=== PATIENT | female | born 1955 | race Caucasian/White ===

== ENCOUNTER 2016-12-21 07:30 | Inpatient (IN) | payer MEDICARE, OTHER ==
[2016-12-21] VITALS (14 sets, daily range): BP systolic 91–174; BP diastolic 51–95
[~2016-12-21] VITALS: Ht 160 cm; Wt 106.6 kg
[2016-12-21] MEDS ORDERED: ADENOSINE 6 MG/2 ML VIAL IV ONE ×2 (07:45→08:15)
[2016-12-21] MEDS ORDERED: DILTIAZEM 125 MG in IV DEXTROSE 5% 100 ML IV PRN (08:00)
[2016-12-21] MEDS ORDERED: DILTIAZEM IV PUSH 25 MG/5 ML VIAL. IVP ONE ×2 (08:00)
[2016-12-21] MEDS ORDERED: IV NORMAL SALINE 500ML BAG 500 ML IV ONE (08:00)
[2016-12-21] MEDS ORDERED: LORAZEPAM 2 MG/ML VIAL IV STA (08:08)
[2016-12-21 08:09] LABS: BASO # 0.2 x10^3/uL (0.0-0.2); BASO % 1 % (0-3); EOS % 2 % (0-3); HEMATOCRIT 50.6 % (36.0-47.0); HEMOGLOBIN 16.3 g/dL (12.0-15.5); LYMPH # 10.2 x10^3/uL (1.0-4.8); LYMPH % 48 % (24-48); MEAN CORPUSCULAR HEMOGLOBIN 28 pg (25-35); MEAN CORPUSCULAR HGB CONC 32 g/dL (31-37); MEAN CORPUSCULAR VOLUME 88 fL (79-100); MONO % 8 % (0-9); NEUT % 41 % (31-73); PLATELET COUNT 496 x10^3/uL (140-400); RED BLOOD COUNT 5.76 x10^6/uL (3.50-5.40); RED CELL DISTRIBUTION WIDTH 14.9 % (11.5-14.5); WHITE BLOOD COUNT 21.2 x10^3/uL (4.0-11.0)
[2016-12-21] MEDS ORDERED: LORAZEPAM 2 MG/ML VIAL IV ONE (08:15)
--- NOTE | 2016-12-21 08:16 | RAD ---
Indication: Hypoxia today, short of air. Technique: Upright portable chest radiograph was obtained. No comparison is available. Findings: The heart is not enlarged. The pulmonary vasculature is mildly cephalized. Abhijit B lines are noted. There is no blunting of costophrenic angles. Bony structures are intact. Leads overlie the patient. Impression: Findings suggesting mild vascular congestion and interstitial edema.
[2016-12-21] MEDS ORDERED: ONDANSETRON PF 4 MG/2 ML VIAL. IV PRN ×2 (08:30→10:15)
[2016-12-21] MEDS ORDERED: IV NORMAL SALINE 1000ML BAG 1,000 ML IV SCH (08:30)
[2016-12-21] MEDS ORDERED: FUROSEMIDE 40 MG TABLET PO ONE (08:30)
[2016-12-21] MEDS ORDERED: MORPHINE SULFATE 2 MG/ML DISP.SYRIN. IV PRN (08:30)
--- NOTE | 2016-12-21 08:32 | EKG ---
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
--- NOTE | 2016-12-21 08:33 | EKG ---
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
[2016-12-21 08:44] LABS: CALCIUM 9.5 mg/dL (8.5-10.1); GFR 56.2; POTASSIUM 3.6 mmol/L (3.5-5.1)
[2016-12-21 08:49] LABS: ALBUMIN 3.2 g/dL (3.4-5.0); DIRECT BILIRUBIN 0.1 mg/dL (0.0-0.2); TOTAL BILIRUBIN 0.3 mg/dL (0.2-1.0)
--- NOTE | 2016-12-21 08:51 | PHYS DOC ---
Past Medical History Past Medical History: Anxiety, CVA, Diabetes-Type II, Hypertension, Hypothyroid , Other Additional Past Medical Histor: YEAST INFECTION Past Surgical History: Tonsillectomy, Other Additional Past Surgical Histo: RODS AND PINS IN R ANKLE, TUMORS REMOVED FROM BENEATH EYES- BILAT Alcohol Use: None Drug Use: None Adult General Chief Complaint Chief Complaint: SHORTNESS OF BREATH HPI HPI 61-year-old female presenting to the emergency department today with shortness of breath. Paramedics arrived on the scene and the patient was hypoxic and tachycardic. They initiated an IV administered IV fluids and placed the patient on a facemask oxygenation which improved the patient's oxygenation. Twelve-lead was obtained in the field for which a code STEMI was called by paramedics. Upon arrival to the emergency department the patient remained hypoxic on facemask at 85%. The patient was placed on positive pressure ventilation initially by gentle bag valve masking and then subsequently by noninvasive positive pressure ventilation. Onset today. Location chest lungs. Duration intermittent. No alleviating factors. Review of systems is negative for cough fever chills nausea vomiting diaphoresis. All other review of systems is negative unless otherwise noted in history of present illness. Review of Systems Review of Systems SEE ABOVE. Current Medications Current Medications Current Medications Medications (Trade) Dose Ordered Sig/Madi Start Time Stop Time Status Last Admin Dose Admin Adenosine (Adenocard) 6 mg STK-MED ONCE 12/21/16 07:45 12/21/16 07:46 DC Diltiazem HCl (Cardizem) 20 mg 1X ONCE 12/21/16 08:00 12/21/16 08:04 DC 12/21/16 08:29 20 MG Diltiazem HCl 125 mg/Dextrose 125 ml @ 0 mls/hr CONT PRN 12/21/16 08:00 12/21/16 11:17 DC 12/21/16 08:29 5 MLS/HR Diltiazem HCl 15 mg 15 mg 1X ONCE 12/21/16 08:00 12/21/16 08:00 DC Lorazepam (Ativan) 1 mg 1X STAT 12/21/16 08:08 12/21/16 08:13 DC 12/21/16 07:31 1 MG Sodium Chloride (Iv Sodium Chloride 0.9% 500ml Bag) 500 ml @ 500 mls/hr 1X ONCE 12/21/16 08:00 12/21/16 08:59 DC 12/21/16 08:30 500 MLS/HR Allergies Allergies Allergies Coded Allergies Type Severity Reaction Last Updated Verified No Known Drug Allergies 10/15/13 No Physical Exam Physical Exam Constitutional: Generally the patient is very anxious in appearance. Moderately in respiratory distress. Her skin is warm and dry to touch. HENT: Normocephalic, atraumatic, bilateral external ears normal, oropharynx moist, no oral exudates, nose normal. Eyes: PERRLA, EOMI, conjunctiva normal, no discharge. Neck: Normal range of motion, no tenderness, supple, no stridor. [] Cardiovascular: Patient is tachycardic with a regular rhythm. No murmur. Lungs & Thorax: Patient has crackles bilaterally. No wheezing present. Abdomen: Bowel sounds normal, soft, no tenderness, no masses, no pulsatile masses. [] Skin: Warm, dry, no erythema, no rash. [] Back: No tenderness, no CVA tenderness. Extremities: No tenderness, no cyanosis, no clubbing, ROM intact, no edema is present Neurologic: Alert and oriented X 3, normal motor function, normal sensory function, no focal deficits noted. 5 out of 5 strength in all extremities. Symmetric facial smile. Psychologic: Affect normal, judgement normal, mood normal. Anxious. Current Patient Data Vital Signs Vital Signs Date Time Temp Pulse Resp B/P Pulse Ox O2 Delivery O2 Flow Rate FiO2 12/21/16 07:35 98 BiPAP/CPAP 12/21/16 07:30 98.1 137 34 220/124 98.1 Lab Values Laboratory Tests Test 12/21/16 07:38 White Blood Count 21.2x10^3/uL (4.0-11.0) H Red Blood Count 5.76x10^6/uL (3.50-5.40) H Hemoglobin 16.3g/dL (12.0-15.5) H Hematocrit 50.6% (36.0-47.0) H Mean Corpuscular Volume 88fL (79-100) Mean Corpuscular Hemoglobin 28pg (25-35) Mean Corpuscular Hemoglobin Concent 32g/dL (31-37) Red Cell Distribution Width 14.9% (11.5-14.5) H Platelet Count 496x10^3/uL (140-400) H Neutrophils (%) (Auto) 41% (31-73) Lymphocytes (%) (Auto) 48% (24-48) Monocytes (%) (Auto) 8% (0-9) Eosinophils (%) (Auto) 2% (0-3) Basophils (%) (Auto) 1% (0-3) Neutrophils # (Auto) 8.7x10^3uL (1.8-7.7) H Lymphocytes # (Auto) 10.2x10^3/uL (1.0-4.8) H Monocytes # (Auto) 1.6x10^3/uL (0.0-1.1) H Eosinophils # (Auto) 0.4x10^3/uL (0.0-0.7) Basophils # (Auto) 0.2x10^3/uL (0.0-0.2) Segmented Neutrophils % 37% (35-66) Lymphocytes % 51% (24-48) H Atypical Lymphocytes % (Manual) 1% (0-0) H Monocytes % 8% (0-10) Eosinophils % 2% (0-5) Basophils % 1% (0-3) Platelet Estimate Increased (ADEQUATE) Sodium Level 144mmol/L (136-145) Potassium Level 3.6mmol/L (3.5-5.1) Chloride Level 103mmol/L (98-107) Carbon Dioxide Level 25mmol/L (21-32) Anion Gap 16 (6-14) H Blood Urea Nitrogen 19mg/dL (7-20) Creatinine 1.0mg/dL (0.6-1.0) Estimated GFR (Cockcroft-Gault) 56.2 Glucose Level 285mg/dL (70-99) H Lactic Acid Level 4.8mmol/L (0.4-2.0) *H Calcium Level 9.5mg/dL (8.5-10.1) Total Bilirubin 0.3mg/dL (0.2-1.0) Direct Bilirubin 0.1mg/dL (0.0-0.2) Aspartate Amino Transferase (AST) 45U/L (15-37) H Alanine Aminotransferase (ALT) 33U/L (14-59) Alkaline Phosphatase 170U/L (46-116) H Troponin I Quantitative 0.022ng/mL (0.000-0.055) CL-Oaj-D-Type Natriuretic Peptide 2469pg/mL (0-124) H Total Protein 8.0g/dL (6.4-8.2) Albumin 3.2g/dL (3.4-5.0) L Triglycerides Level 361mg/dL (0-150) H Cholesterol Level 316mg/dL (0-200) H LDL Cholesterol, Calculated 202mg/dL (0-100) H VLDL Cholesterol, Calculated 72mg/dL (0-40) H HDL Cholesterol 42mg/dL (40-60) Cholesterol/HDL Ratio 7.5 Lipase 109U/L (73-393) Thyroid Stimulating Hormone (TSH) 3.839uIU/mL (0.358-3.74) H Laboratory Tests 12/21/16 07:38 Laboratory Tests 12/21/16 07:38 EKG EKG [] EKG at 7:30 in the morning shows atrial flutter with deep S waves and repolarization in lead V2 and V3. Also lead 1 and aVF show repolarization. Twelve-lead was obtained while the administration of adenosine was given 6 mg which shows the patient's conversion to sinus rhythm and reinitiation into a flutter. IV diltiazem bolus and drip were given and subsequent EKG performed at 06/06 shows sinus rhythm with a mildly tachycardic rate. Repolarization abnormality is less likely representing tachycardic ischemic demand. Radiology/Procedures Radiology/Procedures [] Course & Med Decision Making Course & Med Decision Making Pertinent Labs and Imaging studies reviewed. (See chart for details) [] 61-year-old female presenting to the emergency department with hypoxic tachycardic flutter with RVR. Initially the patient was hypertensive tachycardic and hypoxic. Patient was placed on positive pressure ventilation. This improved the patient's oxygenation. IV had been established by EMS. We continued to administer IV fluids. IV adenosine given which converted the patient however the patient reverted back to flutter with a rapid rate. IV diltiazem bolus and drip initiated which fully converted the patient to sinus tachycardia. Chest x-ray shows pulmonary edema likely secondary to tachycardia. Blood pressure came down with the administration of medications. CBC shows elevated white blood cell count. The patient was then admitted to our intensive care unit for further evaluation workup and care. Cardiology and pulmonology consulted. Dragon Disclaimer Dragon Disclaimer This electronic medical record was generated, in whole or in part, using a voice recognition dictation system. Departure Departure Impression: Primary Impression: Atrial flutter with rapid ventricular response Additional Impressions: Hypoxia Pulmonary edema Acute respiratory failure Disposition: ADMITTED INPATIENT Admitting Physician: Chepe Cross Condition: IMPROVED Referrals: VIN GONZALEZ MD (PCP) Critical Care Time Critical care time was 45 minutes exclusive of procedures. Time was spent evaluating the patient, ordering the administration of medications, titrating ventilation and oxygenation, is cussing with consulting providers, documenting, and discussing with the admitting provider. Cardioversion Indication: SVT with pulmonary edema, hypoxic Consent: The patient provided verbal consent for this procedure. This procedure was performed an emergent situation. Procedure: The patient was placed in the supine position and the chest area was exposed. The cardioversion pads were applied in the standard manner and configuration. These were available at the time of the procedure. The patient was administered 6 mg of adenosine once which cardioverted the patient however unfortunately the patient reverted back to atrial flutter with a rapid rate. The patient was then given diltiazem which cardioverted the patient. The patient tolerated the procedure well. Complications: none. Problem Qualifiers STACY MORTENSEN MD Dec 21, 2016 08:51
[2016-12-21 09:20] LABS: HCO3 ABG 21 mmol/L (21-28); PCO2 ABG 41 mmHg (35-46); PH ABG 7.32 (7.35-7.45); PO2 ABG 87 mmHg (65-108); SAT O2 ABG 96 % (92-99)
--- NOTE | 2016-12-21 09:33 | ACF ---
Admission Forms Criteria CARDIAC ARRHYTHMIA Clinical Indications for Inpatient Care (Place 'X' for any and all applicable criteria): Ongoing inpatient care for cardiac arrhythmia needed as indicated by ANY ONE of the following(1)(2)(3)(4)(7) : [X]I. Vital sign abnormality secondary to arrhythmia [ ]II. Patient has implantable cardioverter-defibrillator that has fired more than once within past 24 hours or needs immediate adjustment of settings that cannot be done other than in inpatient setting. [ ]III. Altered mental status [ ]IV. Resuscitated or aborted ventricular fibrillation or ventricular tachycardia in patient without implantable cardioverter- defibrillator [ ]V. Initiation of antiarrhythmic drug therapy is needed in patient at high risk of adverse effects as indicated by ANY ONE of the following: [ ]a) Significant structural heart disease (e.g., reduced ejection fraction, congenital heart disease, valvular heart disease) [ ]b) Prolonged QT interval [ ]c) Underlying sinus node or atrioventricular conduction disturbances [ ]d) Need for treatment with antiarrhythmic drugs that have significant proarrhythmic potential (e.g., dofetilide, sotalol, procainamide) [ ]. Acute myocardial ischemia as a consequence or suspected cause of arrhythmia [ ]VII. Syncope secondary to arrhythmia [ ]VIII. Heart failure (eg, pulmonary edema) secondary to arrhythmia) (26)(27) [ ]IX. Patient has implantable cardioverter defibrillator that has fired more than once within past 24hr or needs immediate adjustment of settings that cannot be done other than in inpatient setting.(8) [ ]X. Sustained (30 seconds or more of ventricular rhythm at more than 100 beats per minute) ventricular tachycardia and ANY ONE of the following: [ ]a) No previous known history of sustained ventricular tachycardia [ ]b) Structural heart disease (eg, reduced ejection fraction, hypertrophic cardiomyopathy, severe valvular disease) and without implantable cardioverter-defibrillator(24)(32)(33) [ ]c) Need for treatment of drug toxicity (eg, digitalis toxicity)(34 ) [ ]d) Need for electrical cardioversion Extended stay beyond goal length of stay may be needed for [ ]a) Hemodynamic stability [ ]b) Arrhythmia evaluation completed [ ]c) Reversible causes of arrhythmia eliminated or mitigated [ ]d) Specific antiarrhythmia treatment initiated as appropriate [ ]e) Anticoagulation requirements addressed (or anticoagulation not required). [ ]f) Medical comorbidities manageable at lower level of care The original [facility] content created by [facility] has been revised. The portions of the content which have been revised are identified through the use of italic text or in bold, and [facility] has neither reviewed nor approved the modified material. All other unmodified content is copyright [facility]. Please see references footnoted in the original [facility] edition 2016 Admission Criteria Met?: Yes PIERO DECKER Dec 21, 2016 09:33
--- NOTE | 2016-12-21 09:40 | PDOC ---
PULMONARY PROGRESS NOTES Vitals Vital Signs Date Time Temp Pulse Resp B/P Pulse Ox O2 Delivery O2 Flow Rate FiO2 12/21/16 09:15 99 BiPAP/CPAP 12/21/16 08:29 161/74 12/21/16 07:30 98.1 137 34 98.1 Labs Laboratory Tests Test 12/21/16 07:38 12/21/16 09:15 White Blood Count 21.2x10^3/uL (4.0-11.0) Red Blood Count 5.76x10^6/uL (3.50-5.40) Hemoglobin 16.3g/dL (12.0-15.5) Hematocrit 50.6% (36.0-47.0) Mean Corpuscular Volume 88fL (79-100) Mean Corpuscular Hemoglobin 28pg (25-35) Mean Corpuscular Hemoglobin Concent 32g/dL (31-37) Red Cell Distribution Width 14.9% (11.5-14.5) Platelet Count 496x10^3/uL (140-400) Neutrophils (%) (Auto) 41% (31-73) Lymphocytes (%) (Auto) 48% (24-48) Monocytes (%) (Auto) 8% (0-9) Eosinophils (%) (Auto) 2% (0-3) Basophils (%) (Auto) 1% (0-3) Neutrophils # (Auto) 8.7x10^3uL (1.8-7.7) Lymphocytes # (Auto) 10.2x10^3/uL (1.0-4.8) Monocytes # (Auto) 1.6x10^3/uL (0.0-1.1) Eosinophils # (Auto) 0.4x10^3/uL (0.0-0.7) Basophils # (Auto) 0.2x10^3/uL (0.0-0.2) Sodium Level 144mmol/L (136-145) Potassium Level 3.6mmol/L (3.5-5.1) Chloride Level 103mmol/L (98-107) Carbon Dioxide Level 25mmol/L (21-32) Anion Gap 16 (6-14) Blood Urea Nitrogen 19mg/dL (7-20) Creatinine 1.0mg/dL (0.6-1.0) Estimated GFR (Cockcroft-Gault) 56.2 Glucose Level 285mg/dL (70-99) Lactic Acid Level 4.8mmol/L (0.4-2.0) Calcium Level 9.5mg/dL (8.5-10.1) Total Bilirubin 0.3mg/dL (0.2-1.0) Direct Bilirubin 0.1mg/dL (0.0-0.2) Aspartate Amino Transf (AST/SGOT) 45U/L (15-37) Alanine Aminotransferase (ALT/SGPT) 33U/L (14-59) Alkaline Phosphatase 170U/L (46-116) Troponin I Quantitative 0.022ng/mL (0.000-0.055) PL-Onk-K-Type Natriuretic Peptide 2469pg/mL (0-124) Total Protein 8.0g/dL (6.4-8.2) Albumin 3.2g/dL (3.4-5.0) Lipase 109U/L (73-393) O2 Saturation 96% (92-99) Arterial Blood pH 7.32 (7.35-7.45) Arterial Blood pCO2 at Patient Temp 41mmHg (35-46) Arterial Blood pO2 at Patient Temp 87mmHg (65-108) Arterial Blood HCO3 21mmol/L (21-28) Arterial Blood Base Excess -5mmol/L (-3-3) FiO2 40.0 Laboratory Tests Test 12/21/16 07:38 12/21/16 09:15 White Blood Count 21.2x10^3/uL (4.0-11.0) Red Blood Count 5.76x10^6/uL (3.50-5.40) Hemoglobin 16.3g/dL (12.0-15.5) Hematocrit 50.6% (36.0-47.0) Mean Corpuscular Volume 88fL (79-100) Mean Corpuscular Hemoglobin 28pg (25-35) Mean Corpuscular Hemoglobin Concent 32g/dL (31-37) Red Cell Distribution Width 14.9% (11.5-14.5) Platelet Count 496x10^3/uL (140-400) Neutrophils (%) (Auto) 41% (31-73) Lymphocytes (%) (Auto) 48% (24-48) Monocytes (%) (Auto) 8% (0-9) Eosinophils (%) (Auto) 2% (0-3) Basophils (%) (Auto) 1% (0-3) Neutrophils # (Auto) 8.7x10^3uL (1.8-7.7) Lymphocytes # (Auto) 10.2x10^3/uL (1.0-4.8) Monocytes # (Auto) 1.6x10^3/uL (0.0-1.1) Eosinophils # (Auto) 0.4x10^3/uL (0.0-0.7) Basophils # (Auto) 0.2x10^3/uL (0.0-0.2) Sodium Level 144mmol/L (136-145) Potassium Level 3.6mmol/L (3.5-5.1) Chloride Level 103mmol/L (98-107) Carbon Dioxide Level 25mmol/L (21-32) Anion Gap 16 (6-14) Blood Urea Nitrogen 19mg/dL (7-20) Creatinine 1.0mg/dL (0.6-1.0) Estimated GFR (Cockcroft-Gault) 56.2 Glucose Level 285mg/dL (70-99) Lactic Acid Level 4.8mmol/L (0.4-2.0) Calcium Level 9.5mg/dL (8.5-10.1) Total Bilirubin 0.3mg/dL (0.2-1.0) Direct Bilirubin 0.1mg/dL (0.0-0.2) Aspartate Amino Transf (AST/SGOT) 45U/L (15-37) Alanine Aminotransferase (ALT/SGPT) 33U/L (14-59) Alkaline Phosphatase 170U/L (46-116) Troponin I Quantitative 0.022ng/mL (0.000-0.055) VD-Qci-O-Type Natriuretic Peptide 2469pg/mL (0-124) Total Protein 8.0g/dL (6.4-8.2) Albumin 3.2g/dL (3.4-5.0) Lipase 109U/L (73-393) O2 Saturation 96% (92-99) Arterial Blood pH 7.32 (7.35-7.45) Arterial Blood pCO2 at Patient Temp 41mmHg (35-46) Arterial Blood pO2 at Patient Temp 87mmHg (65-108) Arterial Blood HCO3 21mmol/L (21-28) Arterial Blood Base Excess -5mmol/L (-3-3) FiO2 40.0 Medications Active Scripts Medications Dose Route/Sig Days Date Category DULCE PRYOR MD Dec 21, 2016 09:40
--- NOTE | 2016-12-21 09:49 | PDOC2 ---
RONNI CALI COMPLIANCE COORDINATOR 12/21/16 0949: CARDIAC CONSULT DATE OF CONSULT Date of Consult DATE: 12/21/16 TIME: 09:46 REASON FOR CONSULT Reason for Consult: Tachycardia REFERRING PHYSICIAN Referring Physician: Dr. Jaramillo SOURCE Source: Chart review, Patient HISTORY OF PRESENT ILLNESS HISTORY OF PRESENT ILLNESS This is a 61 yo female who presented with complaints of shortness of breath. Patient reports she woke up this morning and took medications around 5am. Couldn 't get comfortable, was short of breath. Associated with palpitations, dizziness , diaphoresis, and nausea with one episode of vomiting. Denies any chest pain or pressure aside from the palpitations. No recent fevers. Reports redness of right foot upon awakening this morning. Also had nasal congestion and cough with productive of green sputum this morning. Normally wears 3LNC at HS for OAS. Placed oxygen on; no relief of symptoms. Shortness of breath worsened, called EMS. Upon arrival, EMS noted patient to be tachycardic and hypoxic. Tachycardic upon arrival to ED. Given adenosine 6mg- rhythm appears to be atrial flutter. Given Cardizem bolus followed by infusing, which converted patient to SR. Stared on BuSpar for treatment of anxiety; took first does this am- feels this is symptoms contributor. Follows with [facility]ology group. H/o PAD s/p SCENARIO WRITER/stenting of bilateral LE. Recent intervention of LLE. Reports compliance with medications. No recent cardiac workup including stress test, echo, or cardiac cath. PAST MEDICAL HISTORY Cardiovascular: CHF, HTN, Hyperlipidemia, Other (PVD s/p SCENARIO WRITER/stenting to bi LE) Pulmonary: COPD, Other (ADRIENNE 3LNC at HS) CENTRAL NERVOUS SYSTEM: CVA, Periperal neuropathy GI: GERD Heme/Onc: No pertinent hx Hepatobiliary: No pertinent hx Psych: Anxiety, Depression Musculoskeletal: Osteoarthritis Rheumatologic: No pertinent hx Infectious disease: No pertinent hx ENT: No pertinent hx Renal/: No pertinent hx Endocrine: Diabetes Dermatology: No pertinent hx PAST SURGICAL HISTORY Past Surgical History: Appendectomy, Hysterectomy, Other (left foot 2nd toe partial amputation, right ankle sx with medical hardware) FAMILY HISTORY Family History: Coronary Artery Disease, Hypertension, Stroke SOCIAL HISTORY Smoke: <1 pack per day ALCOHOL: none Drugs: None Lives: with Family CURRENT MEDICATIONS CURRENT MEDICATIONS Current Medications Medications (Trade) Dose Ordered Sig/Madi Route PRN Reason Start Time Stop Time Status Last Admin Dose Admin Diltiazem HCl 125 mg/Dextrose 125 ml @ 0 mls/hr CONT PRN IV SEE I/O RECORD 12/21/16 08:00 12/21/16 08:29 Sodium Chloride (Iv Sodium Chloride 0.9% 500ml Bag) 500 ml @ 500 mls/hr 1X ONCE IV 12/21/16 08:00 12/21/16 08:59 DC 12/21/16 08:30 Diltiazem HCl (Cardizem) 20 mg 1X ONCE IVP 12/21/16 08:00 12/21/16 08:04 DC 12/21/16 08:29 Lorazepam (Ativan) 1 mg 1X ONCE IV 12/21/16 08:15 12/21/16 08:16 DC 12/21/16 07:47 Lorazepam (Ativan) 1 mg 1X STAT IV 12/21/16 08:08 12/21/16 08:13 DC 12/21/16 07:31 Adenosine 6 mg 6 mg 1X ONCE IV 12/21/16 08:15 12/21/16 08:16 DC 12/21/16 07:54 Sodium Chloride (Iv Sodium Chloride 0.9% 1000ml Bag) 1,000 ml @ 100 mls/hr Q10H IV 12/21/16 08:30 12/22/16 08:29 12/21/16 08:31 Furosemide (Lasix) 40 mg 1X ONCE PO 12/21/16 08:30 12/21/16 08:31 DC 12/21/16 09:25 ALLERGIES ALLERGIES: Coded Allergies: No Known Drug Allergies (Unverified , 10/15/13) ROS Review of System 14 point ROS conducted with pertinent positives noted above in HPI. PHYSICAL EXAM General: Alert, Oriented X3, Cooperative, No acute distress HEENT: Atraumatic, Mucous membr. moist/pink Lungs: Other (diminished bases ) Heart: Regular rate, Normal S1, Normal S2, Other (distant heart tones) Abdomen: Soft, No tenderness Extremities: No edema, Other (LLE DP pulse 1+ with petechiae ) Skin: No breakdown, No significant lesion Neuro: Normal speech, Sensation intact, Other (RUE 4/5 strength) Psych/Mental Status: Mental status NL, Other (anxious ) MUSCULOSKELETAL: Osteoarthritic changes both hands VITALS VITALS Vital Signs Date Time Temp Pulse Resp B/P Pulse Ox O2 Delivery O2 Flow Rate FiO2 12/21/16 09:15 99 BiPAP/CPAP 12/21/16 08:29 161/74 12/21/16 07:30 98.1 137 34 98.1 LABS Lab: Laboratory Tests Test 12/21/16 07:38 12/21/16 09:15 White Blood Count 21.2x10^3/uL (4.0-11.0) Red Blood Count 5.76x10^6/uL (3.50-5.40) Hemoglobin 16.3g/dL (12.0-15.5) Hematocrit 50.6% (36.0-47.0) Mean Corpuscular Volume 88fL (79-100) Mean Corpuscular Hemoglobin 28pg (25-35) Mean Corpuscular Hemoglobin Concent 32g/dL (31-37) Red Cell Distribution Width 14.9% (11.5-14.5) Platelet Count 496x10^3/uL (140-400) Neutrophils (%) (Auto) 41% (31-73) Lymphocytes (%) (Auto) 48% (24-48) Monocytes (%) (Auto) 8% (0-9) Eosinophils (%) (Auto) 2% (0-3) Basophils (%) (Auto) 1% (0-3) Neutrophils # (Auto) 8.7x10^3uL (1.8-7.7) Lymphocytes # (Auto) 10.2x10^3/uL (1.0-4.8) Monocytes # (Auto) 1.6x10^3/uL (0.0-1.1) Eosinophils # (Auto) 0.4x10^3/uL (0.0-0.7) Basophils # (Auto) 0.2x10^3/uL (0.0-0.2) Sodium Level 144mmol/L (136-145) Potassium Level 3.6mmol/L (3.5-5.1) Chloride Level 103mmol/L (98-107) Carbon Dioxide Level 25mmol/L (21-32) Anion Gap 16 (6-14) Blood Urea Nitrogen 19mg/dL (7-20) Creatinine 1.0mg/dL (0.6-1.0) Estimated GFR (Cockcroft-Gault) 56.2 Glucose Level 285mg/dL (70-99) Lactic Acid Level 4.8mmol/L (0.4-2.0) Calcium Level 9.5mg/dL (8.5-10.1) Total Bilirubin 0.3mg/dL (0.2-1.0) Direct Bilirubin 0.1mg/dL (0.0-0.2) Aspartate Amino Transf (AST/SGOT) 45U/L (15-37) Alanine Aminotransferase (ALT/SGPT) 33U/L (14-59) Alkaline Phosphatase 170U/L (46-116) Troponin I Quantitative 0.022ng/mL (0.000-0.055) QT-Txf-C-Type Natriuretic Peptide 2469pg/mL (0-124) Total Protein 8.0g/dL (6.4-8.2) Albumin 3.2g/dL (3.4-5.0) Lipase 109U/L (73-393) O2 Saturation 96% (92-99) Arterial Blood pH 7.32 (7.35-7.45) Arterial Blood pCO2 at Patient Temp 41mmHg (35-46) Arterial Blood pO2 at Patient Temp 87mmHg (65-108) Arterial Blood HCO3 21mmol/L (21-28) Arterial Blood Base Excess -5mmol/L (-3-3) FiO2 40.0 ASSESSMENT/PLAN ASSESSMENT/PLAN 1. Tachyarrhythmia 2. Acute on chronic heart failure 3. Acute on chronic respiratory failure, multifactorial 4. Malignant hypertension 5. Leukocytosis with ? sepsis, POA 6. Diabetes 7. ADRIENNE 8. Anxiety Recommendations Obtain cardiac records from [facility] Check echo to assess LV function/ presence of WMA check TSH, lipids trend enzymes resume ASA, Plavix Assess need for further diuresis in am Maintaining SR; resume Metoprolol for rate control. Uptitrate as able. ASA for stroke prevention. Consider outpatient event monitor to assess arrhythmia burden/guide anticoagulation therapy. Given h/o PAD, increased risk for CAD; recommend further ischemic workup. MPI versus cardiac catheterization depending upon symptomatology and pending diagnostics. Will discuss with primary cardiology. Problems: SUNNY CHRISTIANSEN MD 12/21/168: CARDIAC CONSULT ALLERGIES ALLERGIES: Coded Allergies: No Known Drug Allergies (Unverified , 10/15/13) ASSESSMENT/PLAN ASSESSMENT/PLAN Patient seen and examined. Agree with above nurse practitioner note. 61-year-old woman with prior history of peripheral arterial disease presenting with hypertensive emergency, A. fib with RVR, acute on systolic heart failure and non-ST elevation myocardial infarction. On examination she has mild edema. She has lower extremity changes consistent with PAD. Labs notable for elevated troponin. Echocardiogram demonstrates mild LV systolic dysfunction with wall motion abnormalities. In light of her abnormalities would recommend cardiac catheterization after stabilization of her infectious issues. Will follow along closely. Thank you for this consultation. Problems: RONNI CALI APRN Dec 21, 2016 09:49 SUNNY CHRISTIANSEN MD Dec 21, 2016 19:08
[2016-12-21 10:12] LABS: % BASOS 1 % (0-3); % EOS 2 % (0-5)
[2016-12-21 10:13] LABS: PLT ESTIMATE INCREASED (ADEQUATE)
[2016-12-21] MEDS ORDERED: ACETAMINOPHEN 325 MG TABLET. PO PRN (10:15)
[2016-12-21] MEDS ORDERED: hydrALAZINE 20 MG/ML VIAL. IVP PRN (10:15)
[2016-12-21] MEDS ORDERED: ALBUTEROL SULFATE 2.5 MG/3 ML NEBU. NEB PRN (10:15)
--- NOTE | 2016-12-21 11:06 | PDOC1 ---
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) Pulmonary: COPD, Other (ADRIENNE 3LNC at HS) CENTRAL NERVOUS SYSTEM: CVA, Periperal neuropathy GI: GERD Heme/Onc: No pertinent hx Hepatobiliary: No pertinent hx Psych: Anxiety, Depression Rheumatologic: No pertinent hx Infectious disease: No pertinent hx ENT: No pertinent hx Renal/: No pertinent hx Endocrine: Diabetes Dermatology: No pertinent hx Past Surgical History Past Surgical History: Appendectomy, Hysterectomy, Other (left foot 2nd toe partial amputation, right ankle sx with medical hardware) Family History Family History: Coronary Artery Disease, Hypertension, Stroke Social History Smoke: <1 pack per day ALCOHOL: none Drugs: None Current Problem List Problem List Problems Medical Problems: (1) Acute respiratory failure Status: Acute (2) Atrial flutter with rapid ventricular response Status: Acute (3) Hypoxia Status: Acute (4) Pulmonary edema Status: Acute Current Medications Current Medications Current Medications Medications (Trade) Dose Ordered Sig/Madi Start Time Stop Time Status Last Admin Dose Admin Acetaminophen (Tylenol) 325 mg PRN Q6HRS PRN 12/21/16 10:15 Acetaminophen/ Hydrocodone Bitart (Lortab 5/325) 1 tab PRN Q6HRS PRN 12/21/16 10:15 Adenosine (Adenocard) 6 mg STK-MED ONCE 12/21/16 07:45 12/21/16 07:46 DC Adenosine 6 mg 6 mg 1X ONCE 12/21/16 08:15 12/21/16 08:16 DC 12/21/16 07:54 6 MG Albuterol Sulfate (Ventolin Neb Soln) 2.5 mg PRN Q4HRS PRN 12/21/16 10:15 Diltiazem HCl (Cardizem) 20 mg 1X ONCE 12/21/16 08:00 12/21/16 08:04 DC 12/21/16 08:29 20 MG Diltiazem HCl 125 mg/Dextrose 125 ml @ 0 mls/hr CONT PRN 12/21/16 08:00 12/21/16 08:29 5 MLS/HR Diltiazem HCl 15 mg 15 mg 1X ONCE 12/21/16 08:00 12/21/16 08:00 DC Furosemide (Lasix) 40 mg 1X ONCE 12/21/16 08:30 12/21/16 08:31 DC 12/21/16 09:25 40 MG Hydralazine HCl (Apresoline) 10 mg PRN Q4HRS PRN 12/21/16 10:15 Lorazepam (Ativan) 1 mg 1X STAT 12/21/16 08:08 12/21/16 08:13 DC 12/21/16 07:31 1 MG Morphine Sulfate 2 mg PRN Q2HR PRN 12/21/16 08:30 12/22/16 08:29 Ondansetron HCl (Zofran) 4 mg PRN Q8HRS PRN 12/21/16 10:15 Sodium Chloride (Iv Sodium Chloride 0.9% 500ml Bag) 500 ml @ 500 mls/hr 1X ONCE 12/21/16 08:00 12/21/16 08:59 DC 12/21/16 08:30 500 MLS/HR Sodium Chloride (Iv Sodium Chloride 0.9% 1000ml Bag) 1,000 ml @ 100 mls/hr Q10H 12/21/16 08:30 12/22/16 08:29 12/21/16 08:31 100 MLS/HR Allergies Allergies Allergies Coded Allergies Type Severity Reaction Last Updated Verified No Known Drug Allergies 10/15/13 No ROS Review of System CONSTITUTIONAL: No fever or chills EYES: No recent changes SKIN: No rash or itching CARDIOVASCULAR: No chest pain, syncope, palpitations, or edema RESPIRATORY: SOB GASTROINTESTINAL: No nausea, vomiting or abdominal pain NEUROLOGICAL: No headaches or weakness ENDOCRINE: No cold or heat intolerance GENITOURINARY: No urgency or frequency of urination MUSCULOSKELETAL: No back pain or joint pain LYMPHATICS: No enlarged lymph nodes PSYCHIATRIC: No anxiety or depression Physical Exam Physical Exam GEN.: No apparent distress. Alert and oriented. HEENT: Head is normocephalic, atraumatic NECK: Supple. no jvd LUNGS: basal rales, HEART: RRR, S1, S2 present. Peripheral pulses intact ABDOMEN: Soft, nontender. Positive bowel sounds. EXTREMITIES: Without any cyanosis. LLE erythema NEUROLOGIC: Normal speech, normal tone PSYCHIATRIC: Normal affect, normal mood. SKIN: No visible ulcerations Vitals Vitals Vital Signs Date Time Temp Pulse Resp B/P Pulse Ox O2 Delivery O2 Flow Rate FiO2 12/21/16 10:53 98 Nasal Cannula 4.0 12/21/16 09:35 98.1 69 18 108/64 98.1 Labs Labs Laboratory Tests Test 12/21/16 07:38 12/21/16 09:15 12/21/16 09:55 White Blood Count 21.2x10^3/uL (4.0-11.0) Red Blood Count 5.76x10^6/uL (3.50-5.40) Hemoglobin 16.3g/dL (12.0-15.5) Hematocrit 50.6% (36.0-47.0) Mean Corpuscular Volume 88fL (79-100) Mean Corpuscular Hemoglobin 28pg (25-35) Mean Corpuscular Hemoglobin Concent 32g/dL (31-37) Red Cell Distribution Width 14.9% (11.5-14.5) Platelet Count 496x10^3/uL (140-400) Neutrophils (%) (Auto) 41% (31-73) Lymphocytes (%) (Auto) 48% (24-48) Monocytes (%) (Auto) 8% (0-9) Eosinophils (%) (Auto) 2% (0-3) Basophils (%) (Auto) 1% (0-3) Neutrophils # (Auto) 8.7x10^3uL (1.8-7.7) Lymphocytes # (Auto) 10.2x10^3/uL (1.0-4.8) Monocytes # (Auto) 1.6x10^3/uL (0.0-1.1) Eosinophils # (Auto) 0.4x10^3/uL (0.0-0.7) Basophils # (Auto) 0.2x10^3/uL (0.0-0.2) Segmented Neutrophils % 37% (35-66) Lymphocytes % 51% (24-48) Atypical Lymphocytes % (Manual) 1% (0-0) Monocytes % 8% (0-10) Eosinophils % 2% (0-5) Basophils % 1% (0-3) Platelet Estimate Increased (ADEQUATE) Sodium Level 144mmol/L (136-145) Potassium Level 3.6mmol/L (3.5-5.1) Chloride Level 103mmol/L (98-107) Carbon Dioxide Level 25mmol/L (21-32) Anion Gap 16 (6-14) Blood Urea Nitrogen 19mg/dL (7-20) Creatinine 1.0mg/dL (0.6-1.0) Estimated GFR (Cockcroft-Gault) 56.2 Glucose Level 285mg/dL (70-99) Lactic Acid Level 4.8mmol/L (0.4-2.0) 3.2mmol/L (0.4-2.0) Calcium Level 9.5mg/dL (8.5-10.1) Total Bilirubin 0.3mg/dL (0.2-1.0) Direct Bilirubin 0.1mg/dL (0.0-0.2) Aspartate Amino Transf (AST/SGOT) 45U/L (15-37) Alanine Aminotransferase (ALT/SGPT) 33U/L (14-59) Alkaline Phosphatase 170U/L (46-116) Troponin I Quantitative 0.022ng/mL (0.000-0.055) UT-Pxm-U-Type Natriuretic Peptide 2469pg/mL (0-124) Total Protein 8.0g/dL (6.4-8.2) Albumin 3.2g/dL (3.4-5.0) Lipase 109U/L (73-393) O2 Saturation 96% (92-99) Arterial Blood pH 7.32 (7.35-7.45) Arterial Blood pCO2 at Patient Temp 41mmHg (35-46) Arterial Blood pO2 at Patient Temp 87mmHg (65-108) Arterial Blood HCO3 21mmol/L (21-28) Arterial Blood Base Excess -5mmol/L (-3-3) FiO2 40.0 Laboratory Tests Test 12/21/16 07:38 12/21/16 09:15 12/21/16 09:55 White Blood Count 21.2x10^3/uL (4.0-11.0) Red Blood Count 5.76x10^6/uL (3.50-5.40) Hemoglobin 16.3g/dL (12.0-15.5) Hematocrit 50.6% (36.0-47.0) Mean Corpuscular Volume 88fL (79-100) Mean Corpuscular Hemoglobin 28pg (25-35) Mean Corpuscular Hemoglobin Concent 32g/dL (31-37) Red Cell Distribution Width 14.9% (11.5-14.5) Platelet Count 496x10^3/uL (140-400) Neutrophils (%) (Auto) 41% (31-73) Lymphocytes (%) (Auto) 48% (24-48) Monocytes (%) (Auto) 8% (0-9) Eosinophils (%) (Auto) 2% (0-3) Basophils (%) (Auto) 1% (0-3) Neutrophils # (Auto) 8.7x10^3uL (1.8-7.7) Lymphocytes # (Auto) 10.2x10^3/uL (1.0-4.8) Monocytes # (Auto) 1.6x10^3/uL (0.0-1.1) Eosinophils # (Auto) 0.4x10^3/uL (0.0-0.7) Basophils # (Auto) 0.2x10^3/uL (0.0-0.2) Segmented Neutrophils % 37% (35-66) Lymphocytes % 51% (24-48) Atypical Lymphocytes % (Manual) 1% (0-0) Monocytes % 8% (0-10) Eosinophils % 2% (0-5) Basophils % 1% (0-3) Platelet Estimate Increased (ADEQUATE) Sodium Level 144mmol/L (136-145) Potassium Level 3.6mmol/L (3.5-5.1) Chloride Level 103mmol/L (98-107) Carbon Dioxide Level 25mmol/L (21-32) Anion Gap 16 (6-14) Blood Urea Nitrogen 19mg/dL (7-20) Creatinine 1.0mg/dL (0.6-1.0) Estimated GFR (Cockcroft-Gault) 56.2 Glucose Level 285mg/dL (70-99) Lactic Acid Level 4.8mmol/L (0.4-2.0) 3.2mmol/L (0.4-2.0) Calcium Level 9.5mg/dL (8.5-10.1) Total Bilirubin 0.3mg/dL (0.2-1.0) Direct Bilirubin 0.1mg/dL (0.0-0.2) Aspartate Amino Transf (AST/SGOT) 45U/L (15-37) Alanine Aminotransferase (ALT/SGPT) 33U/L (14-59) Alkaline Phosphatase 170U/L (46-116) Troponin I Quantitative 0.022ng/mL (0.000-0.055) NX-Rna-H-Type Natriuretic Peptide 2469pg/mL (0-124) Total Protein 8.0g/dL (6.4-8.2) Albumin 3.2g/dL (3.4-5.0) Lipase 109U/L (73-393) O2 Saturation 96% (92-99) Arterial Blood pH 7.32 (7.35-7.45) Arterial Blood pCO2 at Patient Temp 41mmHg (35-46) Arterial Blood pO2 at Patient Temp 87mmHg (65-108) Arterial Blood HCO3 21mmol/L (21-28) Arterial Blood Base Excess -5mmol/L (-3-3) FiO2 40.0 VTE Prophylaxis Ordered VTE Prophylaxis Devices: Yes VTE Pharmacological Prophylaxi: Yes NOLVIA LARES MD Dec 21, 2016 11:06
[2016-12-21] MEDS ORDERED: ASPI-482 PO (11:17)
[2016-12-21] MEDS ORDERED: ATORVASTATIN CA80 MG PO (11:17)
[2016-12-21] MEDS ORDERED: INSU100V13 SQ ×2 (11:20)
[2016-12-21] MEDS ORDERED: CLOP75TA PO (11:20)
[2016-12-21] MEDS ORDERED: GABA800T2 PO (11:20)
[2016-12-21 11:28] LABS: CHOLESTEROL/HDL RATIO 7.5
[2016-12-21] MEDS ORDERED: RANI150T2 PO (11:28)
[2016-12-21] MEDS ORDERED: ZOLP10TA4 PO (11:28)
[2016-12-21] MEDS ORDERED: MORP60TA37 PO (11:30)
[2016-12-21] MEDS ORDERED: NORT25CA PO (11:30)
[2016-12-21] MEDS ORDERED: VANCOMYCIN 2 GM in IV NORMAL SALINE 500ML BAG 500 ML IV ONE (11:30)
[2016-12-21] MEDS ORDERED: METO25TA4 PO (11:32)
[2016-12-21] MEDS ORDERED: LEVO175T5 PO (11:32)
[2016-12-21] MEDS ORDERED: NYST30PO9 TP (11:36)
[2016-12-21] MEDS ORDERED: INSU100C SQ (11:36)
[2016-12-21] MEDS ORDERED: ALPR0.5T6 PO (11:36)
[2016-12-21] MEDS ORDERED: INSU100I13 SQ (11:41)
[2016-12-21] MEDS: ASPIRIN ENTERIC COATED 81 MG TABLET.DR. PO SCH (12:00)
[2016-12-21] MEDS ORDERED: METOPROLOL TART IMMED RELEASE 25 MG TABLET PO SCH ×2 (12:00→15:00)
--- NOTE | 2016-12-21 13:46 | CARD ---
APPROVED REPORT EXAM: Two-dimensional and M-mode echocardiogram with Doppler and color Doppler. Other Information Quality : Good INDICATION Congestive Heart Failure 2D DIMENSIONS RVDd2.4 (2.9-3.5cm)Left Atrium(2D)4.9 (1.6-4.0cm) IVSd1.2 (0.7-1.1cm)Aortic Root(2D)2.6 (2.0-3.7cm) LVDd4.6 (3.9-5.9cm)LVOT Diameter2.0 (1.8-2.4cm) PWd1.2 (0.7-1.1cm)LVDs3.6 (2.5-4.0cm) FS (%) 21.2 %SV41.1 ml LVEF(%)43.1 (>50%) Aortic Valve AoV Peak Joseluis.101.7cm/sAoV VTI22.0cm AO Peak GR.4.1mmHgLVOT VTI 15.92cm AO Mean GR.3mmHgAVA (VTI)2.20cm2 Mitral Valve MV E Nowtcclx75.6cm/sMV DECEL [id number] MV A Ekcvskya68.4cm/sE/A Ratio1.2 TDI Lateral E' P. V5.02cm/sMedial E' P. V5.02cm/s E/Lateral E'19.4E/Medial E'19.4 Tricuspid Valve TR P. Lsabuboh570fn/sRAP [id number] TR Peak Gr.12dsFvCRXD69lrZd Pulmonary Vein S1 Hyippkow52.0cm/sS2 Apeodjxa73.04cm/s D2 Czaioztd79.0cm/sPVa [id number] LEFT VENTRICLE The left ventricle is normal size. There is mild concentric left ventricular hypertrophy. Left ventri jeb systolic function is mildly impaired. The Ejection Fraction is 40-45%. There is subtle basal to m id anterior wall hypokinesis. Otherwise, mild global hypokinesis. Tissue Doppler imaging reveals mode rate left ventricular diastolic dysfunction. RIGHT VENTRICLE The right ventricle is normal size. The right ventricular systolic function is normal. ATRIA The left atrium is mildly dilated. The right atrium size is normal. The interatrial septum is intact with no evidence for an atrial septal defect or patent foramen ovale as noted on 2-D or Doppler imagi ng. AORTIC VALVE The aortic valve is mildly thickened but opens well. Doppler and Color Flow revealed no significant a ortic regurgitation. There is no significant aortic valvular stenosis. MITRAL VALVE The mitral valve is calcified but opens well. There is no evidence of mitral valve prolapse. There is no mitral valve stenosis. Doppler and Color-flow revealed trace mitral regurgitation. TRICUSPID VALVE The tricuspid valve is normal in structure and function. Doppler and Color Flow revealed mild tricusp id regurgitation. The PA pressure was estimated at 34 mmHg. There is no tricuspid valve stenosis. PULMONIC VALVE Doppler and Color Flow revealed trace pulmonic valvular regurgitation. There is no pulmonic valvular stenosis. GREAT VESSELS The aortic root is normal in size. The ascending aorta is normal in size. The IVC is normal in size a nd collapses >50% with inspiration. PERICARDIAL EFFUSION There is no evidence of significant pericardial effusion. Critical Notification Critical Value: No <Conclusion> Left ventricle systolic function is mildly impaired. The Ejection Fraction is 40-45%. There is subtle basal to mid anterior wall hypokinesis. Otherwise, mild global hypokinesis. Tissue Doppler imaging reveals moderate left ventricular diastolic dysfunction.
[2016-12-21] MEDS ORDERED: DEXTROSE 50% 25 GM / 50ML DISP.SYRIN. IV PRN (14:00)
[2016-12-21 14:16] LABS: BILIRUBIN,URINE NEGATIVE (NEG); GLUCOSE,URINE NEGATIVE (NEG); NITRITE,URINE NEGATIVE (NEG); PH,URINE 5.5; PROTEIN,URINE 30 mg/dL (NEG-TRACE); UROBILINOGEN,URINE 0.2 mg/dL (0.2 mg/dL)
[2016-12-21] MEDS ORDERED: METOPROLOL TART IMMED RELEASE 25 MG TABLET PO ONE (14:45)
[2016-12-21] MEDS ORDERED: ZOLPIDEM TARTRATE 5 MG PO PRN (14:45)
[2016-12-21 14:58] LABS: BACTERIA,URINE 0 /HPF (0-FEW); RBC,URINE OCC /HPF (0-2); SQUAMOUS EPITHELIAL CELL,UR FEW /LPF; WBC,URINE OCC /HPF (0-4)
[2016-12-21] MEDS ORDERED: CLOPIDOGREL BISULFATE 75 MG TABLET PO SCH (15:00)
[2016-12-21] MEDS ORDERED: MORPHINE ER 30 MG TABLET.ER PO SCH (15:00)
[2016-12-21] MEDS: LEVOTHYROXINE 175 MCG TABLET PO SCH (15:00)
[2016-12-21] MEDS ORDERED: ASPIRIN ENTERIC COATED 81 MG TABLET.DR. PO SCH (15:00)
[2016-12-21] MEDS: ALPRAZOLAM 0.5 MG TABLET PO SCH ×2 (15:28→20:57)
[2016-12-21] MEDS: GABAPENTIN 400 MG CAPSULE. PO SCH ×2 (15:29→20:56)
[2016-12-21] MEDS: FAMOTIDINE 20 MG TABLET. PO SCH ×2 (15:29→20:56)
[2016-12-21] MEDS: VANCOMYCIN PER PHARMACY MC PRN (15:41)
[2016-12-21] MEDS: HEPARIN for IV BOLUS 10,000 UNIT/10 ML VIAL. IV PRN (17:34)
[2016-12-21] MEDS: HEPARIN 25,000UTS/500ML PREMIX 500 ML IV PRN (17:35)
[2016-12-21] MEDS: INSULIN ASPART 300 UNITS/3 ML INSULN.PEN SQ SCH (17:36)
[2016-12-21] MEDS: METOPROLOL TART IMMED RELEASE 50 MG TABLET PO SCH (20:56)
[2016-12-21] MEDS: ATORVASTATIN CALCIUM 40 MG TABLET. PO SCH (20:57)
[2016-12-21] MEDS: NORTRIPTYLINE 25 MG CAPSULE PO SCH (20:57)
[2016-12-21] MEDS: NYSTATIN TOPICAL POWDER 15GM BOTTLE. TP SCH (20:57)
[2016-12-21] MEDS ORDERED: NON FORMULARY ITEM (Insulin Glargine,Hum.rec.anlog (Lantus Solostar) 50 UNIT) SQ SCH (21:00)
[2016-12-21] MEDS: INSULIN DETEMIR 300 UNITS/3 ML INSULN.PEN. SQ SCH (21:18)
[2016-12-22] VITALS (11 sets, daily range): BP systolic 118–197; BP diastolic 56–102
[2016-12-22] MEDS: HEPARIN for IV BOLUS 10,000 UNIT/10 ML VIAL. IV PRN (00:01)
--- NOTE | 2016-12-22 00:20 | HP ---
ADMIT DATE: 12/21/2016 CHIEF COMPLAINT: Shortness of breath. HISTORY OF PRESENT ILLNESS: A 61-year-old female with several comorbid conditions such as peripheral artery disease, hypertension, COPD, chronic respiratory failure, and depression presents to the ER with complaints of acute shortness of breath started early this morning. The patient woke this morning and took her medications after a while she noted to have increased shortness of breath and palpitations. She usually takes 3 to 4 liters of oxygen; however, oxygen did not relieve any of her symptoms. The patient denies any orthopnea or PND; however, tachycardia is significant which made her to come to the ER. At the time of arrival, the patient with questionable aflutter and she received some adenosine and symptoms did not improve and later she was ____. At the time of examination, the patient's symptoms are already improving. Currently, resting comfortably in the Critical Care Unit. PAST MEDICAL HISTORY AND REVIEW OF SYSTEMS: Please see my electronic H and P. LABORATORY FINDINGS: WBC 21.2, hemoglobin is ____, MCV is 88, platelet 496, and neutrophils 8.7. Chemistry: Sodium 144, potassium 3.6, chloride is 103, carbon dioxide 25, ____, glucose is 385, lactic acid 4.8, and alkaline phosphate is 117. Triglycerides 361, cholesterol 316, LDL 202, ____ 0.22. ProBNP 2469. Urine, clarity clear, pH is 5.5, gravity is 1.010, glucose negative, ketone negative, nitrites negatives and leuk esterase negative. IMAGING STUDIES: Chest x-ray showed vascular congestion. ASSESSMENT AND PLAN: 1. Acute shortness of breath, multifactorial, likely due to tachycardia and acute on chronic heart failure. 2. Acute on chronic hypoxia, respiratory failure. 3. Uncontrolled hypertension present on admission. 4. Leukocytosis, unclear etiology. Suspected due to left lower extremity cellulitis. 5. Diabetes. 6. Obesity. 7. Anxiety. 8. Depression. PLAN: 1. The patient has been placed on Critical Care Unit. Currently, she is on Cardizem gtt, OrderedIV Lasix times 1. Cardiology has been following the patient. 2. Home medications will be reconsulted. We will continue home dose of Levemir with sliding scale. 3. Vancomycin has been dosed for suspected cellulitis. Monitor WBC. The patient did not take any steroids prior to arrival. 4. Supplemental oxygen. 5. Pulmonology has been following. 6. Monitor hemoglobin closely. 7. prn Xanax 8. Prognosis is guarded. NOLVIA LARES MD DR: LISETTE/suly JOB#: [id number] / [id number] TORI
[2016-12-22] MEDS: VANCOMYCIN 1.5 GM in IV NORMAL SALINE 500ML BAG 500 ML IV SCH ×2 (00:33→14:01)
--- NOTE | 2016-12-22 00:54 | CONS ---
DATE OF CONSULTATION: 12/21/2016 ATTENDING PHYSICIAN: Dr. Cross. REASON FOR CONSULTATION: The patient is seen in pulmonary consultation at the request of Dr. Cross for acute respiratory failure. HISTORY OF PRESENT ILLNESS: The patient is a 61-year-old female with a history of nocturnal hypoxemia, questionable obstructive sleep apnea, normally wears 3 liters at bedtime. She has never had a formal sleep study. She presented with complaints of shortness of breath, acute onset. She worked up in the morning, felt uncomfortable, mostly shortness of breath associated with palpitation, dizziness, nausea, and diaphoresis. She had one episode of emesis. Denied any chest pain or pressure. No fever, chills. The patient has underlying history of tobacco use. No recent acute exacerbation of COPD. She continues to smoke. She has not had recurrent bouts of bronchitis or hospitalizations for COPD. She normally wears 3 liters of oxygen at home for obstructive sleep apnea. Apparently, she has never had formal sleep study. She presented to the Emergency Room, was given adenosine for rhythm appeared to be atrial flutter. She was then started on IV Cardizem. She is now in normal sinus rhythm. PAST MEDICAL HISTORY: Peripheral arterial disease status post stenting, bilateral lower extremities. CHF, hypertension, COPD, nocturnal hypoxemia, questionable obstructive sleep apnea, CVA with peripheral neuropathy, gastroesophageal reflux, depression. PAST SURGICAL HISTORY: Status post appendectomy, hysterectomy. FAMILY HISTORY: Coronary artery disease, hypertension, and stroke. SOCIAL HISTORY: She smokes less than 1 pack of cigarettes a day. No alcohol. CURRENT MEDICATIONS: List was reviewed. Please see the MRAD. REVIEW OF SYSTEMS: As indicated above, otherwise, a 10-point system was reviewed and negative. PHYSICAL EXAMINATION: GENERAL: The patient was offered BiPAP. VITAL SIGNS: She was utilizing 2 L of oxygen supplementation, saturation greater than 90%. HEENT: Eyes, the sclerae were nonicteric. NECK: Jugular venous distention was not elevated. No lymphadenopathy. CHEST: Full expansion. LUNGS: Crackles in the bases. No wheezes. CARDIOVASCULAR: Regular rate and rhythm with S1, S2, no S3. ABDOMEN: Soft, obese. EXTREMITIES: No clubbing, cyanosis. Minimal edema. NEUROLOGIC: The patient was awake, alert, following commands. A detailed neuro exam was not performed. LABORATORY DATA: White count was elevated. Hemoglobin and hematocrit were elevated. Arterial blood gas on 40%, pH of 7.32, of 41, pO2 of 87. Lactic acid level was increased. Cholesterol was increased. BNP was increased. Chest x-ray revealed some vascular congestion. IMPRESSION: 1. Acute respiratory failure secondary to acute diastolic heart failure. 2. Acute and systolic heart failure. Echocardiogram revealed ejection fraction 40-45%. 3. New onset tachycardia, possibly atrial flutter. 4. Peripheral vascular disease. 5. Tobacco dependence. 6. Chronic obstructive pulmonary disease with no clinical presentation compatible with acute exacerbation. 7. Tachyarrhythmia. 8. Diabetes. 9. Nocturnal hypoxemia, suspect obstructive sleep apnea. PLAN: 1. No need for antibiotics or steroids. 2. Continue IV Cardizem. 3. Outpatient polysomnogram. 4. A 6-minute walk prior to discharge. 5. Diurese. 6. Repeat chest x-ray. 7. The patient instructed on the importance of discontinuing her tobacco use. DULCE PRYOR MD DR: TANI/suly JOB#: [id number] / [id number]
[2016-12-22] MEDS: LEVOTHYROXINE 175 MCG TABLET PO SCH (06:07)
[2016-12-22 06:53] LABS: CALCIUM 8.8 mg/dL (8.5-10.1); CREATININE 0.9 mg/dL (0.6-1.0); GFR 63.4; POTASSIUM 4.1 mmol/L (3.5-5.1)
[2016-12-22 07:04] LABS: BASO # 0.2 x10^3/uL (0.0-0.2); BASO % 1 % (0-3); EOS % 3 % (0-3); HEMATOCRIT 38.6 % (36.0-47.0); HEMOGLOBIN 12.6 g/dL (12.0-15.5); LYMPH # 3.7 x10^3/uL (1.0-4.8); LYMPH % 31 % (24-48); MEAN CORPUSCULAR HEMOGLOBIN 28 pg (25-35); MEAN CORPUSCULAR HGB CONC 33 g/dL (31-37); MEAN CORPUSCULAR VOLUME 87 fL (79-100); MONO % 9 % (0-9); NEUT % 56 % (31-73); PLATELET COUNT 306 x10^3/uL (140-400); RED BLOOD COUNT 4.45 x10^6/uL (3.50-5.40); RED CELL DISTRIBUTION WIDTH 14.7 % (11.5-14.5); WHITE BLOOD COUNT 11.9 x10^3/uL (4.0-11.0)
[2016-12-22] MEDS: FAMOTIDINE 20 MG TABLET. PO SCH ×2 (08:14→20:58)
[2016-12-22] MEDS: CLOPIDOGREL BISULFATE 75 MG TABLET PO SCH (08:14)
[2016-12-22] MEDS: METOPROLOL TART IMMED RELEASE 50 MG TABLET PO SCH ×2 (08:15→20:58)
[2016-12-22] MEDS: GABAPENTIN 400 MG CAPSULE. PO SCH ×3 (08:15→20:57)
[2016-12-22] MEDS: ALPRAZOLAM 0.5 MG TABLET PO SCH ×3 (08:21→20:57)
[2016-12-22] MEDS: MORPHINE ER 15 MG TABLET.ER PO SCH ×2 (08:21→15:33)
[2016-12-22] MEDS: ASPIRIN ENTERIC COATED 81 MG TABLET.DR. PO SCH (08:21)
[2016-12-22] MEDS: INSULIN ASPART 300 UNITS/3 ML INSULN.PEN SQ SCH ×3 (08:26→17:41)
[2016-12-22] MEDS: INSULIN DETEMIR 300 UNITS/3 ML INSULN.PEN. SQ SCH ×2 (08:27→21:34)
[2016-12-22] MEDS: VANCOMYCIN PER PHARMACY MC PRN ×3 (08:45→23:55)
[2016-12-22] MEDS: ANTI-COAG MONITOR BY PHARMACY. MC PRN (08:56)
[2016-12-22] MEDS: HEPARIN 25,000UTS/500ML PREMIX 500 ML IV PRN (10:02)
--- NOTE | 2016-12-22 10:54 | PDOC ---
PULMONARY PROGRESS NOTES Subjective pt less soa Vitals Vital Signs Date Time Temp Pulse Resp B/P Pulse Ox O2 Delivery O2 Flow Rate FiO2 12/22/16 08:15 70 185/92 12/22/16 08:00 Nasal Cannula 3.0 12/22/16 06:00 21 99 12/22/16 04:00 98.3 98.3 ROS: No Nausea, No Chest Pain, No Abdominal Pain, No Increase Cough Lungs: Clear Cardiovascular: S1, S2 Abdomen: Soft Neuro Exam: Alert Extremities: No Edema Skin: Warm Labs Laboratory Tests Test 12/21/16 07:38 12/21/16 09:15 12/21/16 09:55 12/21/16 11:00 White Blood Count 21.2x10^3/uL (4.0-11.0) Red Blood Count 5.76x10^6/uL (3.50-5.40) Hemoglobin 16.3g/dL (12.0-15.5) Hematocrit 50.6% (36.0-47.0) Mean Corpuscular Volume 88fL (79-100) Mean Corpuscular Hemoglobin 28pg (25-35) Mean Corpuscular Hemoglobin Concent 32g/dL (31-37) Red Cell Distribution Width 14.9% (11.5-14.5) Platelet Count 496x10^3/uL (140-400) Neutrophils (%) (Auto) 41% (31-73) Lymphocytes (%) (Auto) 48% (24-48) Monocytes (%) (Auto) 8% (0-9) Eosinophils (%) (Auto) 2% (0-3) Basophils (%) (Auto) 1% (0-3) Neutrophils # (Auto) 8.7x10^3uL (1.8-7.7) Lymphocytes # (Auto) 10.2x10^3/uL (1.0-4.8) Monocytes # (Auto) 1.6x10^3/uL (0.0-1.1) Eosinophils # (Auto) 0.4x10^3/uL (0.0-0.7) Basophils # (Auto) 0.2x10^3/uL (0.0-0.2) Segmented Neutrophils % 37% (35-66) Lymphocytes % 51% (24-48) Atypical Lymphocytes % (Manual) 1% (0-0) Monocytes % 8% (0-10) Eosinophils % 2% (0-5) Basophils % 1% (0-3) Platelet Estimate Increased (ADEQUATE) Sodium Level 144mmol/L (136-145) Potassium Level 3.6mmol/L (3.5-5.1) Chloride Level 103mmol/L (98-107) Carbon Dioxide Level 25mmol/L (21-32) Anion Gap 16 (6-14) Blood Urea Nitrogen 19mg/dL (7-20) Creatinine 1.0mg/dL (0.6-1.0) Estimated GFR (Cockcroft-Gault) 56.2 Glucose Level 285mg/dL (70-99) Lactic Acid Level 4.8mmol/L (0.4-2.0) 3.2mmol/L (0.4-2.0) Calcium Level 9.5mg/dL (8.5-10.1) Total Bilirubin 0.3mg/dL (0.2-1.0) Direct Bilirubin 0.1mg/dL (0.0-0.2) Aspartate Amino Transf (AST/SGOT) 45U/L (15-37) Alanine Aminotransferase (ALT/SGPT) 33U/L (14-59) Alkaline Phosphatase 170U/L (46-116) Troponin I Quantitative 0.022ng/mL (0.000-0.055) [id number]-Type Natriuretic Peptide 2469pg/mL (0-124) Total Protein 8.0g/dL (6.4-8.2) Albumin 3.2g/dL (3.4-5.0) Triglycerides Level 361mg/dL (0-150) Cholesterol Level 316mg/dL (0-200) LDL Cholesterol, Calculated 202mg/dL (0-100) VLDL Cholesterol, Calculated 72mg/dL (0-40) HDL Cholesterol 42mg/dL (40-60) Cholesterol/HDL Ratio 7.5 Lipase 109U/L (73-393) Thyroid Stimulating Hormone (TSH) 3.839uIU/mL (0.358-3.74) O2 Saturation 96% (92-99) Arterial Blood pH 7.32 (7.35-7.45) Arterial Blood pCO2 at Patient Temp 41mmHg (35-46) Arterial Blood pO2 at Patient Temp 87mmHg (65-108) Arterial Blood HCO3 21mmol/L (21-28) Arterial Blood Base Excess -5mmol/L (-3-3) FiO2 40.0 Nasal Screen MRSA (PCR) Negative (Negative) Test 12/21/16 12:41 12/21/16 14:00 12/21/16 14:20 12/21/16 17:31 Glucose (Fingerstick) 168mg/dL (70-99) 196mg/dL (70-99) Urine Collection Type Unknown Urine Color Yellow Urine Clarity Clear Urine pH 5.5 Urine Specific [place] 1.010 Urine Protein 30mg/dL (NEG-TRACE) Urine Glucose (UA) Negativemg/dL (NEG) Urine Ketones (Stick) Negativemg/dL (NEG) Urine Blood Negative (NEG) Urine Nitrite Negative (NEG) Urine Bilirubin Negative (NEG) Urine Urobilinogen Dipstick 0.2mg/dL (0.2 mg/dL) Urine Leukocyte Esterase Negative (NEG) Urine RBC Occ/HPF (0-2) Urine WBC Occ/HPF (0-4) Urine Squamous Epithelial Cells Few/LPF Urine Bacteria 0/HPF (0-FEW) Urine Hyaline Casts Moderate/HPF Urine Granular Casts Few/HPF Troponin I Quantitative 1.367ng/mL (0.000-0.055) Test 12/21/16 20:30 12/21/16 20:54 12/21/16 23:33 12/22/16 06:25 Troponin I Quantitative 2.131ng/mL (0.000-0.055) Glucose (Fingerstick) 75mg/dL (70-99) Heparin Anti-Xa Act, Unfractionated 0.14IU/mL (0.30-0.70) Sodium Level 141mmol/L (136-145) Potassium Level 4.1mmol/L (3.5-5.1) Chloride Level 105mmol/L (98-107) Carbon Dioxide Level 29mmol/L (21-32) Anion Gap 7 (6-14) Blood Urea Nitrogen 17mg/dL (7-20) Creatinine 0.9mg/dL (0.6-1.0) Estimated GFR (Cockcroft-Gault) 63.4 Glucose Level 210mg/dL (70-99) Calcium Level 8.8mg/dL (8.5-10.1) Test 12/22/16 06:27 White Blood Count 11.9x10^3/uL (4.0-11.0) Red Blood Count 4.45x10^6/uL (3.50-5.40) Hemoglobin 12.6g/dL (12.0-15.5) Hematocrit 38.6% (36.0-47.0) Mean Corpuscular Volume 87fL (79-100) Mean Corpuscular Hemoglobin 28pg (25-35) Mean Corpuscular Hemoglobin Concent 33g/dL (31-37) Red Cell Distribution Width 14.7% (11.5-14.5) Platelet Count 306x10^3/uL (140-400) Neutrophils (%) (Auto) 56% (31-73) Lymphocytes (%) (Auto) 31% (24-48) Monocytes (%) (Auto) 9% (0-9) Eosinophils (%) (Auto) 3% (0-3) Basophils (%) (Auto) 1% (0-3) Neutrophils # (Auto) 6.7x10^3uL (1.8-7.7) Lymphocytes # (Auto) 3.7x10^3/uL (1.0-4.8) Monocytes # (Auto) 1.1x10^3/uL (0.0-1.1) Eosinophils # (Auto) 0.3x10^3/uL (0.0-0.7) Basophils # (Auto) 0.2x10^3/uL (0.0-0.2) Heparin Anti-Xa Act, Unfractionated 0.36IU/mL (0.30-0.70) Laboratory Tests Test 12/21/16 11:00 12/21/16 12:41 12/21/16 14:00 12/21/16 14:20 Nasal Screen MRSA (PCR) Negative (Negative) Glucose (Fingerstick) 168mg/dL (70-99) Urine Collection Type Unknown Urine Color Yellow Urine Clarity Clear Urine pH 5.5 Urine Specific [place] 1.010 Urine Protein 30mg/dL (NEG-TRACE) Urine Glucose (UA) Negativemg/dL (NEG) Urine Ketones (Stick) Negativemg/dL (NEG) Urine Blood Negative (NEG) Urine Nitrite Negative (NEG) Urine Bilirubin Negative (NEG) Urine Urobilinogen Dipstick 0.2mg/dL (0.2 mg/dL) Urine Leukocyte Esterase Negative (NEG) Urine RBC Occ/HPF (0-2) Urine WBC Occ/HPF (0-4) Urine Squamous Epithelial Cells Few/LPF Urine Bacteria 0/HPF (0-FEW) Urine Hyaline Casts Moderate/HPF Urine Granular Casts Few/HPF Troponin I Quantitative 1.367ng/mL (0.000-0.055) Test 12/21/16 17:31 12/21/16 20:30 12/21/16 20:54 12/21/16 23:33 Glucose (Fingerstick) 196mg/dL (70-99) 75mg/dL (70-99) Troponin I Quantitative 2.131ng/mL (0.000-0.055) Heparin Anti-Xa Act, Unfractionated 0.14IU/mL (0.30-0.70) Test 12/22/16 06:25 12/22/16 06:27 Sodium Level 141mmol/L (136-145) Potassium Level 4.1mmol/L (3.5-5.1) Chloride Level 105mmol/L (98-107) Carbon Dioxide Level 29mmol/L (21-32) Anion Gap 7 (6-14) Blood Urea Nitrogen 17mg/dL (7-20) Creatinine 0.9mg/dL (0.6-1.0) Estimated GFR (Cockcroft-Gault) 63.4 Glucose Level 210mg/dL (70-99) Calcium Level 8.8mg/dL (8.5-10.1) White Blood Count 11.9x10^3/uL (4.0-11.0) Red Blood Count 4.45x10^6/uL (3.50-5.40) Hemoglobin 12.6g/dL (12.0-15.5) Hematocrit 38.6% (36.0-47.0) Mean Corpuscular Volume 87fL (79-100) Mean Corpuscular Hemoglobin 28pg (25-35) Mean Corpuscular Hemoglobin Concent 33g/dL (31-37) Red Cell Distribution Width 14.7% (11.5-14.5) Platelet Count 306x10^3/uL (140-400) Neutrophils (%) (Auto) 56% (31-73) Lymphocytes (%) (Auto) 31% (24-48) Monocytes (%) (Auto) 9% (0-9) Eosinophils (%) (Auto) 3% (0-3) Basophils (%) (Auto) 1% (0-3) Neutrophils # (Auto) 6.7x10^3uL (1.8-7.7) Lymphocytes # (Auto) 3.7x10^3/uL (1.0-4.8) Monocytes # (Auto) 1.1x10^3/uL (0.0-1.1) Eosinophils # (Auto) 0.3x10^3/uL (0.0-0.7) Basophils # (Auto) 0.2x10^3/uL (0.0-0.2) Heparin Anti-Xa Act, Unfractionated 0.36IU/mL (0.30-0.70) Medications Active Scripts Medications Dose Route/Sig Days Date Category Impression . 1. Acute respiratory failure secondary to acute diastolic heart failure. 2. Acute and systolic heart failure. Echocardiogram revealed ejection fraction 40-45%. 3. New onset tachycardia, possibly atrial flutter. 4. Peripheral vascular disease. 5. Tobacco dependence. 6. Chronic obstructive pulmonary disease with no clinical presentation compatible with acute exacerbation. 7. Tachyarrhythmia. 8. Diabetes. 9. Nocturnal hypoxemia, suspect obstructive sleep apnea. Plan . ok to transfer out of ICU 1. No need for antibiotics or steroids. 2. Continue IV Cardizem. 3. Outpatient polysomnogram. 4. A 6-minute walk prior to discharge. 5. Diurese. 6. Repeat chest x-ray. 7. The patient instructed on the importance of discontinuing her tobacco use. DULCE PRYOR MD Dec 22, 2016 10:54
--- NOTE | 2016-12-22 10:59 | PDOC ---
PROGRESS NOTES Chief Complaint Chief Complaint Acute hypoxic respir failure ASSESSMENT AND PLAN: 1. CHF: acute on chronic: IV lasix cautiously 2. CAD: significant troponin leak. W/U as per cardiology service (Cath soon? ) 3. Aflutter: POA, converted on cardizem gtt to NS. drip discontinued 4. PAD: hx CVA eith R hemiparesis. stable 5. HTN: on BB with currently poor control. add MARIO-I to regimen 6. DM2: levemir and ISS with brittle FSBG. monitor closely 7. Hypothyroidism: on synthroid. TSH minimally elevated; recheck on O/P basis 8. LE cellulitis: on vanco 9. Leukocytosis: suspected due to left lower extremity cellulitis and artefactual hemoconcentration at initial blood draw. much improved 10. Erythrocytosis: artefactual. rpt labs WNL 11. Anxiety/depression: stable mood. continue home regimen 12. Prophylaxis: on heparin gtt. PPI 13. Dispo: ok to transfer to Vitals Vitals Vital Signs Date Time Temp Pulse Resp B/P Pulse Ox O2 Delivery O2 Flow Rate FiO2 12/22/16 08:15 70 185/92 12/22/16 08:00 Nasal Cannula 3.0 12/22/16 06:00 21 99 12/22/16 04:00 98.3 98.3 Physical Exam General: Alert, Oriented X3, Cooperative, No acute distress Heart: Regular rate Lungs: Clear Abdomen: Normal bowel sounds, Soft, No tenderness Extremities: No edema Skin: Other (petechia below BP cuff) Labs LABS Laboratory Tests Test 12/21/16 11:00 12/21/16 12:41 12/21/16 14:00 12/21/16 14:20 Nasal Screen MRSA (PCR) Negative (Negative) Glucose (Fingerstick) 168mg/dL (70-99) Urine Collection Type Unknown Urine Color Yellow Urine Clarity Clear Urine pH 5.5 Urine Specific [place] 1.010 Urine Protein 30mg/dL (NEG-TRACE) Urine Glucose (UA) Negativemg/dL (NEG) Urine Ketones (Stick) Negativemg/dL (NEG) Urine Blood Negative (NEG) Urine Nitrite Negative (NEG) Urine Bilirubin Negative (NEG) Urine Urobilinogen Dipstick 0.2mg/dL (0.2 mg/dL) Urine Leukocyte Esterase Negative (NEG) Urine RBC Occ/HPF (0-2) Urine WBC Occ/HPF (0-4) Urine Squamous Epithelial Cells Few/LPF Urine Bacteria 0/HPF (0-FEW) Urine Hyaline Casts Moderate/HPF Urine Granular Casts Few/HPF Troponin I Quantitative 1.367ng/mL (0.000-0.055) Test 12/21/16 17:31 12/21/16 20:30 12/21/16 20:54 12/21/16 23:33 Glucose (Fingerstick) 196mg/dL (70-99) 75mg/dL (70-99) Troponin I Quantitative 2.131ng/mL (0.000-0.055) Heparin Anti-Xa Act, Unfractionated 0.14IU/mL (0.30-0.70) Test 12/22/16 06:25 12/22/16 06:27 Sodium Level 141mmol/L (136-145) Potassium Level 4.1mmol/L (3.5-5.1) Chloride Level 105mmol/L (98-107) Carbon Dioxide Level 29mmol/L (21-32) Anion Gap 7 (6-14) Blood Urea Nitrogen 17mg/dL (7-20) Creatinine 0.9mg/dL (0.6-1.0) Estimated GFR (Cockcroft-Gault) 63.4 Glucose Level 210mg/dL (70-99) Calcium Level 8.8mg/dL (8.5-10.1) White Blood Count 11.9x10^3/uL (4.0-11.0) Red Blood Count 4.45x10^6/uL (3.50-5.40) Hemoglobin 12.6g/dL (12.0-15.5) Hematocrit 38.6% (36.0-47.0) Mean Corpuscular Volume 87fL (79-100) Mean Corpuscular Hemoglobin 28pg (25-35) Mean Corpuscular Hemoglobin Concent 33g/dL (31-37) Red Cell Distribution Width 14.7% (11.5-14.5) Platelet Count 306x10^3/uL (140-400) Neutrophils (%) (Auto) 56% (31-73) Lymphocytes (%) (Auto) 31% (24-48) Monocytes (%) (Auto) 9% (0-9) Eosinophils (%) (Auto) 3% (0-3) Basophils (%) (Auto) 1% (0-3) Neutrophils # (Auto) 6.7x10^3uL (1.8-7.7) Lymphocytes # (Auto) 3.7x10^3/uL (1.0-4.8) Monocytes # (Auto) 1.1x10^3/uL (0.0-1.1) Eosinophils # (Auto) 0.3x10^3/uL (0.0-0.7) Basophils # (Auto) 0.2x10^3/uL (0.0-0.2) Heparin Anti-Xa Act, Unfractionated 0.36IU/mL (0.30-0.70) Review of Systems Review of Systems breathing much improved. no CP, no abd c/o Comment Review of Relevant GUERO WALLACE MD Dec 22, 2016 10:59
[2016-12-22] MEDS ORDERED: FUROSEMIDE 20 MG/2 ML VIAL IVP ONE (11:00)
--- NOTE | 2016-12-22 15:25 | PDOC ---
DAVIDBARBARA EMERSON RAISE DRILLER 12/22/16 1525: CARDIO Progress Notes Date and Time Date of Service 12/22/2016 Time of Evaluation 1400 Subjective Subjective: No Chest Pain, No Palpitations, No Dizziness, Other (dyspnea when speaking with patrol inspector) Vitals Vitals Vital Signs Date Time Temp Pulse Resp B/P Pulse Ox O2 Delivery O2 Flow Rate FiO2 12/22/16 08:15 70 185/92 12/22/16 08:00 Nasal Cannula 3.0 12/22/16 06:00 21 99 12/22/16 04:00 98.3 98.3 Weight Weight [ ] Input and Output Intake and Output Intake and Output 12/22/16 07:00 Intake Total 3222 ml Output Total 1500 ml Balance 1722 ml Intake Oral 1460 ml IV Total 1762 ml Output Urine Total 1500 ml # Bowel Movements 1 Laboratory Labs Laboratory Tests Test 12/21/16 17:31 12/21/16 20:30 12/21/16 20:54 12/21/16 23:33 Glucose (Fingerstick) 196mg/dL (70-99) 75mg/dL (70-99) Troponin I Quantitative 2.131ng/mL (0.000-0.055) Heparin Anti-Xa Act, Unfractionated 0.14IU/mL (0.30-0.70) Test 12/22/16 06:25 12/22/16 06:27 12/22/16 12:20 Sodium Level 141mmol/L (136-145) Potassium Level 4.1mmol/L (3.5-5.1) Chloride Level 105mmol/L (98-107) Carbon Dioxide Level 29mmol/L (21-32) Anion Gap 7 (6-14) Blood Urea Nitrogen 17mg/dL (7-20) Creatinine 0.9mg/dL (0.6-1.0) Estimated GFR (Cockcroft-Gault) 63.4 Glucose Level 210mg/dL (70-99) Calcium Level 8.8mg/dL (8.5-10.1) White Blood Count 11.9x10^3/uL (4.0-11.0) Red Blood Count 4.45x10^6/uL (3.50-5.40) Hemoglobin 12.6g/dL (12.0-15.5) Hematocrit 38.6% (36.0-47.0) Mean Corpuscular Volume 87fL (79-100) Mean Corpuscular Hemoglobin 28pg (25-35) Mean Corpuscular Hemoglobin Concent 33g/dL (31-37) Red Cell Distribution Width 14.7% (11.5-14.5) Platelet Count 306x10^3/uL (140-400) Neutrophils (%) (Auto) 56% (31-73) Lymphocytes (%) (Auto) 31% (24-48) Monocytes (%) (Auto) 9% (0-9) Eosinophils (%) (Auto) 3% (0-3) Basophils (%) (Auto) 1% (0-3) Neutrophils # (Auto) 6.7x10^3uL (1.8-7.7) Lymphocytes # (Auto) 3.7x10^3/uL (1.0-4.8) Monocytes # (Auto) 1.1x10^3/uL (0.0-1.1) Eosinophils # (Auto) 0.3x10^3/uL (0.0-0.7) Basophils # (Auto) 0.2x10^3/uL (0.0-0.2) Heparin Anti-Xa Act, Unfractionated 0.36IU/mL (0.30-0.70) 0.25IU/mL (0.30-0.70) Microbiology Micro Microbiology 12/21/16 Blood Culture - Preliminary, Resulted NO GROWTH AFTER 1 DAY Physical Exam HEENT: Neck Supple W Full Motion Chest: Symmetric LUNGS: Other (decreased anteriorly) Heart: S1S2, RRR, other (tele: SR) Abdomen: Soft N/T Extremities: No Edema Neurology: alert, oriented, follow commands Assessment Assessment 1. Tachyarrhythmia now NSR 2. Acute on chronic heart failure LVEF depressed @ 40-5% with mild global hypokinesis I > O 3. NSTEMI troponin peaked @ 2 cardiac cath planned for when leukocytosis improved ? tomorrow continue heparin gtt, BB 4. Acute on chronic respiratory failure, multifactorial remains on high flow oxygen 5. Malignant hypertension poorly controlled with moderate DD on echo - will add ACEI 6. Leukocytosis with ? sepsis, POA WBC trending down SUNNY CHRISTIANSEN MD 12/22/16 2219: CARDIO Progress Notes Plan Plan Pt. seen and examined. Agree with above PATIENT TRANSPORT ORDERLY note No acute events overnight. Infectious issues resolving No sign abn on cardiac exam. No edema labs reviewed. Trop > 2 Meds reviewed Continue hep gtt. Plan for cath tomorrow. Will follow. BARBARA BHATTI APRN Dec 22, 2016 15:25 SUNNY CHRISTIANSEN MD Dec 22, 2016 22:19
[2016-12-22] MEDS: LISINOPRIL 10 MG TABLET PO SCH (17:39)
[2016-12-22] MEDS ORDERED: DEXTROSE 50% 25 GM / 50ML DISP.SYRIN. IV PRN (20:00)
[2016-12-22] MEDS: NORTRIPTYLINE 25 MG CAPSULE PO SCH (20:56)
[2016-12-22] MEDS: ATORVASTATIN CALCIUM 40 MG TABLET. PO SCH (20:58)
[2016-12-22] MEDS: NYSTATIN TOPICAL POWDER 15GM BOTTLE. TP SCH (21:34)
[2016-12-22] MEDS: ZOLPIDEM 5 MG TABLET. PO PRN (21:34)
[2016-12-22] MEDS ORDERED: AMLODIPINE BESYLATE 10 MG TABLET PO ONE (23:00)
[2016-12-23] VITALS: BP 126/55
[2016-12-23] MEDS: VANCOMYCIN PER PHARMACY MC PRN (01:32)
[2016-12-23] MEDS: HEPARIN 25,000UTS/500ML PREMIX 500 ML IV PRN (03:23)
[2016-12-23 03:26] LABS: BASO # 0.2 x10^3/uL (0.0-0.2); BASO % 2 % (0-3); EOS % 4 % (0-3); HEMATOCRIT 39.9 % (36.0-47.0); HEMOGLOBIN 12.7 g/dL (12.0-15.5); LYMPH # 1.6 x10^3/uL (1.0-4.8); LYMPH % 18 % (24-48); MEAN CORPUSCULAR HEMOGLOBIN 28 pg (25-35); MEAN CORPUSCULAR HGB CONC 32 g/dL (31-37); MEAN CORPUSCULAR VOLUME 87 fL (79-100); MONO % 12 % (0-9); NEUT % 64 % (31-73); PLATELET COUNT 301 x10^3/uL (140-400); RED BLOOD COUNT 4.58 x10^6/uL (3.50-5.40); RED CELL DISTRIBUTION WIDTH 14.8 % (11.5-14.5); WHITE BLOOD COUNT 8.6 x10^3/uL (4.0-11.0)
[2016-12-23 03:39] LABS: CALCIUM 8.8 mg/dL (8.5-10.1); CREATININE 0.8 mg/dL (0.6-1.0); GFR 72.7; POTASSIUM 4.1 mmol/L (3.5-5.1)
[2016-12-23 04:00] VITALS: BP 138/63
[2016-12-23] MEDS: HEPARIN for IV BOLUS 10,000 UNIT/10 ML VIAL. IV PRN (04:46)
[2016-12-23] MEDS: LEVOTHYROXINE 175 MCG TABLET PO SCH (06:52)
[2016-12-23] MEDS: CLOPIDOGREL BISULFATE 75 MG TABLET PO SCH (08:00)
[2016-12-23] MEDS: INSULIN ASPART 300 UNITS/3 ML INSULN.PEN SQ SCH ×6 (08:00→18:20)
[2016-12-23] MEDS: ASPIRIN ENTERIC COATED 81 MG TABLET.DR. PO SCH (08:13)
[2016-12-23] MEDS: MORPHINE ER 15 MG TABLET.ER PO SCH ×2 (08:13→15:21)
[2016-12-23] MEDS: GABAPENTIN 400 MG CAPSULE. PO SCH ×3 (08:13→21:52)
[2016-12-23] MEDS: METOPROLOL TART IMMED RELEASE 50 MG TABLET PO SCH ×2 (08:14→21:52)
[2016-12-23] MEDS: INSULIN DETEMIR 300 UNITS/3 ML INSULN.PEN. SQ SCH ×2 (08:56→21:59)
[2016-12-23] MEDS: AMLODIPINE BESYLATE 10 MG TABLET PO SCH (09:00)
[2016-12-23] MEDS: FAMOTIDINE 20 MG TABLET. PO SCH ×2 (09:00→21:53)
[2016-12-23] MEDS: ALPRAZOLAM 0.5 MG TABLET PO SCH ×3 (09:00→21:52)
[2016-12-23] MEDS ORDERED: IOHEXOL 300 MG/ML 100ML VIAL. ONE (10:12)
[2016-12-23] MEDS ORDERED: LIDOCAINE 2% 20 ML VIAL. ONE (10:12)
[2016-12-23] MEDS ORDERED: HEPARIN for ARTERIAL LINE 1,500 ML ONE (10:12)
--- NOTE | 2016-12-23 11:00 | PDOC ---
PULMONARY PROGRESS NOTES Subjective Had a cath today Vitals Vital Signs Date Time Temp Pulse Resp B/P Pulse Ox O2 Delivery O2 Flow Rate FiO2 12/23/16 08:14 65 164/74 12/23/16 08:00 Nasal Cannula 4.0 12/23/16 04:00 98.4 17 99 98.4 ROS: No Nausea, No Chest Pain, No Abdominal Pain, No Increase Cough Lungs: Clear Cardiovascular: S1, S2 Abdomen: Soft Neuro Exam: Alert Extremities: No Edema Skin: Warm Labs Laboratory Tests Test 12/21/16 12:41 12/21/16 14:00 12/21/16 14:20 12/21/16 17:31 Glucose (Fingerstick) 168mg/dL (70-99) 196mg/dL (70-99) Urine Collection Type Unknown Urine Color Yellow Urine Clarity Clear Urine pH 5.5 Urine Specific [place] 1.010 Urine Protein 30mg/dL (NEG-TRACE) Urine Glucose (UA) Negativemg/dL (NEG) Urine Ketones (Stick) Negativemg/dL (NEG) Urine Blood Negative (NEG) Urine Nitrite Negative (NEG) Urine Bilirubin Negative (NEG) Urine Urobilinogen Dipstick 0.2mg/dL (0.2 mg/dL) Urine Leukocyte Esterase Negative (NEG) Urine RBC Occ/HPF (0-2) Urine WBC Occ/HPF (0-4) Urine Squamous Epithelial Cells Few/LPF Urine Bacteria 0/HPF (0-FEW) Urine Hyaline Casts Moderate/HPF Urine Granular Casts Few/HPF Troponin I Quantitative 1.367ng/mL (0.000-0.055) Test 12/21/16 20:30 12/21/16 20:54 12/21/16 23:33 12/22/16 06:25 Troponin I Quantitative 2.131ng/mL (0.000-0.055) 1.211ng/mL (0.000-0.055) Glucose (Fingerstick) 75mg/dL (70-99) Heparin Anti-Xa Act, Unfractionated 0.14IU/mL (0.30-0.70) Sodium Level 141mmol/L (136-145) Potassium Level 4.1mmol/L (3.5-5.1) Chloride Level 105mmol/L (98-107) Carbon Dioxide Level 29mmol/L (21-32) Anion Gap 7 (6-14) Blood Urea Nitrogen 17mg/dL (7-20) Creatinine 0.9mg/dL (0.6-1.0) Estimated GFR (Cockcroft-Gault) 63.4 Glucose Level 210mg/dL (70-99) Calcium Level 8.8mg/dL (8.5-10.1) Test 12/22/16 06:27 12/22/16 12:20 12/22/16 12:36 12/22/16 17:42 White Blood Count 11.9x10^3/uL (4.0-11.0) Red Blood Count 4.45x10^6/uL (3.50-5.40) Hemoglobin 12.6g/dL (12.0-15.5) Hematocrit 38.6% (36.0-47.0) Mean Corpuscular Volume 87fL (79-100) Mean Corpuscular Hemoglobin 28pg (25-35) Mean Corpuscular Hemoglobin Concent 33g/dL (31-37) Red Cell Distribution Width 14.7% (11.5-14.5) Platelet Count 306x10^3/uL (140-400) Neutrophils (%) (Auto) 56% (31-73) Lymphocytes (%) (Auto) 31% (24-48) Monocytes (%) (Auto) 9% (0-9) Eosinophils (%) (Auto) 3% (0-3) Basophils (%) (Auto) 1% (0-3) Neutrophils # (Auto) 6.7x10^3uL (1.8-7.7) Lymphocytes # (Auto) 3.7x10^3/uL (1.0-4.8) Monocytes # (Auto) 1.1x10^3/uL (0.0-1.1) Eosinophils # (Auto) 0.3x10^3/uL (0.0-0.7) Basophils # (Auto) 0.2x10^3/uL (0.0-0.2) Heparin Anti-Xa Act, Unfractionated 0.36IU/mL (0.30-0.70) 0.25IU/mL (0.30-0.70) Glucose (Fingerstick) 145mg/dL (70-99) 190mg/dL (70-99) Test 12/22/16 21:29 12/22/16 21:35 12/23/16 00:42 12/23/16 02:50 Glucose (Fingerstick) 218mg/dL (70-99) Heparin Anti-Xa Act, Unfractionated 0.31IU/mL (0.30-0.70) < 0.10IU/mL (0.30-0.70) Vancomycin Level Trough 22.2mcg/mL (10.0-20.0) Vancomycin Last Dose Date Vancomycin Last Dose Time 1300 White Blood Count 8.6x10^3/uL (4.0-11.0) Red Blood Count 4.58x10^6/uL (3.50-5.40) Hemoglobin 12.7g/dL (12.0-15.5) Hematocrit 39.9% (36.0-47.0) Mean Corpuscular Volume 87fL (79-100) Mean Corpuscular Hemoglobin 28pg (25-35) Mean Corpuscular Hemoglobin Concent 32g/dL (31-37) Red Cell Distribution Width 14.8% (11.5-14.5) Platelet Count 301x10^3/uL (140-400) Neutrophils (%) (Auto) 64% (31-73) Lymphocytes (%) (Auto) 18% (24-48) Monocytes (%) (Auto) 12% (0-9) Eosinophils (%) (Auto) 4% (0-3) Basophils (%) (Auto) 2% (0-3) Neutrophils # (Auto) 5.5x10^3uL (1.8-7.7) Lymphocytes # (Auto) 1.6x10^3/uL (1.0-4.8) Monocytes # (Auto) 1.0x10^3/uL (0.0-1.1) Eosinophils # (Auto) 0.4x10^3/uL (0.0-0.7) Basophils # (Auto) 0.2x10^3/uL (0.0-0.2) Sodium Level 142mmol/L (136-145) Potassium Level 4.1mmol/L (3.5-5.1) Chloride Level 106mmol/L (98-107) Carbon Dioxide Level 31mmol/L (21-32) Anion Gap 5 (6-14) Blood Urea Nitrogen 19mg/dL (7-20) Creatinine 0.8mg/dL (0.6-1.0) Estimated GFR (Cockcroft-Gault) 72.7 Glucose Level 129mg/dL (70-99) Calcium Level 8.8mg/dL (8.5-10.1) Laboratory Tests Test 12/22/16 12:20 12/22/16 12:36 12/22/16 17:42 12/22/16 21:29 Heparin Anti-Xa Act, Unfractionated 0.25IU/mL (0.30-0.70) Glucose (Fingerstick) 145mg/dL (70-99) 190mg/dL (70-99) 218mg/dL (70-99) Test 12/22/16 21:35 12/23/16 00:42 12/23/16 02:50 Heparin Anti-Xa Act, Unfractionated 0.31IU/mL (0.30-0.70) < 0.10IU/mL (0.30-0.70) Vancomycin Level Trough 22.2mcg/mL (10.0-20.0) Vancomycin Last Dose Date Vancomycin Last Dose Time 1300 White Blood Count 8.6x10^3/uL (4.0-11.0) Red Blood Count 4.58x10^6/uL (3.50-5.40) Hemoglobin 12.7g/dL (12.0-15.5) Hematocrit 39.9% (36.0-47.0) Mean Corpuscular Volume 87fL (79-100) Mean Corpuscular Hemoglobin 28pg (25-35) Mean Corpuscular Hemoglobin Concent 32g/dL (31-37) Red Cell Distribution Width 14.8% (11.5-14.5) Platelet Count 301x10^3/uL (140-400) Neutrophils (%) (Auto) 64% (31-73) Lymphocytes (%) (Auto) 18% (24-48) Monocytes (%) (Auto) 12% (0-9) Eosinophils (%) (Auto) 4% (0-3) Basophils (%) (Auto) 2% (0-3) Neutrophils # (Auto) 5.5x10^3uL (1.8-7.7) Lymphocytes # (Auto) 1.6x10^3/uL (1.0-4.8) Monocytes # (Auto) 1.0x10^3/uL (0.0-1.1) Eosinophils # (Auto) 0.4x10^3/uL (0.0-0.7) Basophils # (Auto) 0.2x10^3/uL (0.0-0.2) Sodium Level 142mmol/L (136-145) Potassium Level 4.1mmol/L (3.5-5.1) Chloride Level 106mmol/L (98-107) Carbon Dioxide Level 31mmol/L (21-32) Anion Gap 5 (6-14) Blood Urea Nitrogen 19mg/dL (7-20) Creatinine 0.8mg/dL (0.6-1.0) Estimated GFR (Cockcroft-Gault) 72.7 Glucose Level 129mg/dL (70-99) Calcium Level 8.8mg/dL (8.5-10.1) Medications Active Scripts Medications Dose Route/Sig Days Date Category Impression . 1. Acute respiratory failure secondary to acute diastolic heart failure. 2. Acute and systolic heart failure. Echocardiogram revealed ejection fraction 40-45%. 3. New onset tachycardia, possibly atrial flutter. 4. Peripheral vascular disease. 5. Tobacco dependence. 6. Chronic obstructive pulmonary disease with no clinical presentation compatible with acute exacerbation. 7. Tachyarrhythmia. 8. Diabetes. 9. Nocturnal hypoxemia, suspect obstructive sleep apnea. Plan . cath report pending may need PCI will need a outpt sleep study, gave business card to stop tobacco 6 min walk prior to d/c DULCE PRYOR MD Dec 23, 2016 11:00
--- NOTE | 2016-12-23 11:11 | PDOC ---
PROGRESS NOTES Chief Complaint Chief Complaint Acute hypoxic respir failure ASSESSMENT AND PLAN: 1. CAD: significant troponin leak. cath today with multivessel dz. eval.ed by CV surgery: poss candidate to CABG. add.l W/U in progress. OP tentatively scheduled for , 12/28 2. CHF: acute on chronic: IV lasix 3. Aflutter: POA, converted on cardizem gtt to NS. drip discontinued 4. PAD: hx CVA with R hemiparesis; bilat fem stents. no cute issues 5. HTN: good control w/metoprolol, norvasc 6. DM2: levemir and ISS , good control today. monitor closely 7. Hypothyroidism: on synthroid. TSH minimally elevated; recheck on O/P basis 8. LE cellulitis: on vanco 9. Leukocytosis: resolved 10. Erythrocytosis: artefactual. rpt labs WNL 11. Anxiety/depression: stable mood. continue home regimen 12. Prophylaxis: on heparin gtt. PPI 13. Dispo: ok to transfer to Vitals Vitals Vital Signs Date Time Temp Pulse Resp B/P Pulse Ox O2 Delivery O2 Flow Rate FiO2 12/23/16 08:14 65 164/74 12/23/16 08:00 Nasal Cannula 4.0 12/23/16 04:00 98.4 17 99 98.4 Physical Exam General: Alert, Oriented X3, Cooperative, No acute distress Heart: Regular rate Lungs: Clear Abdomen: Normal bowel sounds, Soft, No tenderness Extremities: No edema Skin: No breakdown, Other (petechia below BP cuff) Labs LABS Laboratory Tests Test 12/22/16 12:20 12/22/16 12:36 12/22/16 17:42 12/22/16 21:29 Heparin Anti-Xa Act, Unfractionated 0.25IU/mL (0.30-0.70) Glucose (Fingerstick) 145mg/dL (70-99) 190mg/dL (70-99) 218mg/dL (70-99) Test 12/22/16 21:35 12/23/16 00:42 12/23/16 02:50 12/23/16 10:45 Heparin Anti-Xa Act, Unfractionated 0.31IU/mL (0.30-0.70) < 0.10IU/mL (0.30-0.70) 0.60IU/mL (0.30-0.70) Vancomycin Level Trough 22.2mcg/mL (10.0-20.0) Vancomycin Last Dose Date Vancomycin Last Dose Time 1300 White Blood Count 8.6x10^3/uL (4.0-11.0) Red Blood Count 4.58x10^6/uL (3.50-5.40) Hemoglobin 12.7g/dL (12.0-15.5) Hematocrit 39.9% (36.0-47.0) Mean Corpuscular Volume 87fL (79-100) Mean Corpuscular Hemoglobin 28pg (25-35) Mean Corpuscular Hemoglobin Concent 32g/dL (31-37) Red Cell Distribution Width 14.8% (11.5-14.5) Platelet Count 301x10^3/uL (140-400) Neutrophils (%) (Auto) 64% (31-73) Lymphocytes (%) (Auto) 18% (24-48) Monocytes (%) (Auto) 12% (0-9) Eosinophils (%) (Auto) 4% (0-3) Basophils (%) (Auto) 2% (0-3) Neutrophils # (Auto) 5.5x10^3uL (1.8-7.7) Lymphocytes # (Auto) 1.6x10^3/uL (1.0-4.8) Monocytes # (Auto) 1.0x10^3/uL (0.0-1.1) Eosinophils # (Auto) 0.4x10^3/uL (0.0-0.7) Basophils # (Auto) 0.2x10^3/uL (0.0-0.2) Sodium Level 142mmol/L (136-145) Potassium Level 4.1mmol/L (3.5-5.1) Chloride Level 106mmol/L (98-107) Carbon Dioxide Level 31mmol/L (21-32) Anion Gap 5 (6-14) Blood Urea Nitrogen 19mg/dL (7-20) Creatinine 0.8mg/dL (0.6-1.0) Estimated GFR (Cockcroft-Gault) 72.7 Glucose Level 129mg/dL (70-99) Calcium Level 8.8mg/dL (8.5-10.1) Review of Systems Review of Systems tolerated cath w/o problems. GUERO WALLACE MD Dec 23, 2016 11:10
[2016-12-23] MEDS ORDERED: VERAPAMIL 5 MG/2 ML VIAL. ONE (11:34)
[2016-12-23] MEDS ORDERED: FENTANYL PF 100 MCG/2 ML VIAL. ONE (11:34)
[2016-12-23] MEDS ORDERED: NITROGLYCERIN 200 MCG/2 ML SYRINGE FOR CATH/VASC LAB. ONE ×2 (11:34→13:26)
[2016-12-23] MEDS ORDERED: HEPARIN for IV BOLUS 10,000 UNIT/10 ML VIAL. ONE (11:34)
[2016-12-23] MEDS ORDERED: MIDAZOLAM HCL 2 MG/2 ML VIAL. ONE (11:35)
[2016-12-23] MEDS ORDERED: VERAPAMIL 5 MG/2 ML VIAL. IART ONE (11:45)
[2016-12-23] MEDS ORDERED: HEPARIN for IV BOLUS 10,000 UNIT/10 ML VIAL. IART ONE (11:45)
[2016-12-23] MEDS ORDERED: LIDOCAINE 2% 20 ML VIAL. IJ ONE (11:45)
[2016-12-23] MEDS ORDERED: IOHEXOL 300 MG/ML 100ML VIAL. IART ONE (11:45)
[2016-12-23] MEDS ORDERED: FENTANYL PF 100 MCG/2 ML VIAL. IV ONE (11:45)
[2016-12-23] MEDS ORDERED: MIDAZOLAM HCL 2 MG/2 ML VIAL. IV ONE (11:45)
[2016-12-23] MEDS ORDERED: NITROGLYCERIN 200 MCG/2 ML SYRINGE FOR CATH/VASC LAB. IART ONE (11:45)
[2016-12-23] MEDS ORDERED: CONTRAST GIVEN MC PRN (12:00)
[2016-12-23] MEDS ORDERED: HEPARIN for IV BOLUS 10,000 UNIT/10 ML VIAL. IV ONE (12:15)
[2016-12-23 12:30] VITALS: BP 124/71
--- NOTE | 2016-12-23 13:18 | CARD ---
APPROVED REPORT Procedure(s) performed: Coronary Angiography 65mL OMNIPAQUE 4.3 mins Fluoro 418.69mGy [id number] HISTORY The patient is a 61 year-old female with a history of : diabetes mellitus with treatment, hypertensio n, dyslipidemia. INDICATION The indication(s) include : non-STEMI . PROCEDURE NARRATIVE The patient was brought electively to the cardiac catheterization lab. A timeout was performed confi rming the patient's name, date of , procedure, and site of procedure. All necessary personnel w ere wearing the appropriate protective equipment and radiation monitor devices. After explaining the risks and benefits of the procedure and alternatives, informed consent was obtained. (See nursing no boaz for medications administered). The left wrist was sterilely prepped and draped in the usual [facility] ion. The left wrist was infiltrated with 1 mL of 2% lidocaine for subcutaneous anesthesia. A 6 F gl nasim sheath was inserted into the left radial artery without difficulty. Right and left coronary agnes ography was performed using a 6Fr JL4 catheter and 5Fr JR4 catheter. CORONARY ANGIOGRAPHY: LM is a large caliber short vessel with normal angiographic appearance. LAD is a large caliber vessel with a proximal 60% stenosis involving the diagonal vessel. D1 is a moderate caliber vessel with a proximal 90% stenosis. LCx is a moderate caliber co-dominant vessel with proximal 80% stenosis. OM1 is a moderate caliber vessel with normal angiographic appearance. RCA is a moderate caliber vessel with a heavily calcified ostial 80% stenosis and a mid 70% stenosis. RPDA is a moderate caliber vessel with normal angiographic appearance. All catheter exchanges and advancements were performed over a guidewire. At case completion the rig ht radial sheath was removed and a Terumo radial band was applied with 13 ml of air. The patient virgil erated the procedure well and there were no immediate complications. There was significant spasm with advancement of 6F diagnostic catheter. Despite use of telescoping technique with a 4Fr MPA 2 cathete r, it was unsuccessful. Conclusion 1. Three vessel coronary artery disease. Recommendations Consideration of CABG versus multivessel PCI Will plan for femoral approach for PCI given severe spasm via the left radial approach.
[2016-12-23] MEDS: VANCOMYCIN 1.5 GM in IV NORMAL SALINE 500ML BAG 500 ML IV SCH (15:21)
--- NOTE | 2016-12-23 16:02 | PDOC2 ---
CONSULT Date of Consult Date of Consult DATE: 12/23/16 TIME: 16:01 Reason for Consult Reason for Consult: Severe three-vessel coronary artery disease Referring Physician Referring Physician: Dr Kimble Identification/Chief Complaint Chief Complaint Shortness of breath Source Source: Chart review, Patient History of Present Illness Reason for Visit: Ms Kilpatrick is a 61-year-old female with multiple comorbidities, including diabetes, history of stroke with right-sided paresis, peripheral vascular disease, hypertension, obstructive sleep apnea, morbid obesity, active smoker 1 pack per day and strong family history of ischemic heart disease, who presented yesterday to the emergency room with acute onset of shortness of breath. She was found to be in flash pulmonary edema secondary to hypertensive emergency. The systolic blood pressure was over 200. She also had a non-STEMI with a small troponin leak. She went on today to have a coronary angiogram which demonstrated severe three-vessel coronary artery disease. Her left heart cath showed a proximal 60% LAD lesion, a 90% proximal left circumflex stenosis, a significant ostial lesion of a relatively large diagonal branch, and a 80-90% ostial RCA stenosis. Her left ventricular ejection fraction is mildly reduced at 40-45%. Her blood pressure is now under control, she is normotensive and on room air. The patient denies any previous history of angina, myocardial infarction, shortness of breath, palpitations, orthopnea. Her mobility is overall limited owing to her right-sided weakness from the previous stroke. She ambulates with a cane. I was consulted to consider the patient for coronary artery bypass grafting. Past Medical History Cardiovascular: CHF, HTN, Hyperlipidemia, Other (PVD s/p [employer]/stenting to bi LE) Pulmonary: COPD, Other (ADRIENNE 3LNC at HS) CENTRAL NERVOUS SYSTEM: CVA, Periperal neuropathy GI: GERD Heme/Onc: No pertinent hx Hepatobiliary: No pertinent hx Psych: Anxiety, Depression Musculoskeletal: Osteoarthritis Rheumatologic: No pertinent hx Infectious disease: No pertinent hx ENT: No pertinent hx Renal/: No pertinent hx Endocrine: Diabetes Dermatology: No pertinent hx Past Surgical History Past Surgical History: Appendectomy, Hysterectomy, Other (left foot 2nd toe partial amputation, right ankle sx with medical hardware) Family History Family History: Coronary Artery Disease, Hypertension, Stroke Social History <1 pack per day ALCOHOL: none Drugs: None Lives: with Family Current Problem List Problem List Problems Medical Problems: (1) Acute respiratory failure Status: Acute (2) Atrial flutter with rapid ventricular response Status: Acute (3) Hypoxia Status: Acute (4) Pulmonary edema Status: Acute Current Medications Current Medications Current Medications Adenosine (Adenocard) 6 mg STK-MED ONCE IV ; Start 12/21/16 at 07:45; Stop 12/21 at 07:46; Status DC Diltiazem HCl 15 mg 15 mg 1X ONCE IVP ; Start 12/21/16 at 08:00; Stop 12/21/16 at 08:00; Status DC Diltiazem HCl 125 mg/Dextrose 125 ml @ 0 mls/hr CONT PRN IV SEE I/O RECORD Last administered on 12/21/16 08:29; Start 12/21/16 at 08:00; Stop 12/21/16 at 11:17; Status DC Sodium Chloride (Iv Sodium Chloride 0.9% 500ml Bag) 500 ml @ 500 mls/hr 1X ONCE IV Last administered on 12/21/16 08:30; Start 12/21/16 at 08:00; Stop at 08:59; Status DC Diltiazem HCl (Cardizem) 20 mg 1X ONCE IVP Last administered on 12/21/16 08: 29; Start 12/21/16 at 08:00; Stop 12/21/16 at 08:04; Status DC Lorazepam (Ativan) 1 mg 1X ONCE IV Last administered on 12/21/16 07:47; Start 12/21/16 at 08:15; Stop 12/21/16 at 08:16; Status DC Lorazepam (Ativan) 1 mg 1X STAT IV Last administered on 12/21/16 07:31; Start 12/21/16 at 08:08; Stop 12/21/16 at 08:13; Status DC Adenosine 6 mg 6 mg 1X ONCE IV Last administered on 12/21/16 07:54; Start at 08:15; Stop 12/21/16 at 08:16; Status DC Sodium Chloride (Iv Sodium Chloride 0.9% 1000ml Bag) 1,000 ml @ 100 mls/hr Q10H IV Last administered on 12/21/16 08:31; Start 12/21/16 at 08:30; Stop at 14:34; Status DC Ondansetron HCl (Zofran) 4 mg PRN Q8HRS PRN IV NAUSEA/VOMITING; Start 12/21/16 at 08:30; Stop 12/22/16 at 08:29; Status DC Morphine Sulfate 2 mg PRN Q2HR PRN IV PAIN; Start 12/21/16 at 08:30; Stop 12/22 at 08:29; Status DC Furosemide (Lasix) 40 mg 1X ONCE PO Last administered on 12/21/16 09:25; Start 12/21/16 at 08:30; Stop 12/21/16 at 08:31; Status DC Acetaminophen (Tylenol) 325 mg PRN Q6HRS PRN PO MILD PAIN / TEMP; Start at 10:15 Acetaminophen/ Hydrocodone Bitart (Lortab 5/325) 1 tab PRN Q6HRS PRN PO MODERATE TO SEVERE PAIN; Start 12/21/16 at 10:15 Hydralazine HCl (Apresoline) 10 mg PRN Q4HRS PRN IVP ELEVATED BP, SEE COMMENTS Last administered on 12/22/16 06:11; Start 12/21/16 at 10:15 Ondansetron HCl (Zofran) 4 mg PRN Q8HRS PRN IV NAUSEA/VOMITING; Start 12/21/16 at 10:15 Albuterol Sulfate (Ventolin Neb Soln) 2.5 mg PRN Q4HRS PRN NEB SHORTNESS OF BREATH; Start 12/21/16 at 10:15 Vancomycin HCl 1 each 1 each PRN DAILY PRN MC SEE COMMENTS Last administered on 12/23/16 01:32; Start 12/21/16 at 11:00 Vancomycin HCl/ Sodium Chloride (Iv Sodium Chloride 0.9% 500ml Bag) 500 ml @ 250 mls/hr ONCE ONCE IV Last administered on 12/21/16 13:14; Start 12/21/16 at 11:30; Stop 12/21/16 at 13:29; Status DC Metoprolol Tartrate (Lopressor) 25 mg BID PO ; Start 12/21/16 at 12:00; Stop at 14:34; Status DC Aspirin (Ecotrin) 81 mg DAILYWBKFT PO Last administered on 12/23/16 08:13; Start 12/21/16 at 12:00 Clopidogrel Bisulfate (Plavix) 75 mg DAILYWBKFT PO Last administered on 08:14; Start 12/22/16 at 08:00 Dextrose 12.5 gm PRN Q15MIN PRN IV SEE COMMENTS; Start 12/21/16 at 14:00; Stop 12/22/16 at 19:56; Status DC Metoprolol Tartrate (Lopressor) 12.5 mg 1X ONCE PO Last administered on 15:29; Start 12/21/16 at 14:45; Stop 12/21/16 at 14:46; Status DC Metoprolol Tartrate (Lopressor) 50 mg BID PO Last administered on 12/23/16 08: 14; Start 12/21/16 at 21:00 Alprazolam (Xanax) 0.5 mg TID PO Last administered on 12/23/16 15:22; Start at 15:00 Aspirin (Ecotrin) 81 mg DAILY08 PO ; Start 12/21/16 at 15:00; Status Cancel Clopidogrel Bisulfate (Plavix) 75 mg DAILY08 PO ; Start 12/21/16 at 15:00; Status Cancel Levothyroxine Sodium (Synthroid) 175 mcg DAILY07 PO Last administered on 06:52; Start 12/21/16 at 15:00 Metoprolol Tartrate (Lopressor) 25 mg BID PO ; Start 12/21/16 at 15:00; Status Cancel Nortriptyline HCl (Pamelor) 25 mg QHS PO Last administered on 12/22/16 20:56; Start 12/21/16 at 21:00 Nystatin (Nystop) 1 katie HS TP Last administered on 12/22/16 21:34; Start 12/21 at 21:00 Atorvastatin Calcium (Lipitor) 80 mg QHS PO Last administered on 12/22/16 20: 58; Start 12/21/16 at 21:00 Gabapentin (Neurontin) 800 mg TID PO Last administered on 12/23/16 15:22; Start 12/21/16 at 15:00 Insulin Detemir (Levemir) 50 units DAILY SQ Last administered on 12/23/16 08: 56; Start 12/22/16 at 09:00 Insulin Detemir (Levemir) 50 units QHS SQ Last administered on 12/22/16 21:34 ; Start 12/21/16 at 21:00 Non-Formulary Medication 50 unit Q12HR SQ ; Start 12/21/16 at 21:00; Status UNV Insulin Aspart (Novolog) 25 units TIDWMEALS SQ Last administered on 12/22/16 17:41; Start 12/21/16 at 17:00 Morphine Sulfate (Ms Contin) 60 mg BID PO Last administered on 12/21/16 15:28 ; Start 12/21/16 at 15:00; Stop 12/21/16 at 15:45; Status DC Famotidine (Pepcid) 20 mg BID PO Last administered on 12/22/16 20:58; Start at 15:00 Non-Formulary Medication 5 mg PRN QHS PRN PO INSOMNIA; Start 12/21/16 at 14:45 ; Stop 12/21/16 at 14:50; Status DC Zolpidem Tartrate 5 mg 5 mg PRN QHS PRN PO INSOMNIA Last administered on 21:34; Start 12/21/16 at 15:00 Vancomycin HCl/ Sodium Chloride (Iv Sodium Chloride 0.9% 500ml Bag) 500 ml @ 250 mls/hr Q12H IV Last administered on 12/22/16 14:01; Start 12/22/16 at 01: 00; Stop 12/23/16 at 01:25; Status DC Vancomycin HCl 1 each 1X ONCE MC Last administered on 12/23/16 00:30; Start 12/23/16 at 00:30; Stop 12/23/16 at 00:31; Status DC Morphine Sulfate 45 mg 45 mg BID92 PO Last administered on 12/23/16 15:21; Start 12/22/16 at 09:00 Heparin Sodium/ Dextrose 500 ml @ 0 mls/hr CONT PRN IV SEE I/O RECORD Last administered on 12/23/16 03:23; Start 12/21/16 at 16:00 Heparin Sodium (Porcine) 2,450 unit PRN Q6HRS PRN IV FOR UFH LEVEL LESS THAN 0.2 Last administered on 12/23/16 04:46; Start 12/21/16 at 16:00 Info (Anti-Coagulation Monitoring By Pharmacy) 1 each PRN DAILY PRN MC SEE COMMENTS Last administered on 12/22/16 08:56; Start 12/21/16 at 16:15 Furosemide (Lasix) 20 mg 1X ONCE IVP Last administered on 12/22/16 14:02; Start 12/22/16 at 11:00; Stop 12/22/16 at 11:01; Status DC Lisinopril (Prinivil) 10 mg DAILYWSUP PO Last administered on 12/22/16 17:39; Start 12/22/16 at 17:00 Insulin Aspart (Novolog) 0-7 UNITS TIDWMEALS SQ ; Start 12/23/16 at 08:00 Dextrose 12.5 gm PRN Q15MIN PRN IV SEE COMMENTS; Start 12/22/16 at 20:00 Amlodipine Besylate (Norvasc) 10 mg 1X ONCE PO Last administered on 12/22/16 23:13; Start 12/22/16 at 23:00; Stop 12/22/16 at 23:01; Status DC Amlodipine Besylate 10 mg 10 mg DAILY PO Last administered on 12/23/16 09:00; Start 12/23/16 at 09:00 Vancomycin HCl/ Sodium Chloride (Iv Sodium Chloride 0.9% 500ml Bag) 500 ml @ 250 mls/hr Q24H IV Last administered on 12/23/16 15:21; Start 12/23/16 at 13: 00 Vancomycin HCl 1 each 1X ONCE MC ; Start 12/25/16 at 12:30; Stop 12/25/16 at 12 :31 Iohexol 100 ml 100 ml STK-MED ONCE .ROUTE ; Start 12/23/16 at 10:12; Stop at 10:13; Status DC Heparin Sodium/ Sodium Chloride 1,500 ml @ As Directed STK-MED ONCE .ROUTE ; Start 12/23/16 at 10:12; Stop 12/23/16 at 10:13; Status DC Lidocaine HCl 20 ml STK-MED ONCE .ROUTE ; Start 12/23/16 at 10:12; Stop at 10:13; Status DC Nitroglycerin (Nitroglycerin) 200 mcg STK-MED ONCE .ROUTE ; Start 12/23/16 at 11 :34; Stop 12/23/16 at 11:35; Status DC Verapamil HCl (Verapamil) 5 mg STK-MED ONCE .ROUTE ; Start 12/23/16 at 11:34; Stop 12/23/16 at 11:35; Status DC Heparin Sodium (Porcine) 10,000 unit STK-MED ONCE .ROUTE ; Start 12/23/16 at 11: 34; Stop 12/23/16 at 11:35; Status DC Fentanyl Citrate (Fentanyl 2ml Vial) 100 mcg STK-MED ONCE .ROUTE ; Start at 11:34; Stop 12/23/16 at 11:35; Status DC Midazolam HCl (Versed) 2 mg STK-MED ONCE .ROUTE ; Start 12/23/16 at 11:35; Stop 12/23/16 at 11:36; Status DC Nitroglycerin (Nitroglycerin) 200 mcg 1X ONCE IART Last administered on 12:27; Start 12/23/16 at 11:45; Stop 12/23/16 at 11:48; Status DC Verapamil HCl (Verapamil) 2.5 mg 1X ONCE IART Last administered on 12/23/16 12:29; Start 12/23/16 at 11:45; Stop 12/23/16 at 11:48; Status DC Heparin Sodium (Porcine) 2,500 unit 1X ONCE IART Last administered on 12:30; Start 12/23/16 at 11:45; Stop 12/23/16 at 11:48; Status DC Heparin Sodium/ Sodium Chloride 1,000 unit 1X ONCE IART Last administered on 12:27; Start 12/23/16 at 11:45; Stop 12/23/16 at 11:48; Status DC Midazolam HCl (Versed) 2 mg 1X ONCE IV Last administered on 12/23/16 12:28; Start 12/23/16 at 11:45; Stop 12/23/16 at 11:48; Status DC Fentanyl Citrate (Fentanyl 2ml Vial) 100 mcg 1X ONCE IV Last administered on 12:28; Start 12/23/16 at 11:45; Stop 12/23/16 at 11:48; Status DC Iohexol (Omnipaque 300 Mg/ml) 100 ml 1X ONCE IART Last administered on 12:27; Start 12/23/16 at 11:45; Stop 12/23/16 at 11:48; Status DC Lidocaine HCl 20 ml 1X ONCE IJ Last administered on 12/23/16t 12:29; Start at 11:45; Stop 12/23/16 at 11:48; Status DC Info (Do NOT chart on this entry -- for MONITORING) 1 each PRN DAILY PRN MC SEE COMMENTS; Start 12/23/16 at 12:00; Stop 12/25/16 at 11:59 Heparin Sodium (Porcine) 2,000 unit 1X ONCE IV ; Start 12/23/16 at 12:15; Stop 12/23/16 at 12:19; Status DC Nitroglycerin (Nitroglycerin) 200 mcg STK-MED ONCE .ROUTE ; Start 12/23/16 at 13 :26; Stop 12/23/16 at 13:27; Status DC Active Scripts Active Reported Lantus Solostar (Insulin Glargine,Hum.rec.anlog) 100 Unit/1 Ml Insuln.pen 50 Unit SQ Q12HR Humalog (Insulin Lispro) 100 Unit/1 Ml Cartridge 25 Unit SQ TIDWMEALS Nystatin 15 Gm Powder 1 Katie TP HS Alprazolam 0.5 Mg Tablet 1 Tab PO TID Levothyroxine Sodium 175 Mcg Tablet 1 Tab PO DAILY Metoprolol Tartrate 25 Mg Tablet 25 Mg PO BID Ms Contin (Morphine Sulfate) 60 Mg Tablet.er 45 Mg PO BID Nortriptyline Hcl 25 Mg Capsule 1 Cap PO QHS Ranitidine Hcl 150 Mg Tablet 1 Tab PO BID Zolpidem Tartrate 10 Mg Tablet 10 Mg PO PRN QHS PRN Levemir (Insulin Detemir) 100 Unit/1 Ml Vial 50 Unit SQ HS Levemir (Insulin Detemir) 100 Unit/1 Ml Vial 50 Unit SQ DAILY08 Gabapentin 800 Mg Tablet 800 Mg PO TID Clopidogrel (Clopidogrel Bisulfate) 75 Mg Tablet 1 Tab PO DAILY Atorvastatin Calcium 80 Mg Tablet 80 Mg PO HS Aspir 81 (Aspirin) 81 Mg Tablet.dr 1 Tab PO DAILY Allergies Allergies: Coded Allergies: No Known Drug Allergies (Unverified , 10/15/13) ROS General: No: Appetite, Chills, Fatigue, Malaise, Night Sweats PSYCHOLOGICAL ROS: YES: Anxiety, No: Behavioral Disorder, Concentration difficultie, Decreased libido, Depression, Disorientation, Hallucinations, Hostility, Irritablity, Memory difficulties, Mood Swings, Obsessive thoughts, Physical abuse, Sexual abuse, Sleep disturbances, Suicidal ideation Eyes: No Blurry vision, No Decreased vision, No Double vision, No Dry eyes, No Excessive tearing, No Eye Pain, No Itchy Eyes, No Loss of vision, No Photophobia , No Scotomata, No Uses contacts, No Uses glasses HEENT: No: Epistaxis, Heacaches, Hearing change, Nasal congestion, Nasal discharge, Oral lesions, Sinus pain, Sneezing, Snoring, Sore Throat, Tinnitus, Vertigo, Visual Changes, Vocal changes ALLERGY AND IMMUNOLOGY: No: Hives, Insect Bite Sensitivity, Itchy/Watery Eyes, Nasal Congestion, Post Nasal Drip, Seasonal Allergies Hematological and Lymphatic: No: Bleeding Problems, Blood Clots, Blood Transfusions, Brusing, Night Sweats, Pallor, Swollen Lymph Nodes ENDOCRINE: No: Breast Changes, Galactorrhea, Hair Pattern Changes, Hot Flashes , Malaise/lethargy, Mood Swings, Palpitations, Polydipsia/polyuria, Skin Changes , Temperature Intolerance, Unexpected Weight Changes Breast: No New/Changing Breast Lumps, No Nipple changes, No Nipple discharge Respiratory: YES: Shortness of breath, No: Cough, Hemoptysis, Orthopnea, Pleuritic Pain, SOB with excertion, Sputum Changes, Stridor, Tachypnea, Wheezing Cardiovascular: No Chest Pain, No Edema, No Lt Headedness, No Orthopnea, No Palpitations, No Paroxysmal Noc. Dyspnea Gastrointestinal: No Abdominal Pain, No Constipation, No Diarrhea, No Hematochezia, No Melena, No Nausea, No Vomiting Genitourinary: No Discharge, No Dysuria, No Flank Pain, No Frequency, No Hematuria, No Incontinence, No Pain, No Retention, No Urgency Musculoskeletal: No Gait Disturbance, No Joint Pain, No Joint Stiffness, No Joint Swelling, No Muscle Pain, No Muscular Weakness, No Pain In:, No Swelling In: Neurological: Yes Gait Disturbance, Yes Numbness/Tingling, Yes Weakness (right sided), No Behavorial Changes, No Bowel/Bladder ControlChng, No Confusion, No Dizziness, No Headaches, No Impaired Coord/balance, No Memory Loss, No Seizures , No Speech Problems, No Tremors, No Visual Changes Skin: No Acne, No Dry Skin, No Eczema, No Hair Changes, No Lumps, No Mole Changes, No Mottling, No Nail Changes, No Pruritus, No Rash, No Skin Lesion Changes Physical Exam General: Alert, Oriented X3, No acute distress HEENT: Atraumatic, PERRLA Lungs: Clear to auscultation Heart: Regular rate, Normal S1, Normal S2 Abdomen: Soft, No tenderness Extremities: Normal pulses Skin: No significant lesion Neuro: Normal speech, Sensation intact, Cranial nerves 3-12 NL, Other (3/5 strength in right upper extremity) Psych/Mental Status: Mental status NL MUSCULOSKELETAL: No deformity Vitals VITALS Vital Signs Date Time Temp Pulse Resp B/P Pulse Ox O2 Delivery O2 Flow Rate FiO2 12/23/16 12:30 62 16 95 Room Air 12/23/16 12:29 124/71 12/23/16 08:00 4.0 12/23/16 04:00 98.4 98.4 Labs Labs Laboratory Tests Test 12/21/16 17:31 12/21/16 20:30 12/21/16 20:54 12/21/16 23:33 Glucose (Fingerstick) 196mg/dL (70-99) 75mg/dL (70-99) Troponin I Quantitative 2.131ng/mL (0.000-0.055) Heparin Anti-Xa Act, Unfractionated 0.14IU/mL (0.30-0.70) Test 12/22/16 06:25 12/22/16 06:27 12/22/16 12:20 12/22/16 12:36 Sodium Level 141mmol/L (136-145) Potassium Level 4.1mmol/L (3.5-5.1) Chloride Level 105mmol/L (98-107) Carbon Dioxide Level 29mmol/L (21-32) Anion Gap 7 (6-14) Blood Urea Nitrogen 17mg/dL (7-20) Creatinine 0.9mg/dL (0.6-1.0) Estimated GFR (Cockcroft-Gault) 63.4 Glucose Level 210mg/dL (70-99) Calcium Level 8.8mg/dL (8.5-10.1) Troponin I Quantitative 1.211ng/mL (0.000-0.055) White Blood Count 11.9x10^3/uL (4.0-11.0) Red Blood Count 4.45x10^6/uL (3.50-5.40) Hemoglobin 12.6g/dL (12.0-15.5) Hematocrit 38.6% (36.0-47.0) Mean Corpuscular Volume 87fL (79-100) Mean Corpuscular Hemoglobin 28pg (25-35) Mean Corpuscular Hemoglobin Concent 33g/dL (31-37) Red Cell Distribution Width 14.7% (11.5-14.5) Platelet Count 306x10^3/uL (140-400) Neutrophils (%) (Auto) 56% (31-73) Lymphocytes (%) (Auto) 31% (24-48) Monocytes (%) (Auto) 9% (0-9) Eosinophils (%) (Auto) 3% (0-3) Basophils (%) (Auto) 1% (0-3) Neutrophils # (Auto) 6.7x10^3uL (1.8-7.7) Lymphocytes # (Auto) 3.7x10^3/uL (1.0-4.8) Monocytes # (Auto) 1.1x10^3/uL (0.0-1.1) Eosinophils # (Auto) 0.3x10^3/uL (0.0-0.7) Basophils # (Auto) 0.2x10^3/uL (0.0-0.2) Heparin Anti-Xa Act, Unfractionated 0.36IU/mL (0.30-0.70) 0.25IU/mL (0.30-0.70) Glucose (Fingerstick) 145mg/dL (70-99) Test 12/22/16 17:42 12/22/16 21:29 12/22/16 21:35 12/23/16 00:42 Glucose (Fingerstick) 190mg/dL (70-99) 218mg/dL (70-99) Heparin Anti-Xa Act, Unfractionated 0.31IU/mL (0.30-0.70) Vancomycin Level Trough 22.2mcg/mL (10.0-20.0) Vancomycin Last Dose Date [id number] Vancomycin Last Dose Time 1300 Test 12/23/16 02:50 12/23/16 08:49 12/23/16 10:45 12/23/16 12:43 White Blood Count 8.6x10^3/uL (4.0-11.0) Red Blood Count 4.58x10^6/uL (3.50-5.40) Hemoglobin 12.7g/dL (12.0-15.5) Hematocrit 39.9% (36.0-47.0) Mean Corpuscular Volume 87fL (79-100) Mean Corpuscular Hemoglobin 28pg (25-35) Mean Corpuscular Hemoglobin Concent 32g/dL (31-37) Red Cell Distribution Width 14.8% (11.5-14.5) Platelet Count 301x10^3/uL (140-400) Neutrophils (%) (Auto) 64% (31-73) Lymphocytes (%) (Auto) 18% (24-48) Monocytes (%) (Auto) 12% (0-9) Eosinophils (%) (Auto) 4% (0-3) Basophils (%) (Auto) 2% (0-3) Neutrophils # (Auto) 5.5x10^3uL (1.8-7.7) Lymphocytes # (Auto) 1.6x10^3/uL (1.0-4.8) Monocytes # (Auto) 1.0x10^3/uL (0.0-1.1) Eosinophils # (Auto) 0.4x10^3/uL (0.0-0.7) Basophils # (Auto) 0.2x10^3/uL (0.0-0.2) Heparin Anti-Xa Act, Unfractionated < 0.10IU/mL (0.30-0.70) 0.60IU/mL (0.30-0.70) Sodium Level 142mmol/L (136-145) Potassium Level 4.1mmol/L (3.5-5.1) Chloride Level 106mmol/L (98-107) Carbon Dioxide Level 31mmol/L (21-32) Anion Gap 5 (6-14) Blood Urea Nitrogen 19mg/dL (7-20) Creatinine 0.8mg/dL (0.6-1.0) Estimated GFR (Cockcroft-Gault) 72.7 Glucose Level 129mg/dL (70-99) Calcium Level 8.8mg/dL (8.5-10.1) Glucose (Fingerstick) 114mg/dL (70-99) 91mg/dL (70-99) Laboratory Tests Test 12/22/16 17:42 12/22/16 21:29 12/22/16 21:35 12/23/16 00:42 Glucose (Fingerstick) 190mg/dL (70-99) 218mg/dL (70-99) Heparin Anti-Xa Act, Unfractionated 0.31IU/mL (0.30-0.70) Vancomycin Level Trough 22.2mcg/mL (10.0-20.0) Vancomycin Last Dose Date [id number] Vancomycin Last Dose Time 1300 Test 12/23/16 02:50 12/23/16 08:49 12/23/16 10:45 12/23/16 12:43 White Blood Count 8.6x10^3/uL (4.0-11.0) Red Blood Count 4.58x10^6/uL (3.50-5.40) Hemoglobin 12.7g/dL (12.0-15.5) Hematocrit 39.9% (36.0-47.0) Mean Corpuscular Volume 87fL (79-100) Mean Corpuscular Hemoglobin 28pg (25-35) Mean Corpuscular Hemoglobin Concent 32g/dL (31-37) Red Cell Distribution Width 14.8% (11.5-14.5) Platelet Count 301x10^3/uL (140-400) Neutrophils (%) (Auto) 64% (31-73) Lymphocytes (%) (Auto) 18% (24-48) Monocytes (%) (Auto) 12% (0-9) Eosinophils (%) (Auto) 4% (0-3) Basophils (%) (Auto) 2% (0-3) Neutrophils # (Auto) 5.5x10^3uL (1.8-7.7) Lymphocytes # (Auto) 1.6x10^3/uL (1.0-4.8) Monocytes # (Auto) 1.0x10^3/uL (0.0-1.1) Eosinophils # (Auto) 0.4x10^3/uL (0.0-0.7) Basophils # (Auto) 0.2x10^3/uL (0.0-0.2) Heparin Anti-Xa Act, Unfractionated < 0.10IU/mL (0.30-0.70) 0.60IU/mL (0.30-0.70) Sodium Level 142mmol/L (136-145) Potassium Level 4.1mmol/L (3.5-5.1) Chloride Level 106mmol/L (98-107) Carbon Dioxide Level 31mmol/L (21-32) Anion Gap 5 (6-14) Blood Urea Nitrogen 19mg/dL (7-20) Creatinine 0.8mg/dL (0.6-1.0) Estimated GFR (Cockcroft-Gault) 72.7 Glucose Level 129mg/dL (70-99) Calcium Level 8.8mg/dL (8.5-10.1) Glucose (Fingerstick) 114mg/dL (70-99) 91mg/dL (70-99) Assessment/Plan Assessment/Plan 61-year-old female with multiple comorbidities, including diabetes, history of stroke with right-sided paresis, peripheral vascular disease, hypertension, obstructive sleep apnea, active smoker 1 pack per day, morbid obesity and strong family history of ischemic heart disease, who presents with non-STEMI and flush pulmonary edema secondary to hypertensive emergency. A left heart cath showed proximal 60% LAD lesion, a 90% proximal left circumflex stenosis, a significant ostial lesion of a relatively large diagonal branch, and a 80-90% ostial RCA stenosis. Her left ventricular ejection fraction is mildly reduced at 40-45%. She certainly has the coronary anatomy and indications for CABG. The targets are also reasonable. I explained the risks, benefits and limitations of CABG. I quoted a mortality risk of 3-4%, stroke risk of 5%, a 1-2% risk of renal failure, a 5% risk of VDRF and pneumonia, 1-2% risk of sternal wound infection, 5-10% risk of hemorrhage requiring re-sternotomy, 1-2% risk of perioperative myocardial infarction and a 30% risk of arrhythmias. Her limited mobility owing to her right-sided weakness from a previous stroke in conjunction with her morbid obesity, can potentially prolong and complicate her postoperative recovery. She understands the risks and limitations. Otherwise, considering her coronary anatomy, ischemic cardiomyopathy, history of diabetes, she would certainly benefit from CABG. She is leaning towards CABG rather than PCI. I would like to complete her preoperative workup, so that we have a more accurate assessment of her risk profile. Will obtain: 1) carotid duplex 2) non contrast CT of the chest 3) bilateral lower extremity saphenous vein mapping 4) bilateral lower extremity ABIs 5) PFTs If there are findings on her preoperative workup that would significantly put her at risk for open-heart surgery, we may consider PCI. Otherwise we will proceed with CABG x 4 (REY to LAD, SVG to diagonal, SVG to RCA, SVG to OM). Her radial arteries were small and not accessible for left heart catheterization. For this reason, I don't think it would be reasonable to use a radial artery graft. The patient is on Plavix for peripheral vascular disease. Will wait until next week for proceeding with CABG. Plan for CABG on Wednesday, December 28, 2016. SUBHASH BATES MD Dec 23, 2016 16:02
[2016-12-23] MEDS: LISINOPRIL 10 MG TABLET PO SCH (18:19)
[2016-12-23 20:10] VITALS: BP 124/71
[2016-12-23] MEDS: NORTRIPTYLINE 25 MG CAPSULE PO SCH (21:53)
[2016-12-23] MEDS: ATORVASTATIN CALCIUM 40 MG TABLET. PO SCH (21:53)
[2016-12-23] MEDS: NYSTATIN TOPICAL POWDER 15GM BOTTLE. TP SCH (21:53)
[2016-12-23] MEDS: ZOLPIDEM 5 MG TABLET. PO PRN (21:55)
[2016-12-24] MEDS: MORPHINE ER 15 MG TABLET.ER PO SCH ×2 (02:02→15:54)
[2016-12-24 03:00] VITALS: BP 141/50
[2016-12-24 04:52] LABS: BASO # 0.1 x10^3/uL (0.0-0.2); BASO % 1 % (0-3); EOS % 5 % (0-3); HEMOGLOBIN 11.9 g/dL (12.0-15.5); LYMPH # 2.7 x10^3/uL (1.0-4.8); LYMPH % 28 % (24-48); MEAN CORPUSCULAR HEMOGLOBIN 28 pg (25-35); MEAN CORPUSCULAR HGB CONC 32 g/dL (31-37); MEAN CORPUSCULAR VOLUME 87 fL (79-100); MONO % 12 % (0-9); NEUT % 54 % (31-73); PLATELET COUNT 307 x10^3/uL (140-400); RED BLOOD COUNT 4.24 x10^6/uL (3.50-5.40); WHITE BLOOD COUNT 9.8 x10^3/uL (4.0-11.0)
[2016-12-24 05:05] LABS: CALCIUM 8.5 mg/dL (8.5-10.1); CREATININE 0.9 mg/dL (0.6-1.0); GFR 63.4; POTASSIUM 4.1 mmol/L (3.5-5.1)
[2016-12-24] MEDS: LEVOTHYROXINE 175 MCG TABLET PO SCH (06:24)
[2016-12-24] MEDS: HEPARIN 25,000UTS/500ML PREMIX 500 ML IV PRN ×2 (06:28→19:30)
--- NOTE | 2016-12-24 07:26 | RAD ---
Bilateral lower extremity vein mapping, 12/23/2016: History: Preop evaluation for CABG Grayscale evaluation of the saphenous veins in both lower extremities was performed as requested. On the right, the greater saphenous vein is patent measuring 4.8 to 5.9 mm in diameter in the thigh and 1.9 to 3.8 mm in the lower leg. The lesser saphenous vein in the upper aspect of the left calf is patent measuring 2.4 to 3.0 mm. It is not visible more inferiorly in the lower leg. On the left, the greater saphenous vein is patent measuring 4.8 to 5.7 mm in diameter in the thigh and 2.7 to 3.8 mm in diameter in the lower leg. The left lesser saphenous vein is patent measuring approximately 3 mm throughout the lower leg. IMPRESSION: Patent greater saphenous and lesser saphenous veins with measurements as described above and fully delineated on the technologist worksheet available in the [employer] PACS system.
[2016-12-24 07:30] VITALS: BP 158/63
--- NOTE | 2016-12-24 07:30 | RAD ---
Ankle-brachial indices, 12/23/2016: History: Vascular disease, preop CABG Resting ILAN measurements were obtained. The right ILAN is markedly decreased at 0.5. A pulse could not be detected at the left ankle. The findings suggest severe peripheral arterial occlusive disease.
--- NOTE | 2016-12-24 07:33 | RAD ---
Carotid ultrasound, 12/23/2016: History: Preop CABG Duplex evaluation of the carotid arteries in the neck was performed including grayscale, color-flow and spectral Doppler analysis. There is intimal thickening in the common carotid arteries with mild to moderate atherosclerotic plaquing at both carotid bifurcations. The plaques are partially calcified. The Doppler data obtained from the bifurcations reveals no significant focal velocity acceleration to suggest a hemodynamically significant carotid stenosis. Antegrade flow is present in both vertebral arteries in the neck. IMPRESSION: Mild to moderate atherosclerotic plaquing at both carotid bifurcations with underlying luminal narrowing in the 0-50% diameter range bilaterally. Note: Stenosis calculations for CT, MRA and conventional angiography are based upon determination of the distal ICA diameter in accordance with the NASCET methodology. Stenosis calculations for Doppler studies are derived from validated velocity criteria which are known to correlate with NASCET methodology of determining stenosis.
[2016-12-24] MEDS: INSULIN ASPART 300 UNITS/3 ML INSULN.PEN SQ SCH ×6 (08:00→18:04)
--- NOTE | 2016-12-24 08:36 | PDOC ---
PULMONARY PROGRESS NOTES Subjective no cp, sob, better no cough, on 02 at night for shaila, never has psg, not on inhalers Vitals Vital Signs Date Time Temp Pulse Resp B/P Pulse Ox O2 Delivery O2 Flow Rate FiO2 12/24/16 07:30 97.7 63 20 158/63 97 Room Air 97.7 12/24/16 03:00 3.0 Comments ros as mentioned as above other sys otherwise neg ROS: No Nausea, No Chest Pain, No Abdominal Pain, No Increase Cough General: Alert HEENT: Other (nc, at perrl) Lungs: Clear Cardiovascular: S1, S2 Abdomen: Soft Neuro Exam: Alert Extremities: No Edema Skin: Warm Labs Laboratory Tests Test 12/22/16 12:20 12/22/16 12:36 12/22/16 17:42 12/22/16 21:29 Heparin Anti-Xa Act, Unfractionated 0.25IU/mL (0.30-0.70) Glucose (Fingerstick) 145mg/dL (70-99) 190mg/dL (70-99) 218mg/dL (70-99) Test 12/22/16 21:35 12/23/16 00:42 12/23/16 02:50 12/23/16 08:49 Heparin Anti-Xa Act, Unfractionated 0.31IU/mL (0.30-0.70) < 0.10IU/mL (0.30-0.70) Vancomycin Level Trough 22.2mcg/mL (10.0-20.0) Vancomycin Last Dose Date Vancomycin Last Dose Time 1300 White Blood Count 8.6x10^3/uL (4.0-11.0) Red Blood Count 4.58x10^6/uL (3.50-5.40) Hemoglobin 12.7g/dL (12.0-15.5) Hematocrit 39.9% (36.0-47.0) Mean Corpuscular Volume 87fL (79-100) Mean Corpuscular Hemoglobin 28pg (25-35) Mean Corpuscular Hemoglobin Concent 32g/dL (31-37) Red Cell Distribution Width 14.8% (11.5-14.5) Platelet Count 301x10^3/uL (140-400) Neutrophils (%) (Auto) 64% (31-73) Lymphocytes (%) (Auto) 18% (24-48) Monocytes (%) (Auto) 12% (0-9) Eosinophils (%) (Auto) 4% (0-3) Basophils (%) (Auto) 2% (0-3) Neutrophils # (Auto) 5.5x10^3uL (1.8-7.7) Lymphocytes # (Auto) 1.6x10^3/uL (1.0-4.8) Monocytes # (Auto) 1.0x10^3/uL (0.0-1.1) Eosinophils # (Auto) 0.4x10^3/uL (0.0-0.7) Basophils # (Auto) 0.2x10^3/uL (0.0-0.2) Sodium Level 142mmol/L (136-145) Potassium Level 4.1mmol/L (3.5-5.1) Chloride Level 106mmol/L (98-107) Carbon Dioxide Level 31mmol/L (21-32) Anion Gap 5 (6-14) Blood Urea Nitrogen 19mg/dL (7-20) Creatinine 0.8mg/dL (0.6-1.0) Estimated GFR (Cockcroft-Gault) 72.7 Glucose Level 129mg/dL (70-99) Calcium Level 8.8mg/dL (8.5-10.1) Glucose (Fingerstick) 114mg/dL (70-99) Test 12/23/16 10:45 12/23/16 12:43 12/23/16 17:31 12/23/16 20:19 Heparin Anti-Xa Act, Unfractionated 0.60IU/mL (0.30-0.70) Glucose (Fingerstick) 91mg/dL (70-99) 161mg/dL (70-99) 183mg/dL (70-99) Test 12/23/16 22:00 12/24/16 04:00 Heparin Anti-Xa Act, Unfractionated 0.43IU/mL (0.30-0.70) 0.52IU/mL (0.30-0.70) White Blood Count 9.8x10^3/uL (4.0-11.0) Red Blood Count 4.24x10^6/uL (3.50-5.40) Hemoglobin 11.9g/dL (12.0-15.5) Hematocrit 37.0% (36.0-47.0) Mean Corpuscular Volume 87fL (79-100) Mean Corpuscular Hemoglobin 28pg (25-35) Mean Corpuscular Hemoglobin Concent 32g/dL (31-37) Red Cell Distribution Width 15.0% (11.5-14.5) Platelet Count 307x10^3/uL (140-400) Neutrophils (%) (Auto) 54% (31-73) Lymphocytes (%) (Auto) 28% (24-48) Monocytes (%) (Auto) 12% (0-9) Eosinophils (%) (Auto) 5% (0-3) Basophils (%) (Auto) 1% (0-3) Neutrophils # (Auto) 5.3x10^3uL (1.8-7.7) Lymphocytes # (Auto) 2.7x10^3/uL (1.0-4.8) Monocytes # (Auto) 1.1x10^3/uL (0.0-1.1) Eosinophils # (Auto) 0.5x10^3/uL (0.0-0.7) Basophils # (Auto) 0.1x10^3/uL (0.0-0.2) Sodium Level 141mmol/L (136-145) Potassium Level 4.1mmol/L (3.5-5.1) Chloride Level 105mmol/L (98-107) Carbon Dioxide Level 29mmol/L (21-32) Anion Gap 7 (6-14) Blood Urea Nitrogen 18mg/dL (7-20) Creatinine 0.9mg/dL (0.6-1.0) Estimated GFR (Cockcroft-Gault) 63.4 Glucose Level 212mg/dL (70-99) Calcium Level 8.5mg/dL (8.5-10.1) Laboratory Tests Test 12/23/16 08:49 12/23/16 10:45 12/23/16 12:43 12/23/16 17:31 Glucose (Fingerstick) 114mg/dL (70-99) 91mg/dL (70-99) 161mg/dL (70-99) Heparin Anti-Xa Act, Unfractionated 0.60IU/mL (0.30-0.70) Test 12/23/16 20:19 12/23/16 22:00 12/24/16 04:00 Glucose (Fingerstick) 183mg/dL (70-99) Heparin Anti-Xa Act, Unfractionated 0.43IU/mL (0.30-0.70) 0.52IU/mL (0.30-0.70) White Blood Count 9.8x10^3/uL (4.0-11.0) Red Blood Count 4.24x10^6/uL (3.50-5.40) Hemoglobin 11.9g/dL (12.0-15.5) Hematocrit 37.0% (36.0-47.0) Mean Corpuscular Volume 87fL (79-100) Mean Corpuscular Hemoglobin 28pg (25-35) Mean Corpuscular Hemoglobin Concent 32g/dL (31-37) Red Cell Distribution Width 15.0% (11.5-14.5) Platelet Count 307x10^3/uL (140-400) Neutrophils (%) (Auto) 54% (31-73) Lymphocytes (%) (Auto) 28% (24-48) Monocytes (%) (Auto) 12% (0-9) Eosinophils (%) (Auto) 5% (0-3) Basophils (%) (Auto) 1% (0-3) Neutrophils # (Auto) 5.3x10^3uL (1.8-7.7) Lymphocytes # (Auto) 2.7x10^3/uL (1.0-4.8) Monocytes # (Auto) 1.1x10^3/uL (0.0-1.1) Eosinophils # (Auto) 0.5x10^3/uL (0.0-0.7) Basophils # (Auto) 0.1x10^3/uL (0.0-0.2) Sodium Level 141mmol/L (136-145) Potassium Level 4.1mmol/L (3.5-5.1) Chloride Level 105mmol/L (98-107) Carbon Dioxide Level 29mmol/L (21-32) Anion Gap 7 (6-14) Blood Urea Nitrogen 18mg/dL (7-20) Creatinine 0.9mg/dL (0.6-1.0) Estimated GFR (Cockcroft-Gault) 63.4 Glucose Level 212mg/dL (70-99) Calcium Level 8.5mg/dL (8.5-10.1) Medications Active Scripts Medications Dose Route/Sig Days Date Category Comments cxr reviewed, mild vascular congestion and interstitial edema. Impression . 1. Acute respiratory failure secondary to acute diastolic heart failure. 2. Acute and systolic heart failure. Echocardiogram revealed ejection fraction 40-45%. 3. New onset tachycardia, possibly atrial flutter. 4. Peripheral vascular disease. 5. Tobacco dependence. 6. Chronic obstructive pulmonary disease with no clinical presentation compatible with acute exacerbation. 7. Tachyarrhythmia. 8. Diabetes. 9. Nocturnal hypoxemia, suspect obstructive sleep apnea. 10. cad Plan . 3 vessel cad, cv surgery to see pfts start bronchodilators, ics will need a outpt sleep study, to see dr flavia lou tobacco for ever cont 02 at night 6 min walk prior to d/c lose wt discussed w pt, rn LEESA SPRINGER MD Dec 24, 2016 08:36
[2016-12-24] MEDS: AMLODIPINE BESYLATE 10 MG TABLET PO SCH (09:00)
--- NOTE | 2016-12-24 09:11 | RAD ---
CT of the chest without contrast, 12/24/2016: History: Preop evaluation, coronary artery disease, COPD Noncontrast scans were obtained as requested. There is moderate calcific plaquing of the thoracic aorta without evidence of aneurysm. Coronary artery calcifications are present, most prominent at the coronary artery origins. The heart is generally enlarged. The esophagus is mildly distended with gas and retained food. Several small mediastinal lymph nodes are seen without evidence of pathologic enlargement. The left lobe of the thyroid gland is mildly enlarged with mild substernal extension. There are moderate linear opacities in both lungs. These are most prominent in the lower lobes. The appearance suggests a combination of atelectasis and scarring. There is also a component of interlobular septal thickening compatible with minimal residual edema. Mild pleural thickening posteriorly appears to be due to a combination of scarring and a trace amount of bilateral pleural fluid. IMPRESSION: 1. Cardiomegaly with calcific plaquing of the aorta and coronary arteries. 2. Mild dilatation of the thoracic esophagus which contains food debris. The appearance suggests presbyesophagus and/or gastroesophageal reflux. 3. Mild enlargement of the left thyroid lobe. 4. Moderate bilateral linear atelectasis and/or scarring, most prominent in the lung bases. 5. Minimal interlobular septal thickening compatible with minimal residual interstitial edema. 6. Trace amount of bilateral pleural fluid. PQRS Compliance Statement: One or more of the following individualized dose reduction techniques were utilized for this examination: 1. Automated exposure control 2. Adjustment of the mA and/or kV according to patient size 3. Use of iterative reconstruction technique
[2016-12-24 10:31] VITALS: BP 142/53
[2016-12-24] MEDS: ASPIRIN ENTERIC COATED 81 MG TABLET.DR. PO SCH (10:38)
[2016-12-24] MEDS: METOPROLOL TART IMMED RELEASE 50 MG TABLET PO SCH ×2 (10:39→21:11)
[2016-12-24] MEDS: FAMOTIDINE 20 MG TABLET. PO SCH ×2 (10:39→21:11)
[2016-12-24] MEDS: ALPRAZOLAM 0.5 MG TABLET PO SCH ×3 (10:41→21:11)
[2016-12-24] MEDS: GABAPENTIN 400 MG CAPSULE. PO SCH ×3 (10:41→21:11)
[2016-12-24] MEDS: INSULIN DETEMIR 300 UNITS/3 ML INSULN.PEN. SQ SCH ×2 (10:46→21:18)
[2016-12-24] MEDS: ALBUTEROL SULFATE 2.5 MG/3 ML NEBU. NEB SCH ×3 (12:00→20:00)
--- NOTE | 2016-12-24 12:06 | PDOC ---
CARDIO Progress Notes Date and Time Date of Service 12/24/2016 Time of Evaluation 1206 Subjective Subjective: No Chest Pain, No Palpitations, No Dizziness Vitals Vitals Vital Signs Date Time Temp Pulse Resp B/P Pulse Ox O2 Delivery O2 Flow Rate FiO2 12/24/16 10:39 66 142/53 12/24/16 10:31 97.2 20 97 Room Air 97.2 12/24/16 03:00 3.0 Weight Weight [ ] Input and Output Intake and Output Intake and Output 12/24/16 07:00 Intake Total 1415 ml Balance 1415 ml Intake Oral 1415 ml # Voids 4 # Bowel Movements 1 Laboratory Labs Laboratory Tests Test 12/23/16 12:43 12/23/16 17:31 12/23/16 20:19 12/23/16 22:00 Glucose (Fingerstick) 91mg/dL (70-99) 161mg/dL (70-99) 183mg/dL (70-99) Heparin Anti-Xa Act, Unfractionated 0.43IU/mL (0.30-0.70) Test 12/24/16 04:00 12/24/16 08:03 12/24/16 11:20 White Blood Count 9.8x10^3/uL (4.0-11.0) Red Blood Count 4.24x10^6/uL (3.50-5.40) Hemoglobin 11.9g/dL (12.0-15.5) Hematocrit 37.0% (36.0-47.0) Mean Corpuscular Volume 87fL (79-100) Mean Corpuscular Hemoglobin 28pg (25-35) Mean Corpuscular Hemoglobin Concent 32g/dL (31-37) Red Cell Distribution Width 15.0% (11.5-14.5) Platelet Count 307x10^3/uL (140-400) Neutrophils (%) (Auto) 54% (31-73) Lymphocytes (%) (Auto) 28% (24-48) Monocytes (%) (Auto) 12% (0-9) Eosinophils (%) (Auto) 5% (0-3) Basophils (%) (Auto) 1% (0-3) Neutrophils # (Auto) 5.3x10^3uL (1.8-7.7) Lymphocytes # (Auto) 2.7x10^3/uL (1.0-4.8) Monocytes # (Auto) 1.1x10^3/uL (0.0-1.1) Eosinophils # (Auto) 0.5x10^3/uL (0.0-0.7) Basophils # (Auto) 0.1x10^3/uL (0.0-0.2) Heparin Anti-Xa Act, Unfractionated 0.52IU/mL (0.30-0.70) Sodium Level 141mmol/L (136-145) Potassium Level 4.1mmol/L (3.5-5.1) Chloride Level 105mmol/L (98-107) Carbon Dioxide Level 29mmol/L (21-32) Anion Gap 7 (6-14) Blood Urea Nitrogen 18mg/dL (7-20) Creatinine 0.9mg/dL (0.6-1.0) Estimated GFR (Cockcroft-Gault) 63.4 Glucose Level 212mg/dL (70-99) Calcium Level 8.5mg/dL (8.5-10.1) Glucose (Fingerstick) 185mg/dL (70-99) 199mg/dL (70-99) Microbiology Micro Microbiology 12/21/16 Blood Culture - Preliminary, Resulted NO GROWTH AFTER 3 DAYS Physical Exam HEENT: Neck Supple W Full Motion Chest: Symmetric LUNGS: Other (decreased anteriorly) Heart: S1S2, RRR, other (tele: SR) Abdomen: Soft N/T Extremities: No Edema Neurology: alert, oriented, follow commands Assessment Assessment 1. Tachyarrhythmia now NSR 2. Acute on chronic heart failure LVEF depressed @ 40-5% with mild global hypokinesis I & O inaccurate medical management 3. NSTEMI troponin peaked @ 2 3 vessel disease on cath - referred for cardiac surgery with evaluation in progress continue medical management 4. Acute on chronic respiratory failure, multifactorial remains on high flow oxygen 5. Malignant hypertension remains elevated - increase ACEI 6. Leukocytosis with ? sepsis, POA WBC trending down BARBARA BHATTI APRN Dec 24, 2016 12:06
[2016-12-24] MEDS: VANCOMYCIN PER PHARMACY MC PRN (13:31)
--- NOTE | 2016-12-24 14:17 | PDOC ---
PROGRESS NOTES Chief Complaint Chief Complaint Acute hypoxic respir failure ACS ASSESSMENT AND PLAN: 1. COPD: pre-op PFTs obtained with FEV1 1.2! no acute issues 2. CAD: significant troponin leak. cath today with multivessel dz. eval.ed by CV surgery: with mult issues incl PVD, COPD, etc, cath with stents appears safer and less morbid option. tentatively schedule dfor Mon 3. CHF: acute on chronic. recovered. IV lasix stopped 4. Aflutter: POA, converted on cardizem gtt to NSR. 5. PAD: hx CVA with R hemiparesis; bilat fem stents. 6. HTN: good control w/metoprolol, norvasc 7. DM2: levemir and ISS , good control today. monitor closely 8. Hypothyroidism: on synthroid. TSH minimally elevated; recheck on O/P basis 9. LE cellulitis: on vanco 10. Leukocytosis: resolved 11. Anxiety/depression: stable mood. continue home regimen 12. Tobacco use: strongly counseled re cessation 13. Prophylaxis: on heparin gtt. PPI Vitals Vitals Vital Signs Date Time Temp Pulse Resp B/P Pulse Ox O2 Delivery O2 Flow Rate FiO2 12/24/16 10:39 66 142/53 12/24/16 10:31 97.2 20 97 Room Air 97.2 12/24/16 03:00 3.0 Physical Exam General: Alert, Oriented X3, No acute distress Heart: Regular rate, Normal S1, Normal S2 Lungs: Clear Abdomen: Soft, No tenderness Extremities: Normal pulses Skin: No significant lesion Labs LABS Laboratory Tests Test 12/23/16 17:31 12/23/16 20:19 12/23/16 22:00 12/24/16 04:00 Glucose (Fingerstick) 161mg/dL (70-99) 183mg/dL (70-99) Heparin Anti-Xa Act, Unfractionated 0.43IU/mL (0.30-0.70) 0.52IU/mL (0.30-0.70) White Blood Count 9.8x10^3/uL (4.0-11.0) Red Blood Count 4.24x10^6/uL (3.50-5.40) Hemoglobin 11.9g/dL (12.0-15.5) Hematocrit 37.0% (36.0-47.0) Mean Corpuscular Volume 87fL (79-100) Mean Corpuscular Hemoglobin 28pg (25-35) Mean Corpuscular Hemoglobin Concent 32g/dL (31-37) Red Cell Distribution Width 15.0% (11.5-14.5) Platelet Count 307x10^3/uL (140-400) Neutrophils (%) (Auto) 54% (31-73) Lymphocytes (%) (Auto) 28% (24-48) Monocytes (%) (Auto) 12% (0-9) Eosinophils (%) (Auto) 5% (0-3) Basophils (%) (Auto) 1% (0-3) Neutrophils # (Auto) 5.3x10^3uL (1.8-7.7) Lymphocytes # (Auto) 2.7x10^3/uL (1.0-4.8) Monocytes # (Auto) 1.1x10^3/uL (0.0-1.1) Eosinophils # (Auto) 0.5x10^3/uL (0.0-0.7) Basophils # (Auto) 0.1x10^3/uL (0.0-0.2) Sodium Level 141mmol/L (136-145) Potassium Level 4.1mmol/L (3.5-5.1) Chloride Level 105mmol/L (98-107) Carbon Dioxide Level 29mmol/L (21-32) Anion Gap 7 (6-14) Blood Urea Nitrogen 18mg/dL (7-20) Creatinine 0.9mg/dL (0.6-1.0) Estimated GFR (Cockcroft-Gault) 63.4 Glucose Level 212mg/dL (70-99) Calcium Level 8.5mg/dL (8.5-10.1) Test 12/24/16 08:03 12/24/16 11:20 Glucose (Fingerstick) 185mg/dL (70-99) 199mg/dL (70-99) Review of Systems Review of Systems no SOB or CP. GUERO WALLACE MD Dec 24, 2016 14:17
[2016-12-24 15:55] VITALS: BP 188/61
--- NOTE | 2016-12-24 16:53 | PDOC ---
Provider Note Provider Note Ms Kilpatrick completed her preoperative workup. Significant findings include poor PFTs with FEV1, FVC and DLCO below 50%. In addition, she has poor ABIs which were 0.5 on the left and not recordable on the right. She underwent bilateral SFA stenting for 5 months ago. She continues to smoke 1 pack per day. I watched the patient attempt to ambulate today. It took her approximately 3-4 minutes, with assistance, to get from her bed to the bathroom. She has right- sided weakness from a previous stroke. Functional status is poor and it appears that she spends most of her day bedridden. Her poor functional status, combined with morbid obesity, in conjunction with poor PFTs, I think would put her at increased risk for open heart surgery. The risks would certainly outweigh any potential benefits from CABG. I don't see how she would be able to ambulate postoperatively. She is also going to be at risk for ventilator dependence. For the above reasons, I think it would be more reasonable to proceed with PCI to the proximal LAD/first diagonal and proximal left circumflex artery. She is also going to need workup for her poor lower extremity ABIs. SUBHASH BATES MD Dec 24, 2016 16:53
[2016-12-24] MEDS: VANCOMYCIN 1.5 GM in IV NORMAL SALINE 500ML BAG 500 ML IV SCH (17:58)
[2016-12-24 19:50] VITALS: BP 126/66
[2016-12-24] MEDS: NYSTATIN TOPICAL POWDER 15GM BOTTLE. TP SCH (21:00)
[2016-12-24] MEDS: ATORVASTATIN CALCIUM 40 MG TABLET. PO SCH (21:12)
[2016-12-24] MEDS: NORTRIPTYLINE 25 MG CAPSULE PO SCH (21:12)
[2016-12-24] MEDS: HYDROCODONE/APAP 5/325MG TABLET. PO PRN (21:13)
[2016-12-24 23:20] VITALS: BP 132/91
[2016-12-25 03:05] VITALS: BP 151/53
[2016-12-25 04:20] LABS: BASO # 0.1 x10^3/uL (0.0-0.2); BASO % 1 % (0-3); EOS % 5 % (0-3); HEMATOCRIT 36.3 % (36.0-47.0); HEMOGLOBIN 11.7 g/dL (12.0-15.5); LYMPH # 3.6 x10^3/uL (1.0-4.8); LYMPH % 34 % (24-48); MEAN CORPUSCULAR HEMOGLOBIN 28 pg (25-35); MEAN CORPUSCULAR HGB CONC 32 g/dL (31-37); MEAN CORPUSCULAR VOLUME 87 fL (79-100); MONO % 11 % (0-9); NEUT % 50 % (31-73); PLATELET COUNT 293 x10^3/uL (140-400); RED BLOOD COUNT 4.15 x10^6/uL (3.50-5.40); RED CELL DISTRIBUTION WIDTH 14.8 % (11.5-14.5); WHITE BLOOD COUNT 10.8 x10^3/uL (4.0-11.0)
[2016-12-25 04:38] LABS: CALCIUM 8.8 mg/dL (8.5-10.1); CREATININE 0.8 mg/dL (0.6-1.0); GFR 72.7; POTASSIUM 4.1 mmol/L (3.5-5.1)
[2016-12-25] MEDS: LEVOTHYROXINE 175 MCG TABLET PO SCH (07:28)
[2016-12-25 07:46] VITALS: BP 186/75
[2016-12-25] MEDS: INSULIN ASPART 300 UNITS/3 ML INSULN.PEN SQ SCH ×6 (08:00→17:45)
[2016-12-25] MEDS: GABAPENTIN 400 MG CAPSULE. PO SCH ×3 (08:08→21:23)
[2016-12-25] MEDS: MORPHINE ER 15 MG TABLET.ER PO SCH ×2 (08:09→14:52)
[2016-12-25] MEDS: ASPIRIN ENTERIC COATED 81 MG TABLET.DR. PO SCH (08:10)
[2016-12-25] MEDS: LISINOPRIL 20 MG TABLET PO SCH ×2 (08:10→17:38)
[2016-12-25] MEDS: METOPROLOL TART IMMED RELEASE 50 MG TABLET PO SCH ×2 (08:10→21:24)
[2016-12-25] MEDS: AMLODIPINE BESYLATE 10 MG TABLET PO SCH (08:10)
[2016-12-25] MEDS: FAMOTIDINE 20 MG TABLET. PO SCH ×2 (08:11→21:23)
[2016-12-25] MEDS: HEPARIN 25,000UTS/500ML PREMIX 500 ML IV PRN ×2 (08:16→22:52)
[2016-12-25] MEDS: ALBUTEROL SULFATE 2.5 MG/3 ML NEBU. NEB SCH ×4 (08:17→20:49)
--- NOTE | 2016-12-25 08:30 | PDOC ---
PULMONARY PROGRESS NOTES Subjective no cp, sob, better no cough, on 02 at night for shaila, never had psg, at home not on inhalers Vitals Vital Signs Date Time Temp Pulse Resp B/P Pulse Ox O2 Delivery O2 Flow Rate FiO2 12/25/16 08:21 Nasal Cannula 4.0 12/25/16 08:10 59 186/75 12/25/16 08:09 18 12/25/16 07:46 97.9 99 97.9 Comments ros as mentioned as above other sys otherwise neg ROS: No Nausea, No Chest Pain, No Abdominal Pain, No Increase Cough General: Alert HEENT: Other (nc, at perrl) Lungs: Clear Cardiovascular: S1, S2 Abdomen: Soft Neuro Exam: Alert Extremities: No Edema Skin: Warm Labs Laboratory Tests Test 12/23/16 08:49 12/23/16 10:45 12/23/16 12:43 12/23/16 17:31 Glucose (Fingerstick) 114mg/dL (70-99) 91mg/dL (70-99) 161mg/dL (70-99) Heparin Anti-Xa Act, Unfractionated 0.60IU/mL (0.30-0.70) Test 12/23/16 20:19 12/23/16 22:00 12/24/16 04:00 12/24/16 08:03 Glucose (Fingerstick) 183mg/dL (70-99) 185mg/dL (70-99) Heparin Anti-Xa Act, Unfractionated 0.43IU/mL (0.30-0.70) 0.52IU/mL (0.30-0.70) White Blood Count 9.8x10^3/uL (4.0-11.0) Red Blood Count 4.24x10^6/uL (3.50-5.40) Hemoglobin 11.9g/dL (12.0-15.5) Hematocrit 37.0% (36.0-47.0) Mean Corpuscular Volume 87fL (79-100) Mean Corpuscular Hemoglobin 28pg (25-35) Mean Corpuscular Hemoglobin Concent 32g/dL (31-37) Red Cell Distribution Width 15.0% (11.5-14.5) Platelet Count 307x10^3/uL (140-400) Neutrophils (%) (Auto) 54% (31-73) Lymphocytes (%) (Auto) 28% (24-48) Monocytes (%) (Auto) 12% (0-9) Eosinophils (%) (Auto) 5% (0-3) Basophils (%) (Auto) 1% (0-3) Neutrophils # (Auto) 5.3x10^3uL (1.8-7.7) Lymphocytes # (Auto) 2.7x10^3/uL (1.0-4.8) Monocytes # (Auto) 1.1x10^3/uL (0.0-1.1) Eosinophils # (Auto) 0.5x10^3/uL (0.0-0.7) Basophils # (Auto) 0.1x10^3/uL (0.0-0.2) Sodium Level 141mmol/L (136-145) Potassium Level 4.1mmol/L (3.5-5.1) Chloride Level 105mmol/L (98-107) Carbon Dioxide Level 29mmol/L (21-32) Anion Gap 7 (6-14) Blood Urea Nitrogen 18mg/dL (7-20) Creatinine 0.9mg/dL (0.6-1.0) Estimated GFR (Cockcroft-Gault) 63.4 Glucose Level 212mg/dL (70-99) Calcium Level 8.5mg/dL (8.5-10.1) Test 12/24/16 11:20 12/24/16 17:48 12/24/16 20:44 12/25/16 03:30 Glucose (Fingerstick) 199mg/dL (70-99) 154mg/dL (70-99) 113mg/dL (70-99) White Blood Count 10.8x10^3/uL (4.0-11.0) Red Blood Count 4.15x10^6/uL (3.50-5.40) Hemoglobin 11.7g/dL (12.0-15.5) Hematocrit 36.3% (36.0-47.0) Mean Corpuscular Volume 87fL (79-100) Mean Corpuscular Hemoglobin 28pg (25-35) Mean Corpuscular Hemoglobin Concent 32g/dL (31-37) Red Cell Distribution Width 14.8% (11.5-14.5) Platelet Count 293x10^3/uL (140-400) Neutrophils (%) (Auto) 50% (31-73) Lymphocytes (%) (Auto) 34% (24-48) Monocytes (%) (Auto) 11% (0-9) Eosinophils (%) (Auto) 5% (0-3) Basophils (%) (Auto) 1% (0-3) Neutrophils # (Auto) 5.4x10^3uL (1.8-7.7) Lymphocytes # (Auto) 3.6x10^3/uL (1.0-4.8) Monocytes # (Auto) 1.1x10^3/uL (0.0-1.1) Eosinophils # (Auto) 0.5x10^3/uL (0.0-0.7) Basophils # (Auto) 0.1x10^3/uL (0.0-0.2) Heparin Anti-Xa Act, Unfractionated 0.60IU/mL (0.30-0.70) Sodium Level 143mmol/L (136-145) Potassium Level 4.1mmol/L (3.5-5.1) Chloride Level 107mmol/L (98-107) Carbon Dioxide Level 28mmol/L (21-32) Anion Gap 8 (6-14) Blood Urea Nitrogen 15mg/dL (7-20) Creatinine 0.8mg/dL (0.6-1.0) Estimated GFR (Cockcroft-Gault) 72.7 Glucose Level 120mg/dL (70-99) Calcium Level 8.8mg/dL (8.5-10.1) Laboratory Tests Test 12/24/16 11:20 12/24/16 17:48 12/24/16 20:44 12/25/16 03:30 Glucose (Fingerstick) 199mg/dL (70-99) 154mg/dL (70-99) 113mg/dL (70-99) White Blood Count 10.8x10^3/uL (4.0-11.0) Red Blood Count 4.15x10^6/uL (3.50-5.40) Hemoglobin 11.7g/dL (12.0-15.5) Hematocrit 36.3% (36.0-47.0) Mean Corpuscular Volume 87fL (79-100) Mean Corpuscular Hemoglobin 28pg (25-35) Mean Corpuscular Hemoglobin Concent 32g/dL (31-37) Red Cell Distribution Width 14.8% (11.5-14.5) Platelet Count 293x10^3/uL (140-400) Neutrophils (%) (Auto) 50% (31-73) Lymphocytes (%) (Auto) 34% (24-48) Monocytes (%) (Auto) 11% (0-9) Eosinophils (%) (Auto) 5% (0-3) Basophils (%) (Auto) 1% (0-3) Neutrophils # (Auto) 5.4x10^3uL (1.8-7.7) Lymphocytes # (Auto) 3.6x10^3/uL (1.0-4.8) Monocytes # (Auto) 1.1x10^3/uL (0.0-1.1) Eosinophils # (Auto) 0.5x10^3/uL (0.0-0.7) Basophils # (Auto) 0.1x10^3/uL (0.0-0.2) Heparin Anti-Xa Act, Unfractionated 0.60IU/mL (0.30-0.70) Sodium Level 143mmol/L (136-145) Potassium Level 4.1mmol/L (3.5-5.1) Chloride Level 107mmol/L (98-107) Carbon Dioxide Level 28mmol/L (21-32) Anion Gap 8 (6-14) Blood Urea Nitrogen 15mg/dL (7-20) Creatinine 0.8mg/dL (0.6-1.0) Estimated GFR (Cockcroft-Gault) 72.7 Glucose Level 120mg/dL (70-99) Calcium Level 8.8mg/dL (8.5-10.1) Medications Active Scripts Medications Dose Route/Sig Days Date Category Comments cxr reviewed, mild vascular congestion and interstitial edema. Impression . 1. Acute respiratory failure secondary to acute diastolic heart failure. 2. Acute and systolic heart failure. Echocardiogram revealed ejection fraction 40-45%. 3. New onset tachycardia, possibly atrial flutter. 4. Peripheral vascular disease. 5. Tobacco dependence. 6. Chronic obstructive pulmonary disease with no clinical presentation compatible with acute exacerbation. 7. Tachyarrhythmia. 8. Diabetes. 9. Nocturnal hypoxemia, suspect obstructive sleep apnea. 10. cad Plan . 3 vessel cad, cv surgery : not a good candidate for surgery. I agree she is obese, has shaila and poor functional status, low dlco, and restrictive lung defect. pfts, FEV1, FVC and DLCO below 50%. ratio 78% bronchodilators, ics will need a outpt sleep study, to see dr alejandro stop tobacco use for ever cont 02 at night 6 min walk prior to d/c lose wt discussed w pt, rn LESEA SPRINGER MD Dec 25, 2016 08:30
[2016-12-25] MEDS: ALPRAZOLAM 0.5 MG TABLET PO SCH ×3 (09:00→21:23)
[2016-12-25] MEDS: INSULIN DETEMIR 300 UNITS/3 ML INSULN.PEN. SQ SCH ×2 (09:00→21:51)
[2016-12-25 10:21] VITALS: BP 139/57
--- NOTE | 2016-12-25 10:26 | PDOC ---
RONNI CALI RECORDER OF DEEDS 12/25/16 1026: CARDIO Progress Notes Date and Time Date of Service 12/25/16 Time of Evaluation 0920 Subjective Subjective: No Chest Pain, No shortness of breath, No Palpitations, No Dizziness, Other (didn't sleep well, non-productive cough. ) Vitals Vitals Vital Signs Date Time Temp Pulse Resp B/P Pulse Ox O2 Delivery O2 Flow Rate FiO2 12/25/16 08:21 Nasal Cannula 4.0 12/25/16 08:10 59 186/75 12/25/16 08:09 18 12/25/16 07:46 97.9 99 97.9 Weight Weight [ ] Input and Output Intake and Output Intake and Output 12/25/16 07:00 Intake Total 1680 ml Output Total 600 ml Balance 1080 ml Intake Oral 1680 ml Output Urine Total 600 ml Laboratory Labs Laboratory Tests Test 12/24/16 11:20 12/24/16 17:48 12/24/16 20:44 12/25/16 03:30 Glucose (Fingerstick) 199mg/dL (70-99) 154mg/dL (70-99) 113mg/dL (70-99) White Blood Count 10.8x10^3/uL (4.0-11.0) Red Blood Count 4.15x10^6/uL (3.50-5.40) Hemoglobin 11.7g/dL (12.0-15.5) Hematocrit 36.3% (36.0-47.0) Mean Corpuscular Volume 87fL (79-100) Mean Corpuscular Hemoglobin 28pg (25-35) Mean Corpuscular Hemoglobin Concent 32g/dL (31-37) Red Cell Distribution Width 14.8% (11.5-14.5) Platelet Count 293x10^3/uL (140-400) Neutrophils (%) (Auto) 50% (31-73) Lymphocytes (%) (Auto) 34% (24-48) Monocytes (%) (Auto) 11% (0-9) Eosinophils (%) (Auto) 5% (0-3) Basophils (%) (Auto) 1% (0-3) Neutrophils # (Auto) 5.4x10^3uL (1.8-7.7) Lymphocytes # (Auto) 3.6x10^3/uL (1.0-4.8) Monocytes # (Auto) 1.1x10^3/uL (0.0-1.1) Eosinophils # (Auto) 0.5x10^3/uL (0.0-0.7) Basophils # (Auto) 0.1x10^3/uL (0.0-0.2) Heparin Anti-Xa Act, Unfractionated 0.60IU/mL (0.30-0.70) Sodium Level 143mmol/L (136-145) Potassium Level 4.1mmol/L (3.5-5.1) Chloride Level 107mmol/L (98-107) Carbon Dioxide Level 28mmol/L (21-32) Anion Gap 8 (6-14) Blood Urea Nitrogen 15mg/dL (7-20) Creatinine 0.8mg/dL (0.6-1.0) Estimated GFR (Cockcroft-Gault) 72.7 Glucose Level 120mg/dL (70-99) Calcium Level 8.8mg/dL (8.5-10.1) Test 12/25/16 08:28 Glucose (Fingerstick) 135mg/dL (70-99) Microbiology Micro Microbiology 12/21/16 Blood Culture - Preliminary, Resulted NO GROWTH AFTER 3 DAYS Physical Exam HEENT: Neck Supple W Full Motion Chest: Symmetric LUNGS: Clear to Auscultation, Other (decreased anteriorly) Heart: S1S2, RRR, other (no acute events on tele; maintaining SR) Abdomen: Soft N/T Extremities: No Edema, No Calf Tenderness, Other Neurology: alert, oriented, follow commands Assessment Assessment 1. Acute on chronic systolic heart failure 2. NSTEMI 3. 3V CAD 4. Acute on chronic respiratory failure 5. Malignant hypertension 6. PAD Recommendation High surgical risk; plan for PCI to the proximal LAD/first diagonal and proximal left circumflex artery on Tuesday BP labile- MARIO increased this morning. Monitor trends; uptitrate therapy as necessary. Hydralazine IV PRN Continue supportive care Lung optimization per pulmonary SUNNY CHRISTIANSEN MD 12/25/16 1200: CARDIO Progress Notes Plan Plan Pt. seen and examined. 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 No acute events overnight. Unchanged cardiac exam. labs reviewed. med changes as noted above. plan for multivessel PCI of the Diag/LAD and LCx on Tuesday. If possible, will also plan for RCA PCI. Otherwise, stage it for later date. RONNI CALI APRN Dec 25, 2016 10:26 SUNNY CHRISTIANSEN MD Dec 25, 2016 12:00
--- NOTE | 2016-12-25 12:37 | PDOC ---
PROGRESS NOTES Chief Complaint Chief Complaint Acute hypoxic respir failure ACS ASSESSMENT AND PLAN: 1. COPD: pre-op PFTs obtained with FEV1 of 1.2! no acute issues, though 2. CAD: significant troponin leak. cath today with multivessel dz. eval.ed by CV surgery: with mult issues incl PVD, COPD, etc, cath with stents appears safer and less morbid option. tentatively scheduled for Tue 3. CHF: acute on chronic. recovered. IV lasix stopped 4. Aflutter: POA, converted on cardizem gtt to NSR. 5. PAD: hx CVA with R hemiparesis; bilat fem stents. 6. HTN: good control w/metoprolol, norvasc 7. DM2: levemir and ISS , good control today. monitor closely 8. Hypothyroidism: on synthroid. TSH minimally elevated; recheck on O/P basis 9. LE cellulitis: on vanco, switch to keflex 10. Leukocytosis: resolved 11. Anxiety/depression: stable mood. continue home regimen 12. Insomnia. sleeps all day. discussed sleep hygiene. has PRN bharatien 13 Tobacco use: strongly counseled re cessation 14. Prophylaxis: on heparin gtt. PPI Vitals Vitals Vital Signs Date Time Temp Pulse Resp B/P Pulse Ox O2 Delivery O2 Flow Rate FiO2 12/25/16 10:21 98.0 61 18 139/57 100 Nasal Cannula 2.0 98.0 Physical Exam General: Alert, Oriented X3, No acute distress Heart: Regular rate, Normal S1, Normal S2 Lungs: Clear Abdomen: Soft, No tenderness Extremities: Normal pulses Skin: No significant lesion Labs LABS Laboratory Tests Test 12/24/16 17:48 12/24/16 20:44 12/25/16 03:30 12/25/16 08:28 Glucose (Fingerstick) 154mg/dL (70-99) 113mg/dL (70-99) 135mg/dL (70-99) White Blood Count 10.8x10^3/uL (4.0-11.0) Red Blood Count 4.15x10^6/uL (3.50-5.40) Hemoglobin 11.7g/dL (12.0-15.5) Hematocrit 36.3% (36.0-47.0) Mean Corpuscular Volume 87fL (79-100) Mean Corpuscular Hemoglobin 28pg (25-35) Mean Corpuscular Hemoglobin Concent 32g/dL (31-37) Red Cell Distribution Width 14.8% (11.5-14.5) Platelet Count 293x10^3/uL (140-400) Neutrophils (%) (Auto) 50% (31-73) Lymphocytes (%) (Auto) 34% (24-48) Monocytes (%) (Auto) 11% (0-9) Eosinophils (%) (Auto) 5% (0-3) Basophils (%) (Auto) 1% (0-3) Neutrophils # (Auto) 5.4x10^3uL (1.8-7.7) Lymphocytes # (Auto) 3.6x10^3/uL (1.0-4.8) Monocytes # (Auto) 1.1x10^3/uL (0.0-1.1) Eosinophils # (Auto) 0.5x10^3/uL (0.0-0.7) Basophils # (Auto) 0.1x10^3/uL (0.0-0.2) Heparin Anti-Xa Act, Unfractionated 0.60IU/mL (0.30-0.70) Sodium Level 143mmol/L (136-145) Potassium Level 4.1mmol/L (3.5-5.1) Chloride Level 107mmol/L (98-107) Carbon Dioxide Level 28mmol/L (21-32) Anion Gap 8 (6-14) Blood Urea Nitrogen 15mg/dL (7-20) Creatinine 0.8mg/dL (0.6-1.0) Estimated GFR (Cockcroft-Gault) 72.7 Glucose Level 120mg/dL (70-99) Calcium Level 8.8mg/dL (8.5-10.1) Test 12/25/16 10:54 Glucose (Fingerstick) 181mg/dL (70-99) Review of Systems Review of Systems sleeping. wakes to verbal input. c/o not sleeping at GUERO Orozco MD Dec 25, 2016 12:37
--- NOTE | 2016-12-25 13:04 | RAD ---
APPROVED REPORT Patient Location: IN-PATIENT Indications PAD Risk Factors Obesity Cardiac Disease VELOCITY AND DOPPLER WAVEFORM ANALYSIS RIGHT cm/secWaveformSeverity LEFT c m/secWaveformSeverity pCFA 126.4TriphasicpCFA 210.5Triphasic Prof Fem Art. 133.9BiphasicProf Fem Art. 178.2Biphasic Fem Art Prox. 152.0BiphasicFem Art Prox. 157.3Biphasic Fem Art Mid. 83.6BiphasicFem Art Mid. 66.5Biphasic Fem Art Dist. 95.8BiphasicFem Art Dist. 72.3Biphasic Pop Art(Fossa) 48.6BiphasicPop Art(Fossa) 83.3Biphasic MILK CONDENSER Dist. 71.7BiphasicPTA Dist. 72.3Biphasic Per Art Dist. 88.3BiphasicPer Art Dist. 90.2Biphasic CHARISMA Prox. 78.4BiphasicATA Prox. 58.4Monophasic CHARISMA Dist. 79.4BiphasicATA Dist. 62.5Monophasic Findings Bilateral lower extremity arterial duplex study reveals moderate atherosclerotic plaque throughout th e arterial tree. On the right the common femoral artery velocities are elevated but triphasic in natu re. No significant elevated velocity profiles are identified. On the left E left common femoral arter y and Sprock's most superficial femoral artery have elevated velocities suggestive of 50% stenosis or greater. No occlusive disease is identified. Monophasic waveforms in the below ankle vessels suggest katy of small vessel diffuse disease. Critical Notification Critical Value: No <Conclusion> Suspect more than 50% stenosis in the left common femoral and superficial femoral artery. No significant high-grade flow-limiting stenosis.
[2016-12-25 14:25] VITALS: BP 145/64
[2016-12-25] MEDS: CEPHALEXIN 250 MG CAPSULE PO SCH ×2 (14:53→21:22)
[2016-12-25 19:35] VITALS: BP 140/56
[2016-12-25] MEDS: NYSTATIN TOPICAL POWDER 15GM BOTTLE. TP SCH (21:00)
[2016-12-25] MEDS: ATORVASTATIN CALCIUM 40 MG TABLET. PO SCH (21:22)
[2016-12-25] MEDS: NORTRIPTYLINE 25 MG CAPSULE PO SCH (21:23)
[2016-12-25] MEDS: HYDROCODONE/APAP 5/325MG TABLET. PO PRN (21:23)
[2016-12-25] MEDS: ZOLPIDEM 5 MG TABLET. PO PRN (22:41)
[2016-12-25 23:32] VITALS: BP 140/45
[2016-12-26 03:00] VITALS: BP 157/70
[2016-12-26 06:13] LABS: BASO # 0.1 x10^3/uL (0.0-0.2); BASO % 1 % (0-3); EOS % 5 % (0-3); HEMATOCRIT 37.5 % (36.0-47.0); HEMOGLOBIN 12.1 g/dL (12.0-15.5); LYMPH # 3.6 x10^3/uL (1.0-4.8); LYMPH % 33 % (24-48); MEAN CORPUSCULAR HEMOGLOBIN 28 pg (25-35); MEAN CORPUSCULAR HGB CONC 32 g/dL (31-37); MEAN CORPUSCULAR VOLUME 88 fL (79-100); MONO % 11 % (0-9); NEUT % 51 % (31-73); PLATELET COUNT 318 x10^3/uL (140-400); RED BLOOD COUNT 4.27 x10^6/uL (3.50-5.40); RED CELL DISTRIBUTION WIDTH 14.8 % (11.5-14.5); WHITE BLOOD COUNT 10.8 x10^3/uL (4.0-11.0)
[2016-12-26 06:31] LABS: CALCIUM 8.9 mg/dL (8.5-10.1); CREATININE 0.9 mg/dL (0.6-1.0); GFR 63.4; POTASSIUM 4.4 mmol/L (3.5-5.1)
--- NOTE | 2016-12-26 07:51 | PDOC ---
PULMONARY PROGRESS NOTES Subjective no cp, has sob, no cough, has nasal congestion on 02 at night for shaila, never had psg, at home not on inhalers Vitals Vital Signs Date Time Temp Pulse Resp B/P Pulse Ox O2 Delivery O2 Flow Rate FiO2 12/26/16 03:00 97.1 67 22 157/70 99 Nasal Cannula 3.0 97.1 Comments ros as mentioned as above other sys otherwise neg ROS: No Nausea, No Chest Pain, No Abdominal Pain, No Increase Cough General: Alert HEENT: Other (nc, at perrl) Lungs: Clear Cardiovascular: S1, S2 Abdomen: Soft, Non-tender, Other Neuro Exam: Alert Extremities: No Edema Skin: Warm Labs Laboratory Tests Test 12/24/16 08:03 12/24/16 11:20 12/24/16 17:48 12/24/16 20:44 Glucose (Fingerstick) 185mg/dL (70-99) 199mg/dL (70-99) 154mg/dL (70-99) 113mg/dL (70-99) Test 12/25/16 03:30 12/25/16 08:28 12/25/16 10:54 12/25/16 13:05 White Blood Count 10.8x10^3/uL (4.0-11.0) Red Blood Count 4.15x10^6/uL (3.50-5.40) Hemoglobin 11.7g/dL (12.0-15.5) Hematocrit 36.3% (36.0-47.0) Mean Corpuscular Volume 87fL (79-100) Mean Corpuscular Hemoglobin 28pg (25-35) Mean Corpuscular Hemoglobin Concent 32g/dL (31-37) Red Cell Distribution Width 14.8% (11.5-14.5) Platelet Count 293x10^3/uL (140-400) Neutrophils (%) (Auto) 50% (31-73) Lymphocytes (%) (Auto) 34% (24-48) Monocytes (%) (Auto) 11% (0-9) Eosinophils (%) (Auto) 5% (0-3) Basophils (%) (Auto) 1% (0-3) Neutrophils # (Auto) 5.4x10^3uL (1.8-7.7) Lymphocytes # (Auto) 3.6x10^3/uL (1.0-4.8) Monocytes # (Auto) 1.1x10^3/uL (0.0-1.1) Eosinophils # (Auto) 0.5x10^3/uL (0.0-0.7) Basophils # (Auto) 0.1x10^3/uL (0.0-0.2) Heparin Anti-Xa Act, Unfractionated 0.60IU/mL (0.30-0.70) 0.48IU/mL (0.30-0.70) Sodium Level 143mmol/L (136-145) Potassium Level 4.1mmol/L (3.5-5.1) Chloride Level 107mmol/L (98-107) Carbon Dioxide Level 28mmol/L (21-32) Anion Gap 8 (6-14) Blood Urea Nitrogen 15mg/dL (7-20) Creatinine 0.8mg/dL (0.6-1.0) Estimated GFR (Cockcroft-Gault) 72.7 Glucose Level 120mg/dL (70-99) Calcium Level 8.8mg/dL (8.5-10.1) Glucose (Fingerstick) 135mg/dL (70-99) 181mg/dL (70-99) Vancomycin Level Trough 12.4mcg/mL (10.0-20.0) Vancomycin Last Dose Date Vancomycin Last Dose Time Test 12/25/16 16:52 12/25/16 18:00 12/25/16 21:01 12/26/16 04:48 Glucose (Fingerstick) 141mg/dL (70-99) 162mg/dL (70-99) Heparin Anti-Xa Act, Unfractionated 0.50IU/mL (0.30-0.70) 0.28IU/mL (0.30-0.70) White Blood Count 10.8x10^3/uL (4.0-11.0) Red Blood Count 4.27x10^6/uL (3.50-5.40) Hemoglobin 12.1g/dL (12.0-15.5) Hematocrit 37.5% (36.0-47.0) Mean Corpuscular Volume 88fL (79-100) Mean Corpuscular Hemoglobin 28pg (25-35) Mean Corpuscular Hemoglobin Concent 32g/dL (31-37) Red Cell Distribution Width 14.8% (11.5-14.5) Platelet Count 318x10^3/uL (140-400) Neutrophils (%) (Auto) 51% (31-73) Lymphocytes (%) (Auto) 33% (24-48) Monocytes (%) (Auto) 11% (0-9) Eosinophils (%) (Auto) 5% (0-3) Basophils (%) (Auto) 1% (0-3) Neutrophils # (Auto) 5.4x10^3uL (1.8-7.7) Lymphocytes # (Auto) 3.6x10^3/uL (1.0-4.8) Monocytes # (Auto) 1.2x10^3/uL (0.0-1.1) Eosinophils # (Auto) 0.5x10^3/uL (0.0-0.7) Basophils # (Auto) 0.1x10^3/uL (0.0-0.2) Sodium Level 143mmol/L (136-145) Potassium Level 4.4mmol/L (3.5-5.1) Chloride Level 106mmol/L (98-107) Carbon Dioxide Level 30mmol/L (21-32) Anion Gap 7 (6-14) Blood Urea Nitrogen 14mg/dL (7-20) Creatinine 0.9mg/dL (0.6-1.0) Estimated GFR (Cockcroft-Gault) 63.4 Glucose Level 171mg/dL (70-99) Calcium Level 8.9mg/dL (8.5-10.1) Laboratory Tests Test 12/25/16 08:28 12/25/16 10:54 12/25/16 13:05 12/25/16 16:52 Glucose (Fingerstick) 135mg/dL (70-99) 181mg/dL (70-99) 141mg/dL (70-99) Heparin Anti-Xa Act, Unfractionated 0.48IU/mL (0.30-0.70) Vancomycin Level Trough 12.4mcg/mL (10.0-20.0) Vancomycin Last Dose Date Vancomycin Last Dose Time Test 12/25/16 18:00 3/18/17 21:01 12/26/16 04:48 Heparin Anti-Xa Act, Unfractionated 0.50IU/mL (0.30-0.70) 0.28IU/mL (0.30-0.70) Glucose (Fingerstick) 162mg/dL (70-99) White Blood Count 10.8x10^3/uL (4.0-11.0) Red Blood Count 4.27x10^6/uL (3.50-5.40) Hemoglobin 12.1g/dL (12.0-15.5) Hematocrit 37.5% (36.0-47.0) Mean Corpuscular Volume 88fL (79-100) Mean Corpuscular Hemoglobin 28pg (25-35) Mean Corpuscular Hemoglobin Concent 32g/dL (31-37) Red Cell Distribution Width 14.8% (11.5-14.5) Platelet Count 318x10^3/uL (140-400) Neutrophils (%) (Auto) 51% (31-73) Lymphocytes (%) (Auto) 33% (24-48) Monocytes (%) (Auto) 11% (0-9) Eosinophils (%) (Auto) 5% (0-3) Basophils (%) (Auto) 1% (0-3) Neutrophils # (Auto) 5.4x10^3uL (1.8-7.7) Lymphocytes # (Auto) 3.6x10^3/uL (1.0-4.8) Monocytes # (Auto) 1.2x10^3/uL (0.0-1.1) Eosinophils # (Auto) 0.5x10^3/uL (0.0-0.7) Basophils # (Auto) 0.1x10^3/uL (0.0-0.2) Sodium Level 143mmol/L (136-145) Potassium Level 4.4mmol/L (3.5-5.1) Chloride Level 106mmol/L (98-107) Carbon Dioxide Level 30mmol/L (21-32) Anion Gap 7 (6-14) Blood Urea Nitrogen 14mg/dL (7-20) Creatinine 0.9mg/dL (0.6-1.0) Estimated GFR (Cockcroft-Gault) 63.4 Glucose Level 171mg/dL (70-99) Calcium Level 8.9mg/dL (8.5-10.1) Medications Active Scripts Medications Dose Route/Sig Days Date Category Comments cxr reviewed, mild vascular congestion and interstitial edema. Impression . 1. Acute respiratory failure secondary to acute diastolic heart failure. 2. Acute and systolic heart failure. Echocardiogram revealed ejection fraction 40-45%. 3. New onset tachycardia, possibly atrial flutter. 4. Peripheral vascular disease. 5. Tobacco dependence. 6. Chronic obstructive pulmonary disease with no clinical presentation compatible with acute exacerbation. 7. Tachyarrhythmia. 8. Diabetes. 9. Nocturnal hypoxemia, suspect obstructive sleep apnea. 10. cad 11. allergic rhinitis Plan . 3 vessel cad, cv surgery seen : not a good candidate for surgery. I agree she is obese, has shaila and poor functional status, low dlco, and restrictive lung defect. pfts, FEV1, FVC and DLCO below 50%. 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
[2016-12-26 07:58] VITALS: BP 170/71
[2016-12-26] MEDS: ALBUTEROL SULFATE 2.5 MG/3 ML NEBU. NEB SCH ×4 (08:01→19:32)
[2016-12-26] MEDS: INSULIN ASPART 300 UNITS/3 ML INSULN.PEN SQ SCH ×6 (08:21→17:38)
[2016-12-26] MEDS: INSULIN DETEMIR 300 UNITS/3 ML INSULN.PEN. SQ SCH ×2 (08:23→21:48)
[2016-12-26] MEDS: MORPHINE ER 15 MG TABLET.ER PO SCH ×2 (10:01→14:06)
[2016-12-26] MEDS: LEVOTHYROXINE 175 MCG TABLET PO SCH (10:01)
[2016-12-26] MEDS: CEPHALEXIN 250 MG CAPSULE PO SCH ×3 (10:01→21:27)
[2016-12-26] MEDS: METOPROLOL TART IMMED RELEASE 50 MG TABLET PO SCH ×2 (10:02→21:28)
[2016-12-26] MEDS: AMLODIPINE BESYLATE 10 MG TABLET PO SCH (10:03)
[2016-12-26] MEDS: FAMOTIDINE 20 MG TABLET. PO SCH ×2 (10:03→21:27)
[2016-12-26] MEDS: ASPIRIN ENTERIC COATED 81 MG TABLET.DR. PO SCH (10:03)
[2016-12-26] MEDS: GABAPENTIN 400 MG CAPSULE. PO SCH ×3 (10:03→21:28)
[2016-12-26] MEDS: ALPRAZOLAM 0.5 MG TABLET PO SCH ×3 (10:04→21:27)
[2016-12-26 10:14] VITALS: BP 187/79
--- NOTE | 2016-12-26 10:34 | PDOC ---
PROGRESS NOTES Chief Complaint Chief Complaint Acute hypoxic respir failure ACS ASSESSMENT AND PLAN: 1. CAD: significant troponin leak. cath with multivessel dz. eval.ed by CV surgery: with mult issues incl PVD, COPD, etc, cath with stents appears safer and less morbid option. tentatively scheduled for Mon 2. CHF: acute on chronic. recovered. IV lasix stopped 3. Aflutter: POA, converted on cardizem gtt to NSR. 4. PAD: hx CVA with R hemiparesis; bilat fem stents. 5. COPD: pre-op PFTs obtained with FEV1 of 1.2! no acute issues, though 6. HTN: good control w/metoprolol, norvasc 7. DM2: levemir and ISS , good control today. monitor closely 8. Hypothyroidism: on synthroid. TSH minimally elevated; recheck on O/P basis 9. LE cellulitis: on vanco, switch to keflex 10. Leukocytosis: resolved 11. Anxiety/depression: stable mood. continue home regimen 12. Insomnia. sleeps all day. discussed sleep hygiene. has PRN bharatien 13 Tobacco use: strongly counseled re cessation 14. LBP: chronic. no IV narcotics! PO ok. increase activity, OOB 15. Prophylaxis: on heparin gtt. PPI Vitals Vitals Vital Signs Date Time Temp Pulse Resp B/P Pulse Ox O2 Delivery O2 Flow Rate FiO2 12/26/16 10:14 97.5 71 20 187/79 98 Nasal Cannula 3.0 97.5 Physical Exam General: Alert, Oriented X3, No acute distress Heart: Regular rate, Normal S1, Normal S2 Lungs: Clear Abdomen: Soft, No tenderness Extremities: Normal pulses Skin: No significant lesion Labs LABS Laboratory Tests Test 12/25/16 10:54 12/25/16 13:05 12/25/16 16:52 12/25/16 18:00 Glucose (Fingerstick) 181mg/dL (70-99) 141mg/dL (70-99) Heparin Anti-Xa Act, Unfractionated 0.48IU/mL (0.30-0.70) 0.50IU/mL (0.30-0.70) Vancomycin Level Trough 12.4mcg/mL (10.0-20.0) Vancomycin Last Dose Date Vancomycin Last Dose Time Test 12/25/16 21:01 12/26/16 04:48 12/26/16 08:17 Glucose (Fingerstick) 162mg/dL (70-99) 185mg/dL (70-99) White Blood Count 10.8x10^3/uL (4.0-11.0) Red Blood Count 4.27x10^6/uL (3.50-5.40) Hemoglobin 12.1g/dL (12.0-15.5) Hematocrit 37.5% (36.0-47.0) Mean Corpuscular Volume 88fL (79-100) Mean Corpuscular Hemoglobin 28pg (25-35) Mean Corpuscular Hemoglobin Concent 32g/dL (31-37) Red Cell Distribution Width 14.8% (11.5-14.5) Platelet Count 318x10^3/uL (140-400) Neutrophils (%) (Auto) 51% (31-73) Lymphocytes (%) (Auto) 33% (24-48) Monocytes (%) (Auto) 11% (0-9) Eosinophils (%) (Auto) 5% (0-3) Basophils (%) (Auto) 1% (0-3) Neutrophils # (Auto) 5.4x10^3uL (1.8-7.7) Lymphocytes # (Auto) 3.6x10^3/uL (1.0-4.8) Monocytes # (Auto) 1.2x10^3/uL (0.0-1.1) Eosinophils # (Auto) 0.5x10^3/uL (0.0-0.7) Basophils # (Auto) 0.1x10^3/uL (0.0-0.2) Heparin Anti-Xa Act, Unfractionated 0.28IU/mL (0.30-0.70) Sodium Level 143mmol/L (136-145) Potassium Level 4.4mmol/L (3.5-5.1) Chloride Level 106mmol/L (98-107) Carbon Dioxide Level 30mmol/L (21-32) Anion Gap 7 (6-14) Blood Urea Nitrogen 14mg/dL (7-20) Creatinine 0.9mg/dL (0.6-1.0) Estimated GFR (Cockcroft-Gault) 63.4 Glucose Level 171mg/dL (70-99) Calcium Level 8.9mg/dL (8.5-10.1) Review of Systems Review of Systems c/o difficulty sleeping at night (again), after having to wake up for exam at 10AM. c/o back pain, chronic. GUERO WALLACE MD Dec 26, 2016 10:34
[2016-12-26] MEDS: HEPARIN 25,000UTS/500ML PREMIX 500 ML IV PRN ×2 (12:13→21:52)
[2016-12-26 14:43] VITALS: BP 162/74
--- NOTE | 2016-12-26 16:01 | PDOC ---
Provider Note Provider Note No events overnight. I spoke to the patient's and the patient again about her risk with CABG given her poor PFT's and poor mobility We discussed the risks, benefits and alternatives to multivessel PCI. They understand and agree to proceed for PCI tomorrow. Continue heparin gtt. May stage procedure given need for multiple stents. SUNNY CHRISTIANSEN MD Dec 26, 2016 16:01
[2016-12-26] MEDS: LISINOPRIL 20 MG TABLET PO SCH (16:53)
[2016-12-26 19:45] VITALS: BP 138/45
[2016-12-26] MEDS: MONTELUKAST SODIUM 10 MG TABLET. PO SCH (21:27)
[2016-12-26] MEDS: NORTRIPTYLINE 25 MG CAPSULE PO SCH (21:28)
[2016-12-26] MEDS: NYSTATIN TOPICAL POWDER 15GM BOTTLE. TP SCH (21:29)
[2016-12-26] MEDS: ATORVASTATIN CALCIUM 40 MG TABLET. PO SCH (21:36)
[2016-12-26 23:25] VITALS: BP 139/51
[2016-12-27] VITALS (14 sets, daily range): BP systolic 135–184; BP diastolic 58–90
[2016-12-27 05:23] LABS: BASO # 0.1 x10^3/uL (0.0-0.2); BASO % 1 % (0-3); EOS % 4 % (0-3); HEMATOCRIT 38.1 % (36.0-47.0); HEMOGLOBIN 11.9 g/dL (12.0-15.5); LYMPH # 4.2 x10^3/uL (1.0-4.8); LYMPH % 31 % (24-48); MEAN CORPUSCULAR HEMOGLOBIN 27 pg (25-35); MEAN CORPUSCULAR HGB CONC 31 g/dL (31-37); MEAN CORPUSCULAR VOLUME 88 fL (79-100); MONO % 12 % (0-9); NEUT % 53 % (31-73); PLATELET COUNT 304 x10^3/uL (140-400); RED BLOOD COUNT 4.35 x10^6/uL (3.50-5.40); RED CELL DISTRIBUTION WIDTH 14.8 % (11.5-14.5); WHITE BLOOD COUNT 13.6 x10^3/uL (4.0-11.0)
[2016-12-27 05:49] LABS: CALCIUM 9.1 mg/dL (8.5-10.1); CREATININE 0.8 mg/dL (0.6-1.0); GFR 72.7; POTASSIUM 4.2 mmol/L (3.5-5.1)
[2016-12-27] MEDS: LEVOTHYROXINE 175 MCG TABLET PO SCH (06:31)
[2016-12-27] MEDS ORDERED: LIDOCAINE 2% 20 ML VIAL. ONE (07:01)
[2016-12-27] MEDS ORDERED: HEPARIN for ARTERIAL LINE 1,500 ML ONE (07:01)
[2016-12-27] MEDS: INSULIN ASPART 300 UNITS/3 ML INSULN.PEN SQ SCH ×6 (08:00→18:01)
[2016-12-27] MEDS: ALBUTEROL SULFATE 2.5 MG/3 ML NEBU. NEB SCH ×4 (08:30→19:39)
[2016-12-27] MEDS: ASPIRIN ENTERIC COATED 81 MG TABLET.DR. PO SCH (08:46)
[2016-12-27] MEDS: METOPROLOL TART IMMED RELEASE 50 MG TABLET PO SCH ×2 (08:46→22:13)
[2016-12-27] MEDS: GABAPENTIN 400 MG CAPSULE. PO SCH ×3 (08:46→22:12)
[2016-12-27] MEDS: ALPRAZOLAM 0.5 MG TABLET PO SCH ×3 (08:47→22:13)
[2016-12-27] MEDS: FAMOTIDINE 20 MG TABLET. PO SCH ×2 (08:47→22:14)
[2016-12-27] MEDS: AMLODIPINE BESYLATE 10 MG TABLET PO SCH (08:47)
[2016-12-27] MEDS: HYDROCODONE/APAP 5/325MG TABLET. PO PRN (08:48)
[2016-12-27] MEDS: CEPHALEXIN 250 MG CAPSULE PO SCH ×3 (08:49→22:13)
[2016-12-27] MEDS: INSULIN DETEMIR 300 UNITS/3 ML INSULN.PEN. SQ SCH ×2 (08:49→22:29)
[2016-12-27] MEDS: MORPHINE ER 15 MG TABLET.ER PO SCH ×2 (09:00→13:59)
[2016-12-27] MEDS ORDERED: IOHEXOL 300 MG/ML 100ML VIAL. ONE (09:29)
[2016-12-27] MEDS ORDERED: FENTANYL PF 250 MCG/5 ML VIAL. ONE (09:30)
[2016-12-27] MEDS ORDERED: MIDAZOLAM HCL/PF 5 MG/5 ML VIAL ONE (09:30)
[2016-12-27] MEDS ORDERED: hydrALAZINE 20 MG/ML VIAL. ONE (09:43)
[2016-12-27] MEDS ORDERED: HEPARIN for IV BOLUS 10,000 UNIT/10 ML VIAL. ONE (09:57)
[2016-12-27] MEDS ORDERED: MORPHINE ER 15 MG TABLET.ER PO ONE (10:00)
[2016-12-27] MEDS: ANTI-COAG MONITOR BY PHARMACY. MC PRN (10:03)
[2016-12-27] MEDS ORDERED: CANGRELOR TETRASODIUM 50 MG VIAL. IV ONE (10:07)
[2016-12-27] MEDS ORDERED: MIDAZOLAM HCL/PF 5 MG/5 ML VIAL IV ONE (10:15)
[2016-12-27] MEDS ORDERED: hydrALAZINE 20 MG/ML VIAL. IVP ONE (10:15)
[2016-12-27] MEDS ORDERED: HEPARIN for IV BOLUS 10,000 UNIT/10 ML VIAL. IV ONE (10:15)
[2016-12-27] MEDS ORDERED: FENTANYL PF 250 MCG/5 ML VIAL. IV ONE (10:15)
[2016-12-27] MEDS ORDERED: NITROGLYCERIN PREMIX 250 ML IV ONE ×2 (10:15→10:24)
[2016-12-27] MEDS ORDERED: LIDOCAINE 2% 20 ML VIAL. IJ ONE (10:15)
[2016-12-27] MEDS ORDERED: NITROGLYCERIN 200 MCG/2 ML SYRINGE FOR CATH/VASC LAB. ICAR ONE (10:15)
[2016-12-27] MEDS ORDERED: IOHEXOL 300 MG/ML 100ML VIAL. IART ONE (10:15)
[2016-12-27] MEDS ORDERED: CANGRELOR TETRASODIUM 50 MG in IV NORMAL SALINE 250ML 250 ML IV PRN (10:23)
[2016-12-27] MEDS ORDERED: ONDANSETRON PF 4 MG/2 ML VIAL. IV PRN (10:59)
[2016-12-27] MEDS ORDERED: ACETAMINOPHEN 500 MG TABLET PO PRN (11:00)
--- NOTE | 2016-12-27 12:11 | PDOC ---
PULMONARY PROGRESS NOTES Subjective PT NOT SOA Vitals Vital Signs Date Time Temp Pulse Resp B/P Pulse Ox O2 Delivery O2 Flow Rate FiO2 12/27/16 11:55 60 20 159/61 100 Nasal Cannula 4.0 12/27/16 07:42 98.2 98.2 ROS: No Nausea, No Chest Pain, No Abdominal Pain, No Increase Cough General: Alert HEENT: Other (nc, at perrl) Lungs: Clear Cardiovascular: S1, S2 Abdomen: Soft, Non-tender, Other Neuro Exam: Alert Extremities: No Edema Skin: Warm Labs Laboratory Tests Test 12/25/16 13:05 12/25/16 16:52 12/25/16 18:00 12/25/16 21:01 Heparin Anti-Xa Act, Unfractionated 0.48IU/mL (0.30-0.70) 0.50IU/mL (0.30-0.70) Vancomycin Level Trough 12.4mcg/mL (10.0-20.0) Vancomycin Last Dose Date Vancomycin Last Dose Time Glucose (Fingerstick) 141mg/dL (70-99) 162mg/dL (70-99) Test 12/26/16 04:48 12/26/16 08:17 12/26/16 12:14 12/26/16 12:50 White Blood Count 10.8x10^3/uL (4.0-11.0) Red Blood Count 4.27x10^6/uL (3.50-5.40) Hemoglobin 12.1g/dL (12.0-15.5) Hematocrit 37.5% (36.0-47.0) Mean Corpuscular Volume 88fL (79-100) Mean Corpuscular Hemoglobin 28pg (25-35) Mean Corpuscular Hemoglobin Concent 32g/dL (31-37) Red Cell Distribution Width 14.8% (11.5-14.5) Platelet Count 318x10^3/uL (140-400) Neutrophils (%) (Auto) 51% (31-73) Lymphocytes (%) (Auto) 33% (24-48) Monocytes (%) (Auto) 11% (0-9) Eosinophils (%) (Auto) 5% (0-3) Basophils (%) (Auto) 1% (0-3) Neutrophils # (Auto) 5.4x10^3uL (1.8-7.7) Lymphocytes # (Auto) 3.6x10^3/uL (1.0-4.8) Monocytes # (Auto) 1.2x10^3/uL (0.0-1.1) Eosinophils # (Auto) 0.5x10^3/uL (0.0-0.7) Basophils # (Auto) 0.1x10^3/uL (0.0-0.2) Heparin Anti-Xa Act, Unfractionated 0.28IU/mL (0.30-0.70) 0.30IU/mL (0.30-0.70) Sodium Level 143mmol/L (136-145) Potassium Level 4.4mmol/L (3.5-5.1) Chloride Level 106mmol/L (98-107) Carbon Dioxide Level 30mmol/L (21-32) Anion Gap 7 (6-14) Blood Urea Nitrogen 14mg/dL (7-20) Creatinine 0.9mg/dL (0.6-1.0) Estimated GFR (Cockcroft-Gault) 63.4 Glucose Level 171mg/dL (70-99) Calcium Level 8.9mg/dL (8.5-10.1) Glucose (Fingerstick) 185mg/dL (70-99) 197mg/dL (70-99) Test 12/26/16 16:52 12/26/16 21:37 12/27/16 04:52 Glucose (Fingerstick) 134mg/dL (70-99) 149mg/dL (70-99) White Blood Count 13.6x10^3/uL (4.0-11.0) Red Blood Count 4.35x10^6/uL (3.50-5.40) Hemoglobin 11.9g/dL (12.0-15.5) Hematocrit 38.1% (36.0-47.0) Mean Corpuscular Volume 88fL (79-100) Mean Corpuscular Hemoglobin 27pg (25-35) Mean Corpuscular Hemoglobin Concent 31g/dL (31-37) Red Cell Distribution Width 14.8% (11.5-14.5) Platelet Count 304x10^3/uL (140-400) Neutrophils (%) (Auto) 53% (31-73) Lymphocytes (%) (Auto) 31% (24-48) Monocytes (%) (Auto) 12% (0-9) Eosinophils (%) (Auto) 4% (0-3) Basophils (%) (Auto) 1% (0-3) Neutrophils # (Auto) 7.2x10^3uL (1.8-7.7) Lymphocytes # (Auto) 4.2x10^3/uL (1.0-4.8) Monocytes # (Auto) 1.6x10^3/uL (0.0-1.1) Eosinophils # (Auto) 0.5x10^3/uL (0.0-0.7) Basophils # (Auto) 0.1x10^3/uL (0.0-0.2) Heparin Anti-Xa Act, Unfractionated 0.43IU/mL (0.30-0.70) Sodium Level 143mmol/L (136-145) Potassium Level 4.2mmol/L (3.5-5.1) Chloride Level 105mmol/L (98-107) Carbon Dioxide Level 29mmol/L (21-32) Anion Gap 9 (6-14) Blood Urea Nitrogen 14mg/dL (7-20) Creatinine 0.8mg/dL (0.6-1.0) Estimated GFR (Cockcroft-Gault) 72.7 Glucose Level 178mg/dL (70-99) Calcium Level 9.1mg/dL (8.5-10.1) Laboratory Tests Test 12/26/16 12:14 12/26/16 12:50 12/26/16 16:52 12/26/16 21:37 Glucose (Fingerstick) 197mg/dL (70-99) 134mg/dL (70-99) 149mg/dL (70-99) Heparin Anti-Xa Act, Unfractionated 0.30IU/mL (0.30-0.70) Test 12/27/16 04:52 White Blood Count 13.6x10^3/uL (4.0-11.0) Red Blood Count 4.35x10^6/uL (3.50-5.40) Hemoglobin 11.9g/dL (12.0-15.5) Hematocrit 38.1% (36.0-47.0) Mean Corpuscular Volume 88fL (79-100) Mean Corpuscular Hemoglobin 27pg (25-35) Mean Corpuscular Hemoglobin Concent 31g/dL (31-37) Red Cell Distribution Width 14.8% (11.5-14.5) Platelet Count 304x10^3/uL (140-400) Neutrophils (%) (Auto) 53% (31-73) Lymphocytes (%) (Auto) 31% (24-48) Monocytes (%) (Auto) 12% (0-9) Eosinophils (%) (Auto) 4% (0-3) Basophils (%) (Auto) 1% (0-3) Neutrophils # (Auto) 7.2x10^3uL (1.8-7.7) Lymphocytes # (Auto) 4.2x10^3/uL (1.0-4.8) Monocytes # (Auto) 1.6x10^3/uL (0.0-1.1) Eosinophils # (Auto) 0.5x10^3/uL (0.0-0.7) Basophils # (Auto) 0.1x10^3/uL (0.0-0.2) Heparin Anti-Xa Act, Unfractionated 0.43IU/mL (0.30-0.70) Sodium Level 143mmol/L (136-145) Potassium Level 4.2mmol/L (3.5-5.1) Chloride Level 105mmol/L (98-107) Carbon Dioxide Level 29mmol/L (21-32) Anion Gap 9 (6-14) Blood Urea Nitrogen 14mg/dL (7-20) Creatinine 0.8mg/dL (0.6-1.0) Estimated GFR (Cockcroft-Gault) 72.7 Glucose Level 178mg/dL (70-99) Calcium Level 9.1mg/dL (8.5-10.1) Medications Active Scripts Medications Dose Route/Sig Days Date Category Comments cxr reviewed, mild vascular congestion and interstitial edema. Impression . 1. Acute respiratory failure secondary to acute diastolic heart failure. 2. Acute and systolic heart failure. Echocardiogram revealed ejection fraction 40-45%. 3. New onset tachycardia, possibly atrial flutter. 4. Peripheral vascular disease. 5. Tobacco dependence. 6. Chronic obstructive pulmonary disease with no clinical presentation compatible with acute exacerbation. 7. Tachyarrhythmia. 8. Diabetes. 9. Nocturnal hypoxemia, suspect obstructive sleep apnea. 10. CAD S/P STENT 11. allergic rhinitis Plan . S/P STENTS 3 vessel cad, cv surgery seen : not a good candidate for surgery. I agree she is obese, has shaila and poor functional status, low dlco, and restrictive lung defect. pfts, FEV1, FVC and DLCO below 50%. ratio 78% bronchodilators, ics will need a outpt sleep study stop tobacco use for ever cont 02 at night 6 min walk prior to d/c lose wt add DULCE Pyle MD Dec 27, 2016 12:11
[2016-12-27] MEDS ORDERED: TICAGRELOR 90 MG TABLET. PO ONE (12:30)
[2016-12-27] MEDS ORDERED: NITROGLYCERIN 200 MCG/2 ML SYRINGE FOR CATH/VASC LAB. ONE (12:49)
[2016-12-27] MEDS: IV NORMAL SALINE 1000ML BAG 1,000 ML IV SCH (13:07)
--- NOTE | 2016-12-27 13:35 | PDOC ---
PROGRESS NOTES Chief Complaint Chief Complaint CC: SOA Acute hypoxic respir failure ACS, CAD s/p PCI to left circ and diagonal (tentatively planned for stage PCI) CHF acute on chronic, combined\ A flutter PAD HTN Hypothyroidism Smoker Anxiety/depression NOS Chronic lumbago History of Present Illness History of Present Illness Just had cath\ Stented the left circ and diagonal PLAN: Await from cath, follow cards recs Vitals Vitals Vital Signs Date Time Temp Pulse Resp B/P Pulse Ox O2 Delivery O2 Flow Rate FiO2 12/27/16 11:55 60 20 159/61 100 Nasal Cannula 4.0 12/27/16 07:42 98.2 98.2 Physical Exam General: Alert, Oriented X3, No acute distress Heart: Regular rate, Normal S1, Normal S2 Lungs: Clear Abdomen: Soft, No tenderness Extremities: Normal pulses Skin: No significant lesion Labs LABS Laboratory Tests Test 12/26/16 16:52 12/26/16 21:37 12/27/16 04:52 Glucose (Fingerstick) 134mg/dL (70-99) 149mg/dL (70-99) White Blood Count 13.6x10^3/uL (4.0-11.0) Red Blood Count 4.35x10^6/uL (3.50-5.40) Hemoglobin 11.9g/dL (12.0-15.5) Hematocrit 38.1% (36.0-47.0) Mean Corpuscular Volume 88fL (79-100) Mean Corpuscular Hemoglobin 27pg (25-35) Mean Corpuscular Hemoglobin Concent 31g/dL (31-37) Red Cell Distribution Width 14.8% (11.5-14.5) Platelet Count 304x10^3/uL (140-400) Neutrophils (%) (Auto) 53% (31-73) Lymphocytes (%) (Auto) 31% (24-48) Monocytes (%) (Auto) 12% (0-9) Eosinophils (%) (Auto) 4% (0-3) Basophils (%) (Auto) 1% (0-3) Neutrophils # (Auto) 7.2x10^3uL (1.8-7.7) Lymphocytes # (Auto) 4.2x10^3/uL (1.0-4.8) Monocytes # (Auto) 1.6x10^3/uL (0.0-1.1) Eosinophils # (Auto) 0.5x10^3/uL (0.0-0.7) Basophils # (Auto) 0.1x10^3/uL (0.0-0.2) Heparin Anti-Xa Act, Unfractionated 0.43IU/mL (0.30-0.70) Sodium Level 143mmol/L (136-145) Potassium Level 4.2mmol/L (3.5-5.1) Chloride Level 105mmol/L (98-107) Carbon Dioxide Level 29mmol/L (21-32) Anion Gap 9 (6-14) Blood Urea Nitrogen 14mg/dL (7-20) Creatinine 0.8mg/dL (0.6-1.0) Estimated GFR (Cockcroft-Gault) 72.7 Glucose Level 178mg/dL (70-99) Calcium Level 9.1mg/dL (8.5-10.1) Review of Systems Review of Systems out having cath Assessment and Plan Assessmemt and Plan Problems Medical Problems: (1) Acute respiratory failure Status: Acute (2) Atrial flutter with rapid ventricular response Status: Acute (3) Hypoxia Status: Acute (4) Pulmonary edema Status: Acute Problems: Comment Review of Relevant I have reviewed the following items sina (where applicable) has been applied. Labs Laboratory Tests Test 12/25/16 16:52 12/25/16 18:00 12/25/16 21:01 12/26/16 04:48 Glucose (Fingerstick) 141mg/dL (70-99) 162mg/dL (70-99) Heparin Anti-Xa Act, Unfractionated 0.50IU/mL (0.30-0.70) 0.28IU/mL (0.30-0.70) White Blood Count 10.8x10^3/uL (4.0-11.0) Red Blood Count 4.27x10^6/uL (3.50-5.40) Hemoglobin 12.1g/dL (12.0-15.5) Hematocrit 37.5% (36.0-47.0) Mean Corpuscular Volume 88fL (79-100) Mean Corpuscular Hemoglobin 28pg (25-35) Mean Corpuscular Hemoglobin Concent 32g/dL (31-37) Red Cell Distribution Width 14.8% (11.5-14.5) Platelet Count 318x10^3/uL (140-400) Neutrophils (%) (Auto) 51% (31-73) Lymphocytes (%) (Auto) 33% (24-48) Monocytes (%) (Auto) 11% (0-9) Eosinophils (%) (Auto) 5% (0-3) Basophils (%) (Auto) 1% (0-3) Neutrophils # (Auto) 5.4x10^3uL (1.8-7.7) Lymphocytes # (Auto) 3.6x10^3/uL (1.0-4.8) Monocytes # (Auto) 1.2x10^3/uL (0.0-1.1) Eosinophils # (Auto) 0.5x10^3/uL (0.0-0.7) Basophils # (Auto) 0.1x10^3/uL (0.0-0.2) Sodium Level 143mmol/L (136-145) Potassium Level 4.4mmol/L (3.5-5.1) Chloride Level 106mmol/L (98-107) Carbon Dioxide Level 30mmol/L (21-32) Anion Gap 7 (6-14) Blood Urea Nitrogen 14mg/dL (7-20) Creatinine 0.9mg/dL (0.6-1.0) Estimated GFR (Cockcroft-Gault) 63.4 Glucose Level 171mg/dL (70-99) Calcium Level 8.9mg/dL (8.5-10.1) Test 12/26/16 08:17 12/26/16 12:14 12/26/16 12:50 12/26/16 16:52 Glucose (Fingerstick) 185mg/dL (70-99) 197mg/dL (70-99) 134mg/dL (70-99) Heparin Anti-Xa Act, Unfractionated 0.30IU/mL (0.30-0.70) Test 12/26/16 21:37 12/27/16 04:52 Glucose (Fingerstick) 149mg/dL (70-99) White Blood Count 13.6x10^3/uL (4.0-11.0) Red Blood Count 4.35x10^6/uL (3.50-5.40) Hemoglobin 11.9g/dL (12.0-15.5) Hematocrit 38.1% (36.0-47.0) Mean Corpuscular Volume 88fL (79-100) Mean Corpuscular Hemoglobin 27pg (25-35) Mean Corpuscular Hemoglobin Concent 31g/dL (31-37) Red Cell Distribution Width 14.8% (11.5-14.5) Platelet Count 304x10^3/uL (140-400) Neutrophils (%) (Auto) 53% (31-73) Lymphocytes (%) (Auto) 31% (24-48) Monocytes (%) (Auto) 12% (0-9) Eosinophils (%) (Auto) 4% (0-3) Basophils (%) (Auto) 1% (0-3) Neutrophils # (Auto) 7.2x10^3uL (1.8-7.7) Lymphocytes # (Auto) 4.2x10^3/uL (1.0-4.8) Monocytes # (Auto) 1.6x10^3/uL (0.0-1.1) Eosinophils # (Auto) 0.5x10^3/uL (0.0-0.7) Basophils # (Auto) 0.1x10^3/uL (0.0-0.2) Heparin Anti-Xa Act, Unfractionated 0.43IU/mL (0.30-0.70) Sodium Level 143mmol/L (136-145) Potassium Level 4.2mmol/L (3.5-5.1) Chloride Level 105mmol/L (98-107) Carbon Dioxide Level 29mmol/L (21-32) Anion Gap 9 (6-14) Blood Urea Nitrogen 14mg/dL (7-20) Creatinine 0.8mg/dL (0.6-1.0) Estimated GFR (Cockcroft-Gault) 72.7 Glucose Level 178mg/dL (70-99) Calcium Level 9.1mg/dL (8.5-10.1) Laboratory Tests Test 12/26/16 16:52 12/26/16 21:37 12/27/16 04:52 Glucose (Fingerstick) 134mg/dL (70-99) 149mg/dL (70-99) White Blood Count 13.6x10^3/uL (4.0-11.0) Red Blood Count 4.35x10^6/uL (3.50-5.40) Hemoglobin 11.9g/dL (12.0-15.5) Hematocrit 38.1% (36.0-47.0) Mean Corpuscular Volume 88fL (79-100) Mean Corpuscular Hemoglobin 27pg (25-35) Mean Corpuscular Hemoglobin Concent 31g/dL (31-37) Red Cell Distribution Width 14.8% (11.5-14.5) Platelet Count 304x10^3/uL (140-400) Neutrophils (%) (Auto) 53% (31-73) Lymphocytes (%) (Auto) 31% (24-48) Monocytes (%) (Auto) 12% (0-9) Eosinophils (%) (Auto) 4% (0-3) Basophils (%) (Auto) 1% (0-3) Neutrophils # (Auto) 7.2x10^3uL (1.8-7.7) Lymphocytes # (Auto) 4.2x10^3/uL (1.0-4.8) Monocytes # (Auto) 1.6x10^3/uL (0.0-1.1) Eosinophils # (Auto) 0.5x10^3/uL (0.0-0.7) Basophils # (Auto) 0.1x10^3/uL (0.0-0.2) Heparin Anti-Xa Act, Unfractionated 0.43IU/mL (0.30-0.70) Sodium Level 143mmol/L (136-145) Potassium Level 4.2mmol/L (3.5-5.1) Chloride Level 105mmol/L (98-107) Carbon Dioxide Level 29mmol/L (21-32) Anion Gap 9 (6-14) Blood Urea Nitrogen 14mg/dL (7-20) Creatinine 0.8mg/dL (0.6-1.0) Estimated GFR (Cockcroft-Gault) 72.7 Glucose Level 178mg/dL (70-99) Calcium Level 9.1mg/dL (8.5-10.1) Microbiology 12/21/16 Blood Culture - Final, Complete NO GROWTH AFTER 5 DAYS Medications Current Medications Adenosine (Adenocard) 6 mg STK-MED ONCE IV ; Start 12/21/16 at 07:45; Stop 12/21 at 07:46; Status DC Diltiazem HCl 15 mg 15 mg 1X ONCE IVP ; Start 12/21/16 at 08:00; Stop 12/21/16 at 08:00; Status DC Diltiazem HCl 125 mg/Dextrose 125 ml @ 0 mls/hr CONT PRN IV SEE I/O RECORD Last administered on 12/21/16 08:29; Start 12/21/16 at 08:00; Stop 12/21/16 at 11:17; Status DC Sodium Chloride (Iv Sodium Chloride 0.9% 500ml Bag) 500 ml @ 500 mls/hr 1X ONCE IV Last administered on 12/21/16 08:30; Start 12/21/16 at 08:00; Stop at 08:59; Status DC Diltiazem HCl (Cardizem) 20 mg 1X ONCE IVP Last administered on 12/21/16 08: 29; Start 12/21/16 at 08:00; Stop 12/21/16 at 08:04; Status DC Lorazepam (Ativan) 1 mg 1X ONCE IV Last administered on 12/21/16 07:47; Start 12/21/16 at 08:15; Stop 12/21/16 at 08:16; Status DC Lorazepam (Ativan) 1 mg 1X STAT IV Last administered on 12/21/16 07:31; Start 12/21/16 at 08:08; Stop 12/21/16 at 08:13; Status DC Adenosine 6 mg 6 mg 1X ONCE IV Last administered on 12/21/16 07:54; Start at 08:15; Stop 12/21/16 at 08:16; Status DC Sodium Chloride (Iv Sodium Chloride 0.9% 1000ml Bag) 1,000 ml @ 100 mls/hr Q10H IV Last administered on 12/21/16 08:31; Start 12/21/16 at 08:30; Stop at 14:34; Status DC Ondansetron HCl (Zofran) 4 mg PRN Q8HRS PRN IV NAUSEA/VOMITING; Start 12/21/16 at 08:30; Stop 12/22/16 at 08:29; Status DC Morphine Sulfate 2 mg PRN Q2HR PRN IV PAIN; Start 12/21/16 at 08:30; Stop 12/22 at 08:29; Status DC Furosemide (Lasix) 40 mg 1X ONCE PO Last administered on 12/21/16 09:25; Start 12/21/16 at 08:30; Stop 12/21/16 at 08:31; Status DC Acetaminophen (Tylenol) 325 mg PRN Q6HRS PRN PO MILD PAIN / TEMP; Start at 10:15 Acetaminophen/ Hydrocodone Bitart (Lortab 5/325) 1 tab PRN Q6HRS PRN PO MODERATE TO SEVERE PAIN Last administered on 12/27/16 08:48; Start 12/21/16 at 10:15 Hydralazine HCl (Apresoline) 10 mg PRN Q4HRS PRN IVP ELEVATED BP, SEE COMMENTS Last administered on 12/22/16 06:11; Start 12/21/16 at 10:15 Ondansetron HCl (Zofran) 4 mg PRN Q8HRS PRN IV NAUSEA/VOMITING; Start 12/21/16 at 10:15; Stop 12/27/16 at 11:00; Status DC Albuterol Sulfate (Ventolin Neb Soln) 2.5 mg PRN Q4HRS PRN NEB SHORTNESS OF BREATH; Start 12/21/16 at 10:15; Stop 12/24/16 at 10:15; Status DC Vancomycin HCl 1 each 1 each PRN DAILY PRN MC SEE COMMENTS Last administered on 12/24/16 13:31; Start 12/21/16 at 11:00; Stop 12/25/16 at 14:34; Status DC Vancomycin HCl/ Sodium Chloride (Iv Sodium Chloride 0.9% 500ml Bag) 500 ml @ 250 mls/hr ONCE ONCE IV Last administered on 12/21/16 13:14; Start 12/21/16 at 11:30; Stop 12/21/16 at 13:29; Status DC Metoprolol Tartrate (Lopressor) 25 mg BID PO ; Start 12/21/16 at 12:00; Stop at 14:34; Status DC Aspirin (Ecotrin) 81 mg DAILYWBKFT PO Last administered on 12/27/16 08:46; Start 12/21/16 at 12:00 Clopidogrel Bisulfate (Plavix) 75 mg DAILYWBKFT PO Last administered on 08:14; Start 12/22/16 at 08:00; Stop 12/23/16 at 17:20; Status DC Dextrose 12.5 gm PRN Q15MIN PRN IV SEE COMMENTS; Start 12/21/16 at 14:00; Stop 12/22/16 at 19:56; Status DC Metoprolol Tartrate (Lopressor) 12.5 mg 1X ONCE PO Last administered on 15:29; Start 12/21/16 at 14:45; Stop 12/21/16 at 14:46; Status DC Metoprolol Tartrate (Lopressor) 50 mg BID PO Last administered on 12/27/16 08: 46; Start 12/21/16 at 21:00 Alprazolam (Xanax) 0.5 mg TID PO Last administered on 12/27/16 08:47; Start at 15:00 Aspirin (Ecotrin) 81 mg DAILY08 PO ; Start 12/21/16 at 15:00; Status Cancel Clopidogrel Bisulfate (Plavix) 75 mg DAILY08 PO ; Start 12/21/16 at 15:00; Status Cancel Levothyroxine Sodium (Synthroid) 175 mcg DAILY07 PO Last administered on 10:01; Start 12/21/16 at 15:00 Metoprolol Tartrate (Lopressor) 25 mg BID PO ; Start 12/21/16 at 15:00; Status Cancel Nortriptyline HCl (Pamelor) 25 mg QHS PO Last administered on 12/26/16 21:28; Start 12/21/16 at 21:00 Nystatin (Nystop) 1 katie HS TP Last administered on 12/26/16 21:29; Start 12/21 at 21:00 Atorvastatin Calcium (Lipitor) 80 mg QHS PO Last administered on 12/26/16 21: 36; Start 12/21/16 at 21:00 Gabapentin (Neurontin) 800 mg TID PO Last administered on 12/27/16 08:46; Start 12/21/16 at 15:00 Insulin Detemir (Levemir) 50 units DAILY SQ Last administered on 12/26/16 08: 23; Start 12/22/16 at 09:00 Insulin Detemir (Levemir) 50 units QHS SQ Last administered on 12/26/16 21:48 ; Start 12/21/16 at 21:00 Non-Formulary Medication 50 unit Q12HR SQ ; Start 12/21/16 at 21:00; Status UNV Insulin Aspart (Novolog) 25 units TIDWMEALS SQ Last administered on 12/26/16 17:38; Start 12/21/16 at 17:00 Morphine Sulfate (Ms Contin) 60 mg BID PO Last administered on 12/21/16 15:28 ; Start 12/21/16 at 15:00; Stop 12/21/16 at 15:45; Status DC Famotidine (Pepcid) 20 mg BID PO Last administered on 12/27/16 08:47; Start at 15:00 Non-Formulary Medication 5 mg PRN QHS PRN PO INSOMNIA; Start 12/21/16 at 14:45 ; Stop 12/21/16 at 14:50; Status DC Zolpidem Tartrate 5 mg 5 mg PRN QHS PRN PO INSOMNIA Last administered on 22:41; Start 12/21/16 at 15:00 Vancomycin HCl/ Sodium Chloride (Iv Sodium Chloride 0.9% 500ml Bag) 500 ml @ 250 mls/hr Q12H IV Last administered on 12/22/16 14:01; Start 12/22/16 at 01: 00; Stop 12/23/16 at 01:25; Status DC Vancomycin HCl 1 each 1X ONCE MC Last administered on 12/23/16 00:30; Start 12/23/16 at 00:30; Stop 12/23/16 at 00:31; Status DC Morphine Sulfate 45 mg 45 mg [id number] PO Last administered on 12/26/16 14:06; Start 12/22/16 at 09:00 Heparin Sodium/ Dextrose 500 ml @ 0 mls/hr CONT PRN IV SEE I/O RECORD Last administered on 12/26/16 21:52; Start 12/21/16 at 16:00 Heparin Sodium (Porcine) 2,450 unit PRN Q6HRS PRN IV FOR UFH LEVEL LESS THAN 0.2 Last administered on 12/23/16 04:46; Start 12/21/16 at 16:00 Info (Anti-Coagulation Monitoring By Pharmacy) 1 each PRN DAILY PRN MC SEE COMMENTS Last administered on 12/27/16 10:03; Start 12/21/16 at 16:15 Furosemide (Lasix) 20 mg 1X ONCE IVP Last administered on 12/22/16 14:02; Start 12/22/16 at 11:00; Stop 12/22/16 at 11:01; Status DC Lisinopril (Prinivil) 10 mg DAILYWSUP PO Last administered on 12/23/16 18:19; Start 12/22/16 at 17:00; Stop 12/24/16 at 15:20; Status DC Insulin Aspart (Novolog) 0-7 UNITS TIDWMEALS SQ Last administered on 12/26/16 12:21; Start 12/23/16 at 08:00 Dextrose 12.5 gm PRN Q15MIN PRN IV SEE COMMENTS; Start 12/22/16 at 20:00 Amlodipine Besylate (Norvasc) 10 mg 1X ONCE PO Last administered on 12/22/16 23:13; Start 12/22/16 at 23:00; Stop 12/22/16 at 23:01; Status DC Amlodipine Besylate 10 mg 10 mg DAILY PO Last administered on 12/27/16 08:47; Start 12/23/16 at 09:00 Vancomycin HCl/ Sodium Chloride (Iv Sodium Chloride 0.9% 500ml Bag) 500 ml @ 250 mls/hr Q24H IV Last administered on 12/24/16 17:58; Start 12/23/16 at 13: 00; Stop 12/25/16 at 12:34; Status DC Vancomycin HCl 1 each 1X ONCE MC ; Start 12/25/16 at 14:30; Stop 12/25/16 at 14 :31; Status DC Iohexol 100 ml 100 ml STK-MED ONCE .ROUTE ; Start 12/23/16 at 10:12; Stop at 10:13; Status DC Heparin Sodium/ Sodium Chloride 1,500 ml @ As Directed STK-MED ONCE .ROUTE ; Start 12/23/16 at 10:12; Stop 12/23/16 at 10:13; Status DC Lidocaine HCl 20 ml STK-MED ONCE .ROUTE ; Start 12/23/16 at 10:12; Stop at 10:13; Status DC Nitroglycerin (Nitroglycerin) 200 mcg STK-MED ONCE .ROUTE ; Start 12/23/16 at 11 :34; Stop 12/23/16 at 11:35; Status DC Verapamil HCl (Verapamil) 5 mg STK-MED ONCE .ROUTE ; Start 12/23/16 at 11:34; Stop 12/23/16 at 11:35; Status DC Heparin Sodium (Porcine) 10,000 unit STK-MED ONCE .ROUTE ; Start 12/23/16 at 11: 34; Stop 12/23/16 at 11:35; Status DC Fentanyl Citrate (Fentanyl 2ml Vial) 100 mcg STK-MED ONCE .ROUTE ; Start at 11:34; Stop 12/23/16 at 11:35; Status DC Midazolam HCl (Versed) 2 mg STK-MED ONCE .ROUTE ; Start 12/23/16 at 11:35; Stop 12/23/16 at 11:36; Status DC Nitroglycerin (Nitroglycerin) 200 mcg 1X ONCE IART Last administered on 12:27; Start 12/23/16 at 11:45; Stop 12/23/16 at 11:48; Status DC Verapamil HCl (Verapamil) 2.5 mg 1X ONCE IART Last administered on 12/23/16 12:29; Start 12/23/16 at 11:45; Stop 12/23/16 at 11:48; Status DC Heparin Sodium (Porcine) 2,500 unit 1X ONCE IART Last administered on 12:30; Start 12/23/16 at 11:45; Stop 12/23/16 at 11:48; Status DC Heparin Sodium/ Sodium Chloride 1,000 unit 1X ONCE IART Last administered on 12:27; Start 12/23/16 at 11:45; Stop 12/23/16 at 11:48; Status DC Midazolam HCl (Versed) 2 mg 1X ONCE IV Last administered on 12/23/16 12:28; Start 12/23/16 at 11:45; Stop 12/23/16 at 11:48; Status DC Fentanyl Citrate (Fentanyl 2ml Vial) 100 mcg 1X ONCE IV Last administered on 12:28; Start 12/23/16 at 11:45; Stop 12/23/16 at 11:48; Status DC Iohexol (Omnipaque 300 Mg/ml) 100 ml 1X ONCE IART Last administered on 12:27; Start 12/23/16 at 11:45; Stop 12/23/16 at 11:48; Status DC Lidocaine HCl 20 ml 1X ONCE IJ Last administered on 12/23/16 12:29; Start at 11:45; Stop 12/23/16 at 11:48; Status DC Info (Do NOT chart on this entry -- for MONITORING) 1 each PRN DAILY PRN MC SEE COMMENTS; Start 12/23/16 at 12:00; Stop 12/25/16 at 11:59; Status DC Heparin Sodium (Porcine) 2,000 unit 1X ONCE IV ; Start 12/23/16 at 12:15; Stop 12/23/16 at 12:19; Status DC Nitroglycerin (Nitroglycerin) 200 mcg STK-MED ONCE .ROUTE ; Start 12/23/16 at 13 :26; Stop 12/23/16 at 13:27; Status DC Albuterol Sulfate (Ventolin Neb Soln) 2.5 mg RTQID NEB Last administered on 11:44; Start 12/24/16 at 12:00 Lisinopril (Prinivil) 20 mg DAILYWSUP PO Last administered on 12/26/16 16:53; Start 12/25/16 at 09:00 Cephalexin HCl (Keflex) 500 mg TID PO Last administered on 12/26/16 21:27; Start 12/25/16 at 14:00 Montelukast Sodium 10 mg 10 mg QHS PO Last administered on 12/26/16 21:27; Start 12/26/16 at 21:00 Heparin Sodium/ Sodium Chloride 1,500 ml @ As Directed STK-MED ONCE .ROUTE ; Start 12/27/16 at 07:01; Stop 12/27/16 at 07:02; Status DC Lidocaine HCl 20 ml STK-MED ONCE .ROUTE ; Start 12/27/16 at 07:01; Stop at 07:02; Status DC Iohexol (Omnipaque 300 Mg/ml) 100 ml STK-MED ONCE .ROUTE ; Start 12/27/16 at 09: 29; Stop 12/27/16 at 09:30; Status DC Fentanyl Citrate (Fentanyl 5ml Vial) 250 mcg STK-MED ONCE .ROUTE ; Start at 09:30; Stop 12/27/16 at 09:31; Status DC Midazolam HCl (Versed) 5 mg STK-MED ONCE .ROUTE ; Start 12/27/16 at 09:30; Stop 12/27/16 at 09:31; Status DC Hydralazine HCl (Apresoline) 20 mg STK-MED ONCE .ROUTE ; Start 12/27/16 at 09:43 ; Stop 12/27/16 at 09:44; Status DC Heparin Sodium (Porcine) 10,000 unit STK-MED ONCE .ROUTE ; Start 12/27/16 at 09: 57; Stop 12/27/16 at 09:58; Status DC Cangrelor 50 mg 50 mg STK-MED ONCE IV ; Start 12/27/16 at 10:07; Stop 12/27/16 at 10:08; Status DC Nitroglycerin/ Dextrose (Nitroglycerin Drip) 250 ml @ As Directed STK-MED ONCE IV ; Start 12/27/16 at 10:24; Stop 12/27/16 at 10:25; Status DC Heparin Sodium/ Sodium Chloride 1,000 unit 1X ONCE IART Last administered on 11:14; Start 12/27/16 at 10:15; Stop 12/27/16 at 10:47; Status DC Midazolam HCl (Versed) 4 mg 1X ONCE IV Last administered on 12/27/16 11:17; Start 12/27/16 at 10:15; Stop 12/27/16 at 10:47; Status DC Fentanyl Citrate (Fentanyl 5ml Vial) 150 mcg 1X ONCE IV Last administered on 11:17; Start 12/27/16 at 10:15; Stop 12/27/16 at 10:47; Status DC Iohexol (Omnipaque 300 Mg/ml) 100 ml 1X ONCE IART Last administered on 11:15; Start 12/27/16 at 10:15; Stop 12/27/16 at 10:47; Status DC Heparin Sodium (Porcine) 1,500 unit 1X ONCE IV Last administered on 12/27/16 11:16; Start 12/27/16 at 10:15; Stop 12/27/16 at 10:47; Status DC Lidocaine HCl 10 ml 10 ml 1X ONCE IJ Last administered on 12/27/16 11:15; Start 12/27/16 at 10:15; Stop 12/27/16 at 10:47; Status DC Cangrelor 50 mg/ Sodium Chloride 250 ml @ 0 mls/hr CONT PRN PRN IV PER PROTOCOL Last administered on 12/27/16 11:19; Start 12/27/16 at 10:23; Stop at 12:22; Status DC Nitroglycerin/ Dextrose (Nitroglycerin Drip) 250 ml @ 15 mls/hr 1X ONCE IV Last administered on 12/27/16 11:19; Start 12/27/16 at 10:15; Stop 12/28/16 at 02:54 Nitroglycerin (Nitroglycerin) 400 mcg 1X ONCE ICAR Last administered on 11:15; Start 12/27/16 at 10:15; Stop 12/27/16 at 10:47; Status DC Hydralazine HCl (Apresoline) 20 mg 1X ONCE IVP Last administered on 12/27/16 11:16; Start 12/27/16 at 10:15; Stop 12/27/16 at 10:47; Status DC Ondansetron HCl (Zofran) 4 mg PRN Q6HRS PRN IV NAUSEA/VOMITING; Start 12/27/16 at 10:59 Acetaminophen (Tylenol) 500 mg PRN Q6HRS PRN PO MILD PAIN / TEMP; Start at 11:00 Ticagrelor (Brilinta) 90 mg BID PO ; Start 12/27/16 at 21:00 Ticagrelor (Brilinta) 180 mg 1X ONCE PO Last administered on 12/27/16 12:12; Start 12/27/16 at 12:30; Stop 12/27/16 at 12:31; Status DC Nitroglycerin 200 mcg 200 mcg STK-MED ONCE .ROUTE ; Start 12/27/16 at 12:49; Stop 12/27/16 at 12:50; Status DC Sodium Chloride (Iv Sodium Chloride 0.9% 1000ml Bag) 1,000 ml @ 75 mls/hr [id number] IV Last administered on 12/27/16t 13:07; Start 12/27/16 at 13:15 Active Scripts Active Reported Lantus Solostar (Insulin Glargine,Hum.rec.anlog) 100 Unit/1 Ml Insuln.pen 50 Unit SQ Q12HR Humalog (Insulin Lispro) 100 Unit/1 Ml Cartridge 25 Unit SQ TIDWMEALS Nystatin 15 Gm Powder 1 Katie TP HS Alprazolam 0.5 Mg Tablet 1 Tab PO TID Levothyroxine Sodium 175 Mcg Tablet 1 Tab PO DAILY Metoprolol Tartrate 25 Mg Tablet 25 Mg PO BID Ms Contin (Morphine Sulfate) 60 Mg Tablet.er 45 Mg PO BID Nortriptyline Hcl 25 Mg Capsule 1 Cap PO QHS Ranitidine Hcl 150 Mg Tablet 1 Tab PO BID Zolpidem Tartrate 10 Mg Tablet 10 Mg PO PRN QHS PRN Levemir (Insulin Detemir) 100 Unit/1 Ml Vial 50 Unit SQ HS Levemir (Insulin Detemir) 100 Unit/1 Ml Vial 50 Unit SQ DAILY08 Gabapentin 800 Mg Tablet 800 Mg PO TID Clopidogrel (Clopidogrel Bisulfate) 75 Mg Tablet 1 Tab PO DAILY Atorvastatin Calcium 80 Mg Tablet 80 Mg PO HS Aspir 81 (Aspirin) 81 Mg Tablet. 1 Tab PO DAILY Vitals/I & O Vital Sign - Last 24 Hours 12/26/16 12/26/16 12/26/16 12/26/16 14:06 14:43 16:53 18:06 Temp 98.0 98.0 Pulse 74 66 Resp 20 18 B/P 162/74 140/68 Pulse Ox 98 98 O2 Delivery Nasal Cannula Nasal Cannula Room Air O2 Flow Rate 4.0 3.0 3.0 12/26/16 12/26/16 12/26/16 12/26/16 19:33 19:45 21:28 23:25 Temp 97.7 97.8 97.7 97.8 Pulse 63 63 63 Resp 20 18 B/P 138/45 138/45 139/51 Pulse Ox 96 96 97 O2 Delivery Nasal Cannula Nasal Cannula Nasal Cannula O2 Flow Rate 4.0 2.0 2.0 12/27/16 12/27/16 12/27/16 12/27/16 03:35 07:42 08:00 08:30 Temp 98.1 98.2 98.1 98.2 Pulse 63 64 Resp 18 20 B/P 159/62 166/72 Pulse Ox 97 97 99 O2 Delivery Nasal Cannula Nasal Cannula Nasal Cannula Nasal Cannula O2 Flow Rate 2.0 2.0 4.0 4.0 12/27/16 12/27/16 12/27/16 12/27/16 08:46 08:47 08:48 11:12 Pulse 64 64 68 Resp 16 B/P 166/72 166/72 Pulse Ox 99 95 O2 Delivery Nasal Cannula Nasal Cannula O2 Flow Rate 4.0 4.0 12/27/16 12/27/16 12/27/16 12/27/16 11:16 11:17 11:40 11:46 Pulse 68 60 Resp 16 20 B/P 170/69 Pulse Ox 95 98 99 O2 Delivery Nasal Cannula Nasal Cannula Nasal Cannula O2 Flow Rate 4.0 4.0 4.0 12/27/16 11:55 Pulse 60 Resp 20 B/P 159/61 Pulse Ox 100 O2 Delivery Nasal Cannula O2 Flow Rate 4.0 Intake and Output 12/26/16 12/26/16 12/27/16 15:00 23:00 07:00 Intake Total 250 ml 360 ml Output Total 700 ml 2400 ml 500 ml Balance -700 ml -2150 ml -140 ml ALKA TURNER MD Dec 27, 2016 13:35
--- NOTE | 2016-12-27 17:02 | CARD ---
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 INDICATION The indication(s) include : unstable angina (>72 hrs to = 7 days), non-STEMI . CASE TECHNIQUE During this case, Fluoroscopy and low osmolar contrast were used for imaging. PROCEDURE NARRATIVE Patient is a 61-year-old woman who initially underwent a coronary angiogram in the setting of non-ST elevation myocardial infarction last week resents to the catheterization laboratory for coronary inte rvention. She was initially referred to bypass for multivessel disease given her diabetes but she was felt to be a high-risk postoperative candidate and therefore she was advised to pursue multivessel P CI. After appropriate informed consent the patient was brought to the catheterization laboratory. The right groin was prepped and draped in the usual sterile fashion. A 6 Kiswahili sheath was inserted into the right common femoral artery under 2% lidocaine anesthesia and with a J-tipped guidewire via the modified Seldinger technique. FINDINGS: Please see prior cath for full details: LAD: Bifurcation 60% involving a moderate sized D1 with 80% stenosis. LCx: Proximal 80% stenosis. Interventional technique: Heparin weight-based bolus dosing was used to achieve and maintain an ACT greater than 250. A 0.014 i nch per water guidewire was placed in the distal left circumflex and then the lesion was angioplastie d with a 3.5 x 12 mm balloon. Next, the lesion was stented with a resolute 3.5/18 JULITA. Next, attentio n was turned to the LAD/D1 bifurcation lesion. Through a 6F EBU 3.5 guide catheter, a 0.014'' Prowate r wire was placed in the distal LAD. The Diagonal lesion was crossed with a 2nd Prowater wire. The D1 was angioplastied with a 2.5/15 balloon at 12 karrie. Next, the LAD was stented with a Resolut 3.0/23 JULITA at 14 karrie. Post-PCI angiography revealed LUPE 3 flow in the D1/LAD. Although there was residual 5 0% stenosis in the D1, this was not further intervened upon as the patient had significant inability to lay on the table. She was quite anxious throughout the procedure and despite anxiolytics and sedat jason had poor capacity to be cooperative during the procedure. She did not have CP and limited assess ment of the RCA was obtained with a 6Fr JR4 catheter and LVEDP was obtained at 18 mm Hg. Therefore, f urther intervention on the RCA was deferred. At case completion the right groin sheath was removed an d a Mynx Casey product was used to achieve hemostasis.
[2016-12-27] MEDS: LISINOPRIL 20 MG TABLET PO SCH (17:59)
[2016-12-27] MEDS: NORTRIPTYLINE 25 MG CAPSULE PO SCH (22:11)
[2016-12-27] MEDS: NYSTATIN TOPICAL POWDER 15GM BOTTLE. TP SCH (22:11)
[2016-12-27] MEDS: ATORVASTATIN CALCIUM 40 MG TABLET. PO SCH (22:12)
[2016-12-27] MEDS: TICAGRELOR 90 MG TABLET. PO SCH (22:13)
[2016-12-27] MEDS: ZOLPIDEM 5 MG TABLET. PO PRN (22:13)
[2016-12-27] MEDS: MONTELUKAST SODIUM 10 MG TABLET. PO SCH (22:14)
[2016-12-28] MEDS: IV NORMAL SALINE 1000ML BAG 1,000 ML IV SCH (00:17)
[2016-12-28 03:20] VITALS: BP 167/68
[2016-12-28 04:41] LABS: CALCIUM 8.7 mg/dL (8.5-10.1); CREATININE 0.7 mg/dL (0.6-1.0); GFR 84.8; POTASSIUM 4.2 mmol/L (3.5-5.1)
[2016-12-28] MEDS: LEVOTHYROXINE 175 MCG TABLET PO SCH (06:38)
[2016-12-28] MEDS: HYDROCODONE/APAP 5/325MG TABLET. PO PRN (06:39)
[2016-12-28 07:15] VITALS: BP 197/82
[2016-12-28] MEDS: ALBUTEROL SULFATE 2.5 MG/3 ML NEBU. NEB SCH ×3 (08:14→15:48)
[2016-12-28] MEDS: GABAPENTIN 400 MG CAPSULE. PO SCH ×2 (08:17→16:04)
[2016-12-28] MEDS: ASPIRIN ENTERIC COATED 81 MG TABLET.DR. PO SCH (08:18)
[2016-12-28] MEDS: AMLODIPINE BESYLATE 10 MG TABLET PO SCH (08:18)
[2016-12-28] MEDS: FAMOTIDINE 20 MG TABLET. PO SCH (08:18)
[2016-12-28] MEDS: CEPHALEXIN 250 MG CAPSULE PO SCH ×2 (08:19→16:04)
[2016-12-28] MEDS: TICAGRELOR 90 MG TABLET. PO SCH (08:19)
[2016-12-28] MEDS: ALPRAZOLAM 0.5 MG TABLET PO SCH ×2 (08:19→14:00)
[2016-12-28] MEDS: METOPROLOL TART IMMED RELEASE 50 MG TABLET PO SCH (08:19)
[2016-12-28] MEDS: INSULIN ASPART 300 UNITS/3 ML INSULN.PEN SQ SCH ×4 (08:35→12:00)
[2016-12-28] MEDS: INSULIN DETEMIR 300 UNITS/3 ML INSULN.PEN. SQ SCH (08:35)
[2016-12-28] MEDS: MORPHINE ER 15 MG TABLET.ER PO SCH ×2 (09:18→16:05)
--- NOTE | 2016-12-28 10:39 | PDOC ---
PULMONARY PROGRESS NOTES Subjective PT NOT SOA Vitals Vital Signs Date Time Temp Pulse Resp B/P Pulse Ox O2 Delivery O2 Flow Rate FiO2 12/28/16 09:18 18 99 Nasal Cannula 3.0 12/28/16 08:19 76 197/82 12/28/16 07:15 97.3 97.3 ROS: No Nausea, No Chest Pain, No Abdominal Pain, No Increase Cough General: Alert HEENT: Other (nc, at perrl) Lungs: Clear Cardiovascular: S1, S2 Abdomen: Soft, Non-tender, Other Neuro Exam: Alert Extremities: No Edema Skin: Warm Labs Laboratory Tests Test 12/26/16 12:14 12/26/16 12:50 12/26/16 16:52 12/26/16 21:37 Glucose (Fingerstick) 197mg/dL (70-99) 134mg/dL (70-99) 149mg/dL (70-99) Heparin Anti-Xa Act, Unfractionated 0.30IU/mL (0.30-0.70) Test 12/27/16 04:52 12/27/16 09:52 12/27/16 20:51 12/28/16 03:28 White Blood Count 13.6x10^3/uL (4.0-11.0) Red Blood Count 4.35x10^6/uL (3.50-5.40) Hemoglobin 11.9g/dL (12.0-15.5) Hematocrit 38.1% (36.0-47.0) Mean Corpuscular Volume 88fL (79-100) Mean Corpuscular Hemoglobin 27pg (25-35) Mean Corpuscular Hemoglobin Concent 31g/dL (31-37) Red Cell Distribution Width 14.8% (11.5-14.5) Platelet Count 304x10^3/uL (140-400) Neutrophils (%) (Auto) 53% (31-73) Lymphocytes (%) (Auto) 31% (24-48) Monocytes (%) (Auto) 12% (0-9) Eosinophils (%) (Auto) 4% (0-3) Basophils (%) (Auto) 1% (0-3) Neutrophils # (Auto) 7.2x10^3uL (1.8-7.7) Lymphocytes # (Auto) 4.2x10^3/uL (1.0-4.8) Monocytes # (Auto) 1.6x10^3/uL (0.0-1.1) Eosinophils # (Auto) 0.5x10^3/uL (0.0-0.7) Basophils # (Auto) 0.1x10^3/uL (0.0-0.2) Heparin Anti-Xa Act, Unfractionated 0.43IU/mL (0.30-0.70) Sodium Level 143mmol/L (136-145) 142mmol/L (136-145) Potassium Level 4.2mmol/L (3.5-5.1) 4.2mmol/L (3.5-5.1) Chloride Level 105mmol/L (98-107) 105mmol/L (98-107) Carbon Dioxide Level 29mmol/L (21-32) 27mmol/L (21-32) Anion Gap 9 (6-14) 10 (6-14) Blood Urea Nitrogen 14mg/dL (7-20) 15mg/dL (7-20) Creatinine 0.8mg/dL (0.6-1.0) 0.7mg/dL (0.6-1.0) Estimated GFR (Cockcroft-Gault) 72.7 84.8 Glucose Level 178mg/dL (70-99) 154mg/dL (70-99) Calcium Level 9.1mg/dL (8.5-10.1) 8.7mg/dL (8.5-10.1) Activated Clotting Time 208sec (92-181) Glucose (Fingerstick) 155mg/dL (70-99) Test 12/28/16 07:50 Glucose (Fingerstick) 166mg/dL (70-99) Laboratory Tests Test 12/27/16 20:51 12/28/16 03:28 12/28/16 07:50 Glucose (Fingerstick) 155mg/dL (70-99) 166mg/dL (70-99) Sodium Level 142mmol/L (136-145) Potassium Level 4.2mmol/L (3.5-5.1) Chloride Level 105mmol/L (98-107) Carbon Dioxide Level 27mmol/L (21-32) Anion Gap 10 (6-14) Blood Urea Nitrogen 15mg/dL (7-20) Creatinine 0.7mg/dL (0.6-1.0) Estimated GFR (Cockcroft-Gault) 84.8 Glucose Level 154mg/dL (70-99) Calcium Level 8.7mg/dL (8.5-10.1) Medications Active Scripts Medications Dose Route/Sig Days Date Category Comments cxr reviewed, mild vascular congestion and interstitial edema. Impression . 1. Acute respiratory failure secondary to acute diastolic heart failure. 2. Acute and systolic heart failure. Echocardiogram revealed ejection fraction 40-45%. 3. New onset tachycardia, possibly atrial flutter. 4. Peripheral vascular disease. 5. Tobacco dependence. 6. Chronic obstructive pulmonary disease with no clinical presentation compatible with acute exacerbation. 7. Tachyarrhythmia. 8. Diabetes. 9. Nocturnal hypoxemia, suspect obstructive sleep apnea. 10. CAD S/P STENT 11. allergic rhinitis Plan . S/P STENTS 3 vessel cad, cv surgery seen : not a good candidate for surgery. I agree she is obese, has shaila and poor functional status, low dlco, and restrictive lung defect. pfts, FEV1, FVC and DLCO below 50%. ratio 78% bronchodilators, ics will need a outpt sleep study stop tobacco use for ever cont 02 at night 6 min walk prior to d/c lose wt DULCE Holland MD Dec 28, 2016 10:39
--- NOTE | 2016-12-28 10:58 | PDOC ---
JOE LAMBERT ERP PM 12/28/16 1058: CARDIO Progress Notes Date and Time Date of Service 12/28/2016 Time of Evaluation 1020 Subjective Subjective: No Chest Pain, No shortness of breath, No Palpitations, No Dizziness Vitals Vitals Vital Signs Date Time Temp Pulse Resp B/P Pulse Ox O2 Delivery O2 Flow Rate FiO2 12/28/16 09:18 18 99 Nasal Cannula 3.0 12/28/16 08:19 76 197/82 12/28/16 07:15 97.3 97.3 Weight Weight [ ] Input and Output Intake and Output Intake and Output 12/28/16 07:00 Intake Total 1560 ml Output Total 2800 ml Balance -1240 ml Intake Oral 1560 ml Output Urine Total 2800 ml # Voids 2 Laboratory Labs Laboratory Tests Test 12/27/16 20:51 12/28/16 03:28 12/28/16 07:50 Glucose (Fingerstick) 155mg/dL (70-99) 166mg/dL (70-99) Sodium Level 142mmol/L (136-145) Potassium Level 4.2mmol/L (3.5-5.1) Chloride Level 105mmol/L (98-107) Carbon Dioxide Level 27mmol/L (21-32) Anion Gap 10 (6-14) Blood Urea Nitrogen 15mg/dL (7-20) Creatinine 0.7mg/dL (0.6-1.0) Estimated GFR (Cockcroft-Gault) 84.8 Glucose Level 154mg/dL (70-99) Calcium Level 8.7mg/dL (8.5-10.1) Microbiology Micro Microbiology 12/21/16 Blood Culture - Final, Complete NO GROWTH AFTER 5 DAYS Physical Exam HEENT: Neck Supple W Full Motion Chest: Symmetric LUNGS: Other (diminished bases) Heart: S1S2, RRR (SR without rhythm ectopies), other (no acute events on tele; maintaining SR) Abdomen: Soft N/T Extremities: No Edema, No Calf Tenderness, Other Neurology: alert, oriented, follow commands Other Exams right groin arteriotomy site intact and no erythema. Neurovascular status to bilateral LE intact. Assessment Assessment 1. Acute on chronic combined diastolic/systolic heart failure: good diurese in the last 48 hours. Compensated 2. NSTEMI 3. 3V CAD: poor candidate for CABG. S/P PCI/JULITA to LCx/LAD, PTCA to D1. 4. Acute on chronic respiratory failure: much better 5. Malignant hypertension: remains labile but responding well with current regimen 6. PAD 7. Mild ICM: EF 40-45% Plan 1. Pt becoming restless despite anxiolytics prompting deferring RCA intervention. This will be staged likely as outpt and will discuss with primary manager application development 2. Continue with optimization especially antiHTN. 3. Lifestyle modification, smoking cessation. Significant cardiac rehab once RCA intervention complete 4. DAPT(brilinta/[id number]) 5. Start on low dose lasix. Lisinopril at bedtime and will uptitrate if BP remains elevated with nocturnal trend. 6. Follow pulmonary recommendation SUNNY CHRISTIANSEN MD 12/28/16 7399: CARDIO Progress Notes Plan Plan Patient seen and examined. Agree with above nurse practitioner note. No acute events overnight. Denies any chest pain this morning. Normal cardiac exam. Right groin site is clean dry and intact. Supportive care. Medication therapy as noted above. Follow-up in clinic in 4 weeks JOE LABMERT APRN Dec 28, 2016 10:58 SUNNY CHRISTIANSEN MD Dec 28, 2016 16:39
[2016-12-28 11:00] VITALS: BP 149/49
[2016-12-28] MEDS ORDERED: FURO20TA3 PO (12:31)
[2016-12-28] MEDS ORDERED: METO50TA2 PO (12:31)
[2016-12-28] MEDS ORDERED: AMLO10TA2 PO (12:31)
[2016-12-28] MEDS ORDERED: LISI-334 PO (12:31)
[2016-12-28] MEDS ORDERED: TICA90TA PO (12:31)
[2016-12-28] MEDS ORDERED: MORP30TA3 PO (12:32)
[2016-12-28 14:07] VITALS: BP 144/54
[2016-12-28] MEDS ORDERED: LISINOPRIL 20 MG TABLET PO SCH (21:00)
[2016-12-29] MEDS ORDERED: FUROSEMIDE 20 MG TABLET PO SCH (09:00)
--- NOTE | 2016-12-29 21:28 | DS ---
DATE OF DISCHARGE: 12/28/2016 CHIEF COMPLAINT: Atrial flutter. HISTORY OF PRESENT ILLNESS: The patient is a 61-year-old obese woman with CAD, CHF as well as COPD, diabetes mellitus who presented to the Emergency Room with acute hypoxic respiratory failure and chest pain. She was found with significant troponin leak. A cardiac catheterization obtained showed multivessel disease. Cardiovascular Surgery was consulted, but because of multiple other medical issues including peripheral vascular disease and severe COPD, she was deemed a poor surgical candidate and therefore underwent cardiac catheterization with stent placements on 12/27/2016. Unfortunately, the cath had to be aborted secondary to the patient actually waking up even despite propofol and RCA lesion could not be fixed. The patient, however, recovered well and after 24 hours was deemed stable for discharge. DISCHARGE DISPOSITION: To home with services. DISCHARGE CONDITION: Improved. DISCHARGE MEDICATIONS: Please refer to MAR. DISCHARGE INSTRUCTIONS: The patient will follow up with Cardiology as well as her PCP within 1 week. GUERO WALLACE MD DR: CHERELLE/nts JOB#: [id number] / [id number]
== END 2016-12-28 17:45 | disposition home or self-care (01) | DRG 246 ==
LOC: ER 07:30 → 1 WEST ICU 08:12 → 2 NORTH 12-23 18:30
PROVIDERS: ADMIT Internal Medicine; ATTEND Internal Medicine
PROC: 4A023N7 Measurement of Cardiac Sampling and Pressure, Left Heart, Percutaneous Approach (ICD-10-PCS; principal; 2016-12-23)
PROC: B2111ZZ Fluoroscopy of Multiple Coronary Arteries using Low Osmolar Contrast (ICD-10-PCS; 2016-12-23)
PROC: 027134Z Dilation of Coronary Artery, Two Arteries with Drug-eluting Intraluminal Device, Percutaneous Approach (ICD-10-PCS; 2016-12-23)
DX: I21.4 Non-ST elevation (NSTEMI) myocardial infarction (principal); I50.43 Acute on chronic combined systolic (congestive) and diastolic (congestive) heart failure; J96.21 Acute and chronic respiratory failure with hypoxia; Z68.41 Body mass index [BMI] 40.0-44.9, adult; I16.1 Hypertensive emergency; I48.92 Unspecified atrial flutter; L03.119 Cellulitis of unspecified part of limb; I69.351 Hemiplegia and hemiparesis following cerebral infarction affecting right dominant side; E03.9 Hypothyroidism, unspecified; E11.51 Type 2 diabetes mellitus with diabetic peripheral angiopathy without gangrene; E66.9 Obesity, unspecified; E78.5 Hyperlipidemia, unspecified; F17.210 Nicotine dependence, cigarettes, uncomplicated; F32.9 Major depressive disorder, single episode, unspecified; F41.9 Anxiety disorder, unspecified; G47.33 Obstructive sleep apnea (adult) (pediatric); I25.5 Ischemic cardiomyopathy; I48.91 Unspecified atrial fibrillation; I11.0 Hypertensive heart disease with heart failure; J30.9 Allergic rhinitis, unspecified; J44.9 Chronic obstructive pulmonary disease, unspecified; K21.9 Gastro-esophageal reflux disease without esophagitis; Z82.3 Family history of stroke; Z82.49 Family history of ischemic heart disease and other diseases of the circulatory system; Z90.49 Acquired absence of other specified parts of digestive tract; Z95.1 Presence of aortocoronary bypass graft; Z95.5 Presence of coronary angioplasty implant and graft; Z99.81 Dependence on supplemental oxygen; Z79.899 Other long term (current) drug therapy; I25.110 Atherosclerotic heart disease of native coronary artery with unstable angina pectoris
CPT/HCPCS: 36415; 36600; 71010; 71250; 80048; 80061; 80076; 80202; 81001; 82805; 82947; 83605; 83690; 83880; 84443; 84484; 85007; 85027; 85347; 85520; 87040; 87641; 92921; 92928; 93005; 93306; 93454; 93880; 93922; 93923; 93970; 94010; 94250; 94640; 94660; 94760; 96365; 96375; 96376; C1713; C1725; C1769; C1874; C1887; C1892; C9460; G0269; J0153; J0360; J1815; J2060; J2250; J3010; J3370; J3490; J7030; J7040; J7050; Q9967; 99285-25

== ENCOUNTER → 2018-02-06 | Outpatient (CLI) | payer MEDICARE, OTHER ==
[~2018-02-06] MED LIST: 0.9 % SODIUM CHLORIDE 10 ML DISP.SYRIN. IV; CONTRAST GIVEN. MC; HEPARIN for IV BOLUS 10,000 UNIT/10 ML VIAL.; IODIXANOL 320 MG/ML 100 ML VIAL.; LIDOCAINE 2% 20 ML VIAL.; MIDAZOLAM HCL/PF 2 MG/2 ML VIAL.; NITROGLYCERIN 200 MCG/2 ML SYRINGE FOR CATH/VASC LAB.; NITROGLYCERIN PREMIX 250 ML IV; NITROGLYCERIN SUBLINGUAL 0.4 MG BOTTLE OF 25. SL; cloNIDine HCL 0.1 MG TABLET; fentaNYL PF VIAL 100 MCG/2 ML VIAL; hydrALAZINE 20 MG/ML VIAL.
[2018-02-06 09:31] LABS: HEMATOCRIT 40.9 % (36.0-47.0); HEMOGLOBIN 13.7 g/dL (12.0-15.5); MEAN CORPUSCULAR HEMOGLOBIN 29 pg (25-35); MEAN CORPUSCULAR HGB CONC 34 g/dL (31-37); MEAN CORPUSCULAR VOLUME 87 fL (79-100); PLATELET COUNT 412 x10^3/uL (140-400); RED BLOOD COUNT 4.72 x10^6/uL (3.50-5.40); RED CELL DISTRIBUTION WIDTH 13.7 % (11.5-14.5); WHITE BLOOD COUNT 11.4 x10^3/uL (4.0-11.0)
[2018-02-06 09:41] LABS: INR 0.9 (0.8-1.1); PROTHROMBIN TIME PATIENT 11.2 SEC (11.7-14.0)
[2018-02-06 09:50] LABS: ANION GAP 9 (6-14); BLOOD UREA NITROGEN 19 mg/dL (7-20); CALCIUM 9.1 mg/dL (8.5-10.1); CARBON DIOXIDE 29 mmol/L (21-32); CHLORIDE 103 mmol/L (98-107); CREATININE 1.1 mg/dL (0.6-1.0); GFR 50.2; GLUCOSE 285 mg/dL (70-99); POTASSIUM 4.6 mmol/L (3.5-5.1); SODIUM 141 mmol/L (136-145)
[2018-02-06] MEDS: hydrALAZINE 20 MG/ML VIAL. IVP (10:37)
[2018-02-06] MEDS: diazePAM 5 MG TABLET PO (10:38)
[2018-02-06] MEDS: cloNIDine HCL 0.1 MG TABLET PO (10:38)
[2018-02-06] MEDS: HEPARIN for IV BOLUS 10,000 UNIT/10 ML VIAL. IV ×2 (11:36→12:21)
[2018-02-06] MEDS: NITROGLYCERIN 200 MCG/2 ML SYRINGE FOR CATH/VASC LAB. IART (12:19)
[2018-02-06] MEDS: LIDOCAINE 2% 20 ML VIAL. IJ (12:19)
[2018-02-06] MEDS: IODIXANOL 320 MG/ML 100 ML VIAL. IART (12:19)
[2018-02-06] MEDS: fentaNYL PF VIAL 100 MCG/2 ML VIAL IV (12:20)
[2018-02-06] MEDS: MIDAZOLAM HCL/PF 2 MG/2 ML VIAL. IV (12:21)
[2018-02-06] MEDS: NITROGLYCERIN PREMIX 250 ML IV (12:22)
[2018-02-06 13:03] LABS: POC GLUCOSE 215 mg/dL (70-99)
== END ==
LOC: CCL 09:06
DX: I70.213 Atherosclerosis of native arteries of extremities with intermittent claudication, bilateral legs (principal); I35.0 Nonrheumatic aortic (valve) stenosis; I25.10 Atherosclerotic heart disease of native coronary artery without angina pectoris; E78.5 Hyperlipidemia, unspecified; G62.9 Polyneuropathy, unspecified; I50.9 Heart failure, unspecified; Z95.5 Presence of coronary angioplasty implant and graft; E78.00 Pure hypercholesterolemia, unspecified; I48.91 Unspecified atrial fibrillation; I11.0 Hypertensive heart disease with heart failure; J44.9 Chronic obstructive pulmonary disease, unspecified; Z98.890 Other specified postprocedural states; E66.9 Obesity, unspecified; K21.9 Gastro-esophageal reflux disease without esophagitis; Z90.710 Acquired absence of both cervix and uterus; Z89.422 Acquired absence of other left toe(s); E11.42 Type 2 diabetes mellitus with diabetic polyneuropathy; E03.9 Hypothyroidism, unspecified; F41.9 Anxiety disorder, unspecified; Z87.891 Personal history of nicotine dependence; Z82.49 Family history of ischemic heart disease and other diseases of the circulatory system; Z82.3 Family history of stroke
CPT/HCPCS: 36415; 37224; 75630; 80048; 82962; 85027; 85610; 99152; 99153; C1725; C1769; C1771; C1892; G0269; J0360; J1644; J2250; J3010; J3490

== ENCOUNTER 2018-09-29 21:50 | Observation (INO) | payer MEDICARE ==
[~2018-09-29] VITALS: Ht 162.6 cm; Wt 107.0 kg
[~2018-09-29 21:50] MED LIST changes: -0.9 % SODIUM CHLORIDE 10 ML DISP.SYRIN. IV; +ALBU2.5V14 NEB; +ALPR0.5T6 PO; +AMLO10TA6 PO; +ASPI-482 PO; +ASPI-630 PO; +ATORVASTATIN CA80 MG PO; +BUSP15TA PO; +CARV12.5 PO; +CARV12.511 PO; +CLOP75TA PO; -CONTRAST GIVEN. MC; +FURO20TA3 PO; +FURO40TA4 PO; +GABA800T3 PO; -HEPARIN for IV BOLUS 10,000 UNIT/10 ML VIAL.; +HYDR-2868 PO; +INSU100C SQ; +INSU100C4 SQ; +INSU100I13 SQ; +INSU100I17 SQ; +INSU100V13 SQ; -IODIXANOL 320 MG/ML 100 ML VIAL.; +LEVO100T PO; +LEVO175T5 PO; +LEVO25TA55 PO; -LIDOCAINE 2% 20 ML VIAL.; +LIRA0.6P2 SQ; +LISI-130 PO; +LISI-334 PO; +METO25TA4 PO; +METO50TA6 PO; -MIDAZOLAM HCL/PF 2 MG/2 ML VIAL.; +MORP30TA3 PO; +MORP60TA37 PO; -NITROGLYCERIN 200 MCG/2 ML SYRINGE FOR CATH/VASC LAB.; -NITROGLYCERIN PREMIX 250 ML IV; -NITROGLYCERIN SUBLINGUAL 0.4 MG BOTTLE OF 25. SL; +NORT25CA PO; +NYST15PO9 TP; +OXYC5CAP PO; +OXYC5TAB4 PO; +PREG150C PO; +PREG75CA PO; +RANI150T2 PO; +TICA90TA PO; +ZOLP10TA4 PO; +ZOLP5TAB5 PO; +[UNRECOGNIZED DRUG - CODE] TP; -cloNIDine HCL 0.1 MG TABLET; -fentaNYL PF VIAL 100 MCG/2 ML VIAL; -hydrALAZINE 20 MG/ML VIAL.
[2018-09-29] MEDS ORDERED: LABETALOL 20 MG/4 ML DISP.SYRIN. IVP ONE (22:30)
[2018-09-29] MEDS ORDERED: NITROGLYCERIN OINT 1 GM PACKET. TP ONE (22:30)
--- NOTE | 2018-09-29 22:58 | RAD ---
Examination: CT HEAD WO CONTRAST History: HTN NO PREV , headache Comparison/Correlation: None Findings: Axial images of the head were obtained without contrast. Ventricles are normal size. Atrophy is present. No intracranial hemorrhage, midline shift, or mass effect. Cavernous carotid calcifications are present. Opacification of the left maxillary sinus is present. Globes and optic nerves are unremarkable. No depressed fracture. Impression: No intracranial hemorrhage. Electronically signed by: Matthew Saez MD (09/29/2018 10:54 PM) [facility]
[2018-09-29 23:00] LABS: BASO # 0.2 x10^3/uL (0.0-0.2); BASO % 1 % (0-3); EOS # 0.2 x10^3/uL (0.0-0.7); EOS % 2 % (0-3); HEMATOCRIT 40.8 % (36.0-47.0); LYMPH # 2.5 x10^3/uL (1.0-4.8); LYMPH % 22 % (24-48); MEAN CORPUSCULAR HEMOGLOBIN 30 pg (25-35); MEAN CORPUSCULAR HGB CONC 34 g/dL (31-37); MEAN CORPUSCULAR VOLUME 87 fL (79-100); MONO # 1.2 x10^3/uL (0.0-1.1); MONO % 11 % (0-9); NEUT # 7.5 x10^3uL (1.8-7.7); NEUT % 65 % (31-73); PLATELET COUNT 426 x10^3/uL (140-400); RED BLOOD COUNT 4.68 x10^6/uL (3.50-5.40); RED CELL DISTRIBUTION WIDTH 15.2 % (11.5-14.5); WHITE BLOOD COUNT 11.6 x10^3/uL (4.0-11.0)
--- NOTE | 2018-09-29 23:02 | PHYS DOC ---
Past Medical History Past Medical History: Anxiety, CHF, COPD, CVA, Diabetes-Type II, High Cholesterol, Hypertension, Hypothyroid, Other Additional Past Medical Histor: YEAST INFECTION, RIGHT SIDE DEFICIT Past Surgical History: Appendectomy, Hysterectomy, Tonsillectomy, Other Additional Past Surgical Histo: RODS AND PINS IN R ANKLE, TUMORS REMOVED FROM BENEATH EYES- BILAT, Alcohol Use: Rarely Drug Use: None Adult General Chief Complaint Chief Complaint: HYPERTENSION HPI HPI Patient is a 63 year old female is presenting the emergency room chief complaint of head throbbing new the blood pressure was elevated was 210 systolic so she was brought to the emergency room by ambulance. She had 2 out of 10 chest discomfort only she said it was just like a little pain she was actually a lot better than last time that she was here. She says on arrival to the emergency room the chest pain is actually much better it was not radiating is much better just pinching really mild and currently resolved mild shortness of breath noted as well that is actually better too. She did not get take her nighttime blood pressure medication Review of Systems Review of Systems Constitutional: Denies fever or chills [] Eyes: Denies change in visual acuity, redness, or eye pain [] HENT: Denies nasal congestion or sore throat [] Respiratory: Denies cough or shortness of breath [] Cardiovascular GI: Denies abdominal pain, nausea, vomiting, bloody stools or diarrhea [] : Denies dysuria or hematuria [] Musculoskeletal: Integument: Denies rash or skin lesions [] Neurologic: Endocrine: Denies polyuria or polydipsia [] All other systems were reviewed and found to be within normal limits, except as documented in this note. Current Medications Current Medications Current Medications Medications (Trade) Dose Ordered Sig/Madi Start Time Stop Time Status Last Admin Dose Admin Carvedilol (Coreg) 25 mg 1X ONCE 09/29/18 23:45 09/29/18 23:46 DC 09/29/18 23:45 25 MG Hydralazine HCl (Apresoline) 25 mg 1X ONCE 09/29/18 23:45 09/29/18 23:46 DC 09/29/18 23:45 25 MG Labetalol HCl (Normodyne Iv Push) 20 mg Q2HR PRN 09/30/18 00:00 UNV Nitroglycerin (Nitro-Bid Oint) 2 inch 1X ONCE 09/29/18 22:30 09/29/18 22:31 DC Allergies Allergies Allergies Coded Allergies Type Severity Reaction Last Updated Verified No Known Drug Allergies 10/15/13 No Physical Exam Physical Exam Constitutional: Well developed, obese, no acute distress, non-toxic appearance. [] HENT: Normocephalic, atraumatic, bilateral external ears normal, oropharynx moist, no oral exudates, nose normal. [] Eyes: PERRLA, EOMI, conjunctiva normal, no discharge. [] Neck: Normal range of motion, no tenderness, supple, no stridor. [] Cardiovascular:Heart rate regular rhythm, no murmur [] Lungs & Thorax: Bilateral breath sounds clear to auscultation [] Abdomen: Bowel sounds normal, soft, no tenderness, no masses, no pulsatile masses. [] Skin: Warm, dry, no erythema, no rash. [] Back: No tenderness, no CVA tenderness. [] Extremities: No tenderness, no cyanosis, no clubbing, ROM intact, no edema. [] Neurologic: Alert and oriented X 3, normal motor function, normal sensory function, no focal deficits noted. [] Psychologic: Affect normal, judgement normal, mood normal. [] Current Patient Data Vital Signs Vital Signs Date Time Temp Pulse Resp B/P (MAP) Pulse Ox O2 Delivery O2 Flow Rate FiO2 09/29/18 23:45 86 198/88 09/29/18 21:50 98.9 18 96 Room Air 98.9 Lab Values Laboratory Tests Test 09/29/18 22:07 09/29/18 22:50 Glucose (Fingerstick) 99 mg/dL (70-99) White Blood Count 11.6 x10^3/uL (4.0-11.0) H Red Blood Count 4.68 x10^6/uL (3.50-5.40) Hemoglobin 14.0 g/dL (12.0-15.5) Hematocrit 40.8 % (36.0-47.0) Mean Corpuscular Volume 87 fL (79-100) Mean Corpuscular Hemoglobin 30 pg (25-35) Mean Corpuscular Hemoglobin Concent 34 g/dL (31-37) Red Cell Distribution Width 15.2 % (11.5-14.5) H Platelet Count 426 x10^3/uL (140-400) H Neutrophils (%) (Auto) 65 % (31-73) Lymphocytes (%) (Auto) 22 % (24-48) L Monocytes (%) (Auto) 11 % (0-9) H Eosinophils (%) (Auto) 2 % (0-3) Basophils (%) (Auto) 1 % (0-3) Neutrophils # (Auto) 7.5 x10^3uL (1.8-7.7) Lymphocytes # (Auto) 2.5 x10^3/uL (1.0-4.8) Monocytes # (Auto) 1.2 x10^3/uL (0.0-1.1) H Eosinophils # (Auto) 0.2 x10^3/uL (0.0-0.7) Basophils # (Auto) 0.2 x10^3/uL (0.0-0.2) Prothrombin Time 12.0 SEC (11.7-14.0) Prothrombin Time INR 0.9 (0.8-1.1) Sodium Level 144 mmol/L (136-145) Potassium Level 3.8 mmol/L (3.5-5.1) Chloride Level 103 mmol/L (98-107) Carbon Dioxide Level 32 mmol/L (21-32) Anion Gap 9 (6-14) Blood Urea Nitrogen 17 mg/dL (7-20) Creatinine 1.1 mg/dL (0.6-1.0) H Estimated GFR (Cockcroft-Gault) 50.0 BUN/Creatinine Ratio 15 (6-20) Glucose Level 86 mg/dL (70-99) Calcium Level 9.9 mg/dL (8.5-10.1) Magnesium Level 1.9 mg/dL (1.8-2.4) Total Bilirubin 0.2 mg/dL (0.2-1.0) Aspartate Amino Transferase (AST) 17 U/L (15-37) Alanine Aminotransferase (ALT) 21 U/L (14-59) Alkaline Phosphatase 129 U/L (46-116) H Troponin I Quantitative < 0.017 ng/mL (0.000-0.055) FE-Fkc-P-Type Natriuretic Peptide 3040 pg/mL (0-124) H Total Protein 7.8 g/dL (6.4-8.2) Albumin 3.2 g/dL (3.4-5.0) L Albumin/Globulin Ratio 0.7 (1.0-1.7) L Laboratory Tests 09/29/18 22:50 Laboratory Tests 09/29/18 22:50 EKG EKG [] Interpretation Time: Normal sinus rhythm rate of [address] depressions laterally high lateral no STEMI is seen interpreted by me time of encounter QTc 436. Radiology/Procedures Radiology/Procedures [] Impressions: Chest x-ray interpreted by me the mediastinum is somewhat borderline given technique probably similar most recent Head CT negative acute. Course & Med Decision Making Course & Med Decision Making Pertinent Labs and Imaging studies reviewed. (See chart for details) []63-year-old female with history of coronary disease severe hypertension chronic kidney disease ischemic cardiomyopathy difficult to control blood pressure last admit back in April had hypertensive urgency with troponin speaking in the 2 range Now presenting with some vague chest discomfort as well as mild headache. Blood pressures improved in the emergency room under 200 we did give her oral blood pressure medication hydralazine and incorporate first troponin negative given history I think that admitting overnight for observation is reasonable for cycling of troponins to ensure there is no and organ damage. Admit to the service of Dr. Brooks patient is aware of the plan very comfortable with it. On reevaluation at 12 AM she has no chest pain at all. Dragon Disclaimer Dragon Disclaimer This electronic medical record was generated, in whole or in part, using a voice recognition dictation system. Departure Departure Impression: Primary Impression: Hypertensive urgency Disposition: ADMITTED INPATIENT Admitting Physician: Buddy Arguelles Condition: STABLE Referrals: ED DOBBS (PCP) HERB THOMAS MD Sep 29, 2018 23:02
[2018-09-29 23:21] LABS: CALCIUM 9.9 mg/dL (8.5-10.1); CREATININE 1.1 mg/dL (0.6-1.0); POTASSIUM 3.8 mmol/L (3.5-5.1)
[2018-09-29 23:26] LABS: ALBUMIN 3.2 g/dL (3.4-5.0); ALBUMIN/GLOBULIN RATIO 0.7 (1.0-1.7); MAGNESIUM 1.9 mg/dL (1.8-2.4); TOTAL BILIRUBIN 0.2 mg/dL (0.2-1.0); TOTAL PROTEIN 7.8 g/dL (6.4-8.2)
[2018-09-29] MEDS ORDERED: CARVEDILOL 12.5 MG TABLET. PO ONE (23:45)
[2018-09-29] MEDS ORDERED: hydrALAZINE 25 MG TABLET PO ONE (23:45)
--- NOTE | 2018-09-29 23:56 | RAD ---
Examination: PORTABLE CHEST 1V History: CHEST PAIN, SOB Comparison/Correlation: CTA of the chest 04/08/2018 Findings: Portable upright frontal view chest was obtained. Heart size is borderline but this may be technique related. Pulmonary vasculature is normal. No pneumothorax. No effusion. Bony structures are unremarkable. Impression: No active disease. Electronically signed by: Matthew Saez MD (09/29/2018 11:52 PM) [facility]
[2018-09-30] MEDS ORDERED: LABETALOL 20 MG/4 ML DISP.SYRIN. IVP PRN
[2018-09-30] MEDS ORDERED: GABA800T3 PO (02:11)
[2018-09-30] MEDS ORDERED: ZOLPIDEM 5 MG TABLET. PO PRN ×2 (02:15→13:15)
[2018-09-30 02:17] VITALS: BP 184/85
[2018-09-30] MEDS ORDERED: GABAPENTIN 400 MG CAPSULE. PO ONE (02:30)
[2018-09-30] MEDS ORDERED: MORPHINE ER 30 MG TABLET.ER PO ONE (02:30)
[2018-09-30] MEDS ORDERED: busPIRone 5 MG TABLET. PO ONE (02:30)
[2018-09-30] MEDS ORDERED: NORTRIPTYLINE 25 MG CAPSULE PO ONE (02:30)
[2018-09-30 04:00] VITALS: BP 146/47
--- NOTE | 2018-09-30 07:18 | EKG ---
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
[2018-09-30 07:26] VITALS: BP 137/62
[2018-09-30] MEDS: GABAPENTIN 300 MG CAPSULE. PO SCH ×2 (08:58→13:57)
[2018-09-30] MEDS ORDERED: MORPHINE ER 30 MG TABLET.ER PO SCH (09:00)
[2018-09-30] MEDS ORDERED: busPIRone 5 MG TABLET. PO SCH (09:00)
[2018-09-30] MEDS ORDERED: GABAPENTIN 400 MG CAPSULE. PO SCH (09:00)
[2018-09-30 11:09] VITALS: BP 137/62
[2018-09-30 11:10] VITALS: BP 158/59
--- NOTE | 2018-09-30 11:13 | HP ---
ADMIT DATE: 09/30/2018 CHIEF COMPLAINT: Hypertension and chest discomfort. HISTORY OF PRESENT ILLNESS: The patient is a pleasant 63-year-old female who has known coronary artery disease. She has got previous stents. She presented to the ER with elevated blood pressure and chest discomfort, rated at 9/10. She has associated weakness. It has been occurring for several hours, worse with moving, better with sitting still. No [id number] meds seemed to help. I discussed the case with ER physician. We are going to admit the patient and consult Cardiology. It should be noted that her troponin bumped just slightly to 0.1. PAST MEDICAL HISTORY: CAD with stents, COPD, CHF, stroke, hypertension, hyperlipidemia, hypothyroidism, appendectomy, hysterectomy, tonsillectomy, right ankle pins. ALLERGIES: None. FAMILY HISTORY: Coronary artery disease. SOCIAL HISTORY: She quit smoking years ago. No drinking or drugs. MEDICATIONS: Reviewed, please refer to the MRAD. She is on 21 home medications including albuterol, Plavix, atorvastatin, Coreg, amlodipine, lisinopril, aspirin, morphine, gabapentin, nortriptyline, BuSpar, Ambien, Lasix, Zantac, vitamins, insulin, Synthroid. REVIEW OF SYSTEMS: GENERAL: No history of weight change, weakness or fevers. SKIN: No bruising, hair changes or rashes. EYES: No blurred, double or loss of vision. NOSE AND THROAT: No history of nosebleeds, hoarseness or sore throat. HEART: No history of palpitations, chest pain or shortness of breath on exertion. LUNGS: Denies cough, hemoptysis, wheezing or shortness of breath. GASTROINTESTINAL: Denies changes in appetite, nausea, vomiting, diarrhea or constipation. GENITOURINARY: No history of frequency, urgency, hesitancy or nocturia. NEUROLOGIC: Denies history of numbness, tingling, tremor or weakness. PSYCHIATRIC: No history of panic, anxiety or depression. ENDOCRINE: No history of heat or cold intolerance, polyuria or polydipsia. EXTREMITIES: Denies muscle weakness, joint pain, pain on walking or stiffness. PHYSICAL EXAMINATION: VITAL SIGNS: Temperature afebrile, pulse 70, respirations 18, blood pressure 137/62. GENERAL: She is alert, cooperative. HEART: Normal S1, S2. LUNGS: Clear to auscultation. ABDOMEN: Soft, positive bowel sounds. EXTREMITIES: Trace edema. SKIN: No rashes. ENDOCRINE: No thyromegaly. LYMPHATICS: No cervical nodes. HEMATOPOIETIC: No bruising. PSYCHIATRIC: She is a little depressed. LABORATORY DATA: White count is 12. Electrolytes are pending. Troponin 0.1. ASSESSMENT AND PLAN: Chest pain and hypertensive urgency and elevated troponin. We will continue with serial enzymes, serial EKGs, cardiac monitoring. Consult Cardiology. Frequent labs. PROGNOSIS: Guarded. ESTHER REZA DO DR: YULIANA/suly JOB#: [id number] / [id number]
--- NOTE | 2018-09-30 13:50 | PDOC2 ---
CONSULT Date of Consult Date of Consult DATE: 09/30/18 TIME: 13:42 Reason for Consult Reason for Consult: Accelerated hypertension, coronary artery disease. Referring Physician Referring Physician: Dr. Jeong Identification/Chief Complaint Chief Complaint Headache Source Source: Chart review, Patient History of Present Illness Reason for Visit: Headache the patient is a 63-year-old female who came to the emergency room for evaluation of a severe headache. She was found also to have a systolic blood pressure greater than 210. She also describes some episodes of relatively mild chest pressure. Patient has been treated for her accelerated hypertension and her blood pressure has significantly improved. Her chest discomfort has resolved. EKG shows a sinus rhythm with septal and inferior Q waves but no acute ST elevation. Troponins have been 0.017 0.079 0.101. This morning the patient is resting reasonably comfortably in bed. She has an extensive cardiac history including a stenting to her LAD, left circumflex and a balloon proceeded to a diagonal in December 2016. She is followed by Dr. Kimble in the office. Past Medical History Cardiovascular: CAD, CHF, HTN, Syncope, Hyperlipidemia, Other Pulmonary: COPD, Other CENTRAL NERVOUS SYSTEM: CVA, Periperal neuropathy GI: GERD Heme/Onc: No pertinent hx Hepatobiliary: No pertinent hx Psych: Anxiety, Depression Musculoskeletal: Osteoarthritis Rheumatologic: No pertinent hx Infectious disease: No pertinent hx Renal/: No pertinent hx Endocrine: Diabetes Past Surgical History Past Surgical History: Appendectomy, Hysterectomy, Other (coronary stents.) Family History Family History: Coronary Artery Disease, Hypertension, Stroke Social History No ALCOHOL: none Drugs: None Lives: with Family Current Problem List Problem List Problems Medical Problems: (1) Hypertensive urgency Status: Acute Current Medications Current Medications Current Medications Labetalol HCl (Normodyne Iv Push) 20 mg 1X ONCE IVP ; Start 09/29/18 at 22:30 ; Stop 09/29/18 at 22:31; Status DC Nitroglycerin (Nitro-Bid Oint) 2 inch 1X ONCE TP ; Start 09/29/18 at 22:30; Stop 09/29/18 at 22:31; Status DC Hydralazine HCl (Apresoline) 25 mg 1X ONCE PO Last administered on 09/29/18at 23:45; Start 09/29/18 at 23:45; Stop 09/29/18 at 23:46; Status DC Carvedilol (Coreg) 25 mg 1X ONCE PO Last administered on 09/29/18at 23:45; Start 09/29/18 at 23:45; Stop 09/29/18 at 23:46; Status DC Labetalol HCl (Normodyne Iv Push) 20 mg PRN Q2HR PRN IVP ELEVATED BP, SEE COMMENTS; Start 09/30/18 at 00:00 Morphine Sulfate (Ms Contin) 30 mg BID PO Last administered on 09/30/18at 08:59 ; Start 09/30/18 at 09:00 Morphine Sulfate (Ms Contin) 30 mg 1X ONCE PO ; Start 09/30/18 at 02:30; Stop 09/30/18 at 02:31; Status DC Buspirone HCl (Buspar) 15 mg BID PO Last administered on 09/30/18at 08:58; Start 09/30/18 at 09:00 Buspirone HCl (Buspar) 15 mg 1X ONCE PO Last administered on 09/30/18at 02:33 ; Start 09/30/18 at 02:30; Stop 09/30/18 at 02:31; Status DC Zolpidem Tartrate (Ambien) 5 mg PRN QHS PRN PO INSOMNIA, MAY REPEAT IN 1HR Last administered on 09/30/18at 02:33; Start 09/30/18 at 02:15 Gabapentin (Neurontin) 800 mg TID PO ; Start 09/30/18 at 09:00; Status Cancel Gabapentin (Neurontin) 800 mg 1X ONCE PO ; Start 09/30/18 at 02:30; Stop at 02:31; Status DC Nortriptyline HCl (Pamelor) 50 mg QHS PO ; Start 09/30/18 at 21:00 Nortriptyline HCl (Pamelor) 50 mg 1X ONCE PO Last administered on 09/30/18at 02:34; Start 09/30/18 at 02:30; Stop 09/30/18 at 02:31; Status DC Gabapentin (Neurontin) 300 mg TID PO Last administered on 09/30/18at 08:58; Start 09/30/18 at 09:00 Amlodipine Besylate (Norvasc) 10 mg DAILY PO ; Start 09/30/18 at 14:00 Aspirin (Children'S Aspirin) 81 mg DAILY PO ; Start 12/22/18 at 14:00 Carvedilol (Coreg) 25 mg BIDWMEALS PO ; Start 09/30/18 at 17:00 Clopidogrel Bisulfate (Plavix) 75 mg DAILYWBKFT PO ; Start 09/30/18 at 14:00 Furosemide (Lasix) 40 mg DAILY PO ; Start 09/30/18 at 14:00 Levothyroxine Sodium (Synthroid) 100 mcg DAILY07 PO ; Start 09/30/18 at 14:30 Lisinopril (Prinivil) 40 mg HS PO ; Start 09/30/18 at 21:00 Nortriptyline HCl (Pamelor) 50 mg QHS PO ; Start 09/30/18 at 21:00 Zolpidem Tartrate (Ambien) 5 mg PRN QHS PRN PO INSOMNIA; Start 09/30/18 at 13: 15 Atorvastatin Calcium (Lipitor) 80 mg QHS PO ; Start 09/30/18 at 21:00 Hydralazine HCl (Apresoline) 25 mg TID PO ; Start 09/30/18 at 21:00 Insulin Glargine (Lantus) 50 units QHS SQ ; Start 09/30/18 at 21:00 Famotidine (Pepcid) 20 mg BID PO ; Start 09/30/18 at 21:00 Active Scripts Active Clopidogrel (Clopidogrel Bisulfate) 75 Mg Tablet 75 Mg PO DAILYWBKFT 30 Days Furosemide 40 Mg Tablet 40 Mg PO DAILY 30 Days Synthroid (Levothyroxine Sodium) 100 Mcg Tablet 100 Mcg PO DAILY07 30 Days Lisinopril 40 Mg Tablet 40 Mg PO HS 30 Days Carvedilol (Carvedilol) 12.5 Mg Tablet 25 Mg PO BIDWMEALS 30 Days Hydralazine Hcl 25 Mg Tablet 25 Mg PO BID 30 Days Reported Gabapentin 800 Mg Tablet 800 Mg PO TID Morphine Sulfate Er (Morphine Sulfate) 30 Mg Tablet.er 1 Tab PO BID Victoza 3-Arden (Liraglutide) 0.6 Mg/0.1 Ml Pen.injctr 0.6 Mg SQ Ranitidine Hcl 150 Mg Tablet 1 Tab PO BID Buspirone Hcl 15 Mg Tablet 1 Tab PO BID Nortriptyline Hcl 25 Mg Capsule 2 Cap PO QHS Aspirin 81 Mg Tab.chew 1 Tab PO DAILY Amlodipine Besylate 10 Mg Tablet 10 Mg PO DAILY Atorvastatin Calcium 80 Mg Tablet 1 Tab PO DAILY Albuterol Sulfate Conc Neb Soln (Albuterol Sulfate) 2.5 Mg/0.5 Ml Vial.neb 1 Vial NEB Q4HRS Novolog Flexpen (Insulin Aspart) 100 Unit/1 Ml Insuln.pen 25 Unit SQ TIDWMEALS Zolpidem Tartrate 5 Mg Tablet 1 Tab PO PRN QHS PRN Albuterol Sulfate Conc Neb Soln (Albuterol Sulfate) 2.5 Mg/0.5 Ml Vial.neb 1 Vial NEB Q4HRS PRN Levemir (Insulin Detemir) 100 Unit/1 Ml Vial 50 Unit SQ HS Levemir (Insulin Detemir) 100 Unit/1 Ml Vial 50 Unit SQ DAILY08 Allergies Allergies: Coded Allergies: No Known Drug Allergies (Unverified , 10/15/13) ROS General: YES: Fatigue Cardiovascular: yes Chest Pain Neurological: Yes Headaches Physical Exam General: No acute distress HEENT: Atraumatic Lungs: Clear to auscultation Heart: Regular rate Vitals VITALS Vital Signs Date Time Temp Pulse Resp B/P (MAP) Pulse Ox O2 Delivery O2 Flow Rate FiO2 09/30/18 12:53 18 95 Room Air 3.0 09/30/18 11:10 97.4 70 158/59 (92) 97.4 Labs Labs Laboratory Tests Test 09/29/18 22:07 09/29/18 22:50 09/30/18 03:30 09/30/18 04:57 Glucose (Fingerstick) 99 mg/dL (70-99) 201 mg/dL (70-99) White Blood Count 11.6 x10^3/uL (4.0-11.0) Red Blood Count 4.68 x10^6/uL (3.50-5.40) Hemoglobin 14.0 g/dL (12.0-15.5) Hematocrit 40.8 % (36.0-47.0) Mean Corpuscular Volume 87 fL (79-100) Mean Corpuscular Hemoglobin 30 pg (25-35) Mean Corpuscular Hemoglobin Concent 34 g/dL (31-37) Red Cell Distribution Width 15.2 % (11.5-14.5) Platelet Count 426 x10^3/uL (140-400) Neutrophils (%) (Auto) 65 % (31-73) Lymphocytes (%) (Auto) 22 % (24-48) Monocytes (%) (Auto) 11 % (0-9) Eosinophils (%) (Auto) 2 % (0-3) Basophils (%) (Auto) 1 % (0-3) Neutrophils # (Auto) 7.5 x10^3uL (1.8-7.7) Lymphocytes # (Auto) 2.5 x10^3/uL (1.0-4.8) Monocytes # (Auto) 1.2 x10^3/uL (0.0-1.1) Eosinophils # (Auto) 0.2 x10^3/uL (0.0-0.7) Basophils # (Auto) 0.2 x10^3/uL (0.0-0.2) Prothrombin Time 12.0 SEC (11.7-14.0) Prothromb Time International Ratio 0.9 (0.8-1.1) Sodium Level 144 mmol/L (136-145) Potassium Level 3.8 mmol/L (3.5-5.1) Chloride Level 103 mmol/L (98-107) Carbon Dioxide Level 32 mmol/L (21-32) Anion Gap 9 (6-14) Blood Urea Nitrogen 17 mg/dL (7-20) Creatinine 1.1 mg/dL (0.6-1.0) Estimated GFR (Cockcroft-Gault) 50.0 BUN/Creatinine Ratio 15 (6-20) Glucose Level 86 mg/dL (70-99) Calcium Level 9.9 mg/dL (8.5-10.1) Magnesium Level 1.9 mg/dL (1.8-2.4) Total Bilirubin 0.2 mg/dL (0.2-1.0) Aspartate Amino Transf (AST/SGOT) 17 U/L (15-37) Alanine Aminotransferase (ALT/SGPT) 21 U/L (14-59) Alkaline Phosphatase 129 U/L (46-116) Troponin I Quantitative < 0.017 ng/mL (0.000-0.055) 0.079 ng/mL (0.000-0.055) SI-Gkk-C-Type Natriuretic Peptide 3040 pg/mL (0-124) Total Protein 7.8 g/dL (6.4-8.2) Albumin 3.2 g/dL (3.4-5.0) Albumin/Globulin Ratio 0.7 (1.0-1.7) Test 09/30/18 06:00 09/30/18 11:23 Troponin I Quantitative 0.101 ng/mL (0.000-0.055) Glucose (Fingerstick) 180 mg/dL (70-99) Laboratory Tests Test 09/29/18 22:07 09/29/18 22:50 09/30/18 03:30 09/30/18 04:57 Glucose (Fingerstick) 99 mg/dL (70-99) 201 mg/dL (70-99) White Blood Count 11.6 x10^3/uL (4.0-11.0) Red Blood Count 4.68 x10^6/uL (3.50-5.40) Hemoglobin 14.0 g/dL (12.0-15.5) Hematocrit 40.8 % (36.0-47.0) Mean Corpuscular Volume 87 fL (79-100) Mean Corpuscular Hemoglobin 30 pg (25-35) Mean Corpuscular Hemoglobin Concent 34 g/dL (31-37) Red Cell Distribution Width 15.2 % (11.5-14.5) Platelet Count 426 x10^3/uL (140-400) Neutrophils (%) (Auto) 65 % (31-73) Lymphocytes (%) (Auto) 22 % (24-48) Monocytes (%) (Auto) 11 % (0-9) Eosinophils (%) (Auto) 2 % (0-3) Basophils (%) (Auto) 1 % (0-3) Neutrophils # (Auto) 7.5 x10^3uL (1.8-7.7) Lymphocytes # (Auto) 2.5 x10^3/uL (1.0-4.8) Monocytes # (Auto) 1.2 x10^3/uL (0.0-1.1) Eosinophils # (Auto) 0.2 x10^3/uL (0.0-0.7) Basophils # (Auto) 0.2 x10^3/uL (0.0-0.2) Prothrombin Time 12.0 SEC (11.7-14.0) Prothromb Time International Ratio 0.9 (0.8-1.1) Sodium Level 144 mmol/L (136-145) Potassium Level 3.8 mmol/L (3.5-5.1) Chloride Level 103 mmol/L (98-107) Carbon Dioxide Level 32 mmol/L (21-32) Anion Gap 9 (6-14) Blood Urea Nitrogen 17 mg/dL (7-20) Creatinine 1.1 mg/dL (0.6-1.0) Estimated GFR (Cockcroft-Gault) 50.0 BUN/Creatinine Ratio 15 (6-20) Glucose Level 86 mg/dL (70-99) Calcium Level 9.9 mg/dL (8.5-10.1) Magnesium Level 1.9 mg/dL (1.8-2.4) Total Bilirubin 0.2 mg/dL (0.2-1.0) Aspartate Amino Transf (AST/SGOT) 17 U/L (15-37) Alanine Aminotransferase (ALT/SGPT) 21 U/L (14-59) Alkaline Phosphatase 129 U/L (46-116) Troponin I Quantitative < 0.017 ng/mL (0.000-0.055) 0.079 ng/mL (0.000-0.055) CX-Cnq-R-Type Natriuretic Peptide 3040 pg/mL (0-124) Total Protein 7.8 g/dL (6.4-8.2) Albumin 3.2 g/dL (3.4-5.0) Albumin/Globulin Ratio 0.7 (1.0-1.7) Test 09/30/18 06:00 09/30/18 11:23 Troponin I Quantitative 0.101 ng/mL (0.000-0.055) Glucose (Fingerstick) 180 mg/dL (70-99) Images Images Chest x-ray shows no acute changes. Head CT scan shows no acute changes. Assessment/Plan Assessment/Plan 1. Accelerated hypertension. Patient's blood pressure is under improved control. Will continue with adjustment in medications and gradually increase activities. 2. Chest discomfort. Discomfort has resolved. Patient has no acute ischemic changes. Troponins have peaked at 0.1 consistent with demand ischemia in the setting of her severe hypertension. She does have a history of coronary stenting as above. We discussed various options at this time including in- hospital testing or follow-up in the office with outpatient testing. She stated that she would prefer to follow-up as an outpatient. 3. Hyperlipidemia. Continue statin medications. 4. COPD. Continuing present treatments. 5. History of a CVA. Thank you for allowing us to participate in the care of your patient. PEDRO LEOS MD Sep 30, 2018 13:50
[2018-09-30 13:58] VITALS: BP 158/59
[2018-09-30] MEDS ORDERED: CLOPIDOGREL BISULFATE 75 MG TABLET PO SCH (14:00)
[2018-09-30] MEDS ORDERED: FUROSEMIDE 40 MG TABLET. PO SCH (14:00)
[2018-09-30] MEDS ORDERED: INSULIN LISPRO 300 UNITS/3 ML INSULN.PEN. SQ ONE (14:00)
[2018-09-30] MEDS ORDERED: amLODIPine BESYLATE 10 MG TABLET PO SCH (14:00)
[2018-09-30] MEDS ORDERED: ASPIRIN CHEWABLE 81 MG TABLET. PO SCH (14:00)
[2018-09-30] MEDS ORDERED: LEVOTHYROXINE 100 MCG TABLET PO SCH (14:30)
[2018-09-30] MEDS ORDERED: CARVEDILOL 12.5 MG TABLET. PO SCH (17:00)
[2018-09-30] MEDS ORDERED: NORTRIPTYLINE 25 MG CAPSULE PO SCH ×2 (21:00)
[2018-09-30] MEDS ORDERED: hydrALAZINE 25 MG TABLET PO SCH (21:00)
[2018-09-30] MEDS ORDERED: LISINOPRIL 20 MG TABLET PO SCH (21:00)
[2018-09-30] MEDS ORDERED: FAMOTIDINE 20 MG TABLET. PO SCH (21:00)
[2018-09-30] MEDS ORDERED: INSULIN GLARGINE 300 UNITS/3 ML INSULN.PEN. SQ SCH (21:00)
[2018-09-30] MEDS ORDERED: ATORVASTATIN CALCIUM 40 MG TABLET. PO SCH (21:00)
== END 2018-09-30 15:09 | disposition home or self-care (01) ==
LOC: ER 21:50 → 2 SOUTH 09-30 00:53
PROVIDERS: ADMIT Family Medicine; ATTEND Family Medicine
DX: R07.89 Other chest pain (principal); I16.0 Hypertensive urgency; R79.89 Other specified abnormal findings of blood chemistry; I11.0 Hypertensive heart disease with heart failure; I50.9 Heart failure, unspecified; I25.10 Atherosclerotic heart disease of native coronary artery without angina pectoris; J44.9 Chronic obstructive pulmonary disease, unspecified; E78.5 Hyperlipidemia, unspecified; E11.9 Type 2 diabetes mellitus without complications; E03.9 Hypothyroidism, unspecified; K21.9 Gastro-esophageal reflux disease without esophagitis; Z95.5 Presence of coronary angioplasty implant and graft; Z90.710 Acquired absence of both cervix and uterus; Z90.49 Acquired absence of other specified parts of digestive tract; Z87.891 Personal history of nicotine dependence; Z86.73 Personal history of transient ischemic attack (TIA), and cerebral infarction without residual deficits; Z82.49 Family history of ischemic heart disease and other diseases of the circulatory system; Z82.3 Family history of stroke
CPT/HCPCS: 36415; 70450; 71045; 80053; 82962; 83735; 83880; 84484; 85025; 85610; 93005; 96372; 99284; G0378; J1815; G0379

== ENCOUNTER 2020-02-18 09:48 | Observation (INO) | payer MEDICARE ==
[~2020-02-18] VITALS: Ht 162.6 cm; Wt 106.0 kg
[2020-02-18] VITALS (14 sets, daily range): BP systolic 110–197; BP diastolic 65–80
[~2020-02-18 09:48] MED LIST changes: -AMLO10TA6 PO; +AMLO10TA8 PO; +GABA300C18 PO; -GABA800T3 PO; +GABA800T5 PO; +INSU100I11 SQ; +LEVO-101 PO; -LEVO100T PO; +LEVO112T49 PO; +LORA0.5T96 PO; +LOSA-73 PO; +MORP-16 PO; -MORP30TA3 PO; +NYST60PO TP; +PREG-9 PO; -PREG75CA PO
[2020-02-18 10:33] LABS: HEMOGLOBIN 11.3 g/dL (12.0-15.5); RED BLOOD COUNT 3.92 x10^6/uL (3.50-5.40); WHITE BLOOD COUNT 12.9 x10^3/uL (4.0-11.0)
[2020-02-18 10:40] LABS: CALCIUM 8.9 mg/dL (8.5-10.1); CREATININE 1.5 mg/dL (0.6-1.0); GFR 34.9; POTASSIUM 3.8 mmol/L (3.5-5.1)
[2020-02-18] MEDS ORDERED: LEVO100T5 PO (10:41)
[2020-02-18] MEDS ORDERED: LIRA0.6P2 SQ (10:41)
[2020-02-18] MEDS ORDERED: DICL100G54 TP (10:41)
[2020-02-18] MEDS ORDERED: GABA300C18 PO (10:41)
[2020-02-18] MEDS ORDERED: HYDR-2868 PO (10:41)
[2020-02-18 10:42] LABS: PROTHROMBIN TIME PATIENT 12.5 SEC (11.7-14.0)
[2020-02-18] MEDS ORDERED: IODIXANOL 320 MG/ML 100 ML VIAL. ONE (11:01)
[2020-02-18] MEDS ORDERED: LIDOCAINE 1% Multi-Dose 20 ML VIAL. ONE (11:01)
[2020-02-18] MEDS ORDERED: HEPARIN for IV BOLUS 10,000 UNIT/10 ML VIAL. ONE (11:05)
[2020-02-18] MEDS ORDERED: MIDAZOLAM HCL/PF 5 MG/5 ML VIAL. ONE (11:05)
[2020-02-18] MEDS ORDERED: fentaNYL PF VIAL 250 MCG/5 ML VIAL ONE (11:05)
[2020-02-18] MEDS ORDERED: IODIXANOL 320 MG/ML 100 ML VIAL. IART ONE (12:30)
[2020-02-18] MEDS ORDERED: MIDAZOLAM HCL/PF 5 MG/5 ML VIAL. IV ONE (12:30)
[2020-02-18] MEDS ORDERED: HEPARIN for IV BOLUS 10,000 UNIT/10 ML VIAL. IV ONE (12:30)
[2020-02-18] MEDS ORDERED: fentaNYL PF VIAL 250 MCG/5 ML VIAL IV ONE (12:30)
[2020-02-18] MEDS ORDERED: LIDOCAINE 1% Multi-Dose 20 ML VIAL. INJ ONE (12:30)
--- NOTE | 2020-02-18 14:02 | PDOC ---
MODERATE SEDATION ASSESSMENT RISKS/ALTERNATIVES Risks/Alternatives Risks and alternatives of this type of sedation and procedure discussed with: RISK/ALTERNATIVES: Patient H & P ON CHART H & P H & P on chart and reviewed for co-morbid conditions and appropriate labs. H&P ON CHART: Yes STATUS PREG STATUS ASSESSED: N/A MEDS/ALLERGIES REVIEWED Meds/Allergies Reviewed Medications and Allergies including time and route of recently administered narcotics and sedatives. MEDS/ALLERGIES REVIEWED: Yes ASA RATING ASA RATING: III AIRWAY ASSESSMENT Airway Assessment Airway patency, oral function limitations, presence of caps, crowns, dentures, partials, and ability to extend neck assessed. AIRWAY ASSESSMENT: Yes MALLAMPATI SCORE MALLAMPATI SCORE: II PRE-SEDATION ASSESSMENT PRE-SEDATION ASSESSMENT: Yes RAQUEL GUSMAN MD February 18, 2020 14:02
--- NOTE | 2020-02-18 14:05 | NUR ---
Patient arrived to room 250 via bed from laborer/key man at 1405. Patient pretty drowsy from sedation still. Patient placed on monitor & frequent vital signs. L groin site CDI. Will continue to monitor.
[2020-02-18] MEDS ORDERED: fentaNYL PF VIAL 100 MCG/2 ML VIAL IVP ONE (14:15)
[2020-02-18] MEDS ORDERED: 0.9 % SODIUM CHLORIDE 10 ML DISP.SYRIN. IV PRN (14:15)
[2020-02-18] MEDS ORDERED: NITROGLYCERIN SUBLINGUAL 0.4 MG BOTTLE OF 25. SL PRN (14:15)
[2020-02-18] MEDS ORDERED: MIDAZOLAM HCL/PF 2 MG/2 ML VIAL. IVP ONE (14:15)
--- NOTE | 2020-02-18 14:31 | CARD ---
MR#: [id number] Date of Study: 02/18/2020 Ordering Physician: SUNNY CHRISTIANSEN, Referring Physician: SUNNY CHRISTIANSEN, Tech: DOLLY ZAMORA RTR APPROVED REPORT Patient StatusOUT-PATIENT Polishing Machine Tender: DOLLY ZAMORA RTR Procedure(s) performed: 1. Abdominal aortogram and selective right lower extremity angiography 2. 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 PROCEDURE NARRATIVE After explaining the risks, benefits and alternative options, informed consent was obtained for patie nt. Patient was brought to the cardiac Patient Support Partner and her left groin was prepped and draped in the usu al fashion. Arterial access was obtained the left common femoral artery and a 5 Barb[place] sheath was in serted. 5 [place] pigtail catheter was used to perform abdominal aortogram. A 5 [place] crossover cat heter was used to cross the aortic marquita which was then exchanged over a wire to a 4 [place] angled g lide catheter with the tip positioned in the right common femoral artery, selective right lower extre mity angiography was performed. The following findings were noted. FINDINGS 1. No significant stenosis involving the distal descending aorta 2. 40% ulcerated plaque involving the right common iliac artery. No significant stenosis in the lef t common iliac artery. 3. No significant stenosis involving bilateral external iliac arteries. 4. No significant stenosis involving right common femoral artery. 5. The right deep femoral artery/profunda showed 50% ostial stenosis. 6. The right superficial femoral artery showed long chronic total occlusion involving the proximal s egment extending into the very proximal portion of the previously placed stent in the midsegment. Th ere is distal reconstitution from collaterals. There was was 80% in-stent restenosis in the distal p ortion of the stent. Just beyond the stent, the right SFA showed 60% stenosis. The distal segment s howed 40% stenosis. 7. The popliteal artery showed 30% stenosis. 8. The right anterior tibial artery showed 80% stenosis in the proximal segment and 100% occlusion i n the midsegment with distal reconstitution from collaterals. 9. The right peroneal artery showed 100% occlusion in the proximal segment with reconstitution in th e midsegment and chronic occlusion again in the distal segment. 10. The posterior tibial artery showed 100% occlusion in the proximal to mid segment with distal darell nstitution from collaterals. INTERVENTION Since patient had severe below the knee disease, we decided to use distal embolic protection for inte rvening on her right SFA. After initial unsuccessful attempts at exchanging the sheath in the left g roin to a 6 [place] destination sheath due to scarring, the guidewire was changed to a 0.035 inch supr a core guidewire for better support and a 6 [place] destination sheath advanced. With the help of a c CollegePostingsover catheter, this was advanced over the aortic marquita and the tip was positioned in the right c ommon femoral artery. Attempts at crossing the chronic total occlusion using 0.035 inch Glidewire with backup support from 4 [place] angled glide catheter were unsuccessful. Attempts at crossing the lesion with 0.[address] guidewire were unsuccessful as well. Subsequently, with the help of backup support from a Q uickcross microcatheter, the occlusion was crossed with a 0.014 inch Astato 20 guidewire. This was t hen exchanged to a 0.018-0.014 inch Viper guidewire. [facility] Nav6 embolic protection system was t hen advanced across the lesion and was deployed in the distal segment of SFA. Multiple inflations were then performed within the lesions in the right SFA using a 4.0 x 120 mm Abbo tt [place] balloon followed by 5.5 x 150 mm [place] balloon. Follow-up angiography showed resol ution of the lesion with good distal flow. The distal embolic protection device was successfully ret rieved. Hemostasis in the left groin was achieved using Angio-Seal. There were no immediate complic ations. Conclusion Successful balloon NEMATOLOGY TEACHER to chronic total occlusion involving the right superficial femoral artery with distal embolic protection Signed by : Roderick Giron, Electronically Approved : 02/18/2020 14:31:08
[2020-02-18] MEDS: IV 1/2 NORMAL SALINE 1,000 ML IV SCH ×2 (16:48→20:50)
[2020-02-18] MEDS ORDERED: MORPHINE ER 15 MG TABLET.ER PO ONE (18:00)
[2020-02-18] MEDS: CARVEDILOL 12.5 MG TABLET. PO SCH (18:18)
[2020-02-18] MEDS: INSULIN LISPRO 300 UNITS/3 ML VIAL. SQ SCH (18:22)
[2020-02-18] MEDS ORDERED: INSU100I17 SQ (18:50)
[2020-02-18] MEDS ORDERED: LOSA100T14 PO (18:50)
[2020-02-18] MEDS ORDERED: FAMO20TA5 PO (18:50)
[2020-02-18] MEDS ORDERED: MORP-15 PO (18:50)
[2020-02-18] MEDS: hydrALAZINE 25 MG TABLET PO SCH (20:51)
[2020-02-18] MEDS: ACETAMINOPHEN 325 MG TABLET. PO PRN (20:51)
[2020-02-18] MEDS ORDERED: ATORVASTATIN CALCIUM 40 MG TABLET. PO SCH (21:00)
[2020-02-18] MEDS ORDERED: INSULIN GLARGINE SYRINGE. SQ SCH (21:00)
[2020-02-19 02:02] VITALS: BP 133/51
[2020-02-19] MEDS: ACETAMINOPHEN 325 MG TABLET. PO PRN (02:05)
[2020-02-19 05:13] LABS: CALCIUM 7.7 mg/dL (8.5-10.1); CREATININE 1.5 mg/dL (0.6-1.0); GFR 34.9; POTASSIUM 3.6 mmol/L (3.5-5.1)
[2020-02-19] MEDS: IV 1/2 NORMAL SALINE 1,000 ML IV SCH (06:27)
[2020-02-19 07:00] VITALS: BP 169/53
[2020-02-19] MEDS ORDERED: CLOPIDOGREL BISULFATE 75 MG TABLET PO SCH (08:00)
[2020-02-19] MEDS: hydrALAZINE 25 MG TABLET PO SCH (08:34)
[2020-02-19] MEDS: CARVEDILOL 12.5 MG TABLET. PO SCH (08:35)
[2020-02-19] MEDS: INSULIN LISPRO 300 UNITS/3 ML VIAL. SQ SCH (08:41)
[2020-02-19] MEDS ORDERED: LEVOTHYROXINE 100 MCG TABLET PO SCH (09:00)
[2020-02-19] MEDS ORDERED: ASPIRIN CHEWABLE 81 MG TABLET. PO SCH (09:00)
[2020-02-19] MEDS ORDERED: amLODIPine BESYLATE 10 MG TABLET PO SCH (09:00)
[2020-02-19] MEDS ORDERED: NON FORMULARY ITEM (Liraglutide (Victoza 3-Pak) 1.8 MG) SQ SCH (09:00)
--- NOTE | 2020-02-19 10:03 | PDOC3 ---
JOE LAMBERT RELINER 02/19/20 1003: Discharge Summary Visit Information Date of Admission: February 18, 2020 Date of Discharge: February 19, 2020 Admitting Diagnosis: Severe RLE PAD with right foot wound Final Diagnosis Severe RLE PAD with right foot wound, HTN, DM2 Brief Hospital Course Allergies Allergies Coded Allergies Type Severity Reaction Last Updated Verified No Known Drug Allergies 10/15/13 No Vital Signs Vital Signs Date Time Temp Pulse Resp B/P (MAP) Pulse Ox O2 Delivery O2 Flow Rate FiO2 02/19/20 08:35 71 160/69 02/19/20 08:00 Room Air 02/19/20 07:00 98.2 18 99 3.0 98.2 Lab Results Laboratory Tests Test 02/18/20 10:25 02/18/20 13:24 02/18/20 16:04 02/18/20 20:26 White Blood Count 12.9 x10^3/uL (4.0-11.0) Red Blood Count 3.92 x10^6/uL (3.50-5.40) Hemoglobin 11.3 g/dL (12.0-15.5) Hematocrit 34.0 % (36.0-47.0) Mean Corpuscular Volume 87 fL (79-100) Mean Corpuscular Hemoglobin 29 pg (25-35) Mean Corpuscular Hemoglobin Concent 33 g/dL (31-37) Red Cell Distribution Width 14.0 % (11.5-14.5) Platelet Count 399 x10^3/uL (140-400) Prothrombin Time 12.5 SEC (11.7-14.0) Prothromb Time International Ratio 1.0 (0.8-1.1) Sodium Level 135 mmol/L (136-145) Potassium Level 3.8 mmol/L (3.5-5.1) Chloride Level 97 mmol/L (98-107) Carbon Dioxide Level 30 mmol/L (21-32) Anion Gap 8 (6-14) Blood Urea Nitrogen 24 mg/dL (7-20) Creatinine 1.5 mg/dL (0.6-1.0) Estimated GFR (Cockcroft-Gault) 34.9 Glucose Level 310 mg/dL (70-99) Calcium Level 8.9 mg/dL (8.5-10.1) Activated Clotting Time 191 sec (92-181) Glucose (Fingerstick) 276 mg/dL (70-99) 303 mg/dL (70-99) Test 02/19/20 04:35 02/19/20 07:29 Sodium Level 133 mmol/L (136-145) Potassium Level 3.6 mmol/L (3.5-5.1) Chloride Level 98 mmol/L (98-107) Carbon Dioxide Level 29 mmol/L (21-32) Anion Gap 6 (6-14) Blood Urea Nitrogen 21 mg/dL (7-20) Creatinine 1.5 mg/dL (0.6-1.0) Estimated GFR (Cockcroft-Gault) 34.9 Glucose Level 246 mg/dL (70-99) Calcium Level 7.7 mg/dL (8.5-10.1) Glucose (Fingerstick) 206 mg/dL (70-99) Laboratory Tests Test 02/18/20 10:25 02/18/20 13:24 02/18/20 16:04 02/18/20 20:26 White Blood Count 12.9 x10^3/uL (4.0-11.0) Red Blood Count 3.92 x10^6/uL (3.50-5.40) Hemoglobin 11.3 g/dL (12.0-15.5) Hematocrit 34.0 % (36.0-47.0) Mean Corpuscular Volume 87 fL (79-100) Mean Corpuscular Hemoglobin 29 pg (25-35) Mean Corpuscular Hemoglobin Concent 33 g/dL (31-37) Red Cell Distribution Width 14.0 % (11.5-14.5) Platelet Count 399 x10^3/uL (140-400) Prothrombin Time 12.5 SEC (11.7-14.0) Prothromb Time International Ratio 1.0 (0.8-1.1) Sodium Level 135 mmol/L (136-145) Potassium Level 3.8 mmol/L (3.5-5.1) Chloride Level 97 mmol/L (98-107) Carbon Dioxide Level 30 mmol/L (21-32) Anion Gap 8 (6-14) Blood Urea Nitrogen 24 mg/dL (7-20) Creatinine 1.5 mg/dL (0.6-1.0) Estimated GFR (Cockcroft-Gault) 34.9 Glucose Level 310 mg/dL (70-99) Calcium Level 8.9 mg/dL (8.5-10.1) Activated Clotting Time 191 sec (92-181) Glucose (Fingerstick) 276 mg/dL (70-99) 303 mg/dL (70-99) Test 02/19/20 04:35 02/19/20 07:29 Sodium Level 133 mmol/L (136-145) Potassium Level 3.6 mmol/L (3.5-5.1) Chloride Level 98 mmol/L (98-107) Carbon Dioxide Level 29 mmol/L (21-32) Anion Gap 6 (6-14) Blood Urea Nitrogen 21 mg/dL (7-20) Creatinine 1.5 mg/dL (0.6-1.0) Estimated GFR (Cockcroft-Gault) 34.9 Glucose Level 246 mg/dL (70-99) Calcium Level 7.7 mg/dL (8.5-10.1) Glucose (Fingerstick) 206 mg/dL (70-99) Brief Hospital Course Ms. Kilpatrick is a 64 yo female admitted for planned aortogram due to LE PAD. She has severe RLE PAD with right foot wound. 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 Left groin arteriotomy site intact with no swelling or hematoma. Angioseal and dressing is D/I. Neurovascular status to bilateral LE intact. Denies any pain or SOA. She tolerated the procedure well. Her right foot wound has dressing over it and is being followed by [facility] wound care and receives home health as well. Her rhythm has been stable overnight. VSS. Her BG has been in the 200s and encouraged to f/u with her PCP to reevaluate her DM control regimen. She is to continue her home meds including ASA/plavix and follow up in our office in 4 weeks. Post cath instructions were discussed and explained. Discharge Information Condition at Discharge: Stable Follow Up: Weeks (4) Disposition/Orders: D/C to Home w/ HH Scheduled Amlodipine Besylate (Amlodipine Besylate) 10 Mg Tablet, 10 MG PO DAILY for rx, (Reported) Entered as Reported by: AZAEL LORENZO on 05/31/19 3550 Last Action: Continued on 02/18/20 1406 by RAQUEL GUSMAN Aspirin (Aspirin) 81 Mg Tab.chew, 1 TAB PO DAILY, #30 Ref 3 (Reported) Entered as Reported by: Rafael Ferraro on 02/12/18511 Last Action: Continued on 02/18/20 1406 by RAQUEL GUSMAN Atorvastatin Calcium (Atorvastatin Calcium) 80 Mg Tablet, 1 TAB PO DAILY, #30 Ref 5 (Reported) Entered as Reported by: Rafael Ferraro on 02/12/18511 Last Action: Converted on 02/18/201405 by RAQUEL GUSMAN Buspirone Hcl (Buspirone Hcl) 15 Mg Tablet, 1 TAB PO BID, #60 Ref 1 (Reported) Entered as Reported by: Rafael Ferraro on 02/12/18511 Last Action: Reviewed on 02/18/201040 by MITCHEL PERERA Carvedilol (Carvedilol ) 12.5 Mg Tablet, 25 MG PO BIDWMEALS for 30 Days, #120 Prescribed by: GRACE GENTILE MD on 02/15/18 1225 Last Action: Continued on 02/18/20 1406 by RAQUEL GUSMAN Clopidogrel Bisulfate (Clopidogrel) 75 Mg Tablet, 75 MG PO DAILYWBKFT for 30 Days, #30 Prescribed by: GRACE GENTILE MD on 04/11/18 1132 Last Taken: Unknown Dose on 02/18/20 Last Action: Continued on 02/18/20 1406 by RAQUEL GUSMAN Famotidine (Famotidine) 20 Mg Tablet, 20 MG PO DAILY for gerd, (Reported) Entered as Reported by: YAMILETH DOE on 02/18/201849 Last Action: New Order on 02/18/201849 by YAMILETH DOE Furosemide (Furosemide) 20 Mg Tablet, 20 MG PO DAILY for CHF, (Reported) Entered as Reported by: SERJIO BRISCOE on 04/25/19 0101 Last Taken: Unknown Dose on 02/17/20 Last Action: Reviewed on 02/18/201040 by MITCHEL PERERA Gabapentin (Gabapentin ) 300 Mg Capsule, 300 MG PO TID for NEUROGENIC PAIN, (Reported) Entered as Reported by: MITCHEL PERERA on 02/18/20 104 Last Taken: Unknown Dose on 02/17/20 Last Action: New Order on 02/18/201040 by MITCHEL PERERA Hydralazine Hcl (Hydralazine Hcl) 25 Mg Tablet, 25 MG PO BID for 30 Days, #60 Prescribed by: GRACE GENTILE MD on 02/15/18 1225 Last Action: Continued on 02/18/201405 by RAQUEL GUSMAN Insulin Aspart (Novolog Flexpen) 100 Unit/1 Ml Insuln.pen, 25 UNIT SQ TIDWMEALS, (Reported) Entered as Reported by: MITCHEL PERERA on 02/06/18 1446 Last Action: Converted on 02/18/201405 by RAQUEL GUSMAN Insulin Aspart (Novolog Flexpen) 100 Unit/1 Ml Insuln.pen, 1 UNIT SQ TIDWMEALS for sliding scale, (Reported) Entered as Reported by: YAMILETH DOE on 02/18/201849 Last Action: New Order on 02/18/201849 by YAMILETH DOE Insulin Detemir (Levemir) 100 Unit/1 Ml Vial, 50 UNIT SQ HS, (Reported) Entered as Reported by: EMELINA CHRISTIANSON on 12/21/16 1120 Last Action: Converted on 02/18/201405 by RAQUEL GUSMAN Levothyroxine Sodium (Levothyroxine Sodium) 100 Mcg Tablet, 1 TAB PO DAILY for t hyroid, #30 Ref 5 (Reported) Entered as Reported by: MITCHEL PERERA on 02/18/201040 Last Action: Continued on 02/18/201405 by RAQUEL GUSMAN Liraglutide (Victoza 3-Arden) 0.6 Mg/0.1 Ml Pen.injctr, 1.8 MG SQ DAILY for mata betes, #9 Ref 3 (Reported) Entered as Reported by: MITCHEL PERERA on 02/18/201040 Last Action: Converted on 02/18/201405 by RAQUEL GUSMAN Losartan Potassium (Losartan Potassium) 100 Mg Tablet, 100 MG PO DAILY for HTN, (Reported) Entered as Reported by: YAMILETH DOE on 02/18/201849 Last Action: New Order on 02/18/201849 by YAMILETH DOE Morphine Sulfate (Morphine Sulfate Er) 15 Mg Tablet.er, 15 MG PO BID for pain, (Reported) Entered as Reported by: YAMILETH DOE on 02/18/201849 Last Action: New Order on 02/18/201849 by YAMILETH DOE Nortriptyline Hcl (Nortriptyline Hcl) 25 Mg Capsule, 2 CAP PO QHS for sleep, #30 Ref 2 (Reported) Entered as Reported by: Rafael Ferraro on 02/12/18 0512 Last Action: Reviewed on 02/18/201040 by MITCHEL PERERA Nystatin (Nystop) 60 Gm Powder, 1 BUNNY TP BID for groin moist, #1 Prescribed by: ALKA TURNER on 04/27/19 0845 Last Action: Reviewed on 02/18/201040 by MITCHEL PERERA Discontinued Medications Gabapentin (Gabapentin ) 300 Mg Capsule, 900 MG PO BID for NEUROGENIC PAIN, (Reported) Entered as Reported by: AZAEL LORENZO on 05/31/19 0844 Last Action: Discontinued on 02/18/201040 by MITCHEL PERERA Hydralazine Hcl (Hydralazine Hcl) 25 Mg Tablet, 1 TAB PO BID for BP, #60 Ref 5 (Reported) Entered as Reported by: MITCHEL PERERA on 02/18/201040 Last Action: New Order on 02/18/201040 by MITCHEL PERERA Insulin Detemir (Levemir) 100 Unit/1 Ml Vial, 50 UNIT SQ DAILY08, (Reported) Entered as Reported by: EMELINA CHRISTIANSON on 12/21/16 1120 Last Action: Discontinued on 02/18/201040 by MITCHEL PERERA Levothyroxine Sodium (Levothyroxine Sodium) 112 Mcg Tablet, 112 MCG PO 0700 for THYROID SUPPLEMENT, #30 Ref 0 (Reported) Entered as Reported by: SERJIO BRISCOE on 04/25/19 0101 Last Action: Discontinued on 02/18/201040 by MITCHEL PERERA Patient Instructions Patient Instructions GENERAL INSTRUCTIONS: 1. Your dressing should be removed prior to leaving the hospital. 2. It is OK to shower the day after your procedure. 3. If you received stents, be sure to carry your stent information card with you in your wallet/purse at all times. 4. Call the office immediately at [phone] if you notice any fever or if there is redness, worsening tenderness/pain, increased bruising, or drainage from the puncture site. 5. Should you have bleeding from the site, lie down immediately & put pressure on the site. The pressure should be hard enough to stop the bleeding. Have the nearest person call 911. DO NOT try to drive to the ER with active bleeding. 6. If you notice a change in color, coolness to touch, or loss of feeling in the affected extremity, come to the emergency room. Please have someone drive you or call 911 if no one is available. DO NOT drive yourself. 7. If you normally take glucophage (metformin), please do not take this medicine for 48 hours following your procedure. 8. DO NOT STOP TAKING YOUR PLAVIX OR ASPIRIN UNLESS IT IS CLEARED BY A WATERPROOF BAG CUTTING MACHINE OPERATOR OF YOUR SPEECH SCIENTIST AT OUR OFFICE. 9. QUIT SMOKING: the [place] [employer], [place] [employer], & [place] [employer] have cessation resources available on their websites 10. Please have someone available to drive you home from the hospital as you may be limited by sedation medications given during the procedure. Femoral (Groin) access: 1. Do no lifting, pushing, pulling, bending, stooping, or recurrent stair climbing for 3 days following your procedure. 2. Once past the first 3 days, do not do any HEAVY exertion or lifting for one week following the procedure. No gym workouts, running, lifting greater than a gallon of milk, etc 3. Do not submerge in bath or pool for one week. OK to drive 3 days following your procedure, but if going long distance, do not go alone & take hourly breaks to get out of car and walk around. Call the office at [phone] for any questions or concerns. RAQUEL GUSMAN MD 02/19/20 1314: Discharge Summary Brief Hospital Course Brief Hospital Course Patient seen and examined. Agree with LAB ANIMAL TECHNICIAN's assessment and plan. 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 of right SFA with distal embolic protection yesterday Groin access site looks good Patient feels better and DP Doppler improved Follow-up with wound care clinic as previously scheduled Follow-up with our office in 1 month Discharge Information Scheduled Amlodipine Besylate (Amlodipine Besylate) 10 Mg Tablet, 10 MG PO DAILY for rx, (Reported) Entered as Reported by: AZAEL LORENZO on 05/31/19 0829 Last Action: Continued on 02/18/201405 [facility] Aspirin (Aspirin) 81 Mg Tab.chew, 1 TAB PO DAILY, #30 Ref 3 (Reported) Entered as Reported by: Rafael Ferraro on 02/12/18511 Last Action: Continued on 02/18/201405 [facility] Atorvastatin Calcium (Atorvastatin Calcium) 80 Mg Tablet, 1 TAB PO DAILY, #30 Ref 5 (Reported) Entered as Reported by: Rafael Ferraro on 02/12/18511 Last Action: Converted on 02/18/201405 by [facility] Buspirone Hcl (Buspirone Hcl) 15 Mg Tablet, 1 TAB PO BID, #60 Ref 1 (Reported) Entered as Reported by: Rafael Ferraro on 02/12/18511 Last Action: Reviewed on 02/18/201040 by MITCHEL PERERA Carvedilol (Carvedilol ) 12.5 Mg Tablet, 25 MG PO BIDWMEALS for 30 Days, #120 Prescribed by: GRACE GENTILE MD on 02/15/18 1225 Last Action: Continued on 02/18/201405 [facility] Clopidogrel Bisulfate (Clopidogrel) 75 Mg Tablet, 75 MG PO DAILYWBKFT for 30 Days, #30 Prescribed by: GRACE GENTILE MD on 04/11/18 1132 Last Taken: Unknown Dose on 02/18/20 Last Action: Continued on 02/18/201405 by [facility] Famotidine (Famotidine) 20 Mg Tablet, 20 MG PO DAILY for gerd, (Reported) Entered as Reported by: YAMILETH DOE on 02/18/201849 Last Action: New Order on 02/18/201849 by YAMILETH DOE Furosemide (Furosemide) 20 Mg Tablet, 20 MG PO DAILY for CHF, (Reported) Entered as Reported by: SERJIO BRISCOE on 04/25/19 010 Last Taken: Unknown Dose on 02/17/20 Last Action: Reviewed on 02/18/201040 by MITCHEL PERERA Gabapentin (Gabapentin ) 300 Mg Capsule, 300 MG PO TID for NEUROGENIC PAIN, (Reported) Entered as Reported by: MITCHEL PERERA on 02/18/201040 Last Taken: Unknown Dose on 02/17/20 Last Action: New Order on 02/18/201040 by MITCHEL PERERA Hydralazine Hcl (Hydralazine Hcl) 25 Mg Tablet, 25 MG PO BID for 30 Days, #60 Prescribed by: GRACE GENTILE MD on 02/15/18 1225 Last Action: Continued on 02/18/201405 by RAQUEL GUSMAN Insulin Aspart (Novolog Flexpen) 100 Unit/1 Ml Insuln.pen, 25 UNIT SQ TIDWMEALS, (Reported) Entered as Reported by: MITCHEL PERERA on 02/06/18 1446 Last Action: Converted on 02/18/201405 by RAQUEL GUSMAN Insulin Aspart (Novolog Flexpen) 100 Unit/1 Ml Insuln.pen, 1 UNIT SQ TIDWMEALS for sliding scale, (Reported) Entered as Reported by: YAMILETH DOE on 02/18/201849 Last Action: New Order on 02/18/201849 by YAMILETH DOE Insulin Detemir (Levemir) 100 Unit/1 Ml Vial, 50 UNIT SQ HS, (Reported) Entered as Reported by: EMELINA CHRISTIANSON on 12/21/16 1120 Last Action: Converted on 02/18/201405 by RAQUEL GUSMAN Levothyroxine Sodium (Levothyroxine Sodium) 100 Mcg Tablet, 1 TAB PO DAILY for thyroid, #30 Ref 5 (Reported) Entered as Reported by: MITCHEL PERERA on 02/18/20 104 Last Action: Continued on 02/18/201405 by RAQUEL GUSMAN Liraglutide (Victoza 3-Arden) 0.6 Mg/0.1 Ml Pen.injctr, 1.8 MG SQ DAILY for diabetes, #9 Ref 3 (Reported) Entered as Reported by: MITCHEL PERERA on 02/18/201040 Last Action: Converted on 02/18/201405 by RAQUEL GUSMAN Losartan Potassium (Losartan Potassium) 100 Mg Tablet, 100 MG PO DAILY for HTN, (Reported) Entered as Reported by: YAMILETH DOE on 02/18/201849 Last Action: New Order on 02/18/201849 by YAMILETH DOE Morphine Sulfate (Morphine Sulfate Er) 15 Mg Tablet.er, 15 MG PO BID for pain, (Reported) Entered as Reported by: YAMILETH DOE on 02/18/201849 Last Action: New Order on 02/18/201849 by YAMILETH DOE Nortriptyline Hcl (Nortriptyline Hcl) 25 Mg Capsule, 2 CAP PO QHS for sleep, #30 Ref 2 (Reported) Entered as Reported by: Rafael Ferraro on 02/12/18 0512 Last Action: Reviewed on 02/18/201040 by MITCHEL PERERA Nystatin (Nystop) 60 Gm Powder, 1 BUNNY TP BID for groin moist, #1 Prescribed by: ALKA TURNER on 04/27/19 0845 Last Action: Reviewed on 02/18/201040 by MITCHEL PERERA Discontinued Medications Gabapentin (Gabapentin ) 300 Mg Capsule, 900 MG PO BID for NEUROGENIC PAIN, (Reported) Entered as Reported by: AZAEL LORENZO on 05/31/19 0844 Last Action: Discontinued on 02/18/201040 by MITCHEL PERERA Hydralazine Hcl (Hydralazine Hcl) 25 Mg Tablet, 1 TAB PO BID for BP, #60 Ref 5 (Reported) Entered as Reported by: MITCHEL PERERA on 02/18/201040 Last Action: New Order on 02/18/201040 by MITCHEL PERERA Insulin Detemir (Levemir) 100 Unit/1 Ml Vial, 50 UNIT SQ DAILY08, (Reported) Entered as Reported by: EMELINA CHRISTIANSON on 12/21/16 1120 Last Action: Discontinued on 02/18/201040 by MITCHEL PERERA Levothyroxine Sodium (Levothyroxine Sodium) 112 Mcg Tablet, 112 MCG PO 0700 for THYROID SUPPLEMENT, #30 Ref 0 (Reported) Entered as Reported by: SERJIO BRISCOE on 04/25/19 0101 Last Action: Discontinued on 02/18/201040 by JOE PATEL APRN February 19, 2020 10:03 RAQUEL GUSMAN MD February 19, 2020 13:14
--- NOTE | 2020-02-19 10:35 | NUR ---
SS following for discharge planning. SS reviewed pt chart and discussed with pt RN. Pt is from home and per RN discharging to day. Pt reporting that she had [facility], ; fax [phone]. SS will await home healthcare orders and will proceed accordingly.
[2020-02-19 11:00] VITALS: BP 143/51
--- NOTE | 2020-02-19 11:01 | SNU/HH DC ---
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 RN For Eval/Treatment: Yes Physical Therapy For: Evalulation/Treatment Occupational Therapy For: Evaluation/Treatment Home Health Aide For: Self-care MOPPER For: Community Resources Pt Meets Homebound Status: Limited distance walking POST DISCHARGE ORDERS: Activity Instructions for Disc: Activity as tolerated Weight Bearing Status after Di: As tolerated Bathing Instructions: Shower-keep dressing dry, No Tub Bath until see DIET AFTER DISCHARGE: ADA Wound/Incision Care: Keep wound/cast CDI, Other, see below ([facility]) CHECKS AFTER DISCHARGE: Checks after discharge: Check blood press - daily, Check blood sugar, ac/hs, Check your Temp as needed, Weigh Yourself Daily FOLLOW-UP: Follow Up With: Dr. Kimble (corporate general manager) Roberta. 03/11/20 at 8:45am [phone] TREATMENT/EQUIPMENT ORDERS: Adaptive Equipment Issued: None, Front wheeled walker CERTIFICATION STATEMENT: Certification Statement: Certification Statement: Based on the above finding, I certify that this patient is confined to the home and needs intermittent intermediate care, physical therapy and/or speech therapy, or continues to need occupational therapy.~ This patient is under my care, and I have initiated the establishment of the plan of care.~ This patient will be followed by myself or a community physician who will periodically review the plan of care. Home Meds Active Scripts Nystatin (NYSTOP) 60 Gm Powder, 1 BUNNY TP BID for groin moist, #1 MISC Prov:ALKA TURNER MD 04/27/19 Clopidogrel Bisulfate (CLOPIDOGREL) 75 Mg Tablet, 75 MG PO DAILYWBKFT for 30 Days, #30 TAB Prov:GRACE GENTILE MD 04/11/18 Carvedilol (CARVEDILOL ) 12.5 Mg Tablet, 25 MG PO BIDWMEALS for 30 Days, #120 TAB Prov:GRACE GENTILE MD 02/15/18 Hydralazine Hcl (HYDRALAZINE HCL) 25 Mg Tablet, 25 MG PO BID for 30 Days, #60 TAB Prov:GRACE GENTILE MD 02/15/18 Reported Medications Famotidine (FAMOTIDINE) 20 Mg Tablet, 20 MG PO DAILY for gerd 02/18/20 Morphine Sulfate (MORPHINE SULFATE ER) 15 Mg Tablet.er, 15 MG PO BID for pain 02/18/20 Losartan Potassium (LOSARTAN POTASSIUM) 100 Mg Tablet, 100 MG PO DAILY for HTN 02/18/20 Insulin Aspart (NOVOLOG FLEXPEN) 100 Unit/1 Ml Insuln.pen, 1 UNIT SQ TIDWMEALS for sliding scale, SYR 02/18/20 Liraglutide (VICTOZA 3-ANTONIO) 0.6 Mg/0.1 Ml Pen.injctr, 1.8 MG SQ DAILY for diabetes, #9 ML 3 Refills 02/18/20 Levothyroxine Sodium (LEVOTHYROXINE SODIUM) 100 Mcg Tablet, 1 TAB PO DAILY for thyroid, #30 TAB 5 Refills 02/18/20 Gabapentin (GABAPENTIN ) 300 Mg Capsule, 300 MG PO TID for NEUROGENIC PAIN, CAP 02/18/20 Amlodipine Besylate (AMLODIPINE BESYLATE) 10 Mg Tablet, 10 MG PO DAILY for rx, TAB 05/31/19 Furosemide (FUROSEMIDE) 20 Mg Tablet, 20 MG PO DAILY for CHF, TAB 04/25/19 Buspirone Hcl (BUSPIRONE HCL) 15 Mg Tablet, 1 TAB PO BID, #60 TAB 1 Refill 02/12/18 Nortriptyline Hcl (NORTRIPTYLINE HCL) 25 Mg Capsule, 2 CAP PO QHS for sleep, #30 CAP 2 Refills 02/12/18 Aspirin (ASPIRIN) 81 Mg Tab.chew, 1 TAB PO DAILY, #30 TAB 3 Refills 02/12/18 Atorvastatin Calcium (ATORVASTATIN CALCIUM) 80 Mg Tablet, 1 TAB PO DAILY, #30 TAB 5 Refills 02/12/18 Insulin Aspart (NOVOLOG FLEXPEN) 100 Unit/1 Ml Insuln.pen, 25 UNIT SQ TIDWMEALS, SYR 02/06/18 Insulin Detemir (LEVEMIR) 100 Unit/1 Ml Vial, 50 UNIT SQ HS, VIAL 12/21/16 Discontinued Reported Medications Hydralazine Hcl (HYDRALAZINE HCL) 25 Mg Tablet, 1 TAB PO BID for BP, #60 TAB 5 Refills 02/18/20 Gabapentin (GABAPENTIN ) 300 Mg Capsule, 900 MG PO BID for NEUROGENIC PAIN, CAP 05/31/19 Levothyroxine Sodium (LEVOTHYROXINE SODIUM) 112 Mcg Tablet, 112 MCG PO 0700 for THYROID SUPPLEMENT, #30 TAB 0 Refills 04/25/19 Insulin Detemir (LEVEMIR) 100 Unit/1 Ml Vial, 50 UNIT SQ DAILY08, VIAL 12/21/16 JOE LAMBERT APRN February 19, 2020 11:01
--- NOTE | 2020-02-19 12:00 | NUR ---
Discharge Note: STEVEN BANDA S [address] [place] [address] Discharge instructions and discharge home medications reviewed with Patient and a copy given. All questions have been answered and understanding verbalized. The following instructions and handouts were given: discharge instructions, follow up, angiogram/plasty info, PVD info. Discontinued lines and drains: Peripheral IV intact. Patient discharged to Home w/services with Family Member via Wheelchair at 1200.
--- NOTE | 2020-02-19 13:40 | NUR ---
SS following up with discharge planning. SS phoned and faxed discharge orders and referral to [facility], ; fax [phone]. Pt and pt's RN notified.
--- NOTE | 2020-02-19 14:37 | NUR ---
Wound Care Patient discharged prior to [facility] arrival. Addendum: 02/19/20 at 1458 by Marianne Velázquez RN Spoke with FELIPE Novoa, and reviewed photographs to assess appropriateness of f/u in the [facility]. Sommer stated that the pt informed her she is already being treated at another wound center.
== END 2020-02-19 12:00 | disposition home health service (06) ==
LOC: CCL 09:48 → 2 SOUTH 10:00 → INTOOBSV 10:00 → 2 SOUTH 14:17
PROVIDERS: ADMIT Internal Medicine Cardiovascular Disease; ATTEND Internal Medicine Cardiovascular Disease
DX: I73.9 Peripheral vascular disease, unspecified (principal); I10 Essential (primary) hypertension; E11.9 Type 2 diabetes mellitus without complications; Z79.82 Long term (current) use of aspirin; Z79.4 Long term (current) use of insulin
CPT/HCPCS: 36415; 37224; 75625; 75710; 80048; 82962; 85027; 85347; 85610; 96361; 96374; 96375; C1713; C1725; C1760; C1769; C1892; C1894; G0269; G0378; G0379; J1644; J1815; J2250; J3010; J3490; Q9967; 99152; 99153; C1771; C1884

== ENCOUNTER → 2020-05-05 | Outpatient (CLI) | payer MEDICARE ==
[~2020-05-05] MED LIST changes: +ATOR40TA59 PO; +DICL100G54 TP; +ENOX30DI SQ; +ESCITALOPRAM OX10 MG PO; +FAMO20TA5 PO; +FERR325T14 PO; +LEVO100T5 PO; +LOSA100T14 PO; +MORP-15 PO; +[UNRECOGNIZED DRUG - CODE] IV
== END | disposition home or self-care (01) ==
LOC: LAB 14:19
PROVIDERS: ATTEND Internal Medicine Cardiovascular Disease
DX: Z01.818 Encounter for other preprocedural examination (principal); Z11.59 Encounter for screening for other viral diseases
CPT/HCPCS: U0003-CS

== ENCOUNTER 2020-05-08 06:59 | Inpatient (IN) | payer MEDICARE ==
[~2020-05-08] VITALS: Ht 162.6 cm; Wt 111.7 kg
[2020-05-08] VITALS (16 sets, daily range): BP systolic 132–192; BP diastolic 48–123
[~2020-05-08 06:59] MED LIST changes: -ATOR40TA59 PO; -ENOX30DI SQ; -ESCITALOPRAM OX10 MG PO; -FERR325T14 PO; -[UNRECOGNIZED DRUG - CODE] IV
[2020-05-08] MEDS ORDERED: IODIXANOL 320 MG/ML 100 ML VIAL. ONE (07:37)
[2020-05-08] MEDS ORDERED: LIDOCAINE 1% Multi-Dose 20 ML VIAL. ONE (07:37)
[2020-05-08] MEDS ORDERED: HEPARIN for ARTERIAL LINE 1,500 ML ONE (07:38)
[2020-05-08 08:03] LABS: HEMOGLOBIN 11.2 g/dL (12.0-15.5); RED BLOOD COUNT 3.88 x10^6/uL (3.50-5.40); RED CELL DISTRIBUTION WIDTH 15.8 % (11.5-14.5); WHITE BLOOD COUNT 11.7 x10^3/uL (4.0-11.0)
[2020-05-08] MEDS ORDERED: ESCITALOPRAM OX10 MG PO (08:13)
[2020-05-08 08:14] LABS: PROTHROMBIN TIME PATIENT 12.4 SEC (11.7-14.0)
[2020-05-08 08:21] LABS: CALCIUM 8.8 mg/dL (8.5-10.1); CREATININE 1.6 mg/dL (0.6-1.0); GFR 32.3; POTASSIUM 4.2 mmol/L (3.5-5.1)
[2020-05-08] MEDS ORDERED: ATOR40TA59 PO (08:23)
[2020-05-08] MEDS ORDERED: FERR325T14 PO (08:24)
[2020-05-08] MEDS ORDERED: fentaNYL PF VIAL 250 MCG/5 ML VIAL ONE (08:32)
[2020-05-08] MEDS ORDERED: MIDAZOLAM HCL/PF 5 MG/5 ML VIAL. ONE (08:32)
[2020-05-08] MEDS ORDERED: HEPARIN for IV BOLUS 10,000 UNIT/10 ML VIAL. ONE (08:43)
[2020-05-08] MEDS ORDERED: IODIXANOL 320 MG/ML 100 ML VIAL. IART ONE (09:30)
[2020-05-08] MEDS ORDERED: CONTRAST GIVEN. MC PRN (09:30)
[2020-05-08] MEDS ORDERED: fentaNYL PF VIAL 250 MCG/5 ML VIAL IV ONE (09:30)
[2020-05-08] MEDS ORDERED: LIDOCAINE 1% Multi-Dose 20 ML VIAL. INJ ONE (09:30)
[2020-05-08] MEDS ORDERED: MIDAZOLAM HCL/PF 5 MG/5 ML VIAL. IV ONE (09:30)
--- NOTE | 2020-05-08 10:34 | CARD ---
MR#: [id number] Date of Study: 05/08/2020 Ordering Physician: SUNNY KIMBLE, Referring Physician: SUNNY KIMBLE, Tech: DOLLYKIZZY ZAMORA RTR APPROVED REPORT Patient StatusOUT-PATIENT Pricer Bagger: DOLLY ZAMORA RTR Procedure(s) performed: MODERATE SEDATION TIME: 65 MINS FLUORO TIME: 8.8 MIN DOSE: 44 GYCM2 CONTRAST: 42CC VISI RLE angiograph HISTORY The patient is a 64 year-old female with a history of : diabetes mellitus with treatment, coronary ar kenji disease, tobacco history() , hypertension, dyslipidemia. INDICATION FOR PROCEDURE The indication(s) include : Rest pain: , Positive angiogram for stenosis: , +Non-healing RLE wound. PROCEDURE NARRATIVE Clinical information: 64-year-old woman with multiple cardiovascular comorbidities who presents to [facility] angiography suite for further evaluation of a nonhealing right heel wound. She previously underwen t SFA angioplasty approximately 8 weeks ago. Written informed consent was obtained from the patient and her family. Procedure details: Under fluoroscopic visualization the left common femoral artery was punctured with an 18-gauge needle under 2% lidocaine local anesthesia and a 5 English sheath was placed without any difficulty. Next, a Omni Flush catheter was used to cross into the right common iliac artery. The Omni Flush catheter was placed in the right common femoral artery and digital subtraction angiography of the right lower extremity was performed. The Omni Flush catheter was exchanged for a 4 English [place] cross catheter wh ich was placed in the popliteal artery and angiography of the right lower extremity below-knee vessel s was also performed. Findings: RCFA has mild diffuse irregularities without any critical obstruction RPROF has moderate diffuse disease of up to 50%. RSFA has mild luminal irregularities of up to 20% with a patent mid SFA Supera stent. RPOP has mild irregularities of up to 30% in the proximal and mid segment. RAT has a proximal 50% stenosis, a distal 100% occlusion with reconstitution via collaterals and prov ides the dominan flow to the plantar arch RPER has a proximal occlusion, the distal vessel reconstitutes via collaterals and provides the colla teral flow to the heel at the location of the wound. RPT has a proximal occlusion and is not well visualized distally and no clear reconstitution is noted . Conclusion 1. Igor category 5 PAD with non-healing right heel wound. 2. Severe below knee disease of the RLE with multilevel occlusions involving the TP trunk. Recommendations Will discuss case with vascular surgery regarding consideration of popliteal-peroneal/AT bypass versu s percutaneous approach for improvement of CLI. Signed by : Sunny Kimble, Electronically Approved : 05/08/2020 10:33:39
--- NOTE | 2020-05-08 10:36 | PDOC ---
MODERATE SEDATION ASSESSMENT RISKS/ALTERNATIVES Risks/Alternatives Risks and alternatives of this type of sedation and procedure discussed with: RISK/ALTERNATIVES: Patient H & P ON CHART H & P H & P on chart and reviewed for co-morbid conditions and appropriate labs. H&P ON CHART: Yes STATUS PREG STATUS ASSESSED: N/A MEDS/ALLERGIES REVIEWED Meds/Allergies Reviewed Medications and Allergies including time and route of recently administered narcotics and sedatives. MEDS/ALLERGIES REVIEWED: Yes ASA RATING ASA RATING: II AIRWAY ASSESSMENT Airway Assessment Airway patency, oral function limitations, presence of caps, crowns, dentures, partials, and ability to extend neck assessed. AIRWAY ASSESSMENT: Yes MALLAMPATI SCORE MALLAMPATI SCORE: II PRE-SEDATION ASSESSMENT PRE-SEDATION ASSESSMENT: Yes SUNNY CHRISTIANSEN MD May 08, 2020 10:36
[2020-05-08] MEDS ORDERED: [UNRECOGNIZED DRUG - CODE] IV (10:40)
[2020-05-08] MEDS ORDERED: ENOX30DI SQ (10:40)
--- NOTE | 2020-05-08 10:42 | PDOC1 ---
History and Physical Visit Information Date of Admission: May 08, 2020 at 08:40 Source: Caregiver, Patient History of Present Illness History of Present Illness Patient is a very pleasant 64-year-old woman with a past medical history as noted below who presents to the hospital for a planned aortic angiography and runoff. She has a chronic nonhealing right lower extremity wound. She previously underwent an aortogram with chronic total occlusion recanalization of her SFA approximately 8 weeks ago. She has been followed closely with [facility] wound care system and I spoke with the physician 1 week ago and it was felt that her right heel was not improving enough to help with wound healing and therefore we were asked to reevaluate her runoff vessels to improve blood flow. The patient essentially is wheelchair bound as she is unable to walk on her right leg. She has chronic dyspnea and chronic pain issues of the bilateral lower extremities. She currently denies any syncope or palpitations. Cardiac Risk Factors Comments 1. Coronary artery disease status post PCI in 2017 2. Hypertension 3. Type 2 diabetes 4. Prior history of tobacco abuse 5. Severe peripheral arterial disease status post multiple interventions of the SFA bilaterally most recently in February 2020 of the right SFA 6. Chronic kidney disease Past Medical History Cardiovascular: CAD, CHF, HTN Current Medications Current Medications Current Medications Fentanyl Citrate (Fentanyl 5ml Vial) 100 mcg 1X ONCE IV Last administered on 05/08/20at 09:46; Start 05/08/20 at 09:30; Stop 05/08/20 at 09:34; Status DC Fentanyl Citrate (Fentanyl 5ml Vial) 250 mcg STK-MED ONCE .ROUTE ; Start 05/08/20 at 08:32; Stop 05/08/20 at 08:33; Status DC Heparin Sodium (Porcine) (Heparin Sodium) 10,000 unit STK-MED ONCE .ROUTE ; Start 05/08/20 at 08:43; Stop 05/08/20 at 08:43; Status DC Heparin Sodium/ Sodium Chloride 1,500 ml @ As Directed STK-MED ONCE .ROUTE ; Start 05/08/20 at 07:38; Stop 05/08/20 at 07:38; Status DC Heparin Sodium/ Sodium Chloride (HEPARIN for ARTERIAL LINE FLUSH) 1,000 unit 1X ONCE IART Last administered on 05/08/20at 09:43; Start 05/08/20 at 09:30; Stop 05/08/20 at 09:34; Status DC Heparin Sodium/ Sodium Chloride (HEPARIN for ARTERIAL LINE FLUSH) 1,000 unit 1X ONCE IART Last administered on 05/08/20at 09:43; Start 05/08/20 at 09:30; Stop 05/08/20 at 09:34; Status DC Info (CONTRAST GIVEN -- Rx MONITORING) 1 each PRN DAILY PRN MC SEE COMMENTS; Start 05/08/20 at 09:30; Stop 05/10/20 at 09:29 Iodixanol (Visipaque 320) 100 ml 1X ONCE IART Last administered on 05/08/20at 09:44; Start 05/08/20 at 09:30; Stop 05/08/20 at 09:34; Status DC Iodixanol (Visipaque 320) 100 ml STK-MED ONCE .ROUTE ; Start 05/08/20 at 07:37; Stop 05/08/20 at 07:38; Status DC Lidocaine HCl (Lidocaine 1% 20ml Vial) 20 ml 1X ONCE INJ Last administered on 05/08/20at 09:44; Start 05/08/20 at 09:30; Stop 05/08/20 at 09:34; Status DC Lidocaine HCl (Lidocaine 1% 20ml Vial) 20 ml STK-MED ONCE .ROUTE ; Start 05/08/20 at 07:37; Stop 05/08/20 at 07:37; Status DC Midazolam HCl (Versed) 5 mg 1X ONCE IV Last administered on 05/08/20at 09:47; Start 05/08/20 at 09:30; Stop 05/08/20 at 09:34; Status DC Midazolam HCl (Versed) 5 mg STK-MED ONCE .ROUTE ; Start 05/08/20 at 08:32; Stop 05/08/20 at 08:32; Status DC Allergies Allergies Allergies Coded Allergies Type Severity Reaction Last Updated Verified No Known Drug Allergies 10/15/13 No Social History Comments No current alcohol, tobacco or illicit drug use Family History Comments Noncontributory ROS Review of System Negative for 10 out of 14 systems reviewed unless otherwise mentioned above in HPI Physical Exam Comments She has severely diminished pulses in the right lower extremity. There are dopplerable but without a significant signal in the posterior tibial location General: Alert, Oriented X3, Cooperative HEENT: Atraumatic Lungs: Clear to auscultation Heart: Regular rate CHEST: Clear to auscultation Abdomen: Normal bowel sounds Extremities: No edema Skin: No rashes Neuro: Normal speech, Normal tone Vitals VITALS Vital Signs Date Time Temp Pulse Resp B/P (MAP) Pulse Ox O2 Delivery O2 Flow Rate FiO2 05/08/20 09:47 66 24 98 Nasal Cannula 2.0 05/08/20 08:04 98.7 174/80 (111) 98.7 Labs Labs Laboratory Tests Test 05/08/20 07:55 05/08/20 10:15 White Blood Count 11.7 x10^3/uL (4.0-11.0) Red Blood Count 3.88 x10^6/uL (3.50-5.40) Hemoglobin 11.2 g/dL (12.0-15.5) Hematocrit 34.0 % (36.0-47.0) Mean Corpuscular Volume 88 fL (79-100) Mean Corpuscular Hemoglobin 29 pg (25-35) Mean Corpuscular Hemoglobin Concent 33 g/dL (31-37) Red Cell Distribution Width 15.8 % (11.5-14.5) Platelet Count 342 x10^3/uL (140-400) Prothrombin Time 12.4 SEC (11.7-14.0) Prothromb Time International Ratio 1.0 (0.8-1.1) Sodium Level 140 mmol/L (136-145) Potassium Level 4.2 mmol/L (3.5-5.1) Chloride Level 104 mmol/L (98-107) Carbon Dioxide Level 30 mmol/L (21-32) Anion Gap 6 (6-14) Blood Urea Nitrogen 36 mg/dL (7-20) Creatinine 1.6 mg/dL (0.6-1.0) Estimated GFR (Cockcroft-Gault) 32.3 Glucose Level 236 mg/dL (70-99) Calcium Level 8.8 mg/dL (8.5-10.1) Glucose (Fingerstick) 211 mg/dL (70-99) Laboratory Tests Test 05/08/20 07:55 05/08/20 10:15 White Blood Count 11.7 x10^3/uL (4.0-11.0) Red Blood Count 3.88 x10^6/uL (3.50-5.40) Hemoglobin 11.2 g/dL (12.0-15.5) Hematocrit 34.0 % (36.0-47.0) Mean Corpuscular Volume 88 fL (79-100) Mean Corpuscular Hemoglobin 29 pg (25-35) Mean Corpuscular Hemoglobin Concent 33 g/dL (31-37) Red Cell Distribution Width 15.8 % (11.5-14.5) Platelet Count 342 x10^3/uL (140-400) Prothrombin Time 12.4 SEC (11.7-14.0) Prothromb Time International Ratio 1.0 (0.8-1.1) Sodium Level 140 mmol/L (136-145) Potassium Level 4.2 mmol/L (3.5-5.1) Chloride Level 104 mmol/L (98-107) Carbon Dioxide Level 30 mmol/L (21-32) Anion Gap 6 (6-14) Blood Urea Nitrogen 36 mg/dL (7-20) Creatinine 1.6 mg/dL (0.6-1.0) Estimated GFR (Cockcroft-Gault) 32.3 Glucose Level 236 mg/dL (70-99) Calcium Level 8.8 mg/dL (8.5-10.1) Glucose (Fingerstick) 211 mg/dL (70-99) ECG EKG: NSR VTE Prophylaxis Ordered VTE Prophylaxis Devices: Yes VTE Pharmacological Prophylaxi: Yes Assessment/Plan Assessment/Plan 1. Severe peripheral arterial disease with nonhealing Igor category 5 wound of the right lower extremity 2. Acute on chronic kidney injury with an elevated creatinine of 1.6 from a baseline of 1.3 3. Hypertension 4. Dyslipidemia 5. Coronary artery disease status post PCI in 2017 Patient is planned for RLE angiography today. Justicifation of Admission Dx: Justifications for Admission: Justification of Admission Dx: Yes Acute Renal Failure: 75% Reduction in GFR Comments: Severe PAD with non-healing wound at risk for amputation SUNNY CHRISTIANSEN MD May 08, 2020 10:42
[2020-05-08] MEDS ORDERED: IV NORMAL SALINE 1000ML BAG 1,000 ML IV ONE (10:45)
[2020-05-08] MEDS ORDERED: DEXTROSE 50% 25 GM / 50ML DISP.SYRIN. IV PRN (10:45)
[2020-05-08] MEDS: amLODIPine BESYLATE 10 MG TABLET PO SCH (10:47)
[2020-05-08] MEDS: FAMOTIDINE 20 MG TABLET. PO SCH (11:00)
[2020-05-08] MEDS ORDERED: MORPHINE ER 15 MG TABLET.ER PO SCH ×2 (11:00→16:45)
[2020-05-08] MEDS: GABAPENTIN 300 MG CAPSULE. PO SCH ×3 (11:00→20:38)
[2020-05-08] MEDS: LOSARTAN POTASSIUM 50 MG TABLET. PO SCH (11:00)
[2020-05-08] MEDS: busPIRone 5 MG TABLET. PO SCH ×2 (11:00→20:38)
[2020-05-08] MEDS: CLOPIDOGREL BISULFATE 75 MG TABLET PO SCH (11:00)
[2020-05-08] MEDS: hydrALAZINE 25 MG TABLET PO SCH ×2 (11:00→20:39)
[2020-05-08] MEDS: LEVOTHYROXINE 100 MCG TABLET PO SCH (11:00)
[2020-05-08] MEDS: NYSTATIN TOPICAL POWDER 15GM BOTTLE. TP SCH ×2 (11:21→21:07)
[2020-05-08] MEDS: INSULIN LISPRO 300 UNITS/3 ML VIAL. SQ SCH ×4 (11:27→17:36)
[2020-05-08] MEDS: ASPIRIN CHEWABLE 81 MG TABLET. PO SCH (11:57)
[2020-05-08] MEDS: CARVEDILOL 12.5 MG TABLET. PO SCH ×2 (12:00→17:32)
[2020-05-08] MEDS: FERROUS SULFATE 325 MG TABLET. PO SCH (12:00)
--- NOTE | 2020-05-08 12:08 | PDOC2 ---
Date of Admission: Date of Admission DATE: 05/08/20 TIME: 12:03 Chief Complaint: Chief Complain: Peripheral vascular disease and chronic nonhealing wound History of Present Illness: HPI: 64-year-old male with past medical history of CAD status post PCI in 2016, hypertension, diabetes type 2, history of tobacco abuse who presents to the hospital for planned aortic angiography and runoff. Patient also has a chronic nonhealing right lower extremity plantar foot wound. Patient had received a previous aortogram with total occlusion and recanalization of her superficial femoral artery approximately 8 weeks ago. Medicine service was consulted for inpatient hospital management for all her medications and chronic medical comorbidities. Patient will be evaluated by vascular surgery because there was no available interventions available via angiography, therefore surgical service was consulted for possible bypass. Patient states that she is unable to walk on her right leg at this time. Patient does have chronic pain and claudication symptoms of her bilateral lower extremities. She currently denies any shortness of breath, chest pain, abdominal pain, or diarrhea. Past Medical/Surgical History: PMH/PSH: 1. Coronary artery disease status post PCI in 2016 2. Hypertension 3. Type 2 diabetes 4. Prior history of tobacco abuse 5. Severe peripheral arterial disease status post multiple interventions of the SFA bilaterally most recently in February 2020 of the right SFA 6. Chronic kidney disease Allergies: Allergies: Coded Allergies: No Known Drug Allergies (Unverified , 10/15/13) Family History: Family History: Reviewed and none reported Social History: Social Hisoty: History of tobacco use no current alcohol or drug abuse. Current Medications: Current Medications Current Medications Lidocaine HCl (Lidocaine 1% 20ml Vial) 20 ml STK-MED ONCE .ROUTE ; Start at 07:37; Stop 05/08/20 at 07:37; Status DC Iodixanol (Visipaque 320) 100 ml STK-MED ONCE .ROUTE ; Start 05/08/20 at 07:37; Stop 05/08/20 at 07:38; Status DC Heparin Sodium/ Sodium Chloride 1,500 ml @ As Directed STK-MED ONCE .ROUTE ; Start 05/08/20 at 07:38; Stop 05/08/20 at 07:38; Status DC Midazolam HCl (Versed) 5 mg STK-MED ONCE .ROUTE ; Start 05/08/20 at 08:32; Stop 05/08/20 at 08:32; Status DC Fentanyl Citrate (Fentanyl 5ml Vial) 250 mcg STK-MED ONCE .ROUTE ; Start 05/08/20 at 08:32; Stop 05/08/20 at 08:33; Status DC Heparin Sodium (Porcine) (Heparin Sodium) 10,000 unit STK-MED ONCE .ROUTE ; Start 05/08/20 at 08:43; Stop 05/08/20 at 08:43; Status DC Heparin Sodium/ Sodium Chloride (HEPARIN for ARTERIAL LINE FLUSH) 1,000 unit 1X ONCE IART Last administered on 05/08/20at 09:43; Start 05/08/20 at 09:30; Stop 05/08/20 at 09:34; Status DC Heparin Sodium/ Sodium Chloride (HEPARIN for ARTERIAL LINE FLUSH) 1,000 unit 1X ONCE IART Last administered on 05/08/20at 09:43; Start 05/08/20 at 09:30; Stop 05/08/20 at 09:34; Status DC Midazolam HCl (Versed) 5 mg 1X ONCE IV Last administered on 05/08/20at 09:47; Start 05/08/20 at 09:30; Stop 05/08/20 at 09:34; Status DC Fentanyl Citrate (Fentanyl 5ml Vial) 100 mcg 1X ONCE IV Last administered on 05/08/20at 09:46; Start 05/08/20 at 09:30; Stop 05/08/20 at 09:34; Status DC Iodixanol (Visipaque 320) 100 ml 1X ONCE IART Last administered on 05/08/20at 09:44; Start 05/08/20 at 09:30; Stop 05/08/20 at 09:34; Status DC Lidocaine HCl (Lidocaine 1% 20ml Vial) 20 ml 1X ONCE INJ Last administered on 05/08/20at 09:44; Start 05/08/20 at 09:30; Stop 05/08/20 at 09:34; Status DC Info (CONTRAST GIVEN -- Rx MONITORING) 1 each PRN DAILY PRN MC SEE COMMENTS; Start 05/08/20 at 09:30; Stop 05/10/20 at 09:29 Amlodipine Besylate (Norvasc) 10 mg DAILY PO ; Start 05/08/20 at 11:00 Aspirin (Aspirin Chewable) 81 mg DAILY PO Last administered on 05/08/20at 11:57; Start 05/08/20 at 11:00 Atorvastatin Calcium (Lipitor) 80 mg QHS PO ; Start 05/08/20 at 21:00 Carvedilol (Coreg) 25 mg BIDWMEALS PO ; Start 05/08/20 at 12:00 Clopidogrel Bisulfate (Plavix) 75 mg DAILYWBKFT PO ; Start 05/08/20 at 11:00 Famotidine (Pepcid) 20 mg DAILY PO ; Start 05/08/20 at 11:00 Ferrous Sulfate (Feosol) 325 mg DAILY08 PO ; Start 05/08/20 at 12:00 Gabapentin (Neurontin) 300 mg TID PO ; Start 05/08/20 at 11:00 Hydralazine HCl (Apresoline) 25 mg BID PO ; Start 05/08/20 at 11:00 Levothyroxine Sodium (Synthroid) 100 mcg DAILY06 PO ; Start 05/08/20 at 11:00 Morphine Sulfate (Ms Contin) 15 mg BID PO ; Start 05/08/20 at 11:00 Nortriptyline HCl (Pamelor) 50 mg QHS PO ; Start 05/08/20 at 21:00 Nystatin (Nystop) 1 katie BID TP Last administered on 05/08/20at 11:21; Start 05/08/20 at 11:00 Buspirone HCl (Buspar) 15 mg BID PO ; Start 05/08/20 at 11:00 Citalopram Hydrobromide (CeleXA) 20 mg DAILY PO ; Start 05/09/20 at 09:00 Losartan Potassium (Cozaar) 100 mg DAILY PO ; Start 05/08/20 at 11:00 Sodium Chloride 1,000 ml @ 75 mls/hr 1X ONCE IV Last administered on 05/08/20at 11:58; Start 05/08/20 at 10:45; Stop 05/09/20 at 00:04 Insulin Glargine (Lantus Syringe) 25 unit QHS SQ ; Start 05/08/20 at 21:00 Insulin Human Lispro (HumaLOG) 0-7 UNITS TIDWMEALS SQ Last administered on 05/08/20at 11:28; Start 05/08/20 at 12:00 Dextrose (Dextrose 50%-Water Syringe) 12.5 gm PRN Q15MIN PRN IV SEE COMMENTS; Start 05/08/20 at 10:45 Insulin Human Lispro (HumaLOG) 10 units TIDWMEALS SQ Last administered on 05/08/20at 11:27; Start 05/08/20 at 12:00 Active Scripts Active Nystop (Nystatin) 60 Gm Powder 1 Katie TP BID Clopidogrel (Clopidogrel Bisulfate) 75 Mg Tablet 75 Mg PO DAILYWBKFT 30 Days Carvedilol (Carvedilol) 12.5 Mg Tablet 25 Mg PO BIDWMEALS 30 Days Hydralazine Hcl 25 Mg Tablet 25 Mg PO BID 30 Days Reported Labetalol HCl 10 Mg/2 Ml Syringe 10 Mg IV PRN Q2HRS PRN Lovenox (Enoxaparin Sodium) 30 Mg/0.3 Ml Disp.syrin 30 Mg SQ DAILY Ferrous Sulfate 325 Mg Tablet 1 Tab PO DAILY Atorvastatin Calcium 40 Mg Tablet 2 Tab PO DAILY Escitalopram Oxalate 10 Mg Tablet 1 Tab PO DAILY Famotidine 20 Mg Tablet 20 Mg PO DAILY Morphine Sulfate Er (Morphine Sulfate) 15 Mg Tablet.er 15 Mg PO BID Losartan Potassium 100 Mg Tablet 100 Mg PO DAILY Novolog Flexpen (Insulin Aspart) 100 Unit/1 Ml Insuln.pen 1 Unit SQ TIDWMEALS Victoza 3-Arden (Liraglutide) 0.6 Mg/0.1 Ml Pen.injctr 1.8 Mg SQ DAILY Levothyroxine Sodium 100 Mcg Tablet 1 Tab PO DAILY Gabapentin (Gabapentin) 300 Mg Capsule 300 Mg PO TID Amlodipine Besylate 10 Mg Tablet 10 Mg PO DAILY Furosemide 20 Mg Tablet 20 Mg PO DAILY Buspirone Hcl 15 Mg Tablet 1 Tab PO BID Nortriptyline Hcl 25 Mg Capsule 2 Cap PO QHS Aspirin 81 Mg Tab.chew 1 Tab PO DAILY Novolog Flexpen (Insulin Aspart) 100 Unit/1 Ml Insuln.pen 25 Unit SQ TIDWMEALS Levemir (Insulin Detemir) 100 Unit/1 Ml Vial 50 Unit SQ HS ROS: Review of Systems Review of System REVIEW OF SYSTEMS: GENERAL: Denies weakness SKIN: No bruising, hair changes or rashes. EYES: No blurred, double or loss of vision. NOSE AND THROAT: No history of nosebleeds, hoarseness or sore throat. HEART: No history of palpitations, chest pain or shortness of breath on exertion. LUNGS: Denies cough, hemoptysis, wheezing or shortness of breath. GASTROINTESTINAL: Denies changes in appetite, nausea, vomiting, diarrhea or constipation. GENITOURINARY: No history of frequency, urgency, hesitancy or nocturia. NEUROLOGIC: Denies history of numbness, tingling, or tremor. PSYCHIATRIC: No history of panic, anxiety or depression. ENDOCRINE: No history of heat or cold intolerance, polyuria or polydipsia. EXTREMITIES: Denies joint pain, pain on walking or stiffness. Physical Exam: Vital Signs: Vital Signs Date Time Temp Pulse Resp B/P (MAP) Pulse Ox O2 Delivery O2 Flow Rate FiO2 05/08/20 09:50 97.7 67 18 185/93 (123) 94 Room Air 97.7 05/08/20 09:47 2.0 Physcial Exam: GEN: No apparent distress. Alert and oriented HEENT: Normal cephalic, atraumatic, external auditory canals are patent EYES: Extraocular muscles are intact, pupil are equally round and reactive to light and accommodation MUSCULOSKELETAL: Well developed , well nourished, good range of motion ENDOCRINE: No thyromegaly was palpated LYMPHATICS: No cervical chain or axillary nodes were noted HEMATOPOIETIC: No bruising NECK: Supple, no JVD, no thyromegaly was noted LUNGS: Clear to auscultation in all lung isaacs without rhonchi or wheezing HEART: RRR, S!, S2 present. Peripheral pulses intact, no obvious murmurs noted ABDOMEN: Soft, nontender. Positive bowel sounds, no organomegaly, normal bowel sounds EXTREMITIES: Without clubbing, cyanosis, or edema. Pedal pulses intact. Nega tive Homans sign NEUROLOGIC: Normal speech and tone. A&O x 3, moves all extremities, no obvious focal deficits PSYCHIATRIC: Normal affect, normal mood. Stable SKIN: No ulcerations or rashes, good skin turgor, no jaundice VASCULAR: Good capillary refill, neurovascular bundle appears to be intact Labs: Labs: Laboratory Tests Test 05/08/20 07:55 05/08/20 10:15 White Blood Count 11.7 x10^3/uL (4.0-11.0) Red Blood Count 3.88 x10^6/uL (3.50-5.40) Hemoglobin 11.2 g/dL (12.0-15.5) Hematocrit 34.0 % (36.0-47.0) Mean Corpuscular Volume 88 fL (79-100) Mean Corpuscular Hemoglobin 29 pg (25-35) Mean Corpuscular Hemoglobin Concent 33 g/dL (31-37) Red Cell Distribution Width 15.8 % (11.5-14.5) Platelet Count 342 x10^3/uL (140-400) Prothrombin Time 12.4 SEC (11.7-14.0) Prothromb Time International Ratio 1.0 (0.8-1.1) Sodium Level 140 mmol/L (136-145) Potassium Level 4.2 mmol/L (3.5-5.1) Chloride Level 104 mmol/L (98-107) Carbon Dioxide Level 30 mmol/L (21-32) Anion Gap 6 (6-14) Blood Urea Nitrogen 36 mg/dL (7-20) Creatinine 1.6 mg/dL (0.6-1.0) Estimated GFR (Cockcroft-Gault) 32.3 Glucose Level 236 mg/dL (70-99) Calcium Level 8.8 mg/dL (8.5-10.1) Glucose (Fingerstick) 211 mg/dL (70-99) Laboratory Tests Test 05/08/20 07:55 05/08/20 10:15 White Blood Count 11.7 x10^3/uL (4.0-11.0) Red Blood Count 3.88 x10^6/uL (3.50-5.40) Hemoglobin 11.2 g/dL (12.0-15.5) Hematocrit 34.0 % (36.0-47.0) Mean Corpuscular Volume 88 fL (79-100) Mean Corpuscular Hemoglobin 29 pg (25-35) Mean Corpuscular Hemoglobin Concent 33 g/dL (31-37) Red Cell Distribution Width 15.8 % (11.5-14.5) Platelet Count 342 x10^3/uL (140-400) Prothrombin Time 12.4 SEC (11.7-14.0) Prothromb Time International Ratio 1.0 (0.8-1.1) Sodium Level 140 mmol/L (136-145) Potassium Level 4.2 mmol/L (3.5-5.1) Chloride Level 104 mmol/L (98-107) Carbon Dioxide Level 30 mmol/L (21-32) Anion Gap 6 (6-14) Blood Urea Nitrogen 36 mg/dL (7-20) Creatinine 1.6 mg/dL (0.6-1.0) Estimated GFR (Cockcroft-Gault) 32.3 Glucose Level 236 mg/dL (70-99) Calcium Level 8.8 mg/dL (8.5-10.1) Glucose (Fingerstick) 211 mg/dL (70-99) Images: Images All labs, images, and reports were reviewed by me personally Findings: RCFA has mild diffuse irregularities without any critical obstruction RPROF has moderate diffuse disease of up to 50%. RSFA has mild luminal irregularities of up to 20% with a patent mid SFA Supera stent. RPOP has mild irregularities of up to 30% in the proximal and mid segment. RAT has a proximal 50% stenosis, a distal 100% occlusion with reconstitution via collaterals and provides the dominan flow to the plantar arch RPER has a proximal occlusion, the distal vessel reconstitutes via collaterals and provides the collateral flow to the heel at the location of the wound. RPT has a proximal occlusion and is not well visualized distally and no clear reconstitution is noted. Conclusion 1. [place] category 5 PAD with non-healing right heel wound. 2. Severe below knee disease of the RLE with multilevel occlusions involving the TP trunk. Assessment/Plan Assessment/Plan 1. Severe peripheral arterial disease with nonhealing [place] category 5 wound of the right lower extremity 2. Acute on chronic kidney injury with an elevated creatinine of 1.6 from a baseline of 1.3 3. Hypertension 4. Dyslipidemia 5. Coronary artery disease status post PCI in 2017 Medicine for consult Pending vascular surgery evaluation for bypass Wound care nurse consult for right nonhealing plantar ulcer Pending rehab screening PT OT Restart home meds A.m. labs tomorrow Avoid nephrotoxic agents Continue IV fluids Labetalol as needed with systolic blood pressure goals less than 180 Lovenox for DVT prophylaxis Pepcid GI prophylaxis ADA diet Full code Discussed with RN Dispo pending vascular surgery evaluation KORIN HERMOSILLO MD May 08, 2020 12:08
--- NOTE | 2020-05-08 15:17 | NUR ---
Wound Care Wound care consult for right heel DFU. Cleansed wound, applied hydrofera blue, xeroform, ABD and kerlix, change Q3Days. No other wounds noted. WC will continue to follow for possible changes.
--- NOTE | 2020-05-08 16:06 | PDOC2 ---
CONSULT Date of Consult Date of Consult DATE: 05/08/20 TIME: 15:35 Reason for Consult Reason for Consult: Peripheral vascular disease and nonhealing right heel wound Referring Physician Referring Physician: Dr. Kimble Identification/Chief Complaint Chief Complaint Right heel wound Source Source: Patient History of Present Illness Reason for Visit: This is a very pleasant 64-year-old diabetic female with past medical history of CAD status post PCI in 2017, hypertension, diabetes type 2, history of tobacco abuse who presented to the hospital for planned repeat aortic angiography and runoff by Dr. Kimble. She has a chronic nonhealing right foot heel wound. She says she has had this wound for about 2-1/2 to 3 months. She states that it "started as a pinhole". She thinks maybe she stepped on something. She says it is also possible that this is a pressure wound from being in her recliner since she cannot feel pressure on her feet. Patient had received a previous aortogram with total occlusion and recanalization of her superficial femoral artery a pproximately [address] Kimble performed the angiography today and she has a short segment occlusion of her anterior tibial artery which is her main blood vessel supplying her right heel. He spoke with Dr. Lucas by phone and we were consulted for possible bypass.. Medicine service was consulted for inpatient hospital management for all her medications and chronic medical comorbidities. She has been followed closely with [facility] wound care system . She relates that she has been receiving physical therapy since December. She had a 1 month admission to [facility] from March into April for IV antibiotics along with physical therapy. She has since been discharged home. She has no particular complaints or concerns today and is examined up in the chair at the bedside as well as in bed today. She denies current chest pain and shortness of breath. She denies any symptoms of illness. She denies fever, chills, nausea, vomiting, diarrhea. She admits to having some chronic c onstipation. She denies dysuria and hematuria. She says she does have some blood in her stool related to chronic hemorrhoids. She denies any current transient unilateral numbness, weakness or clumsiness of a hand, arm or leg. She denies any transient episodes of garbled speech, facial drooping or amaurosis. She had a left groin femoral approach arteriogram today which is her "new groin pain". Otherwise, she denies any new or different abdomen, or back pain. She denies abdominal pain associated with eating. She denies any buttock, thigh or calf cramping when she walks. She does walk with the aid of a walker and has been practicing toe-touch downs to off weight her right heel. She has a history of peripheral neuropathy and has chronic numbness in her hands and in her feet. She has very little sensation to her feet. She does have a history of coronary artery disease and has a history of heart attack. She has had angioplasty but she has not had coronary artery bypass grafting nor does she have a pacemaker or AICD. She states she has had a stroke in 2002. Her neurologist is Dr. Mccall. Her symptoms at the time of her stroke where that she "could not talk and could not see". A carotid ultrasound performed here in 2017 indicated bilateral and less than 50% internal carotid artery stenosis. She is diabetic. She does not smoke. She takes aspirin, Plavix and Lipitor daily. Her most current white count was 11.7, hemoglobin 11.2, hematocrit 34, platelet count 342 and creatinine 1.6. Past Medical History Cardiovascular: CAD, CHF, HTN Pulmonary: COPD, Other CENTRAL NERVOUS SYSTEM: CVA, Periperal neuropathy GI: GERD Heme/Onc: No pertinent hx Hepatobiliary: No pertinent hx Psych: Anxiety, Depression Musculoskeletal: Osteoarthritis Rheumatologic: No pertinent hx Infectious disease: No pertinent hx Renal/: No pertinent hx Endocrine: Diabetes Past Surgical History Past Surgical History: Appendectomy, Hysterectomy, Other Family History Family History: Coronary Artery Disease, Hypertension, Stroke Social History ALCOHOL: none Drugs: None Lives: with Family Current Problem List Problem List DM, PVD with right heel wound Current Medications Current Medications Current Medications Lidocaine HCl (Lidocaine 1% 20ml Vial) 20 ml STK-MED ONCE .ROUTE ; Start 05/08/20 at 07:37; Stop 05/08/20 at 07:37; Status DC Iodixanol (Visipaque 320) 100 ml STK-MED ONCE .ROUTE ; Start 05/08/20 at 07:37; Stop 05/08/20 at 07:38; Status DC Heparin Sodium/ Sodium Chloride 1,500 ml @ As Directed STK-MED ONCE .ROUTE ; Start 05/08/20 at 07:38; Stop 05/08/20 at 07:38; Status DC Midazolam HCl (Versed) 5 mg STK-MED ONCE .ROUTE ; Start 05/08/20 at 08:32; Stop 05/08/20 at 08:32; Status DC Fentanyl Citrate (Fentanyl 5ml Vial) 250 mcg STK-MED ONCE .ROUTE ; Start 05/08/20 at 08:32; Stop 05/08/20 at 08:33; Status DC Heparin Sodium (Porcine) (Heparin Sodium) 10,000 unit STK-MED ONCE .ROUTE ; Start 05/08/20 at 08:43; Stop 05/08/20 at 08:43; Status DC Heparin Sodium/ Sodium Chloride (HEPARIN for ARTERIAL LINE FLUSH) 1,000 unit 1X ONCE IART Last administered on 05/08/20at 09:43; Start 05/08/20 at 09:30; Stop 05/08/20 at 09:34; Status DC Heparin Sodium/ Sodium Chloride (HEPARIN for ARTERIAL LINE FLUSH) 1,000 unit 1X ONCE IART Last administered on 05/08/20at 09:43; Start 05/08/20 at 09:30; Stop 05/08/20 at 09:34; Status DC Midazolam HCl (Versed) 5 mg 1X ONCE IV Last administered on 05/08/20at 09:47; Start 05/08/20 at 09:30; Stop 05/08/20 at 09:34; Status DC Fentanyl Citrate (Fentanyl 5ml Vial) 100 mcg 1X ONCE IV Last administered on 05/08/20at 09:46; Start 05/08/20 at 09:30; Stop 05/08/20 at 09:34; Status DC Iodixanol (Visipaque 320) 100 ml 1X ONCE IART Last administered on 05/08/20at 09:44; Start 05/08/20 at 09:30; Stop 05/08/20 at 09:34; Status DC Lidocaine HCl (Lidocaine 1% 20ml Vial) 20 ml 1X ONCE INJ Last administered on 05/08/20at 09:44; Start 05/08/20 at 09:30; Stop 05/08/20 at 09:34; Status DC Info (CONTRAST GIVEN -- Rx MONITORING) 1 each PRN DAILY PRN MC SEE COMMENTS; Start 05/08/20 at 09:30; Stop 05/10/20 at 09:29 Amlodipine Besylate (Norvasc) 10 mg DAILY PO ; Start 05/08/20 at 11:00 Aspirin (Aspirin Chewable) 81 mg DAILY PO Last administered on 05/08/20at 11:57; Start 05/08/20 at 11:00 Atorvastatin Calcium (Lipitor) 80 mg QHS PO ; Start 05/08/20 at 21:00 Carvedilol (Coreg) 25 mg BIDWMEALS PO ; Start 05/08/20 at 12:00 Clopidogrel Bisulfate (Plavix) 75 mg DAILYWBKFT PO ; Start 05/08/20 at 11:00 Famotidine (Pepcid) 20 mg DAILY PO ; Start 05/08/20 at 11:00 Ferrous Sulfate (Feosol) 325 mg DAILY08 PO ; Start 05/08/20 at 12:00 Gabapentin (Neurontin) 300 mg TID PO ; Start 05/08/20 at 11:00 Hydralazine HCl (Apresoline) 25 mg BID PO ; Start 05/08/20 at 11:00 Levothyroxine Sodium (Synthroid) 100 mcg DAILY06 PO ; Start 05/08/20 at 11:00 Morphine Sulfate (Ms Contin) 15 mg BID PO ; Start 05/08/20 at 11:00 Nortriptyline HCl (Pamelor) 50 mg QHS PO ; Start 05/08/20 at 21:00 Nystatin (Nystop) 1 katie BID TP Last administered on 05/08/20at 11:21; Start 05/08/20 at 11:00 Buspirone HCl (Buspar) 15 mg BID PO ; Start 05/08/20 at 11:00 Citalopram Hydrobromide (CeleXA) 20 mg DAILY PO ; Start 05/09/20 at 09:00 Losartan Potassium (Cozaar) 100 mg DAILY PO ; Start 05/08/20 at 11:00 Sodium Chloride 1,000 ml @ 75 mls/hr 1X ONCE IV Last administered on 05/08/20at 11:58; Start 05/08/20 at 10:45; Stop 05/09/20 at 00:04 Insulin Glargine (Lantus Syringe) 25 unit QHS SQ ; Start 05/08/20 at 21:00 Insulin Human Lispro (HumaLOG) 0-7 UNITS TIDWMEALS SQ Last administered on 05/08/20at 11:28; Start 05/08/20 at 12:00 Dextrose (Dextrose 50%-Water Syringe) 12.5 gm PRN Q15MIN PRN IV SEE COMMENTS; Start 05/08/20 at 10:45 Insulin Human Lispro (HumaLOG) 10 units TIDWMEALS SQ Last administered on 05/08/20at 11:27; Start 05/08/20 at 12:00 Active Scripts Active Nystop (Nystatin) 60 Gm Powder 1 Katie TP BID Clopidogrel (Clopidogrel Bisulfate) 75 Mg Tablet 75 Mg PO DAILYWBKFT 30 Days Carvedilol (Carvedilol) 12.5 Mg Tablet 25 Mg PO BIDWMEALS 30 Days Hydralazine Hcl 25 Mg Tablet 25 Mg PO BID 30 Days Reported Labetalol HCl 10 Mg/2 Ml Syringe 10 Mg IV PRN Q2HRS PRN Lovenox (Enoxaparin Sodium) 30 Mg/0.3 Ml Disp.syrin 30 Mg SQ DAILY Ferrous Sulfate 325 Mg Tablet 1 Tab PO DAILY Atorvastatin Calcium 40 Mg Tablet 2 Tab PO DAILY Escitalopram Oxalate 10 Mg Tablet 1 Tab PO DAILY Famotidine 20 Mg Tablet 20 Mg PO DAILY Morphine Sulfate Er (Morphine Sulfate) 15 Mg Tablet.er 15 Mg PO BID Losartan Potassium 100 Mg Tablet 100 Mg PO DAILY Novolog Flexpen (Insulin Aspart) 100 Unit/1 Ml Insuln.pen 1 Unit SQ TIDWMEALS Victoza 3-Arden (Liraglutide) 0.6 Mg/0.1 Ml Pen.injctr 1.8 Mg SQ DAILY Levothyroxine Sodium 100 Mcg Tablet 1 Tab PO DAILY Gabapentin (Gabapentin) 300 Mg Capsule 300 Mg PO TID Amlodipine Besylate 10 Mg Tablet 10 Mg PO DAILY Furosemide 20 Mg Tablet 20 Mg PO DAILY Buspirone Hcl 15 Mg Tablet 1 Tab PO BID Nortriptyline Hcl 25 Mg Capsule 2 Cap PO QHS Aspirin 81 Mg Tab.chew 1 Tab PO DAILY Novolog Flexpen (Insulin Aspart) 100 Unit/1 Ml Insuln.pen 25 Unit SQ TIDWMEALS Levemir (Insulin Detemir) 100 Unit/1 Ml Vial 50 Unit SQ HS Allergies Allergies: Coded Allergies: No Known Drug Allergies (Unverified , 10/15/13) ROS Review of System A 10 point review of systems is negative except for what is listed in the HPI. Physical Exam General: Alert, Oriented X3, Cooperative, No acute distress HEENT: Atraumatic Lungs: Clear to auscultation Heart: Regular rate, No murmurs Abdomen: Normal bowel sounds, Soft, Other (She has a protruding abdomen with significant pannus. She has signs of yeast infection, particularly in her left groin. She has been using powder to this area. She has gauze in place over her left femoral access point. There is a small amount of old bloody drainage. There is no significant hematoma or ecchymosis.) Extremities: No cyanosis, No edema, Other (She has 2+ femoral pulses and dorsalis pedis and posterior tibial Doppler pulses bilaterally.) Skin: Other (She does have a rash consistent with a yeast infection in her left groin. 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5) Platelet Count 342 x10^3/uL (140-400) Prothrombin Time 12.4 SEC (11.7-14.0) Prothromb Time International Ratio 1.0 (0.8-1.1) Sodium Level 140 mmol/L (136-145) Potassium Level 4.2 mmol/L (3.5-5.1) Chloride Level 104 mmol/L (98-107) Carbon Dioxide Level 30 mmol/L (21-32) Anion Gap 6 (6-14) Blood Urea Nitrogen 36 mg/dL (7-20) Creatinine 1.6 mg/dL (0.6-1.0) Estimated GFR (Cockcroft-Gault) 32.3 Glucose Level 236 mg/dL (70-99) Calcium Level 8.8 mg/dL (8.5-10.1) Glucose (Fingerstick) 211 mg/dL (70-99) Laboratory Tests Test 05/08/20 07:55 05/08/20 10:15 White Blood Count 11.7 x10^3/uL (4.0-11.0) Red Blood Count 3.88 x10^6/uL (3.50-5.40) Hemoglobin 11.2 g/dL (12.0-15.5) Hematocrit 34.0 % (36.0-47.0) Mean Corpuscular Volume 88 fL (79-100) Mean Corpuscular Hemoglobin 29 pg (25-35) Mean Corpuscular Hemoglobin Concent 33 g/dL (31-37) Red Cell Distribution Width 15.8 % (11.5-14.5) Platelet Count 342 x10^3/uL (140-400) Prothrombin Time 12.4 SEC (11.7-14.0) Prothromb Time International Ratio 1.0 (0.8-1.1) Sodium Level 140 mmol/L (136-145) Potassium Level 4.2 mmol/L (3.5-5.1) Chloride Level 104 mmol/L (98-107) Carbon Dioxide Level 30 mmol/L (21-32) Anion Gap 6 (6-14) Blood Urea Nitrogen 36 mg/dL (7-20) Creatinine 1.6 mg/dL (0.6-1.0) Estimated GFR (Cockcroft-Gault) 32.3 Glucose Level 236 mg/dL (70-99) Calcium Level 8.8 mg/dL (8.5-10.1) Glucose (Fingerstick) 211 mg/dL (70-99) Images Images Dr. Lucas was able to review the arteriogram images from today. Assessment/Plan Assessment/Plan 64-year-old diabetic female with a past medical history of coronary artery disease, peripheral vascular disease, hypertension and nonhealing right heel w ound. She was brought into the hospital today electively for a planned arteriogram with possible repeat right leg intervention. She was found to have a short segment anterior tibial artery occlusion. We were consulted for consideration of bypass grafting. However, Dr. Lucas reviewed the films and spoke with Dr. Kimble. She would benefit from an attempt to cross a wire through the anterior tibial artery occlusion. This would be a better option then a short segment bypass graft. Plan: Continue aspirin, Plavix and Lipitor daily. We will consult the wound care center physician, Dr. Whelan. She should continue daily wound care to include bedside wound debridement by the wound care nurses. She should be seen on a weekly basis by the wound care center. If needed, we can consider surgical debridement of her right heel early next week. She may ambulate as tolerated when bed rest is not required due to femoral access arteriogram and as long as she can off weight her right heel. Proceed with attempted anterior tibial artery angioplasty by Dr. Kimble tomorrow. We will reconsider need for bypass grafting after that intervention. RICK LEW APRN May 08, 2020 16:06
[2020-05-08] MEDS: HYDROcodone/APAP 5/325MG 1 TAB TABLET PO PRN (17:32)
[2020-05-08] MEDS: NORTRIPTYLINE 25 MG CAPSULE PO SCH (20:38)
[2020-05-08] MEDS: ATORVASTATIN CALCIUM 40 MG TABLET. PO SCH (20:38)
[2020-05-08] MEDS: MORPHINE ER 15 MG TABLET.ER PO SCH (20:39)
[2020-05-08] MEDS: INSULIN GLARGINE SYRINGE. SQ SCH (20:59)
[2020-05-08] MEDS ORDERED: INSULIN GLARGINE SYRINGE. SQ SCH (21:00)
[2020-05-09] VITALS (16 sets, daily range): BP systolic 141–190; BP diastolic 51–81
[2020-05-09] MEDS: HYDROcodone/APAP 5/325MG 1 TAB TABLET PO PRN ×4 (01:16→20:48)
[2020-05-09] MEDS ORDERED: hydrALAZINE 20 MG/ML VIAL. IVP PRN (03:45)
[2020-05-09] MEDS: LEVOTHYROXINE 100 MCG TABLET PO SCH (06:31)
--- NOTE | 2020-05-09 07:11 | PDOC ---
Provider Note Provider Note Vascular Surgery - agree with full consultation from Lakshmi Bingham on 05/08/2020. AF, hypertensive overnight 180 which improved with medication awake and alert left groin access site with no hematoma right leg warm, no significant swelling. Left foot with heel open wound with a small amount of superficial necrotic tissue, no deep wound, no exposed bone, minimal surrounding erythema. No tissue breakdown in the toes and her recent toe ulcer has healed. Doppler DP and PT pulses on exam which are monophasic/biphasic Reviewed angiogram films which show right leg SFA stent widely patent, AT with short segment occlusion in the mid vessel however widely patent distal to this with good runoff to the dorsalis pedis artery, long segment occlusion of the peroneal artery which has a large collateral filling the distal vessel and complete occlusion of the entire PT. A/P 64 year old female with right heel open wound and peripheral artery disease. She did heal a toe ulcer following recent right SFA stenting. -Recommend angioplasty of the anterior tibial artery segment of occlusion to further improve circulation. Having angiogram with Dr. Kimble today. -Wound care consult - She needs aggressive wound care with local debridement during this admission by our wound care physicians. Unlikely to need surgical debridement based on exam however will monitor. - Recommend ID consult and likely antibiotics to help improve healing of the right heel wound. WBC slightly elevated at 11. - needs a heel off loading shoe for ambulation Justicifation of Admission Dx: Justifications for Admission: Justification of Admission Dx: Yes Acute Renal Failure: 75% Reduction in GFR KACY GALLEGOS MD May 09, 2020 07:11
[2020-05-09] MEDS ORDERED: PIP/TAZO PER PHARMACY MC PRN (07:15)
[2020-05-09] MEDS ORDERED: LIDOCAINE 1% Multi-Dose 20 ML VIAL. ONE (07:34)
[2020-05-09] MEDS ORDERED: IODIXANOL 320 MG/ML 100 ML VIAL. ONE ×2 (07:34→09:55)
[2020-05-09] MEDS: PIPERACILLIN/TAZOBACTAM 3.375 GM in IV NORMAL SALINE 50ML 50 ML IV SCH ×2 (08:00→13:07)
[2020-05-09] MEDS: INSULIN LISPRO 300 UNITS/3 ML VIAL. SQ SCH ×6 (08:00→17:31)
[2020-05-09] MEDS: CLOPIDOGREL BISULFATE 75 MG TABLET PO SCH (08:15)
[2020-05-09] MEDS: CARVEDILOL 12.5 MG TABLET. PO SCH ×2 (08:16→17:28)
[2020-05-09] MEDS: amLODIPine BESYLATE 10 MG TABLET PO SCH (08:16)
[2020-05-09] MEDS: ASPIRIN CHEWABLE 81 MG TABLET. PO SCH (08:16)
[2020-05-09] MEDS ORDERED: MIDAZOLAM HCL/PF 2 MG/2 ML VIAL. ONE ×2 (08:57→10:07)
[2020-05-09] MEDS ORDERED: fentaNYL PF VIAL 100 MCG/2 ML VIAL ONE ×2 (08:57→09:52)
[2020-05-09] MEDS ORDERED: HEPARIN for IV BOLUS 10,000 UNIT/10 ML VIAL. ONE (08:57)
--- NOTE | 2020-05-09 08:57 | PDOC ---
MODERATE SEDATION ASSESSMENT RISKS/ALTERNATIVES Risks/Alternatives Risks and alternatives of this type of sedation and procedure discussed with: RISK/ALTERNATIVES: Patient H & P ON CHART H & P H & P on chart and reviewed for co-morbid conditions and appropriate labs. H&P ON CHART: Yes STATUS PREG STATUS ASSESSED: N/A MEDS/ALLERGIES REVIEWED Meds/Allergies Reviewed Medications and Allergies including time and route of recently administered narcotics and sedatives. MEDS/ALLERGIES REVIEWED: Yes ASA RATING ASA RATING: III AIRWAY ASSESSMENT Airway Assessment Airway patency, oral function limitations, presence of caps, crowns, dentures, partials, and ability to extend neck assessed. AIRWAY ASSESSMENT: Yes MALLAMPATI SCORE MALLAMPATI SCORE: II PRE-SEDATION ASSESSMENT PRE-SEDATION ASSESSMENT: Yes RAQUEL GUSMAN MD May 09, 2020 08:57
[2020-05-09] MEDS: GABAPENTIN 300 MG CAPSULE. PO SCH ×3 (09:00→20:53)
[2020-05-09] MEDS ORDERED: fentaNYL PF VIAL 100 MCG/2 ML VIAL IV ONE (09:30)
[2020-05-09] MEDS ORDERED: LIDOCAINE 1% Multi-Dose 20 ML VIAL. INJ ONE (09:30)
[2020-05-09] MEDS ORDERED: IODIXANOL 320 MG/ML 100 ML VIAL. IART ONE (09:30)
[2020-05-09] MEDS ORDERED: MIDAZOLAM HCL/PF 2 MG/2 ML VIAL. IV ONE (09:30)
[2020-05-09] MEDS ORDERED: IV NORMAL SALINE 1000ML BAG 1,000 ML IV ONE (10:30)
[2020-05-09] MEDS ORDERED: HEPARIN for IV BOLUS 10,000 UNIT/10 ML VIAL. IV ONE (10:45)
[2020-05-09] MEDS ORDERED: NITROGLYCERIN 200 MCG/2 ML SYRINGE FOR CATH/VASC LAB. ONE (11:40)
[2020-05-09] MEDS ORDERED: NITROGLYCERIN 200 MCG/2 ML SYRINGE FOR CATH/VASC LAB. IART ONE (12:00)
--- NOTE | 2020-05-09 12:14 | PDOC ---
[facility] [facility] PROGRESS NOTE Chief Complaint Chief Complaint Severe peripheral arterial disease with nonhealing [place] category 5 wound of the right lower extremity Acute on chronic kidney injury with an elevated creatinine of 1.6 from a baseline of 1.3 Hypertension Dyslipidemia Coronary artery disease status post PCI in 2017 Morbid obesity History of Present Illness History of Present Illness 64-year-old male with past medical history of CAD status post PCI in 2017, hypertension, diabetes type 2, history of tobacco abuse who presents to the hospital for planned aortic angiography and runoff. Patient also has a chronic nonhealing right lower extremity plantar foot wound. Patient had received a previous aortogram with total occlusion and recanalization of her superficial femoral artery approximately 8 weeks ago. Medicine service was consulted for inpatient hospital management for all her medications and chronic medical comorbidities. Patient will be evaluated by vascular surgery because there was no available interventions available via angiography, therefore surgical service was consulted for possible bypass. Patient states that she is unable to walk on her right leg at this time. Patient does have chronic pain and claudication symptoms of her bilateral lower extremities. She currently denies any shortness of breath, chest pain, abdominal pain, or diarrhea. 05/09/2020 No acute events overnight. Patient was taken this a.m. for angiogram. Evaluated by vascular surgery and will determine strategy for possible bypass after angiogram completed. Patient's chart, labs, images were reviewed and discussed with RN Vitals/I&O Vitals/I&O: Vital Signs Date Time Temp Pulse Resp B/P (MAP) Pulse Ox O2 Delivery O2 Flow Rate FiO2 05/09/20 08:16 71 160/79 05/09/20 07:30 Room Air 05/09/20 07:00 97.6 18 96 2.0 97.6 I & O 05/08/20 05/08/20 05/09/20 14:59 22:59 06:59 Intake Total 350 ml 250 ml 1350 ml Balance 350 ml 250 ml 1350 ml Physical Exam Physical Exam: GEN: No apparent distress. Alert and oriented HEENT: Normal cephalic, atraumatic, external auditory canals are patent NECK: Supple, no JVD, no thyromegaly was noted LUNGS: Bilateral crackles HEART: RRR, S1, S2 present. Peripheral pulses intact, no obvious murmurs noted ABDOMEN: Soft, nontender. Positive bowel sounds, no organomegaly, normal bowel sounds EXTREMITIES: Without clubbing, cyanosis, or edema. Nonpalpable pulses. Negative Homans sign. Chronic nonhealing ulcer on the bottom of the right plantar foot. General: Alert, Oriented X3, Cooperative, No acute distress Heart: Regular rate, No murmurs Lungs: Clear Abdomen: Normal bowel sounds, Soft, Other (She has a protruding abdomen with significant pannus. She has signs of yeast infection, particularly in her left groin. She has been using powder to this area. She has gauze in place over her left femoral access point. There is a small amount of old bloody drainage. There is no significant hematoma or ecchymosis.) Extremities: No cyanosis, No edema, Other (She has 2+ femoral pulses and dorsalis pedis and posterior tibial Doppler pulses bilaterally.) Skin: Other (She does have a rash consistent with a yeast infection in her left groin. Her right medial and posterior heel wound is shallow but with some necrotic subcutaneous tissue present.) Labs Labs: Laboratory Tests Test 05/08/20 17:17 05/08/20 20:32 05/09/20 07:10 Glucose (Fingerstick) 159 mg/dL (70-99) 243 mg/dL (70-99) 186 mg/dL (70-99) Comment Review of Relevant I have reviewed the following items sina (where applicable) has been applied. Medications: Current Medications Medications (Trade) Dose Ordered Sig/Madi Route PRN Reason Start Time Stop Time Status Last Admin Dose Admin Atorvastatin Calcium (Lipitor) 80 mg QHS PO 05/08/20 21:00 05/08/20 20:38 Nortriptyline HCl (Pamelor) 50 mg QHS PO 05/08/20 21:00 05/08/20 20:38 Acetaminophen/ Hydrocodone Bitart (Lortab 5/325) 1 tab PRN Q4HRS PRN PO BREAKTHROUGH PAIN 05/08/20 17:30 05/09/20 08:15 Morphine Sulfate (Ms Contin) 15 mg BID PO 05/08/20 21:00 05/08/20 20:39 Insulin Glargine (Lantus Syringe) 40 unit QHS SQ 05/08/20 21:00 05/08/20 20:59 Hydralazine HCl (Apresoline Inj) 10 mg PRN Q6HRS PRN IVP ELEVATED BP, SEE COMMENTS 05/09/20 03:45 05/09/20 04:16 Justicifation of Admission Dx: Justifications for Admission: Justification of Admission Dx: Yes Acute Renal Failure: 75% Reduction in GFR KORIN HERMOSILLO MD May 09, 2020 12:14
[2020-05-09] MEDS: hydrALAZINE 25 MG TABLET PO SCH ×2 (13:03→20:54)
[2020-05-09] MEDS: MORPHINE ER 15 MG TABLET.ER PO SCH ×2 (13:04→20:54)
[2020-05-09] MEDS: FAMOTIDINE 20 MG TABLET. PO SCH (13:04)
[2020-05-09] MEDS: LOSARTAN POTASSIUM 50 MG TABLET. PO SCH (13:04)
[2020-05-09] MEDS: FERROUS SULFATE 325 MG TABLET. PO SCH (13:04)
[2020-05-09] MEDS: busPIRone 5 MG TABLET. PO SCH ×2 (13:05→20:47)
[2020-05-09] MEDS: CITALOPRAM 20 MG TABLET. PO SCH (13:05)
[2020-05-09] MEDS: NYSTATIN TOPICAL POWDER 15GM BOTTLE. TP SCH ×2 (13:05→20:46)
--- NOTE | 2020-05-09 13:10 | CARD ---
MR#: [id number] Date of Study: 05/09/2020 Ordering Physician: RAQUEL GIRON, Referring Physician: RAQUEL GIRON, Tech: Michelle Gleason APPROVED REPORT Patient StatusIN-PATIENT Manager Billing: Michelle Gleason Procedure(s) performed: 1. Successful balloon GEOPHYSICAL PROSPECTOR to chronic total occlusion involving the right ant erior tibial artery 2. Successful complex thrombectomy, balloon GEOPHYSICAL PROSPECTOR/stent placement to the right popliteal artery and th e tibioperoneal trunk. fl time: 62.8 mins dose: 73 gycm2 contrast: 155 ml moderate sedation: 211 mins INDICATION FOR PROCEDURE The indication(s) include : 64-year-old female with severe peripheral artery disease with nonhealing wound right lower extremity underwent selective right lower extremity angiography on 05/08/2020 and wa s found to have severe below the knee disease with 100% occlusion of the right anterior tibial artery , 100% occlusion of the right peroneal artery and 100% chronic total occlusion of the right posterior tibial artery with reconstitution of the right AT and peroneal arteries distally via collaterals. Si nce she was deemed to be a poor candidate for surgical revascularization, she presented today for per cutaneous revascularization.. PROCEDURE NARRATIVE After explaining the risks, benefits and alternative options, informed consent was obtained from addie ent. Patient was brought to the cardiac Associate Pathologist and her left groin was prepped and draped in the us ual fashion. 20 cc of 2% lidocaine was infiltrated into the skin and subcutaneous tissues for local anesthesia. Arterial access was obtained in the left common femoral artery and 6 [place] 65 cm bozena ation sheath was inserted. This was advanced over the aortic marquita with the help of a 5 [place] [employer] sover catheter and the tip was positioned in the midsegment of the right superficial femoral artery, proximal to the previously placed stent. Angiography was performed that showed possible spiral flap with thrombus extending from the distal edge of the stent in the right SFA into the popliteal and pos sibly tibioperoneal trunk resulting in 80% stenosis of the right SFA and 100% occlusion of the right popliteal artery. The right AT/peroneal/PT vessels were not visualized on initial angiography. The lesion in the right SFA/popliteal artery was crossed with a 0.014 inch command ES guidewire with backup support using a quick cross microcatheter. Contrast injections through the microcatheter show ed faint reconstitution of the right anterior tibial artery. Initial attempts to advance a wire into the right atrium were unsuccessful. A 0.014 inch Choice PT guidewire was then successfully advanced into the right AT. Attempts to cross the previously described chronic total occlusion of right ante rior tibial artery using this guidewire were unsuccessful. We then attempted to cross this lesion wi th a 0.[address] but there again unsuccessful. We finally were able to cross this lesion w ith a 0.014 inch Miraclebros 6.0 using backup support from the quick cross micro catheter. Contrast injections through the microcatheter confirmed intraluminal position. The long chronic total occlusion of the right AT and the occlusions in the TP trunk/popliteal/SFA wer e initially dilated with a long 2.5 x 200 mm [place] balloon. Following this, a [place] thrombu s aspiration catheter was passed through the lesion a few times per removing thrombus. The TP/poplit eal/SFA lesion was then dilated with a 4.0 x 18 mm [place] balloon. Follow-up angiography show ed improvement of flow within this lesion but patient was found to have occlusion of proximal segment of the right AT. This was then dilated again with a 2.5 x 200 mm [place] balloon. The TP neri nk was then dilated with a 3.0 x 60 mm [place] balloon. Follow-up angiography showed restorati on of flow in the right antecubital artery but there was residual lesion in the distal portion of the right TP trunk and popliteal artery. Since patient has one-vessel runoff, we decided to optimize fl ow by stenting this lesion. This was then treated with a 5.0 x 60 mm Pitts supera self-expanding st ent that was then postdilated with the 4.0 x 80 mm [place] balloon. Follow-up angiography show ed resolution of the lesions in the right SFA, popliteal, tibioperoneal trunk and also the chronic to cynthia occlusion in the right anterior tibial artery. The distal segment of the peroneal artery and the very distal portion the posterior tibial artery reconstituting via collaterals. Patient tolerated p rocedure well. Hemostasis was achieved using Angio-Seal. There were no immediate complications Conclusion Successful complex thrombus aspiration/GEOPHYSICAL PROSPECTOR/stent placement to the right popliteal artery in the tibio peroneal trunk, thrombus aspiration/GEOPHYSICAL PROSPECTOR to the distal segment of right superficial femoral artery and successful balloon GEOPHYSICAL PROSPECTOR chronic total occlusion involving the right anterior tibial artery. Signed by : Raquel Giron, Electronically Approved : 05/09/2020 13:09:46
--- NOTE | 2020-05-09 13:10 | NUR ---
Wound Care Attempted to see pt with SOO Lambert, for bedside debridement. Pt is currently off unit for procedure.
[2020-05-09] MEDS: IV 1/2 NORMAL SALINE 1,000 ML IV SCH (13:13)
--- NOTE | 2020-05-09 13:31 | NUR ---
SS following for discharge planning. SS reviewed pt chart and discussed with pt RN. Pt is from home with spouse and is currently on room air. Per RN, pt had arteriogram on 05/08/2020 and 05/09/2020. Pt on IV Zosyn and is starting Heparin drip today. PT recommending home with home healthcare. Pt has had [facility], ; fax [phone], in the past. SS will continue to follow for discharge planning.
--- NOTE | 2020-05-09 13:47 | PDOC ---
Infectious Disease Note Vital Sign Vital Signs Vital Signs Date Time Temp Pulse Resp B/P (MAP) Pulse Ox O2 Delivery O2 Flow Rate FiO2 05/09/20 13:04 62 169/81 05/09/20 12:35 15 98 Nasal Cannula 2.0 05/09/20 07:00 97.6 97.6 Physical Exam PHYSICAL EXAM GEN: No apparent distress. Alert and oriented HEENT: Normal cephalic, atraumatic, external auditory canals are patent NECK: Supple, no JVD, no thyromegaly was noted LUNGS: Bilateral crackles HEART: RRR, S1, S2 present. Peripheral pulses intact, no obvious murmurs noted ABDOMEN: Soft, nontender. Positive bowel sounds, no organomegaly, normal bowel sounds EXTREMITIES: Without clubbing, cyanosis, or edema. Nonpalpable pulses. Negative Homans sign. Chronic nonhealing ulcer on the bottom of the right plantar foot. Labs Lab Laboratory Tests Test 05/08/20 17:17 05/08/20 20:32 05/09/20 07:10 05/09/20 13:00 Glucose (Fingerstick) 159 mg/dL (70-99) 243 mg/dL (70-99) 186 mg/dL (70-99) 210 mg/dL (70-99) Objective Assessment Heel ulcer Leukocytosis PAD - s/p . Successful balloon MARINE ENGINE MACHINIST to chronic total occlusion involving the right anterior tibial artery Successful complex thrombectomy, balloon MARINE ENGINE MACHINIST/stent placement to the right popliteal artery and the tibioperoneal trunk. Morbid Obesity RIZWAN Plan Plan of Care D/c Zosyn Begin Meropenem F/u labs D/w [facility] h/o Enterobacter complex res to augmentin/STCN/yeast February 14, 2020 D/w D/w nursing Thank you # [phone] NATHALIA LUCERO MD May 09, 2020 13:47
[2020-05-09] MEDS: MEROPENEM 500 MG in IV NORMAL SALINE 50ML 50 ML IV SCH ×2 (15:11→20:46)
--- NOTE | 2020-05-09 15:20 | NUR ---
Wound Care: Will see patient on Tuesday for possible bedside debridement. Nhi Stapleton left in room for Tuesday dressing change. Spoke with RN regarding POC.
[2020-05-09] MEDS ORDERED: HEPARIN 25,000UTS/250ML PREMIX 250 ML IV PRN (16:00)
--- NOTE | 2020-05-09 16:08 | PDOC ---
Provider Note Provider Note Pt s/p LE intervention by IC today strong signal in CHARISMA at the ankle Foot with normal sensation As cardiology is managing PAD vascular surgery will sign off. Justicifation of Admission Dx: Justifications for Admission: Justification of Admission Dx: Yes Acute Renal Failure: 75% Reduction in GFR REBECA BARAHONA MD May 09, 2020 16:08
[2020-05-09] MEDS ORDERED: HEPARIN for IV BOLUS 10,000 UNIT/10 ML VIAL. IV PRN (16:15)
--- NOTE | 2020-05-09 17:10 | CONS ---
DATE OF CONSULTATION: 05/09/2020 LOCATION: The patient's room is 202. REQUESTING PHYSICIAN: Dr. Luacs. REASON FOR CONSULTATION: Heel wound. HISTORY OF PRESENT ILLNESS: The patient is a 64-year-old female with a history of morbid obesity, who states that she was admitted to [facility] back in February and March and was found to have a heel ulcer and also some pneumonia and subsequently was transferred to [facility] where she stayed for approximately a month and received IV antibiotics before being discharged shortly before April. Her measurement coordinator, Dr. Kimble up at [facility] and was seen in the outpatient setting for an ongoing wound and was admitted for a planned aortic angiography and runoff. She previously had chronic total occlusion and recannulization of her SFA 8 weeks ago, she did follow up with the [facility] at [facility] and was recommended to have further evaluation. This morning, the patient ray was taken down to procedure room and underwent aortogram and successful MARKETING TECHNOLOGY SPECIALIST to chronic total occlusion involving the right anterior tibial artery and successful complete thrombectomy with a MARKETING TECHNOLOGY SPECIALIST and stent placement in the right popliteal and the tibioperoneal trunk. I was consulted this morning by Dr. Lucas. She has been placed on Zosyn this morning. Currently, she is lying in bed, eating, and comfortable. Currently, she denies any fevers, chills, sweats. She has no nausea, vomiting, no diarrhea. No dysuria, frequency or urgency. PAST MEDICAL HISTORY: Positive for coronary artery disease, congestive heart failure, hypertension, COPD, morbid obesity, CVA, peripheral neuropathy, gastroesophageal reflux disease, history of pneumonia, osteoarthritis, depression, anxiety, diabetes and peripheral arterial disease, hypothyroidism. PAST SURGICAL HISTORY: Positive for appendectomy, hysterectomy, previous recannulization of his superficial femoral artery. REVIEW OF SYSTEMS: Otherwise negative. SOCIAL HISTORY: She is , has a dog and a cat at home. Denies any tobacco. FAMILY HISTORY: Positive for coronary artery disease, hypertension, and CVA. ALLERGIES: No known drug allergies. CURRENT MEDICATIONS: Include Zosyn, Norvasc, aspirin, Lipitor, BuSpar, Coreg, Celexa, Plavix, Pepcid, FeroSul, Neurontin, hydralazine, insulin, lactobacillus, Synthroid, Cozaar, Pamelor, nystatin. PHYSICAL EXAMINATION: VITAL SIGNS: Temperature is 97.6, pulse 71, respirations 18, blood pressure 160/79, satting 96% on 2 liters. CONSTITUTIONAL: She is lying in bed. She is morbidly obese. She is in no acute distress. She is eating lunch. HEENT: She has normal conjunctivae. NECK: Supple, without JVD. LUNGS: Clear to auscultation. HEART: S1, S2. ABDOMEN: Morbidly obese, soft, nontender, no guarding. EXTREMITIES: Left femoral site is clean without signs of complications. Her right foot is currently bandaged. I did not remove the dressing that was just placed and she has now just had her procedure, did not want to move her leg. The wound had some mild superficial necrotic tissue. looking at the pictures without any exposed bone. SKIN: Warm without signs of rash. NEUROLOGIC: She is appropriate. PSYCHIATRIC: Affect is pleasant. LABORATORY DATA: White count was 11.7 on arrival, hemoglobin 11.2, platelets of 342. Creatinine was 1.6, glucose of 236. Aortogram from today reviewed in history of present illness. IMPRESSION: 1. Heel ulcer. 2. Leukocytosis. 3. Peripheral arterial disease, status post above-mentioned successful procedure. 4. Morbid obesity. 5. Acute kidney injury. RECOMMENDATIONS: I did call [facility] on 02/14/2020, she had an Enterobacter complex resistant to Augmentin, taken from her wound. Also had coag negative Staph and some yeast. Therefore, we will discontinue the Zosyn, begin Merrem. Follow up on labs. This was discussed with her . D[facility]ed with nursing and [facility]. Thank you for allowing me care. If you have any questions, please do not hesitate to contact me. NATHALIA LUCERO MD DR: ARASELI/suly JOB#: [id number] / [id number] TORI
[2020-05-09] MEDS: ATORVASTATIN CALCIUM 40 MG TABLET. PO SCH (20:47)
[2020-05-09] MEDS: NORTRIPTYLINE 25 MG CAPSULE PO SCH (20:47)
[2020-05-09] MEDS: RIVAROXABAN 10 MG TABLET. PO SCH (20:48)
[2020-05-09] MEDS: LACTOBACILLUS RHAMNOSUS GG 1 CAPSULE. PO SCH (20:55)
[2020-05-09] MEDS: INSULIN GLARGINE SYRINGE. SQ SCH (20:57)
[2020-05-10] MEDS: HYDROcodone/APAP 5/325MG 1 TAB TABLET PO PRN ×3 (01:11→21:21)
[2020-05-10] MEDS: IV 1/2 NORMAL SALINE 1,000 ML IV SCH (01:13)
[2020-05-10] MEDS: MEROPENEM 500 MG in IV NORMAL SALINE 50ML 50 ML IV SCH ×3 (01:16→17:52)
[2020-05-10 03:00] VITALS: BP 145/88
[2020-05-10] MEDS: LEVOTHYROXINE 100 MCG TABLET PO SCH (06:12)
[2020-05-10 06:23] VITALS: BP 165/72
[2020-05-10 07:02] LABS: CALCIUM 7.9 mg/dL (8.5-10.1); CREATININE 1.3 mg/dL (0.6-1.0); GFR 41.1; POTASSIUM 3.7 mmol/L (3.5-5.1)
--- NOTE | 2020-05-10 07:18 | PDOC ---
Infectious Disease Note Subjective Subjective Leg hurts because of laying still for so long No F/c/s/N/v/d/SOARash Vital Sign Vital Signs Vital Signs Date Time Temp Pulse Resp B/P (MAP) Pulse Ox O2 Delivery O2 Flow Rate FiO2 05/10/20 06:23 98.1 77 20 165/72 (103) 98 Room Air 98.1 05/10/20 03:00 2.0 Physical Exam PHYSICAL EXAM CONSTITUTIONAL: She is lying in bed. She is morbidly obese. She is in no acute distress. She is eating lunch. HEENT: She has normal conjunctivae. NECK: Supple, without JVD. LUNGS: Clear to auscultation. HEART: S1, S2. ABDOMEN: Morbidly obese, soft, nontender, no guarding. EXTREMITIES: Left femoral site is clean without signs of complications. Her right foot wound - superficial. some granulation and min necrotic slough SKIN: Warm without signs of rash. NEUROLOGIC: She is appropriate. PSYCHIATRIC: Affect is pleasant. Labs Lab Laboratory Tests Test 05/09/20 13:00 05/09/20 16:28 05/09/20 16:30 05/09/20 20:43 Glucose (Fingerstick) 210 mg/dL (70-99) 174 mg/dL (70-99) 90 mg/dL (70-99) SN-Vyn-X-Type Natriuretic Peptide 1112 pg/mL (0-124) Test 05/09/20 22:00 05/10/20 06:00 Heparin Anti-Xa Act, Unfractionated 0.43 IU/mL (0.30-0.70) 0.93 IU/mL (0.30-0.70) Sodium Level 140 mmol/L (136-145) Potassium Level 3.7 mmol/L (3.5-5.1) Chloride Level 105 mmol/L (98-107) Carbon Dioxide Level 28 mmol/L (21-32) Anion Gap 7 (6-14) Blood Urea Nitrogen 22 mg/dL (7-20) Creatinine 1.3 mg/dL (0.6-1.0) Estimated GFR (Cockcroft-Gault) 41.1 Glucose Level 132 mg/dL (70-99) Calcium Level 7.9 mg/dL (8.5-10.1) Objective Assessment Heel ulcer Leukocytosis PAD - s/p . Successful balloon MERCHANDISE ADJUSTMENT CLERK to chronic total occlusion involving the right anterior tibial artery Successful complex thrombectomy, balloon MERCHANDISE ADJUSTMENT CLERK/stent placement to the right popliteal artery and the tibioperoneal trunk. Morbid Obesity RIZWAN Plan Plan of Care D/c Zosyn Begin Meropenem if ok with Cardiology can change to po Cipro 500 mg po BID and F lagyl 500 mg po TID for 7 days and can d/c home otherwise trial of cefdinir 300 mg po BID with the Flagyl Wound care per wound care D/w nursing NATHALIA LUCERO MD May 10, 2020 07:18
[2020-05-10 07:26] LABS: BASO # 0.1 x10^3/uL (0.0-0.2); BASO % 1 % (0-3); EOS # 0.3 x10^3/uL (0.0-0.7); EOS % 3 % (0-3); HEMATOCRIT 30.1 % (36.0-47.0); HEMOGLOBIN 9.9 g/dL (12.0-15.5); LYMPH # 1.3 x10^3/uL (1.0-4.8); LYMPH % 13 % (24-48); MEAN CORPUSCULAR HEMOGLOBIN 29 pg (25-35); MEAN CORPUSCULAR HGB CONC 33 g/dL (31-37); MEAN CORPUSCULAR VOLUME 88 fL (79-100); MONO # 1.2 x10^3/uL (0.0-1.1); MONO % 12 % (0-9); NEUT # 7.2 x10^3/uL (1.8-7.7); NEUT % 71 % (31-73); PLATELET COUNT 286 x10^3/uL (140-400); RED BLOOD COUNT 3.41 x10^6/uL (3.50-5.40); RED CELL DISTRIBUTION WIDTH 16.4 % (11.5-14.5); WHITE BLOOD COUNT 10.1 x10^3/uL (4.0-11.0)
[2020-05-10] MEDS: INSULIN LISPRO 300 UNITS/3 ML VIAL. SQ SCH ×6 (08:00→17:05)
[2020-05-10] MEDS: ASPIRIN CHEWABLE 81 MG TABLET. PO SCH (08:21)
[2020-05-10] MEDS: CLOPIDOGREL BISULFATE 75 MG TABLET PO SCH (08:21)
[2020-05-10] MEDS: CITALOPRAM 20 MG TABLET. PO SCH (08:21)
[2020-05-10] MEDS: busPIRone 5 MG TABLET. PO SCH ×2 (08:21→21:00)
[2020-05-10] MEDS: CARVEDILOL 12.5 MG TABLET. PO SCH ×2 (08:22→17:01)
[2020-05-10] MEDS: RIVAROXABAN 10 MG TABLET. PO SCH ×2 (08:22→21:15)
[2020-05-10] MEDS: LOSARTAN POTASSIUM 50 MG TABLET. PO SCH (08:22)
[2020-05-10] MEDS: GABAPENTIN 300 MG CAPSULE. PO SCH ×3 (08:22→21:14)
[2020-05-10] MEDS: FERROUS SULFATE 325 MG TABLET. PO SCH (08:23)
[2020-05-10] MEDS: LACTOBACILLUS RHAMNOSUS GG 1 CAPSULE. PO SCH ×2 (08:23→21:14)
[2020-05-10] MEDS: FAMOTIDINE 20 MG TABLET. PO SCH (08:23)
[2020-05-10] MEDS: hydrALAZINE 25 MG TABLET PO SCH ×2 (08:23→21:15)
[2020-05-10] MEDS: amLODIPine BESYLATE 10 MG TABLET PO SCH (08:23)
[2020-05-10] MEDS: MORPHINE ER 15 MG TABLET.ER PO SCH ×2 (08:24→21:14)
[2020-05-10] MEDS: NYSTATIN TOPICAL POWDER 15GM BOTTLE. TP SCH ×2 (08:29→21:18)
[2020-05-10] MEDS ORDERED: INSULIN GLARGINE SYRINGE. SQ ONE (10:45)
[2020-05-10 10:52] VITALS: BP 138/61
--- NOTE | 2020-05-10 11:09 | PDOC ---
[facility] PROGRESS NOTE Chief Complaint Chief Complaint Severe peripheral arterial disease with nonhealing [place] category 5 wound of the right lower extremity status post angiogram showing patent CHARISMA Acute on chronic renal failure due to likely vasomotor nephropathy with improved creatinine today of 1.3 Diabetes type 2insulin-dependent Hypertension Dyslipidemia Coronary artery disease status post PCI in 2017 Morbid obesity Appreciate vascular surgery recommendations Appreciate cardiology recommendations for anticoagulation Accu-Cheks and regular insulin sliding scale Restart home insulin regimen Stop heparin drip Xarelto for DVT prophylaxis Protonix GI prophylaxis ADA diet Full code Discussed with RN and SW Dispo pending evaluation by wound care Surrogate decision maker is self History of Present Illness History of Present Illness 64-year-old male with past medical history of CAD status post PCI in 2017, hypertension, diabetes type 2, history of tobacco abuse who presents to the hospital for planned aortic angiography and runoff. Patient also has a chronic nonhealing right lower extremity plantar foot wound. Patient had received a previous aortogram with total occlusion and recanalization of her superficial femoral artery approximately 8 weeks ago. Medicine service was consulted for inpatient hospital management for all her medications and chronic medical comorbidities. Patient will be evaluated by vascular surgery because there was no available interventions available via angiography, therefore surgical service was consulted for possible bypass. Patient states that she is unable to walk on her right leg at this time. Patient does have chronic pain and claudication symptoms of her bilateral lower extremities. She currently denies any shortness of breath, chest pain, abdominal pain, or diarrhea. 05/10/2020 No acute events overnight. Patient was seen status post angiogram. No interventions were done. Vascular surgery has signed off. Wound care to follow. Patient's chart, labs, images were reviewed and discussed with RN 05/09/2020 No acute events overnight. Patient was taken this a.m. for angiogram. Evaluated by vascular surgery and will determine strategy for possible bypass after angiogram completed. Patient's chart, labs, images were reviewed and discussed with RN Vitals/I&O Vitals/I&O: Vital Signs Date Time Temp Pulse Resp B/P (MAP) Pulse Ox O2 Delivery O2 Flow Rate FiO2 05/10/20 10:52 97.8 69 18 138/61 (86) 95 Room Air 97.8 05/10/20 08:00 2.0 I & O 05/09/20 05/09/20 05/10/20 15:00 23:00 07:00 Intake Total 0 ml 70 ml 50 ml Output Total 350 ml Balance 0 ml 70 ml -300 ml Physical Exam Physical Exam: CONSTITUTIONAL: She is lying in bed. She is morbidly obese. She is in no acute distress. She is eating lunch. HEENT: She has normal conjunctivae. NECK: Supple, without JVD. LUNGS: Clear to auscultation. HEART: S1, S2. ABDOMEN: Morbidly obese, soft, nontender, no guarding. EXTREMITIES: Left femoral site is clean without signs of complications. Her right foot wound - superficial. some granulation and min necrotic slough SKIN: Warm without signs of rash. NEUROLOGIC: She is appropriate. PSYCHIATRIC: Affect is pleasant. General: Alert, Oriented X3, Cooperative, No acute distress Heart: Regular rate, No murmurs Lungs: Clear Abdomen: Normal bowel sounds, Soft, Other (She has a protruding abdomen with significant pannus. She has signs of yeast infection, particularly in her left groin. She has been using powder to this area. She has gauze in place over her left femoral access point. There is a small amount of old bloody drainage. There is no significant hematoma or ecchymosis.) Extremities: No cyanosis, No edema, Other (She has 2+ femoral pulses and dorsalis pedis and posterior tibial Doppler pulses bilaterally.) Skin: Other (She does have a rash consistent with a yeast infection in her left groin. Her right medial and posterior heel wound is shallow but with some necrotic subcutaneous tissue present.) Labs Labs: Laboratory Tests Test 05/09/20 13:00 05/09/20 16:28 05/09/20 16:30 05/09/20 20:43 Glucose (Fingerstick) 210 mg/dL (70-99) 174 mg/dL (70-99) 90 mg/dL (70-99) DU-Qdc-Y-Type Natriuretic Peptide 1112 pg/mL (0-124) Test 05/09/20 22:00 05/10/20 06:00 05/10/20 08:16 Heparin Anti-Xa Act, Unfractionated 0.43 IU/mL (0.30-0.70) 0.93 IU/mL (0.30-0.70) White Blood Count 10.1 x10^3/uL (4.0-11.0) Red Blood Count 3.41 x10^6/uL (3.50-5.40) Hemoglobin 9.9 g/dL (12.0-15.5) Hematocrit 30.1 % (36.0-47.0) Mean Corpuscular Volume 88 fL (79-100) Mean Corpuscular Hemoglobin 29 pg (25-35) Mean Corpuscular Hemoglobin Concent 33 g/dL (31-37) Red Cell Distribution Width 16.4 % (11.5-14.5) Platelet Count 286 x10^3/uL (140-400) Neutrophils (%) (Auto) 71 % (31-73) Lymphocytes (%) (Auto) 13 % (24-48) Monocytes (%) (Auto) 12 % (0-9) Eosinophils (%) (Auto) 3 % (0-3) Basophils (%) (Auto) 1 % (0-3) Neutrophils # (Auto) 7.2 x10^3/uL (1.8-7.7) Lymphocytes # (Auto) 1.3 x10^3/uL (1.0-4.8) Monocytes # (Auto) 1.2 x10^3/uL (0.0-1.1) Eosinophils # (Auto) 0.3 x10^3/uL (0.0-0.7) Basophils # (Auto) 0.1 x10^3/uL (0.0-0.2) Prothrombin Time 14.0 SEC (11.7-14.0) Prothromb Time International Ratio 1.1 (0.8-1.1) Sodium Level 140 mmol/L (136-145) Potassium Level 3.7 mmol/L (3.5-5.1) Chloride Level 105 mmol/L (98-107) Carbon Dioxide Level 28 mmol/L (21-32) Anion Gap 7 (6-14) Blood Urea Nitrogen 22 mg/dL (7-20) Creatinine 1.3 mg/dL (0.6-1.0) Estimated GFR (Cockcroft-Gault) 41.1 Glucose Level 132 mg/dL (70-99) Calcium Level 7.9 mg/dL (8.5-10.1) Glucose (Fingerstick) 123 mg/dL (70-99) Comment Review of Relevant I have reviewed the following items sina (where applicable) has been applied. Medications: Current Medications Medications (Trade) Dose Ordered Sig/Madi Route PRN Reason Start Time Stop Time Status Last Admin Dose Admin Nitroglycerin (Nitroglycerin) 200 mcg 1X ONCE IART 05/09/20 12:00 05/09/20 12:01 DC 05/09/20 12:17 Lactobacillus Rhamnosus (Culturelle) 1 cap BID PO 05/09/20 21:00 05/10/20 08:23 Sodium Chloride 1,000 ml @ 100 mls/hr Q10H IV 05/09/20 13:00 05/10/20 10:15 DC 05/10/20 01:13 Meropenem 500 mg/ Sodium Chloride 50 ml @ 100 mls/hr Q6H IV 05/09/20 14:00 05/10/20 01:16 Heparin Sodium/ Dextrose 250 ml @ 10 mls/hr CONT PRN IV PER PROTOCOL 05/09/20 16:00 05/09/20 16:26 Rivaroxaban (Xarelto) 2.5 mg BID PO 05/09/20 21:00 05/10/20 08:22 Insulin Glargine (Lantus Syringe) 40 unit 1X ONCE SQ 05/10/20 10:45 05/10/20 10:46 DC 05/10/20 10:50 Justicifation of Admission Dx: Justifications for Admission: Justification of Admission Dx: Yes Acute Renal Failure: 75% Reduction in GFR KORIN HERMOSILLO MD May 10, 2020 11:09
--- NOTE | 2020-05-10 11:44 | PDOC ---
CARDIOLOGY PROGRESS NOTE SUBJECTIVE: No acute events overnight. No chest pain. Right foot doing ok. OBJECTIVE: Vital Signs/I&O: Vital Signs Date Time Temp Pulse Resp B/P (MAP) Pulse Ox O2 Delivery O2 Flow Rate FiO2 05/10/20 10:52 97.8 69 18 138/61 (86) 95 Room Air 97.8 05/10/20 08:00 2.0 I & O 05/09/20 05/09/20 05/10/20 15:00 23:00 07:00 Intake Total 0 ml 70 ml 50 ml Output Total 350 ml Balance 0 ml 70 ml -300 ml Objective: GEN.: No apparent distress. Alert and oriented. HEENT: Head is normocephalic, atraumatic NECK: Supple. LUNGS: Clear to auscultation. HEART: RRR, S1, S2 present. Peripheral pulses intact ABDOMEN: Soft, nontender. Positive bowel sounds. EXTREMITIES: Without any cyanosis. R heel wrapped. R foot warm. Doppler signals present Left groin C/D/I NEUROLOGIC: Normal speech, normal tone PSYCHIATRIC: Normal affect, normal mood. CURRENT MEDICATIONS: On asa, plavix and rivaroxaban. Hep gtt stopped this morning DIAGNOSTIC TESTING: Labs reviewed. Labs: Laboratory Tests 05/10/20 06:00 Laboratory Tests Test 05/09/20 13:00 05/09/20 16:28 05/09/20 20:43 05/09/20 22:00 Glucose (Fingerstick) 210 mg/dL (70-99) H 174 mg/dL (70-99) H 90 mg/dL (70-99) Heparin Anti-Xa Act, Unfractionated 0.43 IU/mL (0.30-0.70) Test 05/10/20 06:00 05/10/20 08:16 White Blood Count 10.1 x10^3/uL (4.0-11.0) Red Blood Count 3.41 x10^6/uL (3.50-5.40) L Hemoglobin 9.9 g/dL (12.0-15.5) L Hematocrit 30.1 % (36.0-47.0) L Mean Corpuscular Volume 88 fL (79-100) Mean Corpuscular Hemoglobin 29 pg (25-35) Mean Corpuscular Hemoglobin Concent 33 g/dL (31-37) Red Cell Distribution Width 16.4 % (11.5-14.5) H Platelet Count 286 x10^3/uL (140-400) Neutrophils (%) (Auto) 71 % (31-73) Lymphocytes (%) (Auto) 13 % (24-48) L Monocytes (%) (Auto) 12 % (0-9) H Eosinophils (%) (Auto) 3 % (0-3) Basophils (%) (Auto) 1 % (0-3) Neutrophils # (Auto) 7.2 x10^3/uL (1.8-7.7) Lymphocytes # (Auto) 1.3 x10^3/uL (1.0-4.8) Monocytes # (Auto) 1.2 x10^3/uL (0.0-1.1) H Eosinophils # (Auto) 0.3 x10^3/uL (0.0-0.7) Basophils # (Auto) 0.1 x10^3/uL (0.0-0.2) Prothrombin Time 14.0 SEC (11.7-14.0) Prothromb Time International Ratio 1.1 (0.8-1.1) Heparin Anti-Xa Act, Unfractionated 0.93 IU/mL (0.30-0.70) H Sodium Level 140 mmol/L (136-145) Potassium Level 3.7 mmol/L (3.5-5.1) Chloride Level 105 mmol/L (98-107) Carbon Dioxide Level 28 mmol/L (21-32) Anion Gap 7 (6-14) Blood Urea Nitrogen 22 mg/dL (7-20) H Creatinine 1.3 mg/dL (0.6-1.0) H Estimated GFR (Cockcroft-Gault) 41.1 Glucose Level 132 mg/dL (70-99) H Calcium Level 7.9 mg/dL (8.5-10.1) L Glucose (Fingerstick) 123 mg/dL (70-99) H ASSESSMENT: 1. Acute RSFA occlusion s/p complex angioplasty 2. HTN 3. CKD 4. CAD PLAN: 1. Will stop asa prior to DC tomorrow, continue plavix and xarelto. 2. Continue other meds. 3. Anticipate DC tomorrow. Overall, doing well. Justicifation of Admission Dx: Justifications for Admission: Justification of Admission Dx: Yes Acute Renal Failure: 75% Reduction in GFR SUNNY CHRISTIANSEN MD May 10, 2020 11:44
[2020-05-10 14:31] VITALS: BP 146/63
[2020-05-10 19:00] VITALS: BP 129/54
[2020-05-10] MEDS: INSULIN GLARGINE SYRINGE. SQ SCH (21:12)
[2020-05-10] MEDS: NORTRIPTYLINE 25 MG CAPSULE PO SCH (21:14)
[2020-05-10] MEDS: ATORVASTATIN CALCIUM 40 MG TABLET. PO SCH (21:15)
[2020-05-10 23:00] VITALS: BP 159/61
[2020-05-11] MEDS: MEROPENEM 500 MG in IV NORMAL SALINE 50ML 50 ML IV SCH ×4 (00:20→17:41)
[2020-05-11 03:00] VITALS: BP 143/50
[2020-05-11] MEDS: LEVOTHYROXINE 100 MCG TABLET PO SCH (05:49)
[2020-05-11 07:00] VITALS: BP 152/69
[2020-05-11] MEDS: CARVEDILOL 12.5 MG TABLET. PO SCH ×2 (08:07→17:18)
[2020-05-11] MEDS: CITALOPRAM 20 MG TABLET. PO SCH (08:07)
[2020-05-11] MEDS: LOSARTAN POTASSIUM 50 MG TABLET. PO SCH (08:07)
[2020-05-11] MEDS: hydrALAZINE 25 MG TABLET PO SCH ×2 (08:08→21:40)
[2020-05-11] MEDS: LACTOBACILLUS RHAMNOSUS GG 1 CAPSULE. PO SCH ×2 (08:08→21:41)
[2020-05-11] MEDS: FAMOTIDINE 20 MG TABLET. PO SCH (08:08)
[2020-05-11] MEDS: busPIRone 5 MG TABLET. PO SCH ×2 (08:08→21:51)
[2020-05-11] MEDS: CLOPIDOGREL BISULFATE 75 MG TABLET PO SCH (08:09)
[2020-05-11] MEDS: RIVAROXABAN 10 MG TABLET. PO SCH ×2 (08:09→21:40)
[2020-05-11] MEDS: amLODIPine BESYLATE 10 MG TABLET PO SCH (08:09)
[2020-05-11] MEDS: GABAPENTIN 300 MG CAPSULE. PO SCH ×3 (08:09→21:38)
[2020-05-11] MEDS: FERROUS SULFATE 325 MG TABLET. PO SCH (08:09)
[2020-05-11] MEDS: ASPIRIN CHEWABLE 81 MG TABLET. PO SCH (08:09)
[2020-05-11] MEDS: MORPHINE ER 15 MG TABLET.ER PO SCH ×2 (08:09→21:55)
[2020-05-11] MEDS: INSULIN LISPRO 300 UNITS/3 ML VIAL. SQ SCH ×6 (08:16→17:00)
[2020-05-11] MEDS: NYSTATIN TOPICAL POWDER 15GM BOTTLE. TP SCH ×2 (08:43→21:55)
[2020-05-11] MEDS: INSULIN GLARGINE SYRINGE. SQ SCH ×2 (08:45→21:59)
[2020-05-11 10:20] VITALS: BP 139/62
--- NOTE | 2020-05-11 11:25 | PDOC ---
[facility] PROGRESS NOTE Chief Complaint Chief Complaint Severe peripheral arterial disease with nonhealing [place] category 5 wound of the right lower extremity status post angiogram showing patent CHARISMA Acute on chronic renal failure due to likely vasomotor nephropathy with improved creatinine today of 1.3 Diabetes type 2insulin-dependent Hypertension Dyslipidemia Coronary artery disease status post PCI in 2017 Morbid obesity Appreciate vascular surgery recommendations Appreciate cardiology recommendations for anticoagulation Accu-Cheks and regular insulin sliding scale Restart home insulin regimen Stop heparin drip Xarelto for CAD/PVD and DVT prophylaxis Protonix GI prophylaxis ADA diet Full code Discussed with RN and SW Dispo pending bedside debridement by wound care Surrogate decision maker is self History of Present Illness History of Present Illness 64-year-old male with past medical history of CAD status post PCI in 2017, hypertension, diabetes type 2, history of tobacco abuse who presents to the hospital for planned aortic angiography and runoff. Patient also has a chronic nonhealing right lower extremity plantar foot wound. Patient had received a previous aortogram with total occlusion and recanalization of her superficial femoral artery approximately 8 weeks ago. Medicine service was consulted for inpatient hospital management for all her medications and chronic medical comorbidities. Patient will be evaluated by vascular surgery because there was no available interventions available via angiography, therefore surgical service was consulted for possible bypass. Patient states that she is unable to walk on her right leg at this time. Patient does have chronic pain and claudication symptoms of her bilateral lower extremities. She currently denies any shortness of breath, chest pain, abdominal pain, or diarrhea. 05/10/2020 No acute events overnight. Patient was seen status post angiogram. No interventions were done. Vascular surgery has signed off. Wound care to follow. Patient's chart, labs, images were reviewed and discussed with RN 05/09/2020 No acute events overnight. Patient was taken this a.m. for angiogram. Evaluated by vascular surgery and will determine strategy for possible bypass after angiogram completed. Patient's chart, labs, images were reviewed and discussed with RN Vitals/I&O Vitals/I&O: Vital Signs Date Time Temp Pulse Resp B/P (MAP) Pulse Ox O2 Delivery O2 Flow Rate FiO2 05/11/20 10:20 97.7 71 22 139/62 (87) 93 Room Air 97.7 05/10/20 21:14 2.0 I & O 05/10/20 05/10/20 05/11/20 15:00 23:00 07:00 Intake Total 650 ml 490 ml 100 ml Output Total 600 ml 300 ml Balance 50 ml 490 ml -200 ml Physical Exam Physical Exam: CONSTITUTIONAL: She is lying in bed. She is morbidly obese. She is in no acute distress. She is eating lunch. HEENT: She has normal conjunctivae. NECK: Supple, without JVD. LUNGS: Clear to auscultation. HEART: S1, S2. ABDOMEN: Morbidly obese, soft, nontender, no guarding. EXTREMITIES: Left femoral site is clean without signs of complications. Her right foot wound - superficial. some granulation and min necrotic slough. Dressing is clean dry intact SKIN: Warm without signs of rash. NEUROLOGIC: She is appropriate. PSYCHIATRIC: Affect is pleasant. General: Alert, Oriented X3, Cooperative, No acute distress Heart: Regular rate, No murmurs Lungs: Clear Abdomen: Normal bowel sounds, Soft, Other (She has a protruding abdomen with significant pannus. She has signs of yeast infection, particularly in her left groin. She has been using powder to this area. She has gauze in place over her left femoral access point. There is a small amount of old bloody drainage. There is no significant hematoma or ecchymosis.) Extremities: No cyanosis, No edema, Other (She has 2+ femoral pulses and dorsalis pedis and posterior tibial Doppler pulses bilaterally.) Skin: Other (She does have a rash consistent with a yeast infection in her left groin. Her right medial and posterior heel wound is shallow but with some necrotic subcutaneous tissue present.) Labs Labs: Laboratory Tests Test 05/10/20 11:39 05/10/20 16:08 05/10/20 19:36 05/11/20 07:22 Glucose (Fingerstick) 207 mg/dL (70-99) 93 mg/dL (70-99) 192 mg/dL (70-99) 117 mg/dL (70-99) Comment Review of Relevant I have reviewed the following items sina (where applicable) has been applied. Medications: Current Medications Medications (Trade) Dose Ordered Sig/Madi Route PRN Reason Start Time Stop Time Status Last Admin Dose Admin Insulin Glargine (Lantus Syringe) 40 unit BID SQ 05/10/20 21:00 05/11/20 08:45 Justicifation of Admission Dx: Justifications for Admission: Justification of Admission Dx: Yes Acute Renal Failure: 75% Reduction in GFR KORIN HERMOSILLO MD May 11, 2020 11:25
--- NOTE | 2020-05-11 14:52 | PDOC ---
CARDIOLOGY PROGRESS NOTE SUBJECTIVE: No new events overnight. Feels ok. No chest pain or dyspnea. Foot feels good. No pain. OBJECTIVE: Vital Signs/I&O: Vital Signs Date Time Temp Pulse Resp B/P (MAP) Pulse Ox O2 Delivery O2 Flow Rate FiO2 05/11/20 10:20 97.7 71 22 139/62 (87) 93 Room Air 97.7 05/10/20 21:14 2.0 I & O 05/10/20 05/10/20 05/11/20 15:00 23:00 07:00 Intake Total 650 ml 490 ml 100 ml Output Total 600 ml 300 ml Balance 50 ml 490 ml -200 ml Objective: GEN.: No apparent distress. Alert and oriented. HEENT: Head is normocephalic, atraumatic NECK: Supple. LUNGS: Clear to auscultation. HEART: RRR, S1, S2 present. Peripheral pulses intact ABDOMEN: Soft, nontender. Positive bowel sounds. EXTREMITIES: RLE heel wound is wrapped. Warm to touch. Dopplerable pulses. NEUROLOGIC: Normal speech, normal tone PSYCHIATRIC: Normal affect, normal mood. SKIN: No ulcerations CURRENT MEDICATIONS: asa, plavix, statin, coreg, losartan, xarelto DIAGNOSTIC TESTING: no new labs Labs: Laboratory Tests Test 05/10/20 16:08 05/10/20 19:36 05/11/20 07:22 05/11/20 11:23 Glucose (Fingerstick) 93 mg/dL (70-99) 192 mg/dL (70-99) H 117 mg/dL (70-99) H 105 mg/dL (70-99) H ASSESSMENT: 1. PAD s/p RLE angiography and PVI 2. HTN 3. CAD 4. R heel non-healing wound PLAN: 1. Continue present meds. Stop ASA upon discharge, continue plavix and xarelto 2. Supportive care. Will follow along. Justicifation of Admission Dx: Justifications for Admission: Justification of Admission Dx: Yes Acute Renal Failure: 75% Reduction in GFR SUNNY CHRISTIANSEN MD May 11, 2020 14:52
[2020-05-11 15:05] VITALS: BP 147/63
[2020-05-11 19:00] VITALS: BP 140/59
[2020-05-11] MEDS: NORTRIPTYLINE 25 MG CAPSULE PO SCH (21:38)
[2020-05-11] MEDS: ATORVASTATIN CALCIUM 40 MG TABLET. PO SCH (21:38)
[2020-05-11 23:00] VITALS: BP 158/67
[2020-05-12] MEDS: MEROPENEM 500 MG in IV NORMAL SALINE 50ML 50 ML IV SCH ×3 (01:31→12:06)
[2020-05-12 03:06] VITALS: BP 159/70
[2020-05-12] MEDS: LEVOTHYROXINE 100 MCG TABLET PO SCH (04:00)
[2020-05-12 07:00] VITALS: BP 150/63
[2020-05-12] MEDS: INSULIN LISPRO 300 UNITS/3 ML VIAL. SQ SCH ×4 (08:00→12:12)
--- NOTE | 2020-05-12 08:11 | PDOC ---
Infectious Disease Note Subjective Subjective pt is feeling good, wants to go home ROS ROS no n/v/d/sob Vital Sign Vital Signs Vital Signs Date Time Temp Pulse Resp B/P (MAP) Pulse Ox O2 Delivery O2 Flow Rate FiO2 05/12/20 07:00 98.0 73 20 150/63 (92) 93 Room Air 98.0 Physical Exam PHYSICAL EXAM CONSTITUTIONAL: She is lying in bed. She is morbidly obese. She is in no acute distress. She is eating lunch. HEENT: She has normal conjunctivae. NECK: Supple, without JVD. LUNGS: Clear to auscultation. HEART: S1, S2. ABDOMEN: Morbidly obese, soft, nontender, no guarding. EXTREMITIES: Left femoral site is clean without signs of complications. Her right foot wound - superficial. some granulation and min necrotic slough. Dressing is clean dry intact SKIN: Warm without signs of rash. NEUROLOGIC: She is appropriate. PSYCHIATRIC: Affect is pleasant. Labs Lab Laboratory Tests Test 05/11/20 11:23 05/11/20 16:12 05/11/20 20:09 05/12/20 07:35 Glucose (Fingerstick) 105 mg/dL (70-99) 86 mg/dL (70-99) 176 mg/dL (70-99) 118 mg/dL (70-99) Objective Assessment Heel ulcer Leukocytosis PAD - s/p . Successful balloon CUSTODIAN MANAGER to chronic total occlusion involving the right anterior tibial artery Successful complex thrombectomy, balloon CUSTODIAN MANAGER/stent placement to the right popliteal artery and the tibioperoneal trunk. Morbid Obesity RIZWAN Plan Plan of Care po antibiotics off load ok to d/c home D/w nursing JUNO KWONG MD May 12, 2020 08:11
--- NOTE | 2020-05-12 08:43 | PDOC ---
[facility] PROGRESS NOTE Chief Complaint Chief Complaint Severe peripheral arterial disease with nonhealing [place] category 5 wound of the right lower extremity status post angiogram showing patent CHARISMA Acute on chronic renal failure due to likely vasomotor nephropathy Diabetes type 2insulin-dependent Hypertension Dyslipidemia Coronary artery disease status post PCI in 2017 Morbid obesity Heel ulcer Leukocytosis PAD - s/p . Successful balloon QUALITATIVE RESEARCHER to chronic total occlusion involving the right anterior tibial artery Successful complex thrombectomy, balloon QUALITATIVE RESEARCHER/stent placement to the right popliteal artery and the tibioperoneal trunk. Appreciate vascular surgery recommendations Appreciate cardiology recommendations for anticoagulation Accu-Cheks and regular insulin sliding scale Restart home insulin regimen Stop heparin drip Xarelto for CAD/PVD and DVT prophylaxis Protonix GI prophylaxis ADA diet Full code Discussed with RN and SW Dispo pending bedside debridement by wound care Surrogate decision maker is self History of Present Illness History of Present Illness Ms Rodriguez is a 64 yo F w/ PMHx CAD status post PCI in 2017, hypertension, diabetes type 2, history of tobacco abuse who presents to the hospital for planned aortic angiography and runoff. Patient also has a chronic nonhealing right lower extremity plantar foot wound. Patient had received a previous aortogram with total occlusion and recanalization of her superficial femoral artery approximately 8 weeks ago. Medicine service was consulted for inpatient hospital management for all her medications and chronic medical comorbidities. Patient will be evaluated by vascular surgery because there was no available interventions available via angiography, therefore surgical service was consulted for possible bypass. Patient states that she is unable to walk on her right leg at this time. Patient does have chronic pain and claudication symptoms of her bilateral lower extremities. She currently denies any shortness of breath, chest pain, abdominal pain, or diarrhea. 05/09: No acute events overnight. Successful balloon QUALITATIVE RESEARCHER to chronic total occlusion involving the right anterior tibial artery Successful complex thrombectomy, balloon QUALITATIVE RESEARCHER/stent placement to the right popliteal artery and the tibioperoneal trunk. 05/10: No acute events overnight. Patient was seen status post angiogram. Wound care. Vascular surgery has signed off. Wound care to follow. Patient's chart, labs, images were reviewed and discussed with RN No overnight events, afebrile. Patient chart labs images reviewed and discussed with RN. Local wound care today for debridement, changed to cefdinir for 7 days and home health for wound care and weekly wound care office visits. Vitals/I&O Vitals/I&O: Vital Signs Date Time Temp Pulse Resp B/P (MAP) Pulse Ox O2 Delivery O2 Flow Rate FiO2 05/12/20 07:00 98.0 73 20 150/63 (92) 93 Room Air 98.0 I & O 05/11/20 05/11/20 05/12/20 15:00 23:00 07:00 Intake Total 600 ml 1100 ml 600 ml Output Total 600 ml Balance 0 ml 1100 ml 600 ml Physical Exam Physical Exam: CONSTITUTIONAL: She is lying in bed. She is morbidly obese. She is in no acute distress. She is eating lunch. HEENT: She has normal conjunctivae. NECK: Supple, without JVD. LUNGS: Clear to auscultation. HEART: S1, S2. ABDOMEN: Morbidly obese, soft, nontender, no guarding. EXTREMITIES: Left femoral site is clean without signs of complications. Her right foot wound - superficial. some granulation and min necrotic slough. Dressing is clean dry intact SKIN: Warm without signs of rash. NEUROLOGIC: She is appropriate. PSYCHIATRIC: Affect is pleasant. General: Alert, Oriented X3, Cooperative, No acute distress Heart: Regular rate, No murmurs Lungs: Clear Abdomen: Normal bowel sounds, Soft, Other (She has a protruding abdomen with significant pannus. She has signs of yeast infection, particularly in her left groin. She has been using powder to this area. She has gauze in place over her left femoral access point. There is a small amount of old bloody drainage. There is no significant hematoma or ecchymosis.) Extremities: No cyanosis, No edema, Other (She has 2+ femoral pulses and dorsalis pedis and posterior tibial Doppler pulses bilaterally.) Skin: Other (She does have a rash consistent with a yeast infection in her left groin. Her right medial and posterior heel wound is shallow but with some necrotic subcutaneous tissue present.) Labs Labs: Laboratory Tests Test 05/11/20 11:23 05/11/20 16:12 05/11/20 20:09 05/12/20 07:35 Glucose (Fingerstick) 105 mg/dL (70-99) 86 mg/dL (70-99) 176 mg/dL (70-99) 118 mg/dL (70-99) Comment Review of Relevant I have reviewed the following items sina (where applicable) has been applied. Medications: Current Medications Medications (Trade) Dose Ordered Sig/Madi Route PRN Reason Start Time Stop Time Status Last Admin Dose Admin Buspirone HCl (Buspar) 15 mg BID PO 05/11/20 22:00 05/11/20 21:51 Justicifation of Admission Dx: Justifications for Admission: Justification of Admission Dx: Yes Acute Renal Failure: 75% Reduction in GFR EVANGELINA VALENCIA MD May 12, 2020 08:43
[2020-05-12] MEDS: hydrALAZINE 25 MG TABLET PO SCH (08:50)
[2020-05-12] MEDS: busPIRone 5 MG TABLET. PO SCH (08:50)
[2020-05-12] MEDS: FERROUS SULFATE 325 MG TABLET. PO SCH (08:51)
[2020-05-12] MEDS: GABAPENTIN 300 MG CAPSULE. PO SCH ×2 (08:51→13:27)
[2020-05-12] MEDS: amLODIPine BESYLATE 10 MG TABLET PO SCH (08:51)
[2020-05-12] MEDS: FAMOTIDINE 20 MG TABLET. PO SCH (08:51)
[2020-05-12] MEDS: LACTOBACILLUS RHAMNOSUS GG 1 CAPSULE. PO SCH (08:52)
[2020-05-12] MEDS: ASPIRIN CHEWABLE 81 MG TABLET. PO SCH (08:53)
[2020-05-12] MEDS: CARVEDILOL 12.5 MG TABLET. PO SCH (08:53)
[2020-05-12] MEDS: MORPHINE ER 15 MG TABLET.ER PO SCH (08:53)
[2020-05-12] MEDS: CLOPIDOGREL BISULFATE 75 MG TABLET PO SCH (08:53)
[2020-05-12] MEDS: INSULIN GLARGINE SYRINGE. SQ SCH (08:54)
[2020-05-12] MEDS: RIVAROXABAN 10 MG TABLET. PO SCH (08:54)
[2020-05-12] MEDS ORDERED: LOSARTAN POTASSIUM 50 MG TABLET. PO SCH (09:00)
[2020-05-12] MEDS ORDERED: CITALOPRAM 20 MG TABLET. PO SCH (09:00)
[2020-05-12] MEDS: NYSTATIN TOPICAL POWDER 15GM BOTTLE. TP SCH (09:00)
[2020-05-12] MEDS: ANTI-COAG MONITOR BY PHARMACY. MC PRN ×2 (10:13→10:15)
--- NOTE | 2020-05-12 10:39 | NUR ---
SS following up with discharge planning. SS reviewed pt chart and discussed with pt RN. Pt is currently on room air. PT/OT recommending home with home healthcare. Pt to transition to PO Cefedinir at discharge. SS met with pt and discussed home healthcare. Pt reported that she had [facility], ; fax [phone], at home. SS phoned and faxed referral to [facility]. SS will continue to follow for discharge planning.
[2020-05-12 11:00] VITALS: BP 125/58
--- NOTE | 2020-05-12 12:11 | PDOC ---
RONNI CALI APRN 05/12/20 1211: CARDIO Progress Notes Date and Time Date of Service 05/12/20 Time of Evaluation 1110 Subjective Subjective: No Chest Pain, No shortness of breath, No Palpitations, Other (has been up ambulating ) Vitals Vitals Vital Signs Date Time Temp Pulse Resp B/P (MAP) Pulse Ox O2 Delivery O2 Flow Rate FiO2 05/12/20 11:00 97.7 69 20 125/58 (80) 95 Room Air 97.7 Weight Weight [ ] Input and Output Intake and Output Intake and Output 05/12/20 07:00 Intake Total 2300 ml Output Total 600 ml Balance 1700 ml Intake Oral 2300 ml Output Urine Total 600 ml # Voids 3 Laboratory Labs Laboratory Tests Test 05/11/20 16:12 05/11/20 20:09 05/12/20 07:35 05/12/20 12:00 Glucose (Fingerstick) 86 mg/dL (70-99) 176 mg/dL (70-99) 118 mg/dL (70-99) 122 mg/dL (70-99) Physical Exam HEENT: Neck Supple W Full Motion Chest: Symmetric LUNGS: Clear to Auscultation Heart: S1S2, RRR Abdomen: Soft N/T Extremities: Other (trace bilateral LE edema. DRSG intact to right heel) Assessment Assessment 1. PAD with acute RSFA occlusion s/p complex angioplasty 2. Right heel wound; bedside debridement planned today by wound care 2. CAD s/p previous PCI/stents. Clinically stable 3. Hypertension; mildly elevated 4. Hyperlipidemia; statin therapy 5. Chronic systolic/diastolic CHF: compensated 6. CKD; Cr stable 7. Diabetes, II 8. Hypothyroidism Recommendations Continue Plavix, Xarelto. No ASA Local wound care Follow up in our office with Dr. Kimble as scheduled. Justicifation of Admission Dx: Justifications for Admission: Justification of Admission Dx: Yes Acute Renal Failure: 75% Reduction in GFR SUNNY KIMBLE MD 05/12/20 7445: CARDIO Progress Notes Plan Plan Pt. seen and examined. Agree with above ENT CONSULTANT note F/u in office in 6-8 weeks. Thanks RONNI CALI APRN May 12, 2020 12:11 SUNNY KIMBLE MD May 12, 2020 23:15
[2020-05-12] MEDS ORDERED: CEFD300C PO (12:59)
[2020-05-12] MEDS ORDERED: RIVA10TA PO (12:59)
--- NOTE | 2020-05-12 13:05 | SNU/HH DC ---
DISCHARGE WITH HOME HEALTH DISCHARGE INFORMATION: Discharge Date: May 12, 2020 Final Diagnosis: Non-healing wound Condition on Discharge: Stable CODE STATUS: Code Status: Full HOME HEALTH: Face to Face: I certify this patient is under my care and that I, or a nurse practitioner or physician's microbiology lab assistant working with me, had a face to face encounter that meets the physician face to face encounter requirements with this patient on 05/12/2020. Medical Complications: DM, HTN Prison For: Assess & Educate Safety, Assess/Skilled Observatio, Diabetic Care, Medication Management, Pain Management, manager club For Eval/Treatment: Yes Physical Therapy For: Evalulation/Treatment Occupational Therapy For: Evaluation/Treatment Home Health Aide For: Self-care Pt Meets Homebound Status: Unsteady balance w/ amb,, Extreme weakness w/ amb. POST DISCHARGE ORDERS: Activity Instructions for Disc: Activity as tolerated Weight Bearing Status after Di: As tolerated Bathing Instructions: No Tub Bath until see DIET AFTER DISCHARGE: ADA Wound/Incision Care: Keep wound/cast CDI, Other, see below CHECKS AFTER DISCHARGE: Checks after discharge: Check blood press - daily, Check blood sugar, ac/hs, Ch debbie your Temp as needed, Weigh Yourself Daily TREATMENT/EQUIPMENT ORDERS: Adaptive Equipment Issued: None, Front wheeled walker CERTIFICATION STATEMENT: Certification Statement: Certification Statement: Based on the above finding, I certify that this patient is confined to the home and needs intermittent mcc care, physical therapy and/or speech therapy, or continues to need occupational therapy.~ This patient is under my care, and I have initiated the establishment of the plan of care.~ This patient will be followed by myself or a community physician who will periodically review the plan of care. Home Meds Active Scripts Cefdinir (CEFDINIR) 300 Mg Capsule, 1 CAP PO BID for Cellulitis for 7 Days, #14 CAP Prov:EVANGELINA VALENCIA MD 05/12/20 Rivaroxaban (XARELTO) 10 Mg Tablet, 2.5 MG PO BID for Peripheral arterial disease for 90 Days, #45 TAB Prov:EVANGELINA VALENCIA MD 05/12/20 Nystatin (NYSTOP) 60 Gm Powder, 1 BUNNY TP BID for groin moist, #1 MISC Prov:ALKA TURNER MD 04/27/19 Clopidogrel Bisulfate (CLOPIDOGREL) 75 Mg Tablet, 75 MG PO DAILYWBKFT for 30 Days, #30 TAB Prov:GRACE GENTILE MD 04/11/18 Carvedilol (CARVEDILOL ) 12.5 Mg Tablet, 25 MG PO BIDWMEALS for 30 Days, #120 TAB Prov:GRACE GENTILE MD 02/15/18 Hydralazine Hcl (HYDRALAZINE HCL) 25 Mg Tablet, 25 MG PO BID for 30 Days, #60 TA B Prov:GRACE GENTILE MD 02/15/18 Reported Medications Atorvastatin Calcium (ATORVASTATIN CALCIUM) 40 Mg Tablet, 2 TAB PO DAILY for PRESCRIBED, #30 TAB 5 Refills 05/08/20 Escitalopram Oxalate (ESCITALOPRAM OXALATE) 10 Mg Tablet, 1 TAB PO DAILY for PRESCRIBED, #30 TAB 3 Refills 05/08/20 Famotidine (FAMOTIDINE) 20 Mg Tablet, 20 MG PO DAILY for gerd 02/18/20 Morphine Sulfate (MORPHINE SULFATE ER) 15 Mg Tablet.er, 15 MG PO PRN Q6HRS PRN for PAIN 02/18/20 Losartan Potassium (LOSARTAN POTASSIUM) 100 Mg Tablet, 100 MG PO DAILY for HTN 02/18/20 Insulin Aspart (NOVOLOG FLEXPEN) 100 Unit/1 Ml Insuln.pen, 1 UNIT SQ TIDWMEALS for sliding scale, SYR 02/18/20 Liraglutide (VICTOZA 3-ANTONIO) 0.6 Mg/0.1 Ml Pen.injctr, 1.8 MG SQ DAILY for diabetes, #9 ML 3 Refills 02/18/20 Levothyroxine Sodium (LEVOTHYROXINE SODIUM) 100 Mcg Tablet, 1 TAB PO DAILY for thyroid, #30 TAB 5 Refills 02/18/20 Gabapentin (GABAPENTIN ) 300 Mg Capsule, 300 MG PO TID for NEUROGENIC PAIN, CAP 02/18/20 Amlodipine Besylate (AMLODIPINE BESYLATE) 10 Mg Tablet, 10 MG PO DAILY for rx, TAB 05/31/19 Furosemide (FUROSEMIDE) 20 Mg Tablet, 20 MG PO DAILY for CHF, TAB 04/25/19 Buspirone Hcl (BUSPIRONE HCL) 15 Mg Tablet, 1 TAB PO BID, #60 TAB 1 Refill 02/12/18 Nortriptyline Hcl (NORTRIPTYLINE HCL) 25 Mg Capsule, 2 CAP PO QHS for sleep, #30 CAP 2 Refills 02/12/18 Aspirin (ASPIRIN) 81 Mg Tab.chew, 1 TAB PO DAILY, #30 TAB 3 Refills 02/12/18 Insulin Aspart (NOVOLOG FLEXPEN) 100 Unit/1 Ml Insuln.pen, 25 UNIT SQ TIDWMEALS, SYR 02/06/18 Insulin Detemir (LEVEMIR) 100 Unit/1 Ml Vial, 50 UNIT SQ HS, VIAL 12/21/16 Discontinued Reported Medications Labetalol HCl (Labetalol HCl) 10 Mg/2 Ml Syringe, 10 MG IV PRN Q2HRS PRN for HYPERTENSION, SYR 05/08/20 Enoxaparin Sodium (LOVENOX) 30 Mg/0.3 Ml Disp.syrin, 30 MG SQ DAILY for ANTI- COAGULANT, DIS.SYR 05/08/20 Atorvastatin Calcium (ATORVASTATIN CALCIUM) 80 Mg Tablet, 1 TAB PO DAILY, #30 TAB 5 Refills 02/12/18 EVANGELINA VALENCIA MD May 12, 2020 13:05
[2020-05-12] MEDS: HYDROcodone/APAP 5/325MG 1 TAB TABLET PO PRN (13:30)
--- NOTE | 2020-05-12 13:57 | NUR ---
SS following up with discharge planning. Discharge orders received for [facility], ; fax [phone]. SS phoned and faxed discharge orders to [facility]. Pt's RN notified.
--- NOTE | 2020-05-12 14:55 | PDOC3 ---
Discharge Summary Visit Information Date of Admission: May 08, 2020 Date of Discharge: May 12, 2020 Admitting Diagnosis: Right heel wound Final Diagnosis PVD, right heel wound Brief Hospital Course Allergies Allergies Coded Allergies Type Severity Reaction Last Updated Verified No Known Drug Allergies 10/15/13 No Vital Signs Vital Signs Date Time Temp Pulse Resp B/P (MAP) Pulse Ox O2 Delivery O2 Flow Rate FiO2 05/12/20 11:00 97.7 69 20 125/58 (80) 95 Room Air 97.7 Lab Results Laboratory Tests Test 05/10/20 16:08 05/10/20 19:36 05/11/20 07:22 05/11/20 11:23 Glucose (Fingerstick) 93 mg/dL (70-99) 192 mg/dL (70-99) 117 mg/dL (70-99) 105 mg/dL (70-99) Test 05/11/20 16:12 05/11/20 20:09 05/12/20 07:35 05/12/20 12:00 Glucose (Fingerstick) 86 mg/dL (70-99) 176 mg/dL (70-99) 118 mg/dL (70-99) 122 mg/dL (70-99) Laboratory Tests Test 05/11/20 16:12 05/11/20 20:09 05/12/20 07:35 05/12/20 12:00 Glucose (Fingerstick) 86 mg/dL (70-99) 176 mg/dL (70-99) 118 mg/dL (70-99) 122 mg/dL (70-99) Brief Hospital Course Ms Rodriguez is a 64 yo F w/ PMHx CAD status post PCI in 2017, hypertension, diabetes type 2, history of tobacco abuse who presents to the hospital for planned aortic angiography and runoff. Patient also has a chronic nonhealing right lower extremity plantar foot wound. Patient had received a previous aortogram with total occlusion and recanalization of her superficial femoral artery approximately 8 weeks ago. Medicine service was consulted for inpatient hospital management for all her medications and chronic medical comorbidities. Patient will be evaluated by vascular surgery because there was no available interventions available via angiography, therefore surgical service was consulted for possible bypass. Patient states that she is unable to walk on her right leg at this time. Patient does have chronic pain and claudication symptoms of her bilateral lower extremities. She currently denies any shortness of breath, chest pain, abdominal pain, or diarrhea. 05/09: No acute events overnight. Successful balloon [employer] to chronic total occlusion involving the right anterior tibial artery Successful complex thrombectomy, balloon [employer]/stent placement to the right popliteal artery and the tibioperoneal trunk. 05/10: No acute events overnight. Patient was seen status post angiogram. Wound care. Vascular surgery has signed off. Wound care to follow. Patient's chart, labs, images were reviewed and discussed with RN No overnight events, afebrile. Patient chart labs images reviewed and discussed with RN. Local wound care today for debridement, changed to cefdinir for 7 days and home health for wound care and weekly wound care office visits. Problem list: Severe peripheral arterial disease with nonhealing [place] category 5 wound of the right lower extremity status post angiogram showing patent CHARISMA Acute on chronic renal failure due to likely vasomotor nephropathy Diabetes type 2insulin-dependent Hypertension Dyslipidemia Coronary artery disease status post PCI in 2017 Morbid obesity Heel ulcer Leukocytosis PAD - s/p . Successful balloon [employer] to chronic total occlusion involving the right anterior tibial artery Successful complex thrombectomy, balloon [employer]/stent placement to the right popliteal artery and the tibioperoneal trunk. Appreciate vascular surgery recommendations Appreciate cardiology recommendations for anticoagulation Accu-Cheks and regular insulin sliding scale Restart home insulin regimen Xarelto for CAD/PVD and DVT prophylaxis Greater than 30 minutes spent on d/c home with home health Discharge Information Condition at Discharge: Stable Follow Up: Weeks (1) Disposition/Orders: D/C to Home w/ HH Scheduled Amlodipine Besylate (Amlodipine Besylate) 10 Mg Tablet, 10 MG PO DAILY for rx, (Reported) Entered as Reported by: AZAEL LORENZO on 05/31/19 0844 Last Taken: Unknown Dose on 05/08/20 Last Action: Continued on 05/08/20 1040 by CORI QUEZADA Atorvastatin Calcium (Atorvastatin Calcium) 40 Mg Tablet, 2 TAB PO DAILY for PRESCRIBED, #30 Ref 5 (Reported) Entered as Reported by: Adriana Melchor on 05/08/20 0823 Last Taken: Unknown Dose on 05/07/20 Last Action: Continued on 05/08/20 1040 by CORI QUEZADA Buspirone Hcl (Buspirone Hcl) 15 Mg Tablet, 1 TAB PO BID, #60 Ref 1 (Reported) Entered as Reported by: Rafael Ferraro on 02/12/18 0512 Last Taken: Unknown Dose on 05/08/20 Last Action: Converted on 05/08/20 1040 by CORI QUEZADA Carvedilol (Carvedilol ) 12.5 Mg Tablet, 25 MG PO BIDWMEALS for 30 Days, #120 Prescribed by: GRACE GENTILE MD on 02/15/18 1225 Last Taken: Unknown Dose on 05/08/20 Last Action: Continued on 05/08/20 1040 by CORI QUEZADA Cefdinir (Cefdinir) 300 Mg Capsule, 1 CAP PO BID for Cellulitis for 7 Days, #14 Prescribed by: EVANGELINA VALENCIA MD on 05/12/20 1259 Clopidogrel Bisulfate (Clopidogrel) 75 Mg Tablet, 75 MG PO DAILYWBKFT for 30 Days, #30 Prescribed by: GRACE GENTILE MD on 04/11/18 1132 Last Taken: Unknown Dose on 05/08/20 Last Action: Continued on 05/08/20 1040 by CORI QUEZADA Escitalopram Oxalate (Escitalopram Oxalate) 10 Mg Tablet, 1 TAB PO DAILY for PRESCRIBED, #30 Ref 3 (Reported) Entered as Reported by: Adriana Melchor on 05/08/20 0813 Last Taken: Unknown Dose on 05/08/20 Last Action: Converted on 05/08/20 1040 by CORI QUEZADA Famotidine (Famotidine) 20 Mg Tablet, 20 MG PO DAILY for gerd, (Reported) Entered as Reported by: YAMILETH DOE on 02/18/20 1850 Last Taken: Unknown Dose on 05/08/20 Last Action: Continued on 05/08/20 1040 by CORI QUEZADA Furosemide (Furosemide) 20 Mg Tablet, 20 MG PO DAILY for CHF, (Reported) Entered as Reported by: SERJIO BRISCOE on 04/25/19 0101 Last Taken: Unknown Dose on 05/07/20 Last Action: Last Taken Edited on 05/08/20 0823 by Adriana Melchor Gabapentin (Gabapentin ) 300 Mg Capsule, 300 MG PO TID for NEUROGENIC PAIN, (Reported) Entered as Reported by: MITCHEL PERERA on 02/18/20 1041 Last Taken: Unknown Dose on 05/08/20 Last Action: Continued on 05/08/20 1040 by CORI QUEZADA Hydralazine Hcl (Hydralazine Hcl) 25 Mg Tablet, 25 MG PO BID for 30 Days, #60 Prescribed by: GRACE GENTILE MD on 02/15/18 1225 Last Taken: Unknown Dose on 05/08/20 Last Action: Continued on 05/08/20 1040 by CORI QUEZADA Insulin Aspart (Novolog Flexpen) 100 Unit/1 Ml Insuln.pen, 25 UNIT SQ TIDWMEALS, (Reported) Entered as Reported by: MITCHEL PERERA on 02/06/18 1446 Last Taken: Unknown Dose on 05/07/20 Last Action: Reviewed on 05/08/20 08 by Adriana Melchor Insulin Aspart (Novolog Flexpen) 100 Unit/1 Ml Insuln.pen, 1 UNIT SQ TIDWMEALS for sliding scale, (Reported) Entered as Reported by: YAMILETH DOE on 02/18/20 1850 Last Taken: Unknown Dose on 05/07/20 Last Action: Reviewed on 05/08/20822 by Adriana Melchor Insulin Detemir (Levemir) 100 Unit/1 Ml Vial, 50 UNIT SQ HS, (Reported) Entered as Reported by: EMELINA CHRISTIANSON on 12/21/16 1120 Last Taken: Unknown Dose on 05/07/20 Last Action: Reviewed on 05/08/20822 by Adriana Melchor Levothyroxine Sodium (Levothyroxine Sodium) 100 Mcg Tablet, 1 TAB PO DAILY for thyroid, #30 Ref 5 (Reported) Entered as Reported by: MITCHEL PERERA on 02/18/20 1041 Last Taken: Unknown Dose on 05/08/20 Last Action: Continued on 05/08/20 1040 by CORI QUEZADA Liraglutide (Victoza 3-Arden) 0.6 Mg/0.1 Ml Pen.injctr, 1.8 MG SQ DAILY for diabetes, #9 Ref 3 (Reported) Entered as Reported by: MITCHEL PERERA on 02/18/20 1041 Last Taken: Unknown Dose on 05/08/20 Last Action: Reviewed on 05/08/20822 by Adriana Melchor Losartan Potassium (Losartan Potassium) 100 Mg Tablet, 100 MG PO DAILY for HTN, (Reported) Entered as Reported by: YAMILETH DOE on 02/18/201849 Last Taken: Unknown Dose on 05/08/20 Last Action: Converted on 05/08/20 104 by CORI QUEZADA Nortriptyline Hcl (Nortriptyline Hcl) 25 Mg Capsule, 2 CAP PO QHS for sleep, #30 Ref 2 (Reported) Entered as Reported by: Rafael Ferraro on 02/12/18511 Last Taken: Unknown Dose on 05/08/20 Last Action: Continued on 05/08/201039 by CORI QUEZADA Nystatin (Nystop) 60 Gm Powder, 1 BUNNY TP BID for groin moist, #1 Prescribed by: ALKA TURNER on 04/27/19 0845 Last Taken: Unknown Dose on 05/08/20 Last Action: Continued on 05/08/20 104 by CORI QUEZADA Rivaroxaban (Xarelto) 10 Mg Tablet, 2.5 MG PO BID for Peripheral arterial disease for 90 Days, #45 Prescribed by: EVANGELINA VALENCIA MD on 05/12/20 1259 Scheduled PRN Morphine Sulfate (Morphine Sulfate Er) 15 Mg Tablet.er, 15 MG PO PRN Q6HRS PRN for PAIN, (Reported) Entered as Reported by: YAMILETH DOE on 02/18/201849 Last Action: Edited on 05/08/20 164 by STACIE BARAKAT Discontinued Medications Aspirin (Aspirin) 81 Mg Tab.chew, 1 TAB PO DAILY, #30 Ref 3 (Reported) Entered as Reported by: Rafael Ferraro on 02/12/18511 Last Taken: Unknown Dose on 05/07/20 Last Action: Continued on 05/08/201039 by CORI QUEZADA Atorvastatin Calcium (Atorvastatin Calcium) 80 Mg Tablet, 1 TAB PO DAILY, #30 Ref 5 (Reported) Entered as Reported by: Rafael Ferraro on 02/12/18511 Last Action: Discontinued on 05/08/20811 by Adriana Melchor Enoxaparin Sodium (Lovenox) 30 Mg/0.3 Ml Disp.syrin, 30 MG SQ DAILY for ANTI- COAGULANT, (Reported) Entered as Reported by: CORI QUEZADA on 05/08/201039 Last Action: Discontinued on 05/09/20 1011 by SURESH ATKINS RN Labetalol HCl (Labetalol HCl) 10 Mg/2 Ml Syringe, 10 MG IV PRN Q2HRS PRN for HYPERTENSION, (Reported) Entered as Reported by: CORI QUEZADA on 05/08/201039 Last Action: New Order on 05/08/201039 by CORI QUEZADA Justicifation of Admission Dx: Justifications for Admission: Justification of Admission Dx: Yes Acute Renal Failure: 75% Reduction in GFR EVANGELINA VALENCIA MD May 12, 2020 14:54
--- NOTE | 2020-05-12 15:02 | NUR ---
Discharge Note: STEVEN BANDA Discharge instructions and discharge home medications reviewed with Patient and a copy given. All questions have been answered and understanding verbalized. Prescriptions sent to pharmacy. Home health set up for patient by social work.
--- NOTE | 2020-05-12 15:36 | NUR ---
Wound care follow up for debridement with Petra Madison APRN. Consent obtained, wound debrided, and pictured and measured. Wound redressed with hydrofera blue and foam. Recommend to change every 3 days. No other wounds noted. Pt discharging today. Will follow up in [facility].
--- NOTE | 2020-05-12 16:07 | PDOC2 ---
Chief Complaint: Chief Complaint: Right heel DFU Vital Signs: Vital Signs: Vital Signs Date Time Temp Pulse Resp B/P (MAP) Pulse Ox O2 Delivery O2 Flow Rate FiO2 05/11/20 07:00 98.0 70 18 152/69 (96) 94 Room Air 98.0 05/12/20 15:00 2.0 Vital Signs Date Time Temp Pulse Resp B/P (MAP) Pulse Ox O2 Delivery O2 Flow Rate FiO2 05/12/20 15:00 95 Room Air 2.0 05/12/20 11:00 97.7 69 20 125/58 (80) 97.7 Allergies: Allergies: Allergies Coded Allergies Type Severity Reaction Last Updated Verified No Known Drug Allergies 10/15/13 No Medications: Home Meds Active Scripts Cefdinir (CEFDINIR) 300 Mg Capsule, 1 CAP PO BID for Cellulitis for 7 Days, #14 CAP Prov:EVANGELINA VALENCIA MD 05/12/20 Rivaroxaban (XARELTO) 10 Mg Tablet, 2.5 MG PO BID for Peripheral arterial disease for 90 Days, #45 TAB Prov:EVANGELINA VALENCIA MD 05/12/20 Nystatin (NYSTOP) 60 Gm Powder, 1 BUNNY TP BID for groin moist, #1 MISC Prov:ALKA TURNER MD 04/27/19 Clopidogrel Bisulfate (CLOPIDOGREL) 75 Mg Tablet, 75 MG PO DAILYWBKFT for 30 Days, #30 TAB Prov:GRACE GENTILE MD 04/11/18 Carvedilol (CARVEDILOL ) 12.5 Mg Tablet, 25 MG PO BIDWMEALS for 30 Days, #120 TAB Prov:GRACE GENTILE MD 02/15/18 Hydralazine Hcl (HYDRALAZINE HCL) 25 Mg Tablet, 25 MG PO BID for 30 Days, #60 TAB Prov:GRACE GENTILE MD 02/15/18 Reported Medications Atorvastatin Calcium (ATORVASTATIN CALCIUM) 40 Mg Tablet, 2 TAB PO DAILY for PRESCRIBED, #30 TAB 5 Refills 05/08/20 Escitalopram Oxalate (ESCITALOPRAM OXALATE) 10 Mg Tablet, 1 TAB PO DAILY for PRESCRIBED, #30 TAB 3 Refills 05/08/20 Famotidine (FAMOTIDINE) 20 Mg Tablet, 20 MG PO DAILY for gerd 02/18/20 Morphine Sulfate (MORPHINE SULFATE ER) 15 Mg Tablet.er, 15 MG PO PRN Q6HRS PRN for PAIN 02/18/20 Losartan Potassium (LOSARTAN POTASSIUM) 100 Mg Tablet, 100 MG PO DAILY for HTN 02/18/20 Insulin Aspart (NOVOLOG FLEXPEN) 100 Unit/1 Ml Insuln.pen, 1 UNIT SQ TIDWMEALS for sliding scale, SYR 02/18/20 Liraglutide (VICTOZA 3-ANTONIO) 0.6 Mg/0.1 Ml Pen.injctr, 1.8 MG SQ DAILY for diabetes, #9 ML 3 Refills 02/18/20 Levothyroxine Sodium (LEVOTHYROXINE SODIUM) 100 Mcg Tablet, 1 TAB PO DAILY for thyroid, #30 TAB 5 Refills 02/18/20 Gabapentin (GABAPENTIN ) 300 Mg Capsule, 300 MG PO TID for NEUROGENIC PAIN, CAP 02/18/20 Amlodipine Besylate (AMLODIPINE BESYLATE) 10 Mg Tablet, 10 MG PO DAILY for rx, TAB 05/31/19 Furosemide (FUROSEMIDE) 20 Mg Tablet, 20 MG PO DAILY for CHF, TAB 04/25/19 Buspirone Hcl (BUSPIRONE HCL) 15 Mg Tablet, 1 TAB PO BID, #60 TAB 1 Refill 02/12/18 Nortriptyline Hcl (NORTRIPTYLINE HCL) 25 Mg Capsule, 2 CAP PO QHS for sleep, #30 CAP 2 Refills 02/12/18 Insulin Aspart (NOVOLOG FLEXPEN) 100 Unit/1 Ml Insuln.pen, 25 UNIT SQ TIDWMEALS, SYR 02/06/18 Insulin Detemir (LEVEMIR) 100 Unit/1 Ml Vial, 50 UNIT SQ HS, VIAL 12/21/16 Discontinued Reported Medications Labetalol HCl (Labetalol HCl) 10 Mg/2 Ml Syringe, 10 MG IV PRN Q2HRS PRN for HYPERTENSION, SYR 05/08/20 Aspirin (ASPIRIN) 81 Mg Tab.chew, 1 TAB PO DAILY, #30 TAB 3 Refills 02/12/18 Enoxaparin Sodium (LOVENOX) 30 Mg/0.3 Ml Disp.syrin, 30 MG SQ DAILY for ANTI- COAGULANT, DIS.SYR 05/08/20 Atorvastatin Calcium (ATORVASTATIN CALCIUM) 80 Mg Tablet, 1 TAB PO DAILY, #30 TAB 5 Refills 02/12/18 PCP: PCP: Dr Valencia Pain: Pain Location: Other (Pt denies pain at this time. Stating she has neuropathy in her bilat feet) Date of Onset Pt states wound has been present for several months and has been followed on an outpt basis by [facility]. Pt states she has diabetes and has had a history of other diabetic foot ulcers. Patient states that the current wound began as a small cut and has gradually progressed in size over the last 2 months. Patient states that she has been trying to place as little weight on it as possible as she was instructed to be nonweightbearing. PMH 1. Coronary artery disease status post PCI in 2017 2. Hypertension 3. Type 2 diabetes 4. Prior history of tobacco abuse 5. Severe peripheral arterial disease status post multiple interventions of the SFA bilaterally most recently in February 2020 of the right SFA 6. Chronic kidney disease General: No: Chills, Fatigue, Malaise Respiratory: No: Cough, Orthopnea Cardiovascular: yes Chest Pain (intermittently); No Edema Gastrointestinal: No Nausea, No Vomiting, No Diarrhea, No Constipation Genitourinary: No Dysuria, No Frequency, No Urgency Skin: No Dry Skin, No Eczema, No Hair Changes Psychological: No: Anxiety, Depression Physical Exam Patient awake and alert 64-year-old female in no apparent distress. Vital signs are stable and patient is afebrile. Respirations are even and unlabored. Patient is on room air not requiring supplemental oxygen. Abdomen is obese, soft, nondistended and nontender to palpation. Skin is warm dry and pink. The patient has a 3.6 x 2.2 x 0.3 open ulceration to the right heel. Wound bed is 90% slough, 10% granulation. Edges are rolled. Following written consent and application of topical lidocaine wound was debrided with a sterile curette, sterile scissors and pickups. Patient tolerated procedure without painful symptoms. Minimal bleeding controlled with pressure. Following debridement wound bed is 90% granulation, 10% slough. Edges are non-rolling and attached. Surrounding tissues without erythema. There is no odor following cleansing. A/P Right heel diabetic foot ulcer - Angiogram done on 05/09 ("Successful balloon [employer] to chronic total occlusion involving the right anterior tibial artery. Successful complex thrombectomy, balloon [employer]/stent placement to the right popliteal artery and the tibioperoneal trunk.") - Nonviable and minimal viable tissue debrided at bedside today, see PE for description -Cleanse and pat dry. Apply Hydrofera Blue to stimulate autolytic debridement. Cover with adhesive foam dressing. Change every 3 days or as needed if dressing loose or saturated. -Patient with surgical shoe. Due to the wound lying on the medial aspect of the heel and not directly over a pressure point, patient may ambulate minimally if wearing the surgical shoe. If wound worsens or stagnates in healing, would recommend offloading OrthoWedge Forefoot shoe. Will reevaluate need at clinic f/u appt. -Discussed adequate protein for optimal wound healing. -Patient to follow-up in 1 week at the wound care center following discharge from the hospital. JOÃO GONZALES APRN May 12, 2020 16:07
== END 2020-05-12 15:00 | disposition home health service (06) | DRG 270 ==
LOC: CCL 06:59 → 2 NORTH 08:40 → 1 WEST ICU 05-09 10:51 → 2 NORTH 05-09 12:06
PROVIDERS: ADMIT Internal Medicine Cardiovascular Disease; ATTEND Internal Medicine
PROC: B41FYZZ Fluoroscopy of Right Lower Extremity Arteries using Other Contrast (ICD-10-PCS; 2020-05-08)
PROC: 04CK3ZZ Extirpation of Matter from Right Femoral Artery, Percutaneous Approach (ICD-10-PCS; principal; 2020-05-09)
PROC: 04CM3ZZ Extirpation of Matter from Right Popliteal Artery, Percutaneous Approach (ICD-10-PCS; 2020-05-09)
PROC: 047P3ZZ Dilation of Right Anterior Tibial Artery, Percutaneous Approach (ICD-10-PCS; 2020-05-09)
PROC: 047K3ZZ Dilation of Right Femoral Artery, Percutaneous Approach (ICD-10-PCS; 2020-05-09)
PROC: 047M3DZ Dilation of Right Popliteal Artery with Intraluminal Device, Percutaneous Approach (ICD-10-PCS; 2020-05-09)
PROC: B41F1ZZ Fluoroscopy of Right Lower Extremity Arteries using Low Osmolar Contrast (ICD-10-PCS; 2020-05-09)
DX: E11.51 Type 2 diabetes mellitus with diabetic peripheral angiopathy without gangrene (principal); N17.0 Acute kidney failure with tubular necrosis; I13.0 Hypertensive heart and chronic kidney disease with heart failure and stage 1 through stage 4 chronic kidney disease, or unspecified chronic kidney disease; I50.42 Chronic combined systolic (congestive) and diastolic (congestive) heart failure; L97.409 Non-pressure chronic ulcer of unspecified heel and midfoot with unspecified severity; Z68.41 Body mass index [BMI] 40.0-44.9, adult; E03.9 Hypothyroidism, unspecified; E11.22 Type 2 diabetes mellitus with diabetic chronic kidney disease; E11.42 Type 2 diabetes mellitus with diabetic polyneuropathy; E11.621 Type 2 diabetes mellitus with foot ulcer; E66.01 Morbid (severe) obesity due to excess calories; J44.9 Chronic obstructive pulmonary disease, unspecified; N18.9 Chronic kidney disease, unspecified; I25.10 Atherosclerotic heart disease of native coronary artery without angina pectoris; G89.29 Other chronic pain; K21.9 Gastro-esophageal reflux disease without esophagitis; I70.201 Unspecified atherosclerosis of native arteries of extremities, right leg; F41.9 Anxiety disorder, unspecified; K64.9 Unspecified hemorrhoids; K59.09 Other constipation; E78.5 Hyperlipidemia, unspecified; F32.9 Major depressive disorder, single episode, unspecified; M19.90 Unspecified osteoarthritis, unspecified site; Z79.4 Long term (current) use of insulin; Z79.82 Long term (current) use of aspirin; Z82.3 Family history of stroke; I25.2 Old myocardial infarction; Z82.49 Family history of ischemic heart disease and other diseases of the circulatory system; Z87.891 Personal history of nicotine dependence; Z87.01 Personal history of pneumonia (recurrent); Z90.710 Acquired absence of both cervix and uterus; Z99.3 Dependence on wheelchair; Z86.73 Personal history of transient ischemic attack (TIA), and cerebral infarction without residual deficits; Z90.49 Acquired absence of other specified parts of digestive tract
CPT/HCPCS: 37184; 37226; 37228; G0269; 36247; 36415; 75710; 80048; 82962; 83880; 85025; 85027; 85520; 85610; 99152; 99153; C1713; C1725; C1757; C1760; C1769; C1876; C1892; C1894; J0360; J1644; J1815; J2185; J2250; J2543; J3010; J3490; J7030; Q9967; 97110-GP; 97116-GP; 97530-GP; 97535-GO; C1771; G0378; U0003-CS

== ENCOUNTER 2020-06-11 11:01 | Emergency (ER) | payer MEDICARE ==
[~2020-06-11] VITALS: Ht 162.6 cm; Wt 110.9 kg
[~2020-06-11 11:01] MED LIST changes: +ATOR40TA59 PO; +CEFD300C PO; +ENOX30DI SQ; +ESCITALOPRAM OX10 MG PO; +FERR325T14 PO; +RIVA10TA PO; +[UNRECOGNIZED DRUG - CODE] IV
[2020-06-11 12:02] LABS: BASO # 0.2 x10^3/uL (0.0-0.2); BASO % 2 % (0-3); EOS # 0.3 x10^3/uL (0.0-0.7); EOS % 3 % (0-3); HEMATOCRIT 35.6 % (36.0-47.0); HEMOGLOBIN 11.6 g/dL (12.0-15.5); LYMPH # 2.7 x10^3/uL (1.0-4.8); LYMPH % 25 % (24-48); MEAN CORPUSCULAR HEMOGLOBIN 29 pg (25-35); MEAN CORPUSCULAR HGB CONC 33 g/dL (31-37); MEAN CORPUSCULAR VOLUME 88 fL (79-100); MONO # 0.9 x10^3/uL (0.0-1.1); MONO % 8 % (0-9); NEUT # 6.8 x10^3/uL (1.8-7.7); NEUT % 63 % (31-73); PLATELET COUNT 326 x10^3/uL (140-400); RED BLOOD COUNT 4.07 x10^6/uL (3.50-5.40); RED CELL DISTRIBUTION WIDTH 15.9 % (11.5-14.5); WHITE BLOOD COUNT 10.8 x10^3/uL (4.0-11.0)
[2020-06-11 12:10] LABS: PROTHROMBIN TIME PATIENT 13.4 SEC (11.7-14.0)
[2020-06-11 12:16] LABS: CALCIUM 8.3 mg/dL (8.5-10.1); CREATININE 1.1 mg/dL (0.6-1.0); GFR 49.8; POTASSIUM 4.2 mmol/L (3.5-5.1)
[2020-06-11] MEDS ORDERED: ONDANSETRON PF 4 MG/2 ML VIAL. ONE (12:17)
[2020-06-11 12:23] LABS: ALBUMIN 2.3 g/dL (3.4-5.0); ALBUMIN/GLOBULIN RATIO 0.6 (1.0-1.7); MAGNESIUM 2.1 mg/dL (1.8-2.4); TOTAL BILIRUBIN 0.2 mg/dL (0.2-1.0); TOTAL PROTEIN 6.3 g/dL (6.4-8.2)
[2020-06-11] MEDS ORDERED: ONDANSETRON PF 4 MG/2 ML VIAL. IVP ONE (12:30)
[2020-06-11] MEDS ORDERED: hydrALAZINE 20 MG/ML VIAL. IVP ONE ×2 (12:30→15:00)
[2020-06-11 13:10] LABS: BILIRUBIN,URINE NEGATIVE (NEG); CLARITY,URINE CLEAR; COLOR,URINE YELLOW; NITRITE,URINE NEGATIVE (NEG); PH,URINE 6.5 (<5.0-8.0); PROTEIN,URINE >=300 mg/dL (NEG-TRACE); UROBILINOGEN,URINE 0.2 mg/dL (0.2 mg/dL)
[2020-06-11 13:19] LABS: BACTERIA,URINE 0 /HPF (0-FEW); RBC,URINE 0 /HPF (0-2); SQUAMOUS EPITHELIAL CELL,UR FEW /LPF; WBC,URINE OCC /HPF (0-4)
[2020-06-11 15:35] VITALS: BP 149/65
--- NOTE | 2020-06-11 16:03 | PHYS DOC ---
Past Medical History Past Medical History: Anxiety, CHF, COPD, CVA, Diabetes-Type II, High Cholesterol, Hypertension, Hypothyroid, Other Additional Past Medical Histor: YEAST INFECTION, RIGHT SIDE DEFICIT Past Surgical History: Appendectomy, Hysterectomy, Tonsillectomy, Other Additional Past Surgical Histo: RODS AND PINS IN R ANKLE, TUMORS REMOVED FROM BENEATH EYES- BILAT Smoking Status: Former Smoker Alcohol Use: None Drug Use: None General Adult EDM: Chief Complaint: HYPERTENSION HPI: HPI: Patient is a 64 year old female who presented to ER today due to elevated blood pressure. Patient has history hypertension, she is on 4 different medication for it. Patient denies any chest pain, no abdominal pain, no nausea vomiting, no headache, no blurred vision. Patient denies any weakness or numbness anywhere. Patient says she took her medication already at home. Review of Systems: Review of Systems: Constitutional: Denies fever or chills. [] Eyes: Denies change in visual acuity. [] HENT: Denies nasal congestion or sore throat. [] Respiratory: Denies cough or shortness of breath. [] Cardiovascular: Denies chest pain or edema. [] GI: Denies abdominal pain, nausea, vomiting, bloody stools or diarrhea. [] : Denies dysuria. [] Musculoskeletal: Denies back pain or joint pain. [] Integument: Denies rash. [] Neurologic: Denies headache, focal weakness or sensory changes. [] Endocrine: Denies polyuria or polydipsia. [] Lymphatic: Denies swollen glands. [] Psychiatric: Denies depression or anxiety. [] Heart Score: Risk Factors: Risk Factors: DM, Current or recent (<one month) smoker, HTN, HLP, family history of CAD, obesity. Risk Scores: Score 0 - 3: 2.5% MACE over next 6 weeks - Discharge Home Score 4 - 6: 20.3% MACE over next 6 weeks - Admit for Clinical Observation Score 7 - 10: 72.7% MACE over next 6 weeks - Early Invasive Strategies Current Medications: Current Medications Medications (Trade) Dose Ordered Sig/Madi Start Time Stop Time Status Last Admin Dose Admin Hydralazine HCl (Apresoline Inj) 10 mg 1X ONCE 06/11/20 15:00 06/11/20 15:01 DC 06/11/20 14:55 10 MG Lorazepam (Ativan Inj) 1 mg 1X ONCE 06/11/20 14:45 06/11/20 14:46 DC 06/11/20 14:54 1 MG Ondansetron HCl (Zofran) 4 mg 1X ONCE 06/11/20 12:30 06/11/20 12:31 DC 06/11/20 12:21 4 MG Allergies: Allergies: Allergies Coded Allergies Type Severity Reaction Last Updated Verified No Known Drug Allergies 10/15/13 No Physical Exam: PE: Constitutional: Well developed, well nourished, no acute distress, non-toxic appearance. [] HENT: Normocephalic, atraumatic, bilateral external ears normal, oropharynx moist, no oral exudates, nose normal. [] Eyes: PERRLA, EOMI, conjunctiva normal, no discharge. [] Neck: Normal range of motion, no tenderness, supple, no stridor. [] Cardiovascular:Heart rate regular rhythm, no murmur [] Lungs & Thorax: Bilateral breath sounds clear to auscultation [] Abdomen: Bowel sounds normal, soft, no tenderness, no masses, no pulsatile masses. [] Skin: Warm, dry, no erythema, no rash. [] Back: No tenderness, no CVA tenderness. [] Extremities: No tenderness, no cyanosis, no clubbing, ROM intact, no edema. [] Neurologic: Alert and oriented X 3, normal motor function, normal sensory function, no focal deficits noted. [] Psychologic: Affect normal, judgement normal, mood normal. [] Current Patient Data: Labs: Laboratory Tests Test 06/11/20 11:35 06/11/20 12:54 06/11/20 15:00 White Blood Count 10.8 x10^3/uL (4.0-11.0) Red Blood Count 4.07 x10^6/uL (3.50-5.40) Hemoglobin 11.6 g/dL (12.0-15.5) L Hematocrit 35.6 % (36.0-47.0) L Mean Corpuscular Volume 88 fL (79-100) Mean Corpuscular Hemoglobin 29 pg (25-35) Mean Corpuscular Hemoglobin Concent 33 g/dL (31-37) Red Cell Distribution Width 15.9 % (11.5-14.5) H Platelet Count 326 x10^3/uL (140-400) Neutrophils (%) (Auto) 63 % (31-73) Lymphocytes (%) (Auto) 25 % (24-48) Monocytes (%) (Auto) 8 % (0-9) Eosinophils (%) (Auto) 3 % (0-3) Basophils (%) (Auto) 2 % (0-3) Neutrophils # (Auto) 6.8 x10^3/uL (1.8-7.7) Lymphocytes # (Auto) 2.7 x10^3/uL (1.0-4.8) Monocytes # (Auto) 0.9 x10^3/uL (0.0-1.1) Eosinophils # (Auto) 0.3 x10^3/uL (0.0-0.7) Basophils # (Auto) 0.2 x10^3/uL (0.0-0.2) Prothrombin Time 13.4 SEC (11.7-14.0) Prothrombin Time INR 1.1 (0.8-1.1) Activated Partial Thromboplast Time 30 SEC (24-38) Sodium Level 140 mmol/L (136-145) Potassium Level 4.2 mmol/L (3.5-5.1) Chloride Level 105 mmol/L (98-107) Carbon Dioxide Level 30 mmol/L (21-32) Anion Gap 5 (6-14) L Blood Urea Nitrogen 23 mg/dL (7-20) H Creatinine 1.1 mg/dL (0.6-1.0) H Estimated GFR (Cockcroft-Gault) 49.8 BUN/Creatinine Ratio 21 (6-20) H Glucose Level 216 mg/dL (70-99) H Calcium Level 8.3 mg/dL (8.5-10.1) L Magnesium Level 2.1 mg/dL (1.8-2.4) Total Bilirubin 0.2 mg/dL (0.2-1.0) Aspartate Amino Transferase (AST) 10 U/L (15-37) L Alanine Aminotransferase (ALT) 14 U/L (14-59) Alkaline Phosphatase 99 U/L (46-116) Troponin I Quantitative < 0.017 ng/mL (0.000-0.055) < 0.017 ng/mL (0.000-0.055) NH-Hug-W-Type Natriuretic Peptide 2274 pg/mL (0-124) H Total Protein 6.3 g/dL (6.4-8.2) L Albumin 2.3 g/dL (3.4-5.0) L Albumin/Globulin Ratio 0.6 (1.0-1.7) L Lipase 41 U/L (73-393) L Urine Collection Type Unknown Urine Color Yellow Urine Clarity Clear Urine pH 6.5 (<5.0-8.0) Urine Specific Aguilar 1.015 (1.000-1.030) Urine Protein >=300 mg/dL (NEG-TRACE) Urine Glucose (UA) 100 mg/dL (NEG) Urine Ketones (Stick) Negative mg/dL (NEG) Urine Blood Negative (NEG) Urine Nitrite Negative (NEG) Urine Bilirubin Negative (NEG) Urine Urobilinogen Dipstick 0.2 mg/dL (0.2 mg/dL) Urine Leukocyte Esterase Negative (NEG) Urine RBC 0 /HPF (0-2) Urine WBC Occ /HPF (0-4) Urine Squamous Epithelial Cells Few /LPF Urine Bacteria 0 /HPF (0-FEW) Laboratory Tests 06/11/20 11:35 Laboratory Tests 06/11/20 11:35 Vital Signs: Vital Signs Date Time Temp Pulse Resp B/P (MAP) Pulse Ox O2 Delivery O2 Flow Rate FiO2 06/11/20 15:02 75 16 172/77 (108) 96 Room Air EKG: EKG: [] Radiology/Procedures: Radiology/Procedures: [] Course & Med Decision Making: Course & Med Decision Making Pertinent Labs and Imaging studies reviewed. (See chart for details) Patient is a 64-year-old female who was evaluated here in ER due to high blood pressure. Patient has history of hypertension, she is on 4 different blood pressure medication. Patient blood pressure was elevated in ER, her lab work did not show any acute organ injury. Patient feels anxious, patient was given medication in the ER and she felt better. patient was discharged home she went advised to call her family doctor for reevaluation. Anamon Disclaimer: Anamon Disclaimer: This electronic medical record was generated, in whole or in part, using a voice recognition dictation system. Departure Departure Impression: Primary Impression: Hypertension Disposition: HOME, SELF-CARE Condition: IMPROVED Referrals: [facility] (PCP) please follow up with your family doctor this week Patient Instructions: Hypertension Additional Instructions: Thank you for visiting our Emergency Department. We appreciate you trusting us with your care. If any additional problems come up don't hesitate to return to visit us. Please follow up with your primary care provider so they can plan additional care if needed and know about the problem that you had. If symptoms worsen come back to the Emergency Department. Any concerning symptoms that start such as chest pain, shortness of air, weakness or numbness on one side of the body, running high fevers or any other concerning symptoms return to the ER. Justicifation of Admission Dx: Justifications for Admission: Justification of Admission Dx: N/A Acute Renal Failure: 75% Reduction in GFR VIN EVERETT DO Jun 11, 2020 16:03
--- NOTE | 2020-06-11 17:06 | EKG ---
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
== END 2020-06-11 16:10 | disposition home or self-care (01) ==
LOC: ER 11:01
DX: I11.0 Hypertensive heart disease with heart failure (principal); I50.9 Heart failure, unspecified; R51 Headache; R20.2 Paresthesia of skin; E11.9 Type 2 diabetes mellitus without complications; J44.9 Chronic obstructive pulmonary disease, unspecified; E78.00 Pure hypercholesterolemia, unspecified; F41.9 Anxiety disorder, unspecified; E03.9 Hypothyroidism, unspecified; Z86.73 Personal history of transient ischemic attack (TIA), and cerebral infarction without residual deficits; Z87.891 Personal history of nicotine dependence
CPT/HCPCS: 36415; 80053; 81001; 83690; 83735; 83880; 84484; 85025; 85610; 85730; 93005; 96374; 96375; 96376; 99285; J0360; J2060; J2405